=== PATIENT | male | born 1960 | race Caucasian/White ===

== ENCOUNTER 2020-10-08 13:18 | Emergency (ER) | payer OTHER, SELFPAY ==
[2020-10-08 13:26] VITALS: BP 137/74; PULSE 98; RESP 18; TEMP 37.1; O2SAT 98; BMI 31.1
--- NOTE | 2020-10-08 14:41 | DI.RAD.S_ITS ---
PROCEDURE: XR FOOT LT MIN 3V INDICATIONS: pain/swelling to 1st MTP joint TECHNIQUE: 3 views of the foot were acquired. COMPARISON: None. FINDINGS: Bones: No fractures or dislocations. No suspicious bony lesions. First metatarsophalangeal joint space narrowing and subchondral sclerosis noted with small marginal osteophyte. Small plantar calcaneal spur noted as well. Soft tissues: No tibiotalar joint effusion. Achilles tendon appears normal. IMPRESSION: [id number] 1st metatarsophalangeal joint osteoarthritis Approved by: Valente Leslie M.D. on 10/08/2020 at 15:03
--- NOTE | 2020-10-08 14:42 | ED.EXTPRO ---
HPI - Extremity Problem <Amari Grimes PA-C - Last Filed: 10/08/20 18:36> General Chief complaint: Extremity Problem,Nontraumatic Stated complaint: LT LEG SWELLING Time Seen by Provider: 10/08/20 14:28 Source: patient Mode of arrival: Wheelchair Limitations: no limitations History of Present Illness HPI Narrative: Mr. Vanegas presents today with chief complaint of left great toe swelling and lower leg pain that started yesterday evening and has gotten worse today. He is now having significant pain with walking or with touching that area. 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 He denies any fever, calf pain, chest pain, shortness of breath or any other acute concerns or complaints at this time. Denies any previous history of blood clots. He has not taken any medication to help alleviate his symptoms at this time. Related Data Home Medications Medication Instructions Recorded Confirmed atorvastatin 20 mg tablet 20 mg PO DAILY 05/01/18 05/01/18 glipizide 5 mg tablet 5 mg PO DAILY 05/01/18 05/01/18 metformin 500 mg 24 hr 500 mg PO BID tab 05/01/18 05/01/18 tablet,extended release Previous Rx's Medication Instructions Recorded colchicine 0.6 mg capsule 0.6 mg PO DAILY PRN #10 cap 10/08/20 naproxen 500 mg tablet 500 mg PO BID PRN #20 tab 10/08/20 Allergies Allergy/AdvReac Type Severity Reaction Status Date / Time Penicillins Allergy Severe Rash Verified 10/08/20 13:25 Review of Systems <Amari Grimes PA-C - Last Filed: 10/08/20 18:36> Review of Systems Narrative: As per HPI Patient History <Amari Grimes PA-C - Last Filed: 10/08/20 18:36> Social History Smoking Status: Former smoker Smokeless tobacco user: chewing tobacco quit status: considering quitting Smoking Status: Former smoker tobacco type: smokeless tobacco alcohol intake frequency: holidays/special occasions only Substance Use Type: does not use Exam <Amari Grimes PA-C - Last Filed: 10/08/20 18:36> Narrative Exam Narrative: Exam Narrative: Const General: cooperative, healthy appearing, comfortable, no acute distress, well developed and well groomed Nutritional Appearance: Elevated BMI Orientation: alert and oriented x3 HENMT Head: normal to inspection and atraumatic Ears: hearing grossly normal bilaterally Nose: external nose normal and nares normal Face and sinus: normal facial exam Neck Neck: normal visual inspection and supple Resp Effort & Inspection: normal respiratory effort, able to speak in complete sentences, no audible wheezes, not labored, no nasal flaring and no respiratory distress Neuro General: alert, oriented x3, gait normal, tone normal and moves all extremities Cognition: normal cognition Speech: speech normal Gait: normal gait Extremities Lower extremities exposed. No calf tenderness or pedal edema bilaterally. Erythema, swelling and tenderness to the left MTP joint. He is able to range his toe but has pain in doing so. No streaking noted. No significant over warmth. Psych Appearance: grossly normal and well kempt Mental Status: mental status grossly normal Speech and Movement: speech and movement normal Mood: congruent mood Affect: normal affect Initial Vital Signs Initial Vital Signs: Vital Signs Temperature 98.7 F 10/08/20 13:26 Pulse Rate 98 H 10/08/20 13:26 Respiratory Rate 18 10/08/20 13:26 Blood Pressure 137/74 10/08/20 13:26 Pulse Oximetry 98 10/08/20 13:26 <Mary Jenkins MD - Last Filed: 10/09/20 09:18> Initial Vital Signs Initial Vital Signs: Vital Signs Temperature 98.7 F 10/08/20 13:26 Pulse Rate 98 H 10/08/20 13:26 Respiratory Rate 18 10/08/20 13:26 Blood Pressure 137/74 10/08/20 13:26 Pulse Oximetry 98 10/08/20 13:26 Course <Amari Grimes PA-C - Last Filed: 10/08/20 18:36> Orders Ordered: Discontinued Medications Ketorolac Tromethamine (Ketorolac 30 Mg/Ml Vial) 15 mg IV NOW ONE Stop: 10/08/20 16:16 Last Admin: 10/08/20 16:22 Dose: 15 mg Documented by: RACHAEL Vital Signs Vital signs: Vital Signs - 8 hr 10/08/20 13:26 10/08/20 16:30 Temperature 98.7 F Pulse Rate 98 H 98 H Respiratory Rate 18 16 Blood Pressure 137/74 152/112 H Pulse Oximetry 98 100 <Mary Jenkins MD - Last Filed: 10/09/20 09:18> Orders Ordered: Discontinued Medications Ketorolac Tromethamine (Ketorolac 30 Mg/Ml Vial) 15 mg IV NOW ONE Stop: 10/08/20 16:16 Last Admin: 10/08/20 16:22 Dose: 15 mg Documented by: RACHAEL Vital Signs Vital signs: Vital Signs - 8 hr 10/08/20 13:26 10/08/20 16:30 Temperature 98.7 F Pulse Rate 98 H 98 H Respiratory Rate 18 16 Blood Pressure 137/74 152/112 H Pulse Oximetry 98 100 MDM - Extremity (Nontraumatic) <Amrai Grimes PA-C - Last Filed: 10/08/20 18:36> Lab Data Result diagrams: 10/08/20 15:00 10/08/20 15:00 Labs: Lab Results 10/08/20 10/08/20 10/08/20 Range/Units 15:00 15:00 15:30 WBC 10.6 (4.5-11.0) X10^3/uL RBC 5.04 (4.5-5.9) X10^6/uL Hgb 13.7 (13.5-17.5) g/dL Hct 41.5 (41-53) % MCV 82.4 (80-100) fL MCH 27.2 (26-34) PG MCHC 33.1 (30-36) % RDW 13.3 (11.6-14.8) % Plt Count 199 (150-400) X10^3/uL Neut % (Auto) 76.6 H (50-75) % Lymph % (Auto) 14.6 L (25-40) % [place] % (Auto) 7.0 (3-14) % Eos % (Auto) 0.9 L (2-4) % Baso % (Auto) 0.9 (0-2) % Neut # (Auto) 8200 H (4288-4156) /uL Lymph # (Auto) 1600 (4896-9722) /uL [place] # (Auto) 700 (0-900) /uL Eos # (Auto) 100 (0-450) /uL Baso # (Auto) 100 (0-100) /uL D-Dimer 225 (<230) ng/mL Sodium 140 (137-145) mmol/L Potassium 4.6 (3.4-5.1) mmol/L Chloride 108 H (98-107) mmol/L Carbon Dioxide 25 (22-32) mmol/L BUN 21 H (9-20) mg/dL Creatinine 0.71 (0.66-1.25) mg/dL Estimated GFR > 60.0 (>60) mL/min BUN/Creatinine Ratio 29.6 H (6-22) Glucose 235 H (70-100) mg/dL Calcium 9.1 (8.4-10.2) mg/dL Total Bilirubin 0.7 (0.2-1.3) mg/dL AST 24 (17-59) IU/L ALT 16 (<50) IU/L Alkaline Phosphatase 94 (38-126) U/L Total Protein 7.8 (6.3-8.2) g/dL Albumin 4.3 (3.5-5.0) g/dL Globulin 3.5 (1.7-4.1) g/dL Albumin/Globulin Ratio 1.2 (1.0-2.8) MDM Narrative Medical decision making narrative: Physical examination and history is highly consistent with gout. Laboratory evaluation is reassuring at this time. We will treat with colchicine and NSAIDs. Steroids are going to be avoided at this time because of his history of diabetes. A consider septic arthropathy but think that this is less likely at this time. Cellulitis was also considered but there is no significant break in the skin and the area swelling is isolated around 1st MTP joint. He was experiencing some discomfort up his posterior lower leg that was unable to be reproduced on physical examination. D-dimer was checked to rule out DVT and that came back within normal limits. Recommend treatment for gout at this time with strict return precautions. Signs and symptoms of GI bleed were discussed with patient. Patient verbalizes understanding and agrees to plan and has no further concerns at this time. Thank you A [id number] system was used with the dictation of this note. Please disregard any spelling or grammatical errors. <Mary Jenkins MD - Last Filed: 10/09/20 09:18> Lab Data Labs: Lab Results 10/08/20 10/08/20 10/08/20 Range/Units 15:00 15:00 15:30 WBC 10.6 (4.5-11.0) X10^3/uL RBC 5.04 (4.5-5.9) X10^6/uL Hgb 13.7 (13.5-17.5) g/dL Hct 41.5 (41-53) % MCV 82.4 (80-100) fL MCH 27.2 (26-34) PG MCHC 33.1 (30-36) % RDW 13.3 (11.6-14.8) % Plt Count 199 (150-400) X10^3/uL Neut % (Auto) 76.6 H (50-75) % Lymph % (Auto) 14.6 L (25-40) % [place] % (Auto) 7.0 (3-14) % Eos % (Auto) 0.9 L (2-4) % Baso % (Auto) 0.9 (0-2) % Neut # (Auto) 8200 H (0887-1223) /uL Lymph # (Auto) 1600 (1259-6312) /uL [place] # (Auto) 700 (0-900) /uL Eos # (Auto) 100 (0-450) /uL Baso # (Auto) 100 (0-100) /uL D-Dimer 225 (<230) ng/mL Sodium 140 (137-145) mmol/L Potassium 4.6 (3.4-5.1) mmol/L Chloride 108 H (98-107) mmol/L Carbon Dioxide 25 (22-32) mmol/L BUN 21 H (9-20) mg/dL Creatinine 0.71 (0.66-1.25) mg/dL Estimated GFR > 60.0 (>60) mL/min BUN/Creatinine Ratio 29.6 H (6-22) Glucose 235 H (70-100) mg/dL Calcium 9.1 (8.4-10.2) mg/dL Total Bilirubin 0.7 (0.2-1.3) mg/dL AST 24 (17-59) IU/L ALT 16 (<50) IU/L Alkaline Phosphatase 94 (38-126) U/L Total Protein 7.8 (6.3-8.2) g/dL Albumin 4.3 (3.5-5.0) g/dL Globulin 3.5 (1.7-4.1) g/dL Albumin/Globulin Ratio 1.2 (1.0-2.8) Discharge Plan Departure Patient Disposition: Home Clinical Impression: Monoarthritis Instructions: Gout Activity Restrictions/Additional Instructions: It was nice to meet you this afternoon. Please use the medication provided to treat your joint pain. I suspect that this is gout. Please follow-up with your primary care provider for continued management. If you experience fever, worsening pain, decreased range of motion, or have any additional concerns or complaints do not hesitate to return for re-evaluation. Thank you Amari Grimes PA-C Prescriptions: New colchicine 0.6 mg capsule 0.6 mg PO DAILY PRN (Reason: for gout pain) Qty: 10 RF: 0 naproxen 500 mg tablet 500 mg PO BID PRN (Reason: pain) Qty: 20 RF: 0 No Action atorvastatin 20 mg tablet 20 mg PO DAILY RF: 0 glipizide 5 mg tablet 5 mg PO DAILY RF: 0 metformin 500 mg tablet,ER [email or web address] 24 hr 500 mg PO BID RF: 0 <Mary Jenkins MD - Last Filed: 10/09/20 09:18> Cosign ED Attending Cosignature Attestation: I was immediately available in the department for consultation throughout this patient's visit. I agree with documentation as above. Mary Jenkins MD
[2020-10-08 15:08] LABS: Add Manual Diff / Slide Review NO; Basophils Absolute Auto 100 /uL (0-100); Basophils Percent Auto 0.9 % (0-2); Eosinophils Absolute Auto 100 /uL (0-450); Eosinophils Percent Auto 0.9 % (2-4); Hematocrit 41.5 % (41-53); Hemoglobin 13.7 g/dL (13.5-17.5); Lymphocytes Absolute Auto 1600 /uL (1100-4500); Lymphocytes Percent Auto 14.6 % (25-40); Mean Corpuscular HGB Conc 33.1 % (30-36); Mean Corpuscular Hemoglobin 27.2 PG (26-34); Mean Corpuscular Volume 82.4 fL (80-100); Monocytes Absolute Auto 700 /uL (0-900); Neutrophils Absolute Auto 8200 /uL (1500-7000); Neutrophils Percent Auto 76.6 % (50-75); Platelet Count 199 X10^3/uL (150-400); Red Blood Cell Count 5.04 X10^6/uL (4.5-5.9); Red Cell Distribution Width 13.3 % (11.6-14.8); White Blood Cell Count 10.6 X10^3/uL (4.5-11.0)
[2020-10-08 15:18] LABS: Alanine Aminotransferase 16 IU/L (<50); Albumin 4.3 g/dL (3.5-5.0); Albumin Globulin Ratio 1.2 (1.0-2.8); Alkaline Phosphatase 94 U/L (38-126); Aspartate Aminotransferase 24 IU/L (17-59); BUN Creatinine Ratio 29.6 (6-22); Bilirubin Total 0.7 mg/dL (0.2-1.3); Blood Urea Nitrogen 21 mg/dL (9-20); Calcium 9.1 mg/dL (8.4-10.2); Carbon Dioxide 25 mmol/L (22-32); Chloride 108 mmol/L (98-107); Estimated Glomerular Filt Rate > 60.0 mL/min (>60); Globulin 3.5 g/dL (1.7-4.1); Glucose 235 mg/dL (70-100); Potassium 4.6 mmol/L (3.4-5.1); Sodium 140 mmol/L (137-145); Total Protein 7.8 g/dL (6.3-8.2)
[2020-10-08 15:19] LABS: HEMOLYSIS 57 (0-50)
[2020-10-08 16:00] LABS: D Dimer 225 ng/mL (<230)
[2020-10-08] MEDS: KETOROLAC 30 MG/ML VIAL 15 MG IV (16:22)
[2020-10-08 16:30] VITALS: BP 152/112; PULSE 98; RESP 16; O2SAT 100
== END 2020-10-08 16:30 | disposition home or self-care (01) ==
PROVIDERS: Emergency Provider Physician Assistant
DX: M10.9 Gout, unspecified (principal); M13.172 Monoarthritis, not elsewhere classified, left ankle and foot
CPT/HCPCS: 36415; 73630; 80053; 85025; 85379; 96374; 99284; J1885

== ENCOUNTER 2020-10-12 08:41 | Emergency (ER) | payer OTHER, SELFPAY ==
[2020-10-12] VITALS (7 sets, daily range): BP systolic 104–107; BP diastolic 71–73; PULSE 98–104; RESP 18; TEMP 36.4; O2SAT 97–99; BMI 31.1
--- NOTE | 2020-10-12 08:55 | DI.RAD.S_ITS ---
PROCEDURE: XR FOOT LT MIN 3V INDICATIONS: cellulitis eval for FB TECHNIQUE: 3 views of the foot were acquired. COMPARISON: [facility], CR, XR FOOT LT MIN 3V, 10/08/2020, 15:21. FINDINGS: Bones: No fractures or dislocations. No suspicious bony lesions. No change from 4 days ago, no foreign body identified. Soft tissues: No tibiotalar joint effusion. Achilles tendon appears normal. IMPRESSION: A radiodense foreign body is not seen over the left foot. There is moderate 1st MTP joint degenerative osteoarthritis previously present on the initial plain film study from this month, 10/08/20. No osteomyelitis or gas in the soft tissues is seen. Dictated by: Stephen Brooks M.D. on 10/12/2020 at 9:18 Approved by: Stephen Brooks M.D. on 10/12/2020 at 9:19
--- NOTE | 2020-10-12 08:58 | ED_ITS ---
HPI - General Adult General Chief complaint: Extremity Injury, Lower Stated complaint: Left foot infection recheck Time Seen by Provider: 10/12/20 08:43 History of Present Illness HPI narrative: Patient is a 60-year-old male. Has been seen recently a couple times for redness located on his left toe. There was no specific trauma. Initially he was diagnosed with gout and treated as such. He states that over the past couple days his symptoms have worsened. There has been more redness. He has developed what appeared to be blood blisters in between his great and 2nd toe. No fevers. The redness has started to stand up his foot. He has not been on antibiotics. Went to walk-in clinic this morning was instructed to come to the emergency department for evaluation. 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 This is unchanged. Related Data Home Medications Medication Instructions Recorded Confirmed atorvastatin 20 mg tablet 20 mg PO DAILY 05/01/18 05/01/18 glipizide 5 mg tablet 5 mg PO DAILY 05/01/18 05/01/18 metformin 500 mg 24 hr 500 mg PO BID tab 05/01/18 05/01/18 tablet,extended release Previous Rx's Medication Instructions Recorded colchicine 0.6 mg capsule 0.6 mg PO DAILY PRN #10 cap 10/08/20 naproxen 500 mg tablet 500 mg PO BID PRN #20 tab 10/08/20 Allergies Allergy/AdvReac Type Severity Reaction Status Date / Time Penicillins Allergy Severe Rash Verified 10/08/20 13:25 Review of Systems Constitutional Comments: No fevers Musculoskeletal Musculoskeletal: Reports as per HPI Integumentary/Breasts Skin/Breast: Reports as per HPI Neurologic Neurologic: Reports as per HPI Hematologic/Lymphatic On Anticoagulants: No Patient History Medical History Diabetes Social History Smoking Status: Former smoker Smokeless tobacco user: chewing tobacco quit status: considering quitting Smoking Status: Former smoker tobacco type: smokeless tobacco alcohol intake frequency: holidays/special occasions only Substance Use Type: does not use Exam Initial Vital Signs Initial Vital Signs: Vital Signs Temperature 97.5 F L 10/12/20 08:45 Pulse Rate 104 H 10/12/20 08:45 Respiratory Rate 18 10/12/20 08:45 Blood Pressure 107/71 10/12/20 08:45 Pulse Oximetry 97 10/12/20 08:45 Const General: cooperative and comfortable HENMT Head: normal to inspection Cardio Pulses: dorsalis pedis present on the left Skin Other: Patient has redness that extends from his great 2nd and 3rd toe on the medial aspect of his foot up into the mid foot. There is an area of what appears to be purulent material on the medial aspect of the great toe. There is also a blood blister in between the great and 2nd toe. Neuro Other: Does have some decreased sensation however this is not new Extrem Other: Full range of motion of the left ankle. Psych Appearance: grossly normal and well kempt Procedures Abscess I/D I&D #1: Site: foot Side (if applicable): left Technique: incised with #11 blade Irrigation: No Packing used?: none Course Orders Ordered: ED Orders 10/12/20 08:55 XR foot LT min 3V Stat Basic Metabolic Panel Stat Complete Blood Count AUTO DIFF Stat Lactate (Lactic Acid) Stat Procalcitonin Stat Uric Acid Stat Discontinued Medications Lidocaine/Sodium Bicarbonate (Lido 1%/Sod Bicarb 8.4% (10ml) 10 Ml Syringe) 10 ml INJ NOW ONE Stop: 10/12/20 08:56 Last Admin: 10/12/20 09:15 Dose: 10 ml Documented by: SHIREEN Vital Signs Vital signs: Vital Signs - 8 hr 10/12/20 08:45 10/12/20 08:58 10/12/20 09:00 Temperature 97.5 F L Pulse Rate 104 H 100 H 98 H Respiratory Rate 18 Blood Pressure 107/71 Pulse Oximetry 97 98 99 10/12/20 09:30 10/12/20 10:00 10/12/20 10:29 Temperature Pulse Rate 100 H 104 H 103 H Respiratory Rate Blood Pressure 104/73 Pulse Oximetry 99 99 99 10/12/20 10:30 Temperature Pulse Rate 103 H Respiratory Rate Blood Pressure Pulse Oximetry 99 Medical Decision Making Medical Records Medical records reviewed: Yes I reviewed the patient's medical records. Lab Data Lab results reviewed: Yes I reviewed the patient's lab results. Result diagrams: 10/12/20 08:55 10/12/20 08:55 Labs: Lab Results 10/12/20 10/12/20 10/12/20 Range/Units 08:55 08:55 08:55 WBC 18.8 H (4.5-11.0) X10^3/uL RBC 4.70 (4.5-5.9) X10^6/uL Hgb 12.7 L (13.5-17.5) g/dL Hct 38.3 L (41-53) % MCV 81.5 (80-100) fL MCH 26.9 (26-34) PG MCHC 33.1 (30-36) % RDW 13.7 (11.6-14.8) % Plt Count 231 (150-400) X10^3/uL Neut % (Auto) 88.4 H (50-75) % Lymph % (Auto) 4.6 L (25-40) % [place] % (Auto) 6.6 (3-14) % Eos % (Auto) 0.0 L (2-4) % Baso % (Auto) 0.4 (0-2) % Neut # (Auto) 55704 H (4829-8906) /uL Lymph # (Auto) 900 L (6616-3216) /uL [place] # (Auto) 1200 H (0-900) /uL Eos # (Auto) 0 (0-450) /uL Baso # (Auto) 100 (0-100) /uL Sodium 135 L (137-145) mmol/L Potassium 4.1 (3.4-5.1) mmol/L Chloride 102 (98-107) mmol/L Carbon Dioxide 23 (22-32) mmol/L BUN 19 (9-20) mg/dL Creatinine 0.98 (0.66-1.25) mg/dL Estimated GFR > 60.0 (>60) mL/min BUN/Creatinine Ratio 19.4 (6-22) Glucose 280 H (70-100) mg/dL Lactate 1.6 (0.7-2.1) mmol/L Uric Acid (3.5-8.5) mg/dL Calcium 9.1 (8.4-10.2) mg/dL Procalcitonin 0.32 (<0.5) ng/mL 10/12/20 Range/Units 08:55 WBC (4.5-11.0) X10^3/uL RBC (4.5-5.9) X10^6/uL Hgb (13.5-17.5) g/dL Hct (41-53) % MCV (80-100) fL MCH (26-34) PG MCHC (30-36) % RDW (11.6-14.8) % Plt Count (150-400) X10^3/uL Neut % (Auto) (50-75) % Lymph % (Auto) (25-40) % [place] % (Auto) (3-14) % Eos % (Auto) (2-4) % Baso % (Auto) (0-2) % Neut # (Auto) (6572-6728) /uL Lymph # (Auto) (4776-5970) /uL [place] # (Auto) (0-900) /uL Eos # (Auto) (0-450) /uL Baso # (Auto) (0-100) /uL Sodium (137-145) mmol/L Potassium (3.4-5.1) mmol/L Chloride (98-107) mmol/L Carbon Dioxide (22-32) mmol/L BUN (9-20) mg/dL Creatinine (0.66-1.25) mg/dL Estimated GFR (>60) mL/min BUN/Creatinine Ratio (6-22) Glucose (70-100) mg/dL Lactate (0.7-2.1) mmol/L Uric Acid 4.0 (3.5-8.5) mg/dL Calcium (8.4-10.2) mg/dL Procalcitonin (<0.5) ng/mL Imaging Data Extremity x-ray #1: Radiologist's Impression: [address] [id number] ReportSigned Patient: Larry Vanegas WMR#: [id number]: 1960cct:[id number]/Sex: 60 / MDate of Service: 10/12/20Loc: EDAccession Number: [id number] Procedure: XR foot LT min 3V Ordering Provider: Edward Mandel D.O. PROCEDURE: XR FOOT LT MIN 3V INDICATIONS: cellulitis eval for FB TECHNIQUE: 3 views of the foot were acquired. [facility]21. FINDINGS: Bones: No fractures or dislocations. No suspicious bony lesions. No change from 4 days ago, no foreign body identified. Soft tissues: No tibiotalar joint effusion. Achilles tendon appears normal. IMPRESSION: A radiodense foreign body is not seen over the left foot. There is moderate 1st MTP joint degenerative osteoarthritis previously present on the initial plain film study from this month, 10/08/20. No osteomyelitis or gas in the soft tissues is seen. Dictated by: Stephen Brooks M.D. on 10/12/2020 at 9:18 Approved by: Stephen Brooks M.D. on 10/12/2020 at 9:19 [facility] Narrative Medical decision making narrative: Patient does have findings on his left lower extremity consistent with cellulitis. I have lower suspicion for gout today. I did incise the wound is a was able to get a very small amount of purulent material from the area. Afterwards he stated that his foot did feel somewhat better. He is currently on antibiotics but has been on them for just 24 hours. Had a long discussion with him regarding the symptoms. We did discuss that potentially he does has not been on the antibiotics for long enough verses having failed outpatient treatment. We did discuss being admitted to the hospital versus going home and continuing his antibiotics and returning if symptoms worsen. He is nontoxic appearing. The plan will be is to discharge the patient home and have him continue his antibiotics. He was informed that if he was feeling the outpatient treatment his symptoms are most likely going to worsen over the next 24-48 hours. If this happens he will return to the emergency department for further evaluation. Discharge Plan Departure Patient Disposition: Home Clinical Impression: Cellulitis Instructions: DI for Cellulitis -- Adult Activity Restrictions/Additional Instructions: Your labs today and also your physical exam is concerning for a skin infection called cellulitis. He were currently on an appropriate antibiotic for this. I recommend that you continue to take this antibiotic. The next 24-48 hours will determine whether not this antibiotic is working for your infection. If you start to get worsening symptoms or fevers or start to feel poorly please return to the emergency department. If the redness worsens during the next 1-2 days please return to the emergency department as well. Contact your primary doctor for follow-up. Continue all of your medications as directed. Prescriptions: No Action atorvastatin 20 mg tablet 20 mg PO DAILY RF: 0 glipizide 5 mg tablet 5 mg PO DAILY RF: 0 metformin 500 mg tablet,ER [email or web address] 24 hr 500 mg PO BID RF: 0 colchicine 0.6 mg capsule 0.6 mg PO DAILY PRN (Reason: for gout pain) Qty: 10 RF: 0 naproxen 500 mg tablet 500 mg PO BID PRN (Reason: pain) Qty: 20 RF: 0
[2020-10-12 09:06] LABS: Add Manual Diff / Slide Review NO; Basophils Absolute Auto 100 /uL (0-100); Basophils Percent Auto 0.4 % (0-2); Eosinophils Absolute Auto 0 /uL (0-450); Hematocrit 38.3 % (41-53); Hemoglobin 12.7 g/dL (13.5-17.5); Lymphocytes Absolute Auto 900 /uL (1100-4500); Lymphocytes Percent Auto 4.6 % (25-40); Mean Corpuscular HGB Conc 33.1 % (30-36); Mean Corpuscular Hemoglobin 26.9 PG (26-34); Mean Corpuscular Volume 81.5 fL (80-100); Monocytes Absolute Auto 1200 /uL (0-900); Monocytes Percent Auto 6.6 % (3-14); Neutrophils Absolute Auto 16600 /uL (1500-7000); Neutrophils Percent Auto 88.4 % (50-75); Platelet Count 231 X10^3/uL (150-400); Red Cell Distribution Width 13.7 % (11.6-14.8); White Blood Cell Count 18.8 X10^3/uL (4.5-11.0)
[2020-10-12] MEDS: LIDO 1%/SOD BICARB 8.4% (10ML) 10 ML SYRINGE INJ (09:15)
[2020-10-12 09:19] LABS: BUN Creatinine Ratio 19.4 (6-22); Blood Urea Nitrogen 19 mg/dL (9-20); Calcium 9.1 mg/dL (8.4-10.2); Carbon Dioxide 23 mmol/L (22-32); Chloride 102 mmol/L (98-107); Estimated Glomerular Filt Rate > 60.0 mL/min (>60); Glucose 280 mg/dL (70-100); HEMOLYSIS < 15 (0-50); Potassium 4.1 mmol/L (3.4-5.1); Sodium 135 mmol/L (137-145)
[2020-10-12 09:20] LABS: Lactate (Lactic Acid) 1.6 mmol/L (0.7-2.1)
[2020-10-12 09:36] LABS: Procalcitonin 0.32 ng/mL (<0.5)
== END 2020-10-12 10:30 | disposition home or self-care (01) ==
PROVIDERS: Emergency Provider Emergency Medicine
DX: L03.116 Cellulitis of left lower limb (principal)
CPT/HCPCS: 10060; 36415; 73630; 80048; 83605; 84145; 84550; 85025; 99284

== ENCOUNTER 2020-10-16 09:39 | Inpatient (IN) | payer OTHER, SELFPAY ==
[2020-10-16] VITALS (14 sets, daily range): BP systolic 106–159; BP diastolic 64–91; PULSE 82–92; RESP 16–30; TEMP 36.1–36.9; O2SAT 92–100; BMI 29.1; BMI 29.0
--- NOTE | 2020-10-16 09:54 | ED.LOWEXIN ---
HPI - Extremity Injury (Lower) General Chief Complaint: Wound/Laceration Stated Complaint: infected left foot Time Seen by Provider: 10/16/20 09:54 History of Present Illness HPI Narrative: The patient has experienced left foot pain and swelling for approximately 2 weeks. He has history of gout. Information started around left 1st MTP joint, he was felt have gout exacerbation. He returned 4 days later with a widened erythema. He was treated for cellulitis. He has pictures of necrotic tissue around the 1st MTP as well as cellulitis extending up the leg. In the interim between the visits here he was started on antibiotics. It is unclear which antibiotic he is using. There was an attempt at a wound culture with the 2nd ER visit, no microbiology data is available. The site was opened with the 2nd visit, there was a little bit of fluid inside. The wound is now much wider open, but apparently the erythema is decreasing. He is having purulent discharge come out the site with every step. He is diabetic, he is not monitoring his glucose at home. Related Data Home Medications Medication Instructions Recorded Confirmed acetaminophen 500 mg tablet 1,000 mg PO Q8-12H 10/16/20 10/16/20 ibuprofen 200 mg tablet 400 mg PO Q8-12H 10/16/20 10/16/20 naproxen 500 mg tablet 500 mg PO BID PRN 10/16/20 10/16/20 sulfamethoxazole 800 1 tab PO BID 10/16/20 10/16/20 mg-trimethoprim 160 mg tablet Allergies Allergy/AdvReac Type Severity Reaction Status Date / Time Penicillins Allergy Severe Rash Verified 10/08/20 13:25 Review of Systems Constitutional Constitutional: Denies chills and Denies fever(s) ENT Ears, Nose, Mouth, and Throat: Denies dizziness and Denies sore throat Comments: No headache. Cardiovascular Cardiovascular: Denies chest pain, Denies rapid heart rate and Denies dyspnea Respiratory Respiratory: Denies cough and Denies dyspnea Musculoskeletal Musculoskeletal: Reports as per HPI Neurologic Neurologic: Denies dizziness and Denies localized weakness Psychiatric Psychiatric: Reports system reviewed and no additional complaints, except as documented Hematologic/Lymphatic On Anticoagulants: No Patient History Medical History Diabetes Social History Smoking Status: Former smoker Smokeless tobacco user: chewing tobacco quit status: considering quitting Smoking Status: Former smoker tobacco type: smokeless tobacco alcohol intake frequency: holidays/special occasions only Substance Use Type: does not use Exam Initial Vital Signs Initial Vital Signs: Vital Signs Temperature 98.4 F 10/16/20 09:50 Pulse Rate 90 10/16/20 09:50 Respiratory Rate 18 10/16/20 09:50 Blood Pressure 106/74 10/16/20 09:50 Pulse Oximetry 99 10/16/20 09:50 Const General: cooperative, comfortable, well developed and well groomed [facility] Head: normocephalic and atraumatic Resp Auscultation: clear to auscultation bilaterally Cardio Rate: regular rate Rhythm: regular rhythm Heart Sounds: S1 normal, S2 normal and no murmurs Other: 1+ bilateral dorsalis pedis pulses. GI Inspection: normal to inspection Skin General: other Other: Left foot cellulitis. Erythema originating around the 1st MTP. There is a flap of skin, likely an abscess or blister. There is an ecchymotic cyst on the dorsal foot between the 1st and 2nd MTP joint. Within the open wound there is a fluctuant area of necrotic tissue with pre and fluid that can be expressed from the site. Erythema exist on left medial foot, dorsal foot, and up across the medial malleolus. There is slight edema foot, no edema on the ankle. Neuro General: patient alert, patient awake, patient oriented x3 and normal sensation to monofilament Motor: muscle tone normal throughout Sensory Exam: no sensory deficits noted Course Course Course Narrative: The patient has left foot cellulitis, at the least. Cultures were obtained. He was started on Vancomycin and Meropenem. CT showed air in the wound, no obvious abscess formation or osteomyelitis. It is noted that MRI is more sensitive. The case was discussed with hospitalist, Dr. Guo, and Ortho, Dr. Howe. Dr. murry would be the admitting physician, Dr. Howe will see the patient consultation. Orders Ordered: ED Orders 10/16/20 10:14 CT LE LT wo con Stat 10/16/20 10:15 C-Reactive Protein Quant Stat Complete Blood Count AUTO DIFF Stat Comprehensive Metabolic Panel Stat 10/16/20 10:20 Blood Culture Stat 10/16/20 10:41 COVID19 - ADMIT (JEWEL SAWYER swab/PCR) Stat Wound Culture and Gram Stain Stat 10/16/20 11:20 Lactate (Lactic Acid) Stat Vancomycin HCl/Dextrose (Vancomycin) 1,500 mg in 300 mls @ 200 mls/hr IV NOW ONE Stop: 10/16/20 13:00 Last Admin: 10/16/20 11:35 Dose: 200 mls/hr Documented by: Discontinued Medications Meropenem 2 gm/ Sodium (Chloride) 100 mls @ 200 mls/hr IV NOW ONE Stop: 10/16/20 11:32 Last Admin: 10/16/20 12:04 Dose: 200 mls/hr Documented by: Vital Signs Vital signs: Vital Signs - 8 hr 10/16/20 09:50 10/16/20 10:43 10/16/20 11:00 Temperature 98.4 F Pulse Rate 90 92 H 87 Respiratory Rate 18 18 20 Blood Pressure 106/74 156/86 H Pulse Oximetry 99 97 100 10/16/20 11:22 10/16/20 11:30 Temperature Pulse Rate 84 89 Respiratory Rate 18 26 H Blood Pressure 149/81 H 159/89 H Pulse Oximetry 99 99 MDM - Extremity Injury (Lower) Lab Data Result diagrams: 10/16/20 10:15 10/16/20 10:15 Labs: Lab Results 10/16/20 10/16/20 10/16/20 Range/Units 10:15 10:15 10:41 WBC 13.4 H (4.5-11.0) X10^3/uL RBC 4.63 (4.5-5.9) X10^6/uL Hgb 12.6 L (13.5-17.5) g/dL Hct 38.1 L (41-53) % MCV 82.2 (80-100) fL MCH 27.1 (26-34) PG MCHC 33.0 (30-36) % RDW 13.9 (11.6-14.8) % Plt Count 321 (150-400) X10^3/uL Neut % (Auto) 78.4 H (50-75) % Lymph % (Auto) 10.1 L (25-40) % [place] % (Auto) 9.4 (3-14) % Eos % (Auto) 1.3 L (2-4) % Baso % (Auto) 0.8 (0-2) % Lymph # (Auto) Not Reportable [place] # (Auto) Not Reportable Baso # (Auto) Not Reportable Total Counted Cancelled Seg Neutrophils % Cancelled Band Neutrophils % Cancelled Lymphocytes % (Manual) Cancelled Atypical Lymphs % Cancelled Monocytes % (Manual) Cancelled Eosinophils % (Manual) Cancelled Basophils % (Manual) Cancelled Metamyelocytes % Cancelled Myelocytes % Cancelled Promyelocytes % Cancelled Blast Cells % Cancelled Neutrophils # (Manual) Cancelled Nucleated RBCs Cancelled Differential Comment Cancelled Hypersegmented Neuts Cancelled Reactive Lymphocytes Cancelled Plasma Cells Cancelled Smudge Cells Cancelled Other Cell Type Cancelled Toxic Granulation Cancelled Toxic Vacuolation Cancelled Dohle Bodies Cancelled Zeina Rods Cancelled WBC Morphology Comment Cancelled Platelet Estimate Cancelled Clumped Platelets Cancelled Plt Morphology Comment Cancelled RBC Morphology Cancelled Dimorphic RBCs Cancelled Polychromasia Cancelled Hypochromasia Cancelled Poikilocytosis Cancelled Basophilic Stippling Cancelled Anisocytosis Cancelled Microcytosis Cancelled Macrocytosis Cancelled Spherocytes Cancelled Pappenheimer Bodies Cancelled Sickle Cells Cancelled Target Cells Cancelled Tear Drop Cells Cancelled Ovalocytes Cancelled Stomatocytes Cancelled Helmet Cells Cancelled [place] Bodies Cancelled [place] Rings Cancelled [place] Cells Cancelled Acanthocytes (Spur) Cancelled Rouleaux Cancelled Schistocytes Cancelled Sodium 136 L (137-145) mmol/L Potassium 4.2 (3.4-5.1) mmol/L Chloride 101 (98-107) mmol/L Carbon Dioxide 25 (22-32) mmol/L BUN 13 (9-20) mg/dL Creatinine 1.04 (0.66-1.25) mg/dL Estimated GFR > 60.0 (>60) mL/min BUN/Creatinine Ratio 12.5 (6-22) Glucose 296 H (70-100) mg/dL Lactate (0.7-2.1) mmol/L Calcium 9.5 (8.4-10.2) mg/dL Total Bilirubin 0.5 (0.2-1.3) mg/dL AST 40 (17-59) IU/L ALT 36 (<50) IU/L Alkaline Phosphatase 197 H D (38-126) U/L C-Reactive Protein 19.0 H (<1.0) mg/dL Total Protein 7.8 (6.3-8.2) g/dL Albumin 4.0 (3.5-5.0) g/dL Globulin 3.8 (1.7-4.1) g/dL Albumin/Globulin Ratio 1.1 (1.0-2.8) SARS-CoV-2 (PCR) Negative (Negative) 10/16/20 Range/Units 11:20 WBC (4.5-11.0) X10^3/uL RBC (4.5-5.9) X10^6/uL Hgb (13.5-17.5) g/dL Hct (41-53) % MCV (80-100) fL MCH (26-34) PG MCHC (30-36) % RDW (11.6-14.8) % Plt Count (150-400) X10^3/uL Neut % (Auto) (50-75) % Lymph % (Auto) (25-40) % [place] % (Auto) (3-14) % Eos % (Auto) (2-4) % Baso % (Auto) (0-2) % Lymph # (Auto) [place] # (Auto) Baso # (Auto) Total Counted Seg Neutrophils % Band Neutrophils % Lymphocytes % (Manual) Atypical Lymphs % Monocytes % (Manual) Eosinophils % (Manual) Basophils % (Manual) Metamyelocytes % Myelocytes % Promyelocytes % Blast Cells % Neutrophils # (Manual) Nucleated RBCs Differential Comment Hypersegmented Neuts Reactive Lymphocytes Plasma Cells Smudge Cells Other Cell Type Toxic Granulation Toxic Vacuolation Dohle Bodies Zeina Rods WBC Morphology Comment Platelet Estimate Clumped Platelets Plt Morphology Comment RBC Morphology Dimorphic RBCs Polychromasia Hypochromasia Poikilocytosis Basophilic Stippling Anisocytosis Microcytosis Macrocytosis Spherocytes Pappenheimer Bodies Sickle Cells Target Cells Tear Drop Cells Ovalocytes Stomatocytes Helmet Cells [place] Bodies [place] Rings [place] Cells Acanthocytes (Spur) Rouleaux Schistocytes Sodium (137-145) mmol/L Potassium (3.4-5.1) mmol/L Chloride (98-107) mmol/L Carbon Dioxide (22-32) mmol/L BUN (9-20) mg/dL Creatinine (0.66-1.25) mg/dL Estimated GFR (>60) mL/min BUN/Creatinine Ratio (6-22) Glucose (70-100) mg/dL Lactate 1.6 (0.7-2.1) mmol/L Calcium (8.4-10.2) mg/dL Total Bilirubin (0.2-1.3) mg/dL AST (17-59) IU/L ALT (<50) IU/L Alkaline Phosphatase (38-126) U/L C-Reactive Protein (<1.0) mg/dL Total Protein (6.3-8.2) g/dL Albumin (3.5-5.0) g/dL Globulin (1.7-4.1) g/dL Albumin/Globulin Ratio (1.0-2.8) SARS-CoV-2 (PCR) (Negative) Imaging Data Left foot CT: Radiologist's Impression: [address] [id number] Scan ReportSigned Patient: Larry Vanegas WMR#: [id number]: 2Acct:[id number]/Sex: 60 / MDate of Service: 10/16/20Loc: EDAccession Number: [id number] Procedure: CT LE LT wo con Ordering Provider: Stuart Childers MD PROCEDURE: CT LE LT W CON INDICATIONS: Suspect left foot osteomyelitis versus abscess. TECHNIQUE: Noncontrast 3-mm axial sections acquired from the left tibia and fibula, as well as the left foot and ankle, with coronal and sagittal reformats.. COMPARISON: None. FINDINGS: Image quality: Excellent. Bones: No fracture or osseous lesion. Joint space narrowing and periarticular osteophyte formation at the 1st metatarsophalangeal joint. Soft tissues: There is moderate diffuse deep and subcutaneous soft tissue fat stranding and edema. There is soft tissue gas within the plantar soft tissues adjacent to the 1st and 2nd metatarsal heads. IMPRESSION: 1. Diffuse subcutaneous edema versus cellulitis. 2. Soft tissue gas within the plantar soft tissues as described above, which could indicate infection with a gas-forming organism in the appropriate clinical setting. 3. No evidence of osteomyelitis. Bone scan or pre and post-contrast enhanced MRI is more sensitive for detection of osteomyelitis. Dictated by: Yvonne Leung M.D. on 10/16/2020 at 11:00 Approved by: Yvonne Leung M.D. on 10/16/2020 at 11:04 Critical Care Time Critical Care Time Critical Care Time: Yes Total Critical Care Time: 35 Attestation: Critical care time includes the initial evaluation of the patient, review of past medical records, labs and radiology data, and informing the patient of the clinical situation. Time included consultations of the admitting physician and consulting orthopedic surgeon. Discharge Plan Departure Patient Disposition: Admitted As Inpatient Clinical Impression: Cellulitis of foot, left, Type 2 diabetes mellitus Admit Date/Time: 10/16/20 11:41 Admit Provider: Jones Guo
--- NOTE | 2020-10-16 10:14 | DI.CT.S_ITS ---
PROCEDURE: CT LE LT W CON INDICATIONS: Suspect left foot osteomyelitis versus abscess. TECHNIQUE: Noncontrast 3-mm axial sections acquired from the left tibia and fibula, as well as the left foot and ankle, with coronal and sagittal reformats.. COMPARISON: None. FINDINGS: Image quality: Excellent. Bones: No fracture or osseous lesion. Joint space narrowing and periarticular osteophyte formation at the 1st metatarsophalangeal joint. Soft tissues: There is moderate diffuse deep and subcutaneous soft tissue fat stranding and edema. There is soft tissue gas within the plantar soft tissues adjacent to the 1st and 2nd metatarsal heads. IMPRESSION: 1. Diffuse subcutaneous edema versus cellulitis. 2. Soft tissue gas within the plantar soft tissues as described above, which could indicate infection with a gas-forming organism in the appropriate clinical setting. 3. No evidence of osteomyelitis. Bone scan or pre and post-contrast enhanced MRI is more sensitive for detection of osteomyelitis. Dictated by: Yvonne Leung M.D. on 10/16/2020 at 11:00 Approved by: Yvonne Leung M.D. on 10/16/2020 at 11:04
[2020-10-16 10:27] LABS: Hematocrit 38.1 % (41-53); Hemoglobin 12.6 g/dL (13.5-17.5); Mean Corpuscular Hemoglobin 27.1 PG (26-34); Mean Corpuscular Volume 82.2 fL (80-100); Platelet Count 321 X10^3/uL (150-400); Red Blood Cell Count 4.63 X10^6/uL (4.5-5.9); Red Cell Distribution Width 13.9 % (11.6-14.8); White Blood Cell Count 13.4 X10^3/uL (4.5-11.0)
[2020-10-16 10:43] LABS: Alanine Aminotransferase 36 IU/L (<50); Albumin Globulin Ratio 1.1 (1.0-2.8); Alkaline Phosphatase 197 U/L (38-126); Aspartate Aminotransferase 40 IU/L (17-59); BUN Creatinine Ratio 12.5 (6-22); Bilirubin Total 0.5 mg/dL (0.2-1.3); Blood Urea Nitrogen 13 mg/dL (9-20); Calcium 9.5 mg/dL (8.4-10.2); Carbon Dioxide 25 mmol/L (22-32); Chloride 101 mmol/L (98-107); Estimated Glomerular Filt Rate > 60.0 mL/min (>60); Globulin 3.8 g/dL (1.7-4.1); Glucose 296 mg/dL (70-100); HEMOLYSIS < 15 (0-50); Potassium 4.2 mmol/L (3.4-5.1); Sodium 136 mmol/L (137-145); Total Protein 7.8 g/dL (6.3-8.2)
[2020-10-16 10:45] LABS: Eosinophils Percent Auto 1.3 % (2-4); Lymphocytes Percent Auto 10.1 % (25-40); Monocytes Percent Auto 9.4 % (3-14); Neutrophils Percent Auto 78.4 % (50-75)
[2020-10-16 10:46] LABS: Add Manual Diff / Slide Review NO; Basophils Percent Auto 0.8 % (0-2)
[2020-10-16 11:35] LABS: COVID19 - ADMIT (NP swab/PCR) Negative (Negative)
[2020-10-16] MEDS: VANCOMYCIN 1,500 MG/300 ML PIGGYBACK 200 MG IV ×2 (11:35→23:40)
[2020-10-16 11:39] LABS: Lactate (Lactic Acid) 1.6 mmol/L (0.7-2.1)
[2020-10-16] MEDS: MEROPENEM 2 GM in SODIUM CHLORIDE 0.9% 100 ML 200 ML IV ×2 (12:04→18:17)
--- NOTE | 2020-10-16 13:03 | P.CONS_ITS ---
History of Present Illness Consult details Chief complaint: infected left foot Narrative: Mr. Vanegas is a 60 yo M with 1 week hx of worsening left foot infection after stepping on something. He does not know when or what he stepped on. He has been coming to ED over the last week for treatment. Some local I&D was done and he was placed on oral antibiotics. Today he returns for worsening swelling, pain, redness and drainage from his left foot. He has poorly controlled diabetes. He is being admitted to medicine for IV antibiotics and ortho service is consulted. Meds Home Medications and Allergies Home Medications Medication Instructions Recorded Confirmed Type acetaminophen 500 mg tablet 1,000 mg PO Q8-12H 10/16/20 10/16/20 History ibuprofen 200 mg tablet 400 mg PO Q8-12H 10/16/20 10/16/20 History naproxen 500 mg tablet 500 mg PO BID PRN 10/16/20 10/16/20 History sulfamethoxazole 800 1 tab PO BID 10/16/20 10/16/20 History mg-trimethoprim 160 mg tablet Allergies Allergy/AdvReac Type Severity Reaction Status Date / Time Penicillins Allergy Severe Rash Verified 10/08/20 13:25 Exam Vital Signs (past 8 hours): - 10/16/20 09:50 10/16/20 10:43 10/16/20 11:00 Temperature 98.4 F Pulse Rate 90 92 H 87 Respiratory Rate 18 18 20 Blood Pressure 106/74 156/86 H Pulse Oximetry 99 97 100 10/16/20 11:22 10/16/20 11:30 10/16/20 12:00 Temperature Pulse Rate 84 89 87 Respiratory Rate 18 26 H 26 H Blood Pressure 149/81 H 159/89 H 154/91 H Pulse Oximetry 99 99 99 10/16/20 12:30 Temperature Pulse Rate 83 Respiratory Rate 24 Blood Pressure 146/85 H Pulse Oximetry 97 Oxygen Delivery Method Room Air Extrem Other: left foot with erythema up to above the ankle level. There is macerated skin on the plantar part of left foot and in between his toes. There is spontaneous drainage of his wound between his toes and plantar aspect. He has no ankle pain with ROM. Objective Labs Result Diagrams: 10/16/20 10:15 10/16/20 10:15 Labs: Laboratory Results - last 24 hr 10/16/20 10/16/20 10/16/20 10:15 10:15 10:41 WBC 13.4 H RBC 4.63 Hgb 12.6 L Hct 38.1 L MCV 82.2 MCH 27.1 MCHC 33.0 RDW 13.9 Plt Count 321 Neut % (Auto) 78.4 H Lymph % (Auto) 10.1 L [place] % (Auto) 9.4 Eos % (Auto) 1.3 L Baso % (Auto) 0.8 Lymph # (Auto) Not Reportable [place] # (Auto) Not Reportable Baso # (Auto) Not Reportable Total Counted Cancelled Seg Neutrophils % Cancelled Band Neutrophils % Cancelled Lymphocytes % (Manual) Cancelled Atypical Lymphs % Cancelled Monocytes % (Manual) Cancelled Eosinophils % (Manual) Cancelled Basophils % (Manual) Cancelled Metamyelocytes % Cancelled Myelocytes % Cancelled Promyelocytes % Cancelled Blast Cells % Cancelled Neutrophils # (Manual) Cancelled Nucleated RBCs Cancelled Differential Comment Cancelled Hypersegmented Neuts Cancelled Reactive Lymphocytes Cancelled Plasma Cells Cancelled Smudge Cells Cancelled Other Cell Type Cancelled Toxic Granulation Cancelled Toxic Vacuolation Cancelled Dohle Bodies Cancelled Zeina Rods Cancelled WBC Morphology Comment Cancelled Platelet Estimate Cancelled Clumped Platelets Cancelled Plt Morphology Comment Cancelled RBC Morphology Cancelled Dimorphic RBCs Cancelled Polychromasia Cancelled Hypochromasia Cancelled Poikilocytosis Cancelled Basophilic Stippling Cancelled Anisocytosis Cancelled Microcytosis Cancelled Macrocytosis Cancelled Spherocytes Cancelled Pappenheimer Bodies Cancelled Sickle Cells Cancelled Target Cells Cancelled Tear Drop Cells Cancelled Ovalocytes Cancelled Stomatocytes Cancelled Helmet Cells Cancelled [place] Bodies Cancelled [place] Rings Cancelled Gabrielle Cells Cancelled Acanthocytes (Spur) Cancelled Rouleaux Cancelled Schistocytes Cancelled Sodium 136 L Potassium 4.2 Chloride 101 Carbon Dioxide 25 BUN 13 Creatinine 1.04 Estimated GFR > 60.0 BUN/Creatinine Ratio 12.5 Glucose 296 H Lactate Calcium 9.5 Total Bilirubin 0.5 AST 40 ALT 36 Alkaline Phosphatase 197 H D C-Reactive Protein 19.0 H Total Protein 7.8 Albumin 4.0 Globulin 3.8 Albumin/Globulin Ratio 1.1 SARS-CoV-2 (PCR) Negative 10/16/20 11:20 WBC RBC Hgb Hct MCV MCH MCHC RDW Plt Count Neut % (Auto) Lymph % (Auto) [place] % (Auto) Eos % (Auto) Baso % (Auto) Lymph # (Auto) [place] # (Auto) Baso # (Auto) Total Counted Seg Neutrophils % Band Neutrophils % Lymphocytes % (Manual) Atypical Lymphs % Monocytes % (Manual) Eosinophils % (Manual) Basophils % (Manual) Metamyelocytes % Myelocytes % Promyelocytes % Blast Cells % Neutrophils # (Manual) Nucleated RBCs Differential Comment Hypersegmented Neuts Reactive Lymphocytes Plasma Cells Smudge Cells Other Cell Type Toxic Granulation Toxic Vacuolation Dohle Bodies Zeina Rods WBC Morphology Comment Platelet Estimate Clumped Platelets Plt Morphology Comment RBC Morphology Dimorphic RBCs Polychromasia Hypochromasia Poikilocytosis Basophilic Stippling Anisocytosis Microcytosis Macrocytosis Spherocytes Pappenheimer Bodies Sickle Cells Target Cells Tear Drop Cells Ovalocytes Stomatocytes Helmet Cells [place] Bodies [place] Rings Gabrielle Cells Acanthocytes (Spur) Rouleaux Schistocytes Sodium Potassium Chloride Carbon Dioxide BUN Creatinine Estimated GFR BUN/Creatinine Ratio Glucose Lactate 1.6 Calcium Total Bilirubin AST ALT Alkaline Phosphatase C-Reactive Protein Total Protein Albumin Globulin Albumin/Globulin Ratio SARS-CoV-2 (PCR) Assessment & Plan Assessment & Plan narrative: 60 yo M with left foot cellulitis, spontaneously draining wound after an injury to his left foot a week ago. His glucose was [address] shows cellulitis w/o evidence of abscess that is surgically treatable. I recommend IV antibiotics. Consult wound care for diabetic foot care daily while in the hospital and possible once set up for antibiotic therapy on outpatient basis. Patient may benefit from MRI left foot w/ and w/o constrast to assess for possible osteomyelitis. Will follow and re-evaluate tomorrow.
[2020-10-16 17:15] LABS: Hemoglobin A1C% w Est Avg Glu 10.9 % (4.0-6.0)
--- NOTE | 2020-10-16 17:43 | P.HP_ITS ---
History of Present Illness History of Present Illness Date Patient Seen: 10/16/20 Time Patient Seen: 17:00 Date of Onset of Symptoms: 10/08/20 Chief complaint: infected left foot Narrative: Patient is a 60-year-old male with untreated diabetes type 2 who presents back to emergency department with concerns of left foot infection. He was initially on October 08 when he noticed redness and swelling and pain around the left big toe. He was diagnosed with acute gout and sent home on naproxen and colchicine. Over next few days patient developed fevers and chills and the appearance of foot worsened with increased redness and bruising dis coloration resulting in 2nd ER visit on the . This time his labs and appearance of foot were more consistent with infection. White blood cell noted 18.8. ER physician thought there might be a collection of pus under the left 1st metatarsal and performed a small I and D. However, there is no report of Gram stain or culture result from that visit. Patient was started on Bactrim on the . He came back to emergency department today because he noticed there was forming a lot of skin sloughing and drainage from his foot. On ER labs current visit there is improvement in his WBC to 13.4. Glucose was 269. A CT contrast study was done which showed diffuse subcu edema, soft tissue gas within plantar soft tissues, no evidence of osteomyelitis. Ortho service was asked to consult and patient admitted to the hospitalist service for treatment of left foot infection. Patient was having fevers and chills earlier this week but has not had fevers the last few days since on oral antibiotic. Denies nausea or vomiting, shortness of breath or cough. Patient gets his care through the [facility]. Prior to start of COVID last year he was on Lantus 55 units at night. However, he was unable to reach [facility] to get his [facility] renewed and has been without medication for the past year. Patient states he tried metformin in the past and got diarrhea. He has not been monitoring blood sugars. He denies neuropathy. Patient's family history is positive for diabetes in mom and multiple siblings. He works at [employer]. Patient History Medical History Diabetes Family & Social History Social History: household members none Prior Living Arrangements RV Safety & Behavioral: Feels Safe in Current Yes Environment Been Physically Hurt or No Threatened By a Person Suicidal Ideation Description None Suicide Plan Description No Plan Tobacco & Substance use: Tobacco type smokeless tobacco Smoking Status Former smoker alcohol intake frequency holiday/special occasion Substance Use Type does not use Meds Home Medications and Allergies Home Medications Medication Instructions Recorded Confirmed Type acetaminophen 500 mg tablet 1,000 mg PO Q8-12H 10/16/20 10/16/20 History ibuprofen 200 mg tablet 400 mg PO Q8-12H 10/16/20 10/16/20 History naproxen 500 mg tablet 500 mg PO BID PRN 10/16/20 10/16/20 History sulfamethoxazole 800 1 tab PO BID 10/16/20 10/16/20 History mg-trimethoprim 160 mg tablet Allergies Allergy/AdvReac Type Severity Reaction Status Date / Time Penicillins Allergy Severe Rash Verified 10/08/20 13:25 Review of Systems Review of Systems Narrative: Negative for chest pain, dyspnea, headache, palpitations, abdominal pain, nausea or vomiting, dysuria. Exam Vital Signs (past 8 hours): - 10/16/20 09:50 10/16/20 10:43 10/16/20 11:00 Temperature 98.4 F Pulse Rate 90 92 H 87 Respiratory Rate 18 18 20 Blood Pressure 106/74 156/86 H Pulse Oximetry 99 97 100 10/16/20 11:22 10/16/20 11:30 10/16/20 12:00 Temperature Pulse Rate 84 89 87 Respiratory Rate 18 26 H 26 H Blood Pressure 149/81 H 159/89 H 154/91 H Pulse Oximetry 99 99 99 10/16/20 12:30 10/16/20 13:00 10/16/20 13:30 Temperature Pulse Rate 83 86 82 Respiratory Rate 24 30 H 21 Blood Pressure 146/85 H 150/77 H 129/81 Pulse Oximetry 97 98 98 10/16/20 14:00 Temperature 97 F L Pulse Rate 86 Respiratory Rate 22 Blood Pressure 112/74 Pulse Oximetry 92 Oxygen Delivery Method Room Air Narrative Exam Narrative: General: Patient is well developed well nourished alert male in no acute distress HEENT: Anicteric, pupils equal and reactive Neck: No lymphadenopathy Heart: Regular rhythm without murmur Lungs: Clear to auscultation Abdomen: Soft, nontender, no HSM Extremities: The left foot is swollen and diffusely erythematous to above the ankle. There are confluency areas of skin maceration and sloughing over the distal dorsal foot extending to the plantar 1st metatarsal area as well as between the 1st and 2nd and 2nd and 3rd toes. There is spontaneous serous drainage from the plantar surface and between the toes. Light touch sensation is intact. There is no significant tenderness. Objective Labs Result Diagrams: 10/16/20 10:15 10/16/20 10:15 Labs: Laboratory Results - last 24 hr 10/16/20 10/16/20 10/16/20 10:15 10:15 10:15 WBC 13.4 H RBC 4.63 Hgb 12.6 L Hct 38.1 L MCV 82.2 MCH 27.1 MCHC 33.0 RDW 13.9 Plt Count 321 Neut % (Auto) 78.4 H Lymph % (Auto) 10.1 L [place] % (Auto) 9.4 Eos % (Auto) 1.3 L Baso % (Auto) 0.8 Lymph # (Auto) Not Reportable [place] # (Auto) Not Reportable Baso # (Auto) Not Reportable Total Counted Cancelled Seg Neutrophils % Cancelled Band Neutrophils % Cancelled Lymphocytes % (Manual) Cancelled Atypical Lymphs % Cancelled Monocytes % (Manual) Cancelled Eosinophils % (Manual) Cancelled Basophils % (Manual) Cancelled Metamyelocytes % Cancelled Myelocytes % Cancelled Promyelocytes % Cancelled Blast Cells % Cancelled Neutrophils # (Manual) Cancelled Nucleated RBCs Cancelled Differential Comment Cancelled Hypersegmented Neuts Cancelled Reactive Lymphocytes Cancelled Plasma Cells Cancelled Smudge Cells Cancelled Other Cell Type Cancelled Toxic Granulation Cancelled Toxic Vacuolation Cancelled Dohle Bodies Cancelled Zeina Rods Cancelled WBC Morphology Comment Cancelled Platelet Estimate Cancelled Clumped Platelets Cancelled Plt Morphology Comment Cancelled RBC Morphology Cancelled Dimorphic RBCs Cancelled Polychromasia Cancelled Hypochromasia Cancelled Poikilocytosis Cancelled Basophilic Stippling Cancelled Anisocytosis Cancelled Microcytosis Cancelled Macrocytosis Cancelled Spherocytes Cancelled Pappenheimer Bodies Cancelled Sickle Cells Cancelled Target Cells Cancelled Tear Drop Cells Cancelled Ovalocytes Cancelled Stomatocytes Cancelled Helmet Cells Cancelled [place] Bodies Cancelled [place] Rings Cancelled [place] Cells Cancelled Acanthocytes (Spur) Cancelled Rouleaux Cancelled Schistocytes Cancelled Sodium 136 L Potassium 4.2 Chloride 101 Carbon Dioxide 25 BUN 13 Creatinine 1.04 Estimated GFR > 60.0 BUN/Creatinine Ratio 12.5 Glucose 296 H Hemoglobin A1c 10.9 H Lactate Calcium 9.5 Total Bilirubin 0.5 AST 40 ALT 36 Alkaline Phosphatase 197 H D C-Reactive Protein 19.0 H Total Protein 7.8 Albumin 4.0 Globulin 3.8 Albumin/Globulin Ratio 1.1 SARS-CoV-2 (PCR) 10/16/20 10/16/20 10:41 11:20 WBC RBC Hgb Hct MCV MCH MCHC RDW Plt Count Neut % (Auto) Lymph % (Auto) [place] % (Auto) Eos % (Auto) Baso % (Auto) Lymph # (Auto) [place] # (Auto) Baso # (Auto) Total Counted Seg Neutrophils % Band Neutrophils % Lymphocytes % (Manual) Atypical Lymphs % Monocytes % (Manual) Eosinophils % (Manual) Basophils % (Manual) Metamyelocytes % Myelocytes % Promyelocytes % Blast Cells % Neutrophils # (Manual) Nucleated RBCs Differential Comment Hypersegmented Neuts Reactive Lymphocytes Plasma Cells Smudge Cells Other Cell Type Toxic Granulation Toxic Vacuolation Dohle Bodies Zeina Rods WBC Morphology Comment Platelet Estimate Clumped Platelets Plt Morphology Comment RBC Morphology Dimorphic RBCs Polychromasia Hypochromasia Poikilocytosis Basophilic Stippling Anisocytosis Microcytosis Macrocytosis Spherocytes Pappenheimer Bodies Sickle Cells Target Cells Tear Drop Cells Ovalocytes Stomatocytes Helmet Cells [place] Bodies [place] Rings Gabrielle Cells Acanthocytes (Spur) Rouleaux Schistocytes Sodium Potassium Chloride Carbon Dioxide BUN Creatinine Estimated GFR BUN/Creatinine Ratio Glucose Hemoglobin A1c Lactate 1.6 Calcium Total Bilirubin AST ALT Alkaline Phosphatase C-Reactive Protein Total Protein Albumin Globulin Albumin/Globulin Ratio SARS-CoV-2 (PCR) Negative Assessment & Plan Assessment & Plan narrative: 1. Left foot cellulitis -patient with significant areas of erythema and skin maceration/superficial sloughing of the left foot -CT report indicated diffuse subcutaneous edema and areas of soft tissue gas -Dr. Howe saw patient for ortho consult and does not see abscess that requires surgical drainage -I agree with ortho exam this appears clinically as a superficial soft tissue infection without evidence of deep abscess or osteomyelitis, additionally patient has been on oral Bactrim since October 12 with decrease in his WBC and no longer having fevers suggesting some clinical response to oral antibiotic -patient was started on vancomycin and meropenem in ED with already improvement in left foot erythema -continue vancomycin and meropenem for treatment of left foot cellulitis, I suspect patient may need 1 or 2 days of IV antibiotics to make sure infection under control before discharge home back on Bactrim -apply mupirocin ointment with gauze dressing b.i.d. to left foot -[facility] appointment [facility] after discharge 2. Type 2 diabetes -glucose 296, check hemoglobin A1c -patient previously on Lantus 55 units HS prescribed through [facility] -restart Lantus 40 units at bedtime -medium dose insulin correction a.c. HS -patient requests to send prescription for 90 day Lantus Solostar supply and pen needles to [facility] pharmacy until patient can reestablish with his provider DVT prophylaxis: Lovenox Surrogate decision maker: Spouse Quality VTE Deep Vein Thrombosis/Pulmonary Embolism Present on Admission: No
[2020-10-16] MEDS: INSULIN GLARGINE 100 UNIT/ML 3ML PEN 40 UNIT SUBCUT (22:07)
[2020-10-16] MEDS: INSULIN LISPRO 100 UNIT/ML 3ML VIAL SUBCUT (22:09)
--- NOTE | 2020-10-16 22:20 | PC.NURSE ---
wrapped lt. foot with gauze. ointment not available.
[2020-10-17] VITALS (15 sets, daily range): BP systolic 105–148; BP diastolic 77–98; PULSE 84–103; RESP 16–18; TEMP 36.3–36.9; O2SAT 93–98
[2020-10-17] MEDS: MEROPENEM 2 GM in SODIUM CHLORIDE 0.9% 100 ML 200 ML IV ×3 (01:28→17:02)
[2020-10-17] MEDS: MAG HYDROX/ALUM/SIMETH 30 ML UDC PO (03:52)
[2020-10-17 05:58] LABS: Add Manual Diff / Slide Review NO; Basophils Absolute Auto 100 /uL (0-100); Basophils Percent Auto 0.6 % (0-2); Eosinophils Absolute Auto 400 /uL (0-450); Eosinophils Percent Auto 3.9 % (2-4); Hematocrit 33.3 % (41-53); Hemoglobin 11.1 g/dL (13.5-17.5); Lymphocytes Absolute Auto 1600 /uL (1100-4500); Lymphocytes Percent Auto 15.1 % (25-40); Mean Corpuscular HGB Conc 33.3 % (30-36); Mean Corpuscular Hemoglobin 27.2 PG (26-34); Mean Corpuscular Volume 81.7 fL (80-100); Monocytes Absolute Auto 1300 /uL (0-900); Monocytes Percent Auto 11.8 % (3-14); Neutrophils Absolute Auto 7400 /uL (1500-7000); Neutrophils Percent Auto 68.6 % (50-75); Platelet Count 309 X10^3/uL (150-400); Red Blood Cell Count 4.08 X10^6/uL (4.5-5.9); Red Cell Distribution Width 13.7 % (11.6-14.8); White Blood Cell Count 10.7 X10^3/uL (4.5-11.0)
[2020-10-17 06:12] LABS: BUN Creatinine Ratio 18.6 (6-22); Blood Urea Nitrogen 16 mg/dL (9-20); Calcium 8.8 mg/dL (8.4-10.2); Carbon Dioxide 27 mmol/L (22-32); Chloride 103 mmol/L (98-107); Estimated Glomerular Filt Rate > 60.0 mL/min (>60); Glucose 212 mg/dL (70-100); HEMOLYSIS < 15 (0-50); Potassium 4.4 mmol/L (3.4-5.1); Sodium 137 mmol/L (137-145)
[2020-10-17] MEDS: INSULIN LISPRO 100 UNIT/ML 3ML VIAL SUBCUT ×4 (08:40→21:27)
[2020-10-17] MEDS: ENOXAPARIN 40 MG/0.4 ML SYRINGE SUBCUT (08:43)
--- NOTE | 2020-10-17 08:44 | P.PN_ITS ---
Subjective Subjective Date Patient Seen: 10/17/20 Time Patient Seen: 08:46 Interval history: Of the patient's pain is mild, he feels he is improving significantly. He denies any recent fevers or chills, although he notes he had chills on Saturday this would last week. No nausea or vomiting. The patient is otherwise without complaints. Exam Vital Signs (past 8 hours): - 10/17/20 03:00 10/17/20 03:45 10/17/20 07:38 Temperature 97.8 F Pulse Rate 85 Respiratory Rate 18 Blood Pressure 134/77 Pulse Oximetry 97 97 97 Oxygen Delivery Method Room Air Oxygen Flow Rate 0 Narrative Exam Narrative: Pleasant 60-year-old, resting comfortably in bed, no acute distress. The left foot is swollen. There is diffuse erythema to above the ankle, with a line for demarcation. The erythema has not spread beyond the line, and is in fact receiving somewhat. There are areas of skin maceration and sloughing over the distal dorsal foot extending to the plantar 1st metatarsal area as well as between the 1st and 2nd and 2nd and 3rd toes, with overlying skin flaps. There is serous drainage from the plantar surface and between the toes with manual pressure. Light touch sensation is intact. There is no significant tenderness. Objective Labs Result Diagrams: 10/17/20 05:17 10/17/20 05:17 Labs: Laboratory Results - last 24 hr 10/16/20 10/16/20 10/16/20 10:15 10:15 10:15 WBC 13.4 H RBC 4.63 Hgb 12.6 L Hct 38.1 L MCV 82.2 MCH 27.1 MCHC 33.0 RDW 13.9 Plt Count 321 Neut % (Auto) 78.4 H Lymph % (Auto) 10.1 L [place] % (Auto) 9.4 Eos % (Auto) 1.3 L Baso % (Auto) 0.8 Neut # (Auto) Lymph # (Auto) Not Reportable [place] # (Auto) Not Reportable Eos # (Auto) Baso # (Auto) Not Reportable Total Counted Cancelled Seg Neutrophils % Cancelled Band Neutrophils % Cancelled Lymphocytes % (Manual) Cancelled Atypical Lymphs % Cancelled Monocytes % (Manual) Cancelled Eosinophils % (Manual) Cancelled Basophils % (Manual) Cancelled Metamyelocytes % Cancelled Myelocytes % Cancelled Promyelocytes % Cancelled Blast Cells % Cancelled Neutrophils # (Manual) Cancelled Nucleated RBCs Cancelled Differential Comment Cancelled Hypersegmented Neuts Cancelled Reactive Lymphocytes Cancelled Plasma Cells Cancelled Smudge Cells Cancelled Other Cell Type Cancelled Toxic Granulation Cancelled Toxic Vacuolation Cancelled Dohle Bodies Cancelled Zeina Rods Cancelled WBC Morphology Comment Cancelled Platelet Estimate Cancelled Clumped Platelets Cancelled Plt Morphology Comment Cancelled RBC Morphology Cancelled Dimorphic RBCs Cancelled Polychromasia Cancelled Hypochromasia Cancelled Poikilocytosis Cancelled Basophilic Stippling Cancelled Anisocytosis Cancelled Microcytosis Cancelled Macrocytosis Cancelled Spherocytes Cancelled Pappenheimer Bodies Cancelled Sickle Cells Cancelled Target Cells Cancelled Tear Drop Cells Cancelled Ovalocytes Cancelled Stomatocytes Cancelled Helmet Cells Cancelled [place] Bodies Cancelled [place] Rings Cancelled [place] Cells Cancelled Acanthocytes (Spur) Cancelled Rouleaux Cancelled Schistocytes Cancelled Sodium 136 L Potassium 4.2 Chloride 101 Carbon Dioxide 25 BUN 13 Creatinine 1.04 Estimated GFR > 60.0 BUN/Creatinine Ratio 12.5 Glucose 296 H Hemoglobin A1c 10.9 H Lactate Calcium 9.5 Total Bilirubin 0.5 AST 40 ALT 36 Alkaline Phosphatase 197 H D C-Reactive Protein 19.0 H Total Protein 7.8 Albumin 4.0 Globulin 3.8 Albumin/Globulin Ratio 1.1 SARS-CoV-2 (PCR) 10/16/20 10/16/20 10/17/20 10:41 11:20 05:17 WBC 10.7 RBC 4.08 L Hgb 11.1 L Hct 33.3 L MCV 81.7 MCH 27.2 MCHC 33.3 RDW 13.7 Plt Count 309 Neut % (Auto) 68.6 Lymph % (Auto) 15.1 L [place] % (Auto) 11.8 Eos % (Auto) 3.9 Baso % (Auto) 0.6 Neut # (Auto) 7400 H Lymph # (Auto) 1600 [place] # (Auto) 1300 H Eos # (Auto) 400 Baso # (Auto) 100 Total Counted Seg Neutrophils % Band Neutrophils % Lymphocytes % (Manual) Atypical Lymphs % Monocytes % (Manual) Eosinophils % (Manual) Basophils % (Manual) Metamyelocytes % Myelocytes % Promyelocytes % Blast Cells % Neutrophils # (Manual) Nucleated RBCs Differential Comment Hypersegmented Neuts Reactive Lymphocytes Plasma Cells Smudge Cells Other Cell Type Toxic Granulation Toxic Vacuolation Dohle Bodies Zeina Rods WBC Morphology Comment Platelet Estimate Clumped Platelets Plt Morphology Comment RBC Morphology Dimorphic RBCs Polychromasia Hypochromasia Poikilocytosis Basophilic Stippling Anisocytosis Microcytosis Macrocytosis Spherocytes Pappenheimer Bodies Sickle Cells Target Cells Tear Drop Cells Ovalocytes Stomatocytes Helmet Cells [place] Bodies [place] Rings Gabrielle Cells Acanthocytes (Spur) Rouleaux Schistocytes Sodium Potassium Chloride Carbon Dioxide BUN Creatinine Estimated GFR BUN/Creatinine Ratio Glucose Hemoglobin A1c Lactate 1.6 Calcium Total Bilirubin AST ALT Alkaline Phosphatase C-Reactive Protein Total Protein Albumin Globulin Albumin/Globulin Ratio SARS-CoV-2 (PCR) Negative 10/17/20 05:17 WBC RBC Hgb Hct MCV MCH MCHC RDW Plt Count Neut % (Auto) Lymph % (Auto) [place] % (Auto) Eos % (Auto) Baso % (Auto) Neut # (Auto) Lymph # (Auto) [place] # (Auto) Eos # (Auto) Baso # (Auto) Total Counted Seg Neutrophils % Band Neutrophils % Lymphocytes % (Manual) Atypical Lymphs % Monocytes % (Manual) Eosinophils % (Manual) Basophils % (Manual) Metamyelocytes % Myelocytes % Promyelocytes % Blast Cells % Neutrophils # (Manual) Nucleated RBCs Differential Comment Hypersegmented Neuts Reactive Lymphocytes Plasma Cells Smudge Cells Other Cell Type Toxic Granulation Toxic Vacuolation Dohle Bodies Zeina Rods WBC Morphology Comment Platelet Estimate Clumped Platelets Plt Morphology Comment RBC Morphology Dimorphic RBCs Polychromasia Hypochromasia Poikilocytosis Basophilic Stippling Anisocytosis Microcytosis Macrocytosis Spherocytes Pappenheimer Bodies Sickle Cells Target Cells Tear Drop Cells Ovalocytes Stomatocytes Helmet Cells [place] Bodies [place] Rings Gabrielle Cells Acanthocytes (Spur) Rouleaux Schistocytes Sodium 137 Potassium 4.4 Chloride 103 Carbon Dioxide 27 BUN 16 Creatinine 0.86 Estimated GFR > 60.0 BUN/Creatinine Ratio 18.6 Glucose 212 H Hemoglobin A1c Lactate Calcium 8.8 Total Bilirubin AST ALT Alkaline Phosphatase C-Reactive Protein Total Protein Albumin Globulin Albumin/Globulin Ratio SARS-CoV-2 (PCR) [facility] Medical History Diabetes Social History household members: none Smoking Status: Former smoker Smokeless tobacco user: chewing tobacco quit status: considering quitting Assessment & Plan Assessment & Plan narrative: His glucose was 227 today, A1c is 10.9. I stressed the importance of following up with his primary care provider to get his diabetes under better control. CT shows cellulitis w/o evidence of abscess, which appears to be non operative Continue IV antibiotics, vancomycin and meropenem, while inpatient. Antibiotic regimen per hospitalist upon discharge, likely Bactrim. I stressed the importance of completing all antibiotics to the patient. Consult wound care for diabetic foot care daily while in the hospital. Patient may benefit from MRI left foot w/ and w/o constrast to assess for possible osteomyelitis. Will discussed possible MRI with Dr. Howe; however, the patient is improving symptomatically. Follow-up with Orthopaedics 1 week after discharge. Quality VTE Deep Vein Thrombosis/Pulmonary Embolism Present on Admission: No
[2020-10-17] MEDS: MUPIROCIN 22 GM OINT 1 APPLIC TOP ×2 (08:53→20:58)
[2020-10-17] MEDS: VANCOMYCIN 1,500 MG/300 ML PIGGYBACK 200 MG IV ×2 (11:17→23:50)
[2020-10-17 12:25] LABS: Erythrocyte Sedimentation Rate 81 MM/HR (0-15)
[2020-10-17 12:27] LABS: C-Reactive Protein Quant 14.4 mg/dL (<1.0)
--- NOTE | 2020-10-17 15:02 | P.PN_ITS ---
Subjective Subjective Date Patient Seen: 10/17/20 Time Patient Seen: 15:03 Interval history: 60 M with PMH of uncontrolled DM admitted with a LLE cellulitis with possible concern for osteomyelitis. Slightly improved today with antibiotic therapy, cultures done showing a Group B strep. Started on alina and vanco yesterday. Denies fever, chills. Still with some foot pain but generally improving today. Exam Vital Signs (past 8 hours): - 10/17/20 07:38 10/17/20 11:00 10/17/20 11:05 Pulse Oximetry 97 96 98 10/17/20 14:44 Pulse Oximetry 98 Oxygen Delivery Method Room Air Oxygen Flow Rate 0 Narrative Exam Narrative: General: Patient is well developed well nourished alert male in no acute distress HEENT: Anicteric, pupils equal and reactive Neck: No lymphadenopathy Heart: Regular rhythm without murmur Lungs: Clear to auscultation Abdomen: Soft, nontender, no HSM Extremities: The left foot is swollen and erythematous, though improved slightly compared to outlined areas. There are confluency areas of skin maceration and sloughing over the distal dorsal foot extending to the plantar 1st metatarsal area as well as between the 1st and 2nd and 2nd and 3rd toes. There is spontaneous serous drainage from the plantar surface and between the toes. Light touch sensation is intact. There is no significant tenderness. Objective Labs Result Diagrams: 10/17/20 05:17 10/17/20 05:17 Labs: Laboratory Results - last 24 hr 10/16/20 10/17/20 10/17/20 10:15 05:17 05:17 WBC 10.7 RBC 4.08 L Hgb 11.1 L Hct 33.3 L MCV 81.7 MCH 27.2 MCHC 33.3 RDW 13.7 Plt Count 309 Neut % (Auto) 68.6 Lymph % (Auto) 15.1 L [place] % (Auto) 11.8 Eos % (Auto) 3.9 Baso % (Auto) 0.6 Neut # (Auto) 7400 H Lymph # (Auto) 1600 [place] # (Auto) 1300 H Eos # (Auto) 400 Baso # (Auto) 100 ESR Sodium 137 Potassium 4.4 Chloride 103 Carbon Dioxide 27 BUN 16 Creatinine 0.86 Estimated GFR > 60.0 BUN/Creatinine Ratio 18.6 Glucose 212 H Hemoglobin A1c 10.9 H Calcium 8.8 C-Reactive Protein 10/17/20 10/17/20 11:43 11:43 WBC RBC Hgb Hct MCV MCH MCHC RDW Plt Count Neut % (Auto) Lymph % (Auto) [place] % (Auto) Eos % (Auto) Baso % (Auto) Neut # (Auto) Lymph # (Auto) [place] # (Auto) Eos # (Auto) Baso # (Auto) ESR 81 H Sodium Potassium Chloride Carbon Dioxide BUN Creatinine Estimated GFR BUN/Creatinine Ratio Glucose Hemoglobin A1c Calcium C-Reactive Protein 14.4 H [facility] Medical History Diabetes Social History household members: none Smoking Status: Former smoker Smokeless tobacco user: chewing tobacco quit status: considering quitting Assessment & Plan Assessment & Plan narrative: 1. Left foot cellulitis and possible osteomyelitis. -patient with significant areas of erythema and skin maceration/superficial sloughing of the left foot -CT report indicated diffuse subcutaneous edema and areas of soft tissue gas -Dr. Howe saw patient for ortho consult and does not see abscess that requires surgical drainage. Given significantly elevated inflammatory markers and continued erythema will get MRI to rule out any osteomyelitis. -patient was started on vancomycin and meropenem in ED with already improvement in left foot erythema, will continue pending MRI. Given culutres with Group B strep, narrow if MRI negative for involvement to ceftriaxone. Discharge on PO antibiotics if no bone involvement. -apply mupirocin ointment with gauze dressing b.i.d. to left foot -recommend wound care clinic appointment on discharge. 2. Type 2 diabetes -glucose 296, A1c 10.9% -patient previously on Lantus 55 units HS prescribed through [facility] -restarted Lantus 40 units at bedtime, will continue to adjust as needed. AM glucose 212 will continue to advance slowly. Increase tomorrow if sugars still uncontrolled. -medium dose insulin correction a.c. HS -patient requests to send prescription for 90 day Lantus Solostar supply and pen needles to [facility] pharmacy until patient can reestablish with his provider DVT prophylaxis: Lovenox Surrogate decision maker: Spouse Quality VTE Deep Vein Thrombosis/Pulmonary Embolism Present on Admission: No
--- NOTE | 2020-10-17 15:34 | PC.NURSE ---
Pt with improved symptoms, denies need for pain medication. Recieved orders for wound care consult. Notified wound clinic of orders. Bactroban placed on wound and wrapped in guaze this a.m. VSS, afebrile. Tolerating IV antibiotcs well, and able to ambulate around the room. MRI ordered and questionaiire completed, however MRI notifies RN that it will be completed tomorrow at 1030 a.m.
[2020-10-17] MEDS: INSULIN GLARGINE 100 UNIT/ML 3ML PEN 40 UNIT SUBCUT (20:53)
[2020-10-17] MEDS: ACETAMINOPHEN 325 MG TABLET 650 MG PO (20:54)
[2020-10-17] MEDS: SODIUM CHLORIDE 0.9% FLUSH 10 ML IV (20:59)
[2020-10-17 23:31] LABS: Vancomycin Trough 10.8 ug/mL (10-20)
[2020-10-18] VITALS (14 sets, daily range): BP systolic 105–118; BP diastolic 68–87; PULSE 86–107; RESP 16–18; TEMP 36.4–36.9; O2SAT 95–98
[2020-10-18] MEDS: VANCOMYCIN TROUGH 1 REQUEST MISC
[2020-10-18] MEDS: MEROPENEM 2 GM in SODIUM CHLORIDE 0.9% 100 ML 200 ML IV ×2 (01:53→08:56)
[2020-10-18] MEDS: MAG HYDROX/ALUM/SIMETH 30 ML UDC PO (04:56)
[2020-10-18] MEDS: INSULIN LISPRO 100 UNIT/ML 3ML VIAL SUBCUT ×3 (08:31→21:14)
[2020-10-18] MEDS: MUPIROCIN 22 GM OINT 1 APPLIC TOP ×2 (08:36→21:13)
[2020-10-18] MEDS: ENOXAPARIN 40 MG/0.4 ML SYRINGE SUBCUT (08:36)
[2020-10-18] MEDS: SODIUM CHLORIDE 0.9% FLUSH 10 ML IV ×3 (08:37→20:43)
[2020-10-18] MEDS: ACETAMINOPHEN 325 MG TABLET 650 MG PO (08:58)
[2020-10-18] MEDS: VANCOMYCIN 1,500 MG/300 ML PIGGYBACK 200 MG IV (11:19)
--- NOTE | 2020-10-18 15:01 | DI.MRI.S_ITS ---
PROCEDURE: MR LOWER LEG LT WO/W CON INDICATIONS: eval for possible osteomyelitis L foot TECHNIQUE: Noncontrast coronal T1 spin echo and STIR, sagittal T1 spin echo with fat saturation and STIR, axial T1 spin echo and T2 fast spin echo with fat saturation. After the administration of contrast, axial/sagittal/coronal T1 spin echo with fat saturation through the tibia/fibula. COMPARISON: [facility], CT, CT LE LT WO CON, 10/16/2020, 10:21. FINDINGS: Image quality: Excellent. Bones: The visualized bone marrow demonstrates normal signal on all sequences. The overlying cortex appears intact. No abnormal intraosseous enhancement. Soft tissues: There is diffuse circumferential edema involving the lower leg and hindfoot. No soft tissue masses are visualized. The scanned muscles demonstrate normal overall bulk and internal signal. No definite sub fascial signal changes seen at the level of the tibia/fibula. Subcutaneous tissues appear normal as well. No abscess seen. IMPRESSION: No specific marrow signal changes to suggest osteomyelitis of the tibia/fibula. Diffuse cellulitis involving the lower leg circumferentially, and visualized portions of the hindfoot. The area of forefoot soft tissue gas seen on the prior CT is not included on the current examination. Dictated by: Henry Hernandez M.D. on 10/18/2020 at 11:48 Approved by: Henry Hernandez M.D. on 10/18/2020 at 11:56
--- NOTE | 2020-10-18 15:18 | CM.DANOTE ---
DCP: Case received, EMR reviewed and met with patient. Life Partner, Jayjay Amezquita, was also in the room. Introduced self and role. Was able to obtain information regarding patient's baseline activity status and health information, prior to hospitalization. DCP assessment completed with information currently available. Patient is a 60 year old male who admitted on 10/16 to the care of the hospitalist team. PCP: None currently, but has an upcoming appt on 11/04, at [facility] here in [place]. Payer: confirmed: [facility]. Patient came to the hospital via private vehicle due to a wound sustained to his left foot. Patient was diagnosed with cellulitis. Patient is a diabetic, and is on insulin. MRI was completed today, but did not show foot, so will have to be repeated, to rule out osteomyelitis. Met with patient in his room. Jayjay was also in the room. He is independent at his baseline. He resides in [place] at his mother's home, and his significant other also lives in [place]. 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 He has no current provider, he mentioned that he used to go to [facility] before the pandemic, and did not see any providers recently. He mentioned that he has an appointment with a provider here in [place] on Nov 04, but can't remember who he is seeing. Discussed discharge planning, and if he needs home IV, he would not be opposed to it, but would rather go to a wound center to get this done, if he is able. P: DCP to continue to follow. Will see how the MRI results roller turner, and if he will be able to go on home antibiotics. If he needs IV ABO, he will need to have a provider follow, for any orders. Nati Colon RN/Volcanology Professor
--- NOTE | 2020-10-18 15:30 | P.PN_ITS ---
Subjective Subjective Date Patient Seen: 10/18/20 Time Patient Seen: 15:30 Interval history: 60 M with PMH of uncontrolled DM admitted with a LLE cellulitis with possible concern for osteomyelitis. Slightly improved today with antibiotic therapy, cultures done showing a Group B strep. Started on alina and vanco and will narrow today. MRSA nasal screen negative, low liklihood of MRSA infection. Denies fever, chills. Still with some foot pain but generally improvi ng today. Exam Vital Signs (past 8 hours): - 10/18/20 08:00 10/18/20 09:38 10/18/20 11:31 Temperature 97.8 F Pulse Rate 87 Respiratory Rate 17 Blood Pressure 115/68 Pulse Oximetry 96 96 97 10/18/20 11:40 10/18/20 12:00 Temperature 97.8 F Pulse Rate 87 Respiratory Rate 17 Blood Pressure 117/87 Pulse Oximetry 96 96 Oxygen Delivery Method Room Air Oxygen Flow Rate 0 Narrative Exam Narrative: General: Patient is well developed well nourished alert male in no acute distress HEENT: Anicteric, pupils equal and reactive Neck: No lymphadenopathy Heart: Regular rhythm without murmur Lungs: Clear to auscultation Abdomen: Soft, nontender, no HSM Extremities: The left foot is swollen, though improved slightly compared to outlined areas. Erythema has also improved. There are confluency areas of skin maceration and sloughing over the distal dorsal foot extending to the plantar 1st metatarsal area as well as between the 1st and 2nd and 2nd and 3rd toes. Light touch sensation is intact. There is no significant tenderness. Objective Labs Result Diagrams: 10/17/20 05:17 10/17/20 05:17 Labs: Laboratory Results - last 24 hr 10/17/20 10/18/20 22:57 13:19 Nasal Screen MRSA (PCR) Negative for mrsa Vancomycin Trough 10.8 PFSH Medical History Diabetes Social History household members: none Smoking Status: Former smoker Smokeless tobacco user: chewing tobacco quit status: considering quitting Assessment & Plan Assessment & Plan narrative: 1. Left foot cellulitis and possible osteomyelitis. -patient with significant areas of erythema and skin maceration/superficial sloughing of the left foot -CT report indicated diffuse subcutaneous edema and areas of soft tissue gas -Dr. Howe saw patient for ortho consult and does not see abscess that requires surgical drainage. Given significantly elevated inflammatory markers and continued erythema will get MRI to rule out any osteomyelitis. -patient was started on vancomycin and meropenem in ED with already improvement in left foot erythema, will continue pending MRI. Given culutres with Group B strep, narrow if MRI negative for involvement to ceftriaxone. MRI today did not include his forefoot, main area of concern, will need repeat study tomorrow. Discharge on PO antibiotics if no bone involvement. -apply mupirocin ointment with gauze dressing b.i.d. to left foot -recommend wound care clinic appointment on discharge. 2. Type 2 diabetes -glucose 296, A1c 10.9% -patient previously on Lantus 55 units HS prescribed through [facility] -restarted Lantus 40 units at bedtime, will continue to adjust as needed. AM glucose 212 will continue to advance slowly. Increase tomorrow if sugars still uncontrolled. -medium dose insulin correction a.c. HS -patient requests to send prescription for 90 day Lantus Solostar supply and pen needles to [facility] pharmacy until patient can reestablish with his provider. Will send Rx for test strips as well. DVT prophylaxis: Lovenox Surrogate decision maker: Spouse Quality VTE Deep Vein Thrombosis/Pulmonary Embolism Present on Admission: No
[2020-10-18] MEDS: cefTRIAXone 2,000 MG in SODIUM CHLORIDE 0.9% 100 ML 200 ML IV (17:25)
[2020-10-18] MEDS: INSULIN GLARGINE 100 UNIT/ML 3ML PEN 40 UNIT SUBCUT (21:14)
[2020-10-19] VITALS (8 sets, daily range): BP systolic 97–146; BP diastolic 71–84; PULSE 85–92; RESP 16–18; TEMP 36.3–36.9; O2SAT 93–98
--- NOTE | 2020-10-19 08:18 | P.PN_ITS ---
Subjective Subjective Date Patient Seen: 10/19/20 Time Patient Seen: 08:18 Interval history: Patient denies pain. No fever or chills. No nausea/ vomiting. Exam Vital Signs (past 8 hours): - 10/19/20 02:45 10/19/20 07:50 Temperature 98.2 F 97.3 F L Pulse Rate 92 H 89 Respiratory Rate 16 16 Blood Pressure 118/84 97/71 Pulse Oximetry 94 93 Oxygen Delivery Method Room Air Oxygen Flow Rate 0 Narrative Exam Narrative: 60-year-old male resting comfortably in bed in no apparent distress. Left foot dressing is intact. Internal medicine note reviewed from yesterday show slight improvement. Objective Labs Result Diagrams: 10/17/20 05:17 10/17/20 05:17 Labs: Laboratory Results - last 24 hr 10/18/20 13:19 Nasal Screen MRSA (PCR) Negative for mrsa MRI lower leg October 18, 2020, left tibia/fibula shows no specific marrow signal changes to suggest osteomyelitis of the tibia/fibula. Diffuse cellulitis involving the lower leg circumferentially and visualized portions of the hindfoot. The area of forefoot soft tissue gas seen on the prior CT is not included on the current examination. [facility] Medical History Diabetes Social History household members: none Smoking Status: Former smoker Smokeless tobacco user: chewing tobacco quit status: considering quitting Assessment & Plan Assessment & Plan narrative: Patient appears to be improving on current course however MRI did not include the foot. MRI left foot pending for today. Ortho to follow up once MRI is completed. Quality VTE Deep Vein Thrombosis/Pulmonary Embolism Present on Admission: No
[2020-10-19] MEDS: ENOXAPARIN 40 MG/0.4 ML SYRINGE SUBCUT (09:21)
[2020-10-19] MEDS: SODIUM CHLORIDE 0.9% FLUSH 10 ML IV ×2 (09:21→21:03)
[2020-10-19] MEDS: MUPIROCIN 22 GM OINT 1 APPLIC TOP ×2 (11:30→21:03)
--- NOTE | 2020-10-19 12:07 | DI.MRI.S_ITS ---
PROCEDURE: MR FOOT LT WO/W CON INDICATIONS: eval for osteo TECHNIQUE: Noncontrast sagittal T1 spin echo and T2 fast spin echo with fat saturation, long-axis T1 spin echo and T2 fast spin echo with fat saturation; short-axis T1 spin echo, proton density fast spin echo, and T2 fast spin echo with fat saturation through the forefoot. Post-contrast short axis, long axis, and sagittal T1 spin echo with fat saturation through the forefoot. COMPARISON: [facility], CT, CT LE LT WO CON, 10/16/2020, 10:21. FINDINGS: Image quality: Excellent. Bones and joints: There is marrow edema involving lateral portion of 1st metatarsal head and adjacent lateral portion of 1st proximal phalangeal base with cortical erosion and contrast enhancement concerning for osteomyelitis in this area. Similar signal abnormality is also noted involving medial sesamoid of 1st metatarsal head concerning for osteomyelitis. Osteoarthritic changes are noted throughout midfoot and forefoot joints. No other area of abnormal marrow signal. No suspicious intraosseous lesion. Soft tissues: Significant soft tissue edema and swelling surrounding great toe is seen with heterogeneous contrast enhancement throughout dorsal and medial aspect of midfoot and forefoot soft tissue. Ulceration and subcutaneous emphysema involving plantar aspect of forefoot at the level of 1st interspace is seen better evaluated on previous CT of left lower extremity. No discrete drainable abscess collection is seen. Extensor and flexor tendons shows no full-thickness rupture. Lisfranc ligament and joint is intact. IMPRESSION: 1. Ulceration and subcutaneous emphysema involving plantar aspect of forefoot as above. Extensive cellulitis throughout visualized midfoot and forefoot more prominent over medial aspect adjacent to 1st MTP joint. No discrete drainable abscess collection is seen. 2. Finding is suggestive of septic joint involving 1st MTP joint with osteomyelitis involving lateral portion of 1st metatarsal head and adjacent 1st proximal phalangeal base. Possible osteomyelitis involving medial sesamoid of 1st MTP joint is also noted. Dictated by: Chino Dubon M.D. on 10/19/2020 at 12:25 Approved by: Chino Dubon M.D. on 10/19/2020 at 12:41
[2020-10-19] MEDS: INSULIN LISPRO 100 UNIT/ML 3ML VIAL SUBCUT ×2 (12:34→16:37)
--- NOTE | 2020-10-19 13:07 | CM.DPC ---
DCP Cont: Dr. Hankins updated care management regarding MRI. At this time, he has infected joint, and is expected to have surgery. Patient most likely will need longer term IV ABO at discharge. Hospitalist indicated that ortho may be able to follow patient afterward for orders. Went ahead and faxed referral over to [facility], including face sheet, MRI from today, H&P, and med list. Patient has [facility], so authorization will need to be obtained. It is unclear at this time which ABO he will be on, or for how long. P: DCP to continue to follow. Patient is expected to have surgery, will need to follow up with [facility] regarding referral, and ortho to see which ABO patient would be discharged on. Nati Colon RN/Mail Inserter
--- NOTE | 2020-10-19 13:09 | PC.NURSE ---
Dressing to left foot changed at approx 1130am this morning after patient was back from MRI. Cleansed with normal saline, patted dry and ointment to sloughing skin areas applied as ordered, covered with non adherent foam dressings to top and bottom of foot, then wrapped in kerlex gauze. Serosangenous drainage noted with mild foul odor, areas of maceration, yellow and purple areas of discoloration and sloughing skin noted. Open areas to top and bottom foot (see photos taken). Patient states redness and swelling are improving on antibioitcs. Patient tolerated well. A waiting results of scan to discuss with doctor. Call light within reach.
--- NOTE | 2020-10-19 13:22 | P.PN_ITS ---
Subjective Subjective Date Patient Seen: 10/19/20 Time Patient Seen: 13:22 Interval history: 60 M with PMH of uncontrolled DM admitted with a LLE cellulitis with possible concern for osteomyelitis. Overall continued improvement on exam today with antibiotic therapy, cultures done showing a Group B strep. Started on alina and vanco initially but narrowed to ceftriaxone. MRSA nasal screen negative, low liklihood of MRSA infection. Denies fever, chills. Still with some foot pain but generally improving today. MRI showed unfortunately osteomyeltitis and possible septic 1st MTP joint. Exam Vital Signs (past 8 hours): - 10/19/20 07:50 10/19/20 09:04 Temperature 97.3 F L Pulse Rate 89 Respiratory Rate 16 Blood Pressure 97/71 Pulse Oximetry 93 98 Oxygen Delivery Method Room Air Oxygen Flow Rate 0 Narrative Exam Narrative: General: Patient is well developed well nourished alert male in no acute distress HEENT: Anicteric, pupils equal and reactive Neck: No lymphadenopathy Heart: Regular rhythm without murmur Lungs: Clear to auscultation Abdomen: Soft, nontender, no HSM Extremities: The left foot is swollen, though improved much now. Erythema has also improved over areas demarkated previously. There are confluency areas of skin maceration and sloughing over the distal dorsal foot extending to the plantar 1st metatarsal area as well as between the 1st and 2nd and 2nd and 3rd toes. Light touch sensation is intact. There is no significant tenderness. Objective Labs Result Diagrams: 10/17/20 05:17 10/17/20 05:17 Labs: Laboratory Results - last 24 hr 10/18/20 13:19 Nasal Screen MRSA (PCR) Negative for mrsa [facility] Medical History Diabetes Social History household members: none Smoking Status: Former smoker Smokeless tobacco user: chewing tobacco quit status: considering quitting Assessment & Plan Assessment & Plan narrative: 1. Left foot cellulitis, osteomyelitis, possible septic 1st MTP joint, acute. -patient with significant areas of erythema and skin maceration/superficial sloughing of the left foot -CT report indicated diffuse subcutaneous edema and areas of soft tissue gas -Dr. Howe saw patient for ortho consult and does not see abscess that requires surgical drainage. Given significantly elevated inflammatory markers and continued erythema MRI was obtained which showed ulceration and subcutaneous emphysema of the forefoot without drainable abscess. There is osteomyelitis noted of the 1st metatarsal head and 1st proximal phalangeal base with possible osteomyelitis of the medial sesamoid for 1st MTP joint as well. -patient was started on vancomycin and meropenem in ED with already improvement in left foot erythema, will continue for now given MRI. -will need at least 6 weeks of IV antibiotics, pending orthopedic surgery repeat evaluation of new MRI findings today. -apply mupirocin ointment with gauze dressing b.i.d. to left foot -recommend wound care clinic appointment on discharge. 2. Type 2 diabetes -glucose 296, A1c 10.9% -patient previously on Lantus 55 units HS prescribed through [facility] -restarted Lantus 40 units at bedtime, will continue to adjust as needed. AM glucose 212 will continue to advance slowly. Increase tomorrow if sugars still uncontrolled. -medium dose insulin correction a.c. HS -patient requests to send prescription for 90 day Lantus Solostar supply and pen needles to [facility] pharmacy until patient can reestablish with his provider. Will send Rx for test strips as well. DVT prophylaxis: Lovenox Surrogate decision maker: Spouse, code: Full Quality VTE Deep Vein Thrombosis/Pulmonary Embolism Present on Admission: No
[2020-10-19] MEDS: cefTRIAXone 2,000 MG in SODIUM CHLORIDE 0.9% 100 ML 200 ML IV (16:24)
--- NOTE | 2020-10-19 16:40 | DIET.CONS ---
Dietary Consultation Note Admission Date: 10/16/2020 11:41 Assessment: 60y M admitted for infected L food found to have cellulitis and osteomyelitis secondary to poorly controlled DM2 (A1c 10.9). Pt reports being retired [employer] [facility] [place] [facility] which [facility] during the pandemic. Pt stopped receiving diabetes related supplies at that time and has been paying out of pocket for test strips since then. Pt reports costs of medication as barrier to good BG control. Pt appears to be significantly insulin resistant, reports taking 55U glargine at night and still waking up c BG of 250. This hospitalization pt BGs ranging 200-300 despite carb consistent diet and 40U glargine at bedtime. Pt interested in investigating alternate medications, feels [facility] insurance barrier to options. Pt works at [employer] in [place] and takes pride in his work (per pt my [place] like [place]). Pt very upset and anxious about losing part of his foot as his mobility is important to him. Pt has good friend who had similar circumstance who lost most of his foot and lost his job because of reduced mobility and balance. Pt reports checking his feet daily and feels he stepped on glass or a nail causing current infection. Pt somewhat resistant to DM teaching at bedside as anxious to meet c Ortho. Pt wants to get DM under good control and has PCP initial appt on Nov 14. Pt willing to meet c clinical unit educator. Ht: 177.8 cm Wt: 94.6 kg BMI: 29.0 Last BM: 10/18/20 (10/18/20 15:20) MNA: 13 Calvin Score: 20 Diet: 10/17/20 Breakfast Carbohydrate Consistent Diet Diet Modifications: Carbohydrate level: Medium (3 CHO) Percent of last meal consumed (last 48h) Percent Meal Consumed 0% 10/19/20 15:00 Percent Meal Consumed 100% 10/19/20 13:02 Percent Meal Consumed 100% 10/18/20 19:11 Percent Meal Consumed 100% 10/18/20 14:09 Percent Meal Consumed 100% 10/18/20 10:19 Percent Meal Consumed 100% 10/17/20 17:52 Labs: RBC 4.08 X10^6/uL (4.5-5.9) L 10/17/20 05:17 Hgb 11.1 g/dL (13.5-17.5) L 10/17/20 05:17 Hct 33.3 % (41-53) L 10/17/20 05:17 Creatinine 0.86 mg/dL (0.66-1.25) 10/17/20 05:17 Hemoglobin A1c 10.9 % (4.0-6.0) H 10/16/20 10:15 Lactate 1.6 mmol/L (0.7-2.1) 10/16/20 11:20 Nutrition Diagnosis: altered nutrition related laboratory values (BG, A1c) r/t lack of access to medications aeb pt admitted c osteomyelitis requiring partial amputation, A1c 10.9, BGs ranging 200-300 during hospitalization, [facility], pt ran out of diabetes management supplies. Interventions: 1. Recc starting ONS Blayne BID once pt resumes diet after surgery to aid wound healing. Monitoring/Evaluations: [employer] Assembler to visit pt bedside Saturday for continued teaching and appointment planning
[2020-10-19] MEDS: INSULIN GLARGINE 100 UNIT/ML 3ML PEN 40 UNIT SUBCUT (20:57)
[2020-10-20] VITALS (8 sets, daily range): BP systolic 107–142; BP diastolic 67–84; PULSE 85–100; RESP 16–18; TEMP 36.2–37; O2SAT 94–98
--- NOTE | 2020-10-20 01:00 | PC.NURSE ---
This RN was informed by the evening RN that the ointment for the patients foot was scanned in the MAR, but was never applied to the skin nor was a bandage change done. This RN discussed with the patient and the patient declined a dressing change at this time and stated it would wait till morning.
[2020-10-20 06:51] LABS: Add Manual Diff / Slide Review NO; Alanine Aminotransferase 27 IU/L (<50); Albumin 3.7 g/dL (3.5-5.0); Albumin Globulin Ratio 0.9 (1.0-2.8); Alkaline Phosphatase 138 U/L (38-126); Aspartate Aminotransferase 25 IU/L (17-59); BUN Creatinine Ratio 23.7 (6-22); Basophils Absolute Auto 100 /uL (0-100); Basophils Percent Auto 0.7 % (0-2); Bilirubin Total 0.4 mg/dL (0.2-1.3); Blood Urea Nitrogen 18 mg/dL (9-20); Calcium 9.4 mg/dL (8.4-10.2); Carbon Dioxide 30 mmol/L (22-32); Chloride 101 mmol/L (98-107); Eosinophils Absolute Auto 400 /uL (0-450); Eosinophils Percent Auto 2.9 % (2-4); Estimated Glomerular Filt Rate > 60.0 mL/min (>60); Globulin 4.1 g/dL (1.7-4.1); Glucose 145 mg/dL (70-100); HEMOLYSIS < 15 (0-50); Hemoglobin 12.6 g/dL (13.5-17.5); Lymphocytes Absolute Auto 2000 /uL (1100-4500); Lymphocytes Percent Auto 15.5 % (25-40); Mean Corpuscular HGB Conc 33.3 % (30-36); Mean Corpuscular Hemoglobin 27.2 PG (26-34); Mean Corpuscular Volume 81.5 fL (80-100); Monocytes Absolute Auto 1100 /uL (0-900); Monocytes Percent Auto 8.4 % (3-14); Neutrophils Absolute Auto 9400 /uL (1500-7000); Neutrophils Percent Auto 72.5 % (50-75); Platelet Count 394 X10^3/uL (150-400); Red Blood Cell Count 4.66 X10^6/uL (4.5-5.9); Red Cell Distribution Width 13.7 % (11.6-14.8); Sodium 139 mmol/L (137-145); Total Protein 7.8 g/dL (6.3-8.2)
[2020-10-20] MEDS: MUPIROCIN 22 GM OINT 1 APPLIC TOP ×2 (09:34→21:15)
[2020-10-20] MEDS: SODIUM CHLORIDE 0.9% FLUSH 10 ML IV ×2 (09:34→21:14)
[2020-10-20] MEDS: INSULIN LISPRO 100 UNIT/ML 3ML VIAL SUBCUT ×2 (12:55→17:01)
[2020-10-20] MEDS: cefTRIAXone 2,000 MG in SODIUM CHLORIDE 0.9% 100 ML 200 ML IV (15:49)
--- NOTE | 2020-10-20 17:49 | PM.PN.1 ---
Subjective Subjective Date Patient Seen: 10/20/20 Time Patient Seen: 17:49 Interval history: The patient's pain is mild. He denies any fevers, chills, night sweats. No nausea or vomiting. He is somewhat distraught about surgery tomorrow on his left foot. Exam Vital Signs (past 8 hours): - 10/20/20 12:07 10/20/20 15:00 10/20/20 15:39 Temperature 97.5 F L 98.6 F Pulse Rate 86 85 Respiratory Rate 18 18 Blood Pressure 142/84 H 140/83 Pulse Oximetry 95 97 97 Oxygen Delivery Method Room Air Oxygen Flow Rate 0 Narrative Exam Narrative: 60-year-old male, resting comfortably in bed, no acute distress. Left foot bandages are in place and are clean, dry, intact. Motor functions are intact in bilateral lower extremities. Both legs are warm and dry. Objective Labs Result Diagrams: 10/20/20 06:08 10/20/20 06:08 Labs: Laboratory Results - last 24 hr 10/20/20 10/20/20 06:08 06:08 WBC 13.0 H RBC 4.66 Hgb 12.6 L Hct 38.0 L MCV 81.5 MCH 27.2 MCHC 33.3 RDW 13.7 Plt Count 394 Neut % (Auto) 72.5 Lymph % (Auto) 15.5 L Callahan % (Auto) 8.4 Eos % (Auto) 2.9 Baso % (Auto) 0.7 Neut # (Auto) 9400 H Lymph # (Auto) 2000 Callahan # (Auto) 1100 H Eos # (Auto) 400 Baso # (Auto) 100 Sodium 139 Potassium 4.0 Chloride 101 Carbon Dioxide 30 BUN 18 Creatinine 0.76 Estimated GFR > 60.0 BUN/Creatinine Ratio 23.7 H Glucose 145 H Calcium 9.4 Total Bilirubin 0.4 AST 25 ALT 27 Alkaline Phosphatase 138 H Total Protein 7.8 Albumin 3.7 Globulin 4.1 Albumin/Globulin Ratio 0.9 L PFSH Medical History Diabetes Social History household members: none Smoking Status: Former smoker Smokeless tobacco user: chewing tobacco quit status: considering quitting Assessment & Plan Assessment & Plan narrative: Plan is to the OR tomorrow with Dr. Witt for more definitive treatment. Dr. Sepulveda will need to discuss the surgical plan with the patient and his mother tomorrow morning, per the patient's request. The patient seems to have some difficulty navigating Healthcare System and getting his diabetes under better control, therefore a consultation with social service agency director would be helpful. Quality VTE Deep Vein Thrombosis/Pulmonary Embolism Present on Admission: No
--- NOTE | 2020-10-20 19:57 | P.PN_ITS ---
Subjective Subjective Date Patient Seen: 10/20/20 Time Patient Seen: 10:00 Interval history: 60 M with PMH of uncontrolled DM admitted with a LLE cellulitis with possible concern for osteomyelitis. Overall stable exam today, cultures done showing a Group B strep. Started on alina and vanco initially but narrowed to ceftriaxone. MRSA nasal screen negative, low liklihood of MRSA infection. Denies fever, chills. Still with some foot pain but generally improving today. MRI showed unfortunately osteomyeltitis and possible septic 1st MTP joint. Pending orthopedic interventions planned for tomorrow. Exam Vital Signs (past 8 hours): - 10/20/20 12:07 10/20/20 15:00 10/20/20 15:39 Temperature 97.5 F L 98.6 F Pulse Rate 86 85 Respiratory Rate 18 18 Blood Pressure 142/84 H 140/83 Pulse Oximetry 95 97 97 Oxygen Delivery Method Room Air Oxygen Flow Rate 0 Narrative Exam Narrative: General: Patient is well developed well nourished alert male in no acute distress HEENT: Anicteric, pupils equal and reactive Neck: No lymphadenopathy Heart: Regular rhythm without murmur Lungs: Clear to auscultation Abdomen: Soft, nontender, no HSM Extremities: The left foot is swollen, though improved much now. Erythema has also improved over areas demarkated previously. There are confluency areas of skin maceration and sloughing over the distal dorsal foot extending to the plantar 1st metatarsal area as well as between the 1st and 2nd and 2nd and 3rd toes. Light touch sensation is intact. There is no significant tenderness. Slight serous drainage from the top part of his foot today, minimal. Objective Labs Result Diagrams: 10/20/20 06:08 10/20/20 06:08 Labs: Laboratory Results - last 24 hr 10/20/20 10/20/20 06:08 06:08 WBC 13.0 H RBC 4.66 Hgb 12.6 L Hct 38.0 L MCV 81.5 MCH 27.2 MCHC 33.3 RDW 13.7 Plt Count 394 Neut % (Auto) 72.5 Lymph % (Auto) 15.5 L [place] % (Auto) 8.4 Eos % (Auto) 2.9 Baso % (Auto) 0.7 Neut # (Auto) 9400 H Lymph # (Auto) 2000 [place] # (Auto) 1100 H Eos # (Auto) 400 Baso # (Auto) 100 Sodium 139 Potassium 4.0 Chloride 101 Carbon Dioxide 30 BUN 18 Creatinine 0.76 Estimated GFR > 60.0 BUN/Creatinine Ratio 23.7 H Glucose 145 H Calcium 9.4 Total Bilirubin 0.4 AST 25 ALT 27 Alkaline Phosphatase 138 H Total Protein 7.8 Albumin 3.7 Globulin 4.1 Albumin/Globulin Ratio 0.9 L [facility] Medical History Diabetes Social History household members: none Smoking Status: Former smoker Smokeless tobacco user: chewing tobacco quit status: considering quitting Assessment & Plan Assessment & Plan narrative: 1. Left foot cellulitis, osteomyelitis, possible septic 1st MTP joint, acute. -patient with significant areas of erythema and skin maceration/superficial sloughing of the left foot -CT report indicated diffuse subcutaneous edema and areas of soft tissue gas -Dr. Howe saw patient for ortho consult and does not see abscess that requires surgical drainage. Given significantly elevated inflammatory markers and continued erythema MRI was obtained which showed ulceration and subcutaneous emphysema of the forefoot without drainable abscess. There is osteomyelitis noted of the 1st metatarsal head and 1st proximal phalangeal base with possible osteomyelitis of the medial sesamoid for 1st MTP joint as well. -Dr. Witt now planning on possible operative interventions tomorrow. Please send tissue sample to micro lab for PCR testing along with any operative cultures. -patient was started on vancomycin and meropenem in ED with already improvement in left foot erythema. Narrowed to ceftriaxone based on GBS culture and negative MRSA swab. Follow up any operative cultures. -will need at least 6 weeks of IV antibiotics, pending orthopedic surgery repeat evaluation of new MRI findings today. -apply mupirocin ointment with gauze dressing b.i.d. to left foot -recommend wound care clinic appointment on discharge. 2. Type 2 diabetes -glucose 296 on admission, A1c 10.9% -patient previously on Lantus 55 units HS prescribed through [facility] -restarted Lantus 40 units at bedtime, will continue to adjust as needed. AM sugars largely controlled. Consider adding meal time coverage after OR depending on course. -medium dose insulin correction a.c. HS -patient requests to send prescription for 90 day Lantus Solostar supply and pen needles to [facility] pharmacy until patient can reestablish with his provider. Will send Rx for test strips as well. DVT prophylaxis: Lovenox Surrogate decision maker: Spouse, code: Full COVID-19 COVID-19 status: Negative Quality VTE Deep Vein Thrombosis/Pulmonary Embolism Present on Admission: No
[2020-10-20] MEDS: ACETAMINOPHEN 325 MG TABLET 650 MG PO (21:07)
[2020-10-20] MEDS: INSULIN GLARGINE 100 UNIT/ML 3ML PEN 40 UNIT SUBCUT (21:14)
[2020-10-21] VITALS (16 sets, daily range): BP systolic 113–147; BP diastolic 65–88; PULSE 87–99; RESP 13–22; TEMP 36.1–36.9; O2SAT 93–100; BMI 29.9
--- NOTE | 2020-10-21 | PATH_ITS ---
[facility] Accession Number: [id number] . 01 Material submitted: . PART A: foot - LEFT FOOT MEDIAL SEISMOID PART B: bone - LEFT FOOT FIRST METATARSAL BONE . 01 Diagnosis: A. Bone, Left Foot, Medial Sesamoid, Excision: Connective tissue and articular bone with reactive and degenerative changes. . B. Bone, Left Foot, First Metatarsal, Excision: Small fragment of viable trabecular bone with fatty marrow. MRV 10/25/2020 1352 Local . 01 Comment: Recent marrow hemorrhage is seen in specimen A (left foot, medial sesamoid), which may be procedural artifact. . 01 Electronically signed: . Kay Vigil MD, Pathologist NPI- [id number] . 01 Gross description: . A. The specimen is received in formalin, labeled left foot medial sesamoid, and consists of a 1.6 x 1.4 x 1.0 cm, nation-pink fragment of bone with minimal attached soft tissue. The specimen is serially sectioned and entirely submitted following decalcification in cassette A1. B. The specimen is received in formalin, labeled first metatarsal bone left foot, and consists of a 0.5 x 0.2 x 0.2 cm, nation, trabeculated fragment of bone which is entirely submitted following decalcification in cassette B1. ([id number]) /R 10/22/2020 1610 Local . 01 Pathologist provided ICD-10: M84.9 . 01 CPT . 749396, 306192, 659528, 385349 Performed at: 01 [facility] [address] [place] [address] [address], [place], [place] [id number] MD Osvaldo Mcgill MD Phone: [phone]
[2020-10-21 06:37] LABS: Add Manual Diff / Slide Review NO; Basophils Absolute Auto 100 /uL (0-100); Basophils Percent Auto 0.7 % (0-2); Eosinophils Absolute Auto 400 /uL (0-450); Eosinophils Percent Auto 3.2 % (2-4); Hematocrit 37.7 % (41-53); Hemoglobin 12.3 g/dL (13.5-17.5); Lymphocytes Absolute Auto 1600 /uL (1100-4500); Lymphocytes Percent Auto 14.5 % (25-40); Mean Corpuscular HGB Conc 32.6 % (30-36); Mean Corpuscular Hemoglobin 26.6 PG (26-34); Mean Corpuscular Volume 81.6 fL (80-100); Monocytes Absolute Auto 800 /uL (0-900); Monocytes Percent Auto 6.8 % (3-14); Neutrophils Absolute Auto 8400 /uL (1500-7000); Neutrophils Percent Auto 74.8 % (50-75); Platelet Count 383 X10^3/uL (150-400); Red Blood Cell Count 4.62 X10^6/uL (4.5-5.9); Red Cell Distribution Width 13.6 % (11.6-14.8); White Blood Cell Count 11.2 X10^3/uL (4.5-11.0)
[2020-10-21 06:46] LABS: Alanine Aminotransferase 28 IU/L (<50); Albumin 3.7 g/dL (3.5-5.0); Albumin Globulin Ratio 0.9 (1.0-2.8); Alkaline Phosphatase 126 U/L (38-126); Aspartate Aminotransferase 22 IU/L (17-59); BUN Creatinine Ratio 24.7 (6-22); Bilirubin Total 0.5 mg/dL (0.2-1.3); Blood Urea Nitrogen 21 mg/dL (9-20); Calcium 9.4 mg/dL (8.4-10.2); Carbon Dioxide 31 mmol/L (22-32); Chloride 101 mmol/L (98-107); Estimated Glomerular Filt Rate > 60.0 mL/min (>60); Globulin 4.2 g/dL (1.7-4.1); Glucose 137 mg/dL (70-100); HEMOLYSIS < 15 (0-50); Potassium 4.1 mmol/L (3.4-5.1); Sodium 140 mmol/L (137-145); Total Protein 7.9 g/dL (6.3-8.2)
--- NOTE | 2020-10-21 07:51 | DI.US.S_ITS ---
PROCEDURE: US ARTERIAL DUPLEX LE BI INDICATIONS: DIABETIC FOOT ULCER TECHNIQUE: Color and pulse Doppler interrogation was performed of both lower extremity arterial systems, with image documentation. COMPARISON: None. FINDINGS: Right lower extremity: Common femoral artery: 83 cm/sec, with triphasic flow. Deep femoral artery: 64 cm/sec, with triphasic flow. Proximal superficial femoral artery: 105 cm/sec, with triphasic flow. Mid superficial femoral artery: 64 cm/sec, with triphasic flow. Distal superficial femoral artery: 68 cm/sec, with triphasic flow. Popliteal artery: 36 cm/sec, with triphasic flow. Posterior tibial artery: 62 cm/sec, with triphasic flow. Anterior tibial artery/dorsalis pedis: 12 cm/sec, with monophasic flow. Rosales-scale imaging description: Unremarkable Left lower extremity: Common femoral artery: 86 cm/sec, with triphasic flow. Deep femoral artery: 58 cm/sec, with triphasic flow. Proximal superficial femoral artery: 131 cm/sec, with triphasic flow. Mid superficial femoral artery: 85 cm/sec, with triphasic flow. Distal superficial femoral artery: 100 cm/sec, with triphasic flow. Popliteal artery: 96 cm/sec, with biphasic flow. Posterior tibial artery: 55 cm/sec, with monophasic flow. Anterior tibial artery/dorsalis pedis: 68 cm/sec, with monophasic flow. Rosales-scale imaging description: Moderate atherosclerotic plaque IMPRESSION: 1. Unremarkable right lower extremity arterial duplex study. 2. Atherosclerotic plaque results in moderate left peripheral vascular disease without occlusion. Dictated by: Valente Leslie M.D. on 10/21/2020 at 9:16 Approved by: Valente Leslie M.D. on 10/21/2020 at 9:30
--- NOTE | 2020-10-21 07:57 | PM.PREOP ---
Pre-operative Note COVID-19 COVID-19 status: Negative Interval Note History & Physical reviewed/Exam performed by Physician: Yes Changes to H&P: No H&P completed within 30 days and has changed as indicated here:: Agree with consultation/H&P by Dr. Dubon. Spoke at length with patient today about options. And risks and benefits of surgery. Surgical consent signed. Plan for debridement bone biopsy excision medial sesamoid today. Discussed risks for further surgery, wound care amputation.
[2020-10-21] MEDS: SODIUM CHLORIDE 0.9% FLUSH 10 ML IV ×2 (09:50→20:49)
--- NOTE | 2020-10-21 10:56 | PM.PN.1 ---
Subjective Subjective Date Patient Seen: 10/21/20 Time Patient Seen: 09:10 Interval history: 60 M with PMH of uncontrolled DM admitted with a LLE cellulitis with possible concern for osteomyelitis. Overall stable exam today, cultures done showing a Group B strep. Started on alina and vanco initially but narrowed to ceftriaxone. MRSA nasal screen negative, low liklihood of MRSA infection. Denies fever, chills. Still with some foot pain but generally improving today. MRI showed unfortunately osteomyeltitis and possible septic 1st MTP joint. Pending orthopedic interventions planned for today with Dr. Witt. Exam Vital Signs (past 8 hours): - 10/21/20 04:00 10/21/20 08:00 10/21/20 10:47 Temperature 97.8 F 97.9 F 98.0 F Pulse Rate 90 90 97 H Respiratory Rate 16 16 15 Blood Pressure 113/72 119/73 129/84 Pulse Oximetry 99 97 100 Oxygen Delivery Method Room Air Oxygen Flow Rate 0 Narrative Exam Narrative: General: Patient is well developed well nourished alert male in no acute distress HEENT: Anicteric, pupils equal and reactive Neck: No lymphadenopathy Heart: Regular rhythm without murmur Lungs: Clear to auscultation Abdomen: Soft, nontender, no HSM Extremities: The left foot is swollen, though improved much now. Erythema has also improved over areas demarkated previously. There are confluency areas of skin maceration and sloughing over the distal dorsal foot extending to the plantar 1st metatarsal area as well as between the 1st and 2nd and 2nd and 3rd toes. Light touch sensation is intact. There is no significant tenderness. Objective Labs Result Diagrams: 10/21/20 06:09 10/21/20 06:09 Labs: Laboratory Results - last 24 hr 10/21/20 10/21/20 06:09 06:09 WBC 11.2 H RBC 4.62 Hgb 12.3 L Hct 37.7 L MCV 81.6 MCH 26.6 MCHC 32.6 RDW 13.6 Plt Count 383 Neut % (Auto) 74.8 Lymph % (Auto) 14.5 L [place] % (Auto) 6.8 Eos % (Auto) 3.2 Baso % (Auto) 0.7 Neut # (Auto) 8400 H Lymph # (Auto) 1600 [place] # (Auto) 800 Eos # (Auto) 400 Baso # (Auto) 100 Sodium 140 Potassium 4.1 Chloride 101 Carbon Dioxide 31 BUN 21 H Creatinine 0.85 Estimated GFR > 60.0 BUN/Creatinine Ratio 24.7 H Glucose 137 H Calcium 9.4 Total Bilirubin 0.5 AST 22 ALT 28 Alkaline Phosphatase 126 Total Protein 7.9 Albumin 3.7 Globulin 4.2 H Albumin/Globulin Ratio 0.9 L [facility] Medical History Diabetes Social History household members: none Smoking Status: Former smoker Smokeless tobacco user: chewing tobacco quit status: considering quitting Assessment & Plan Assessment & Plan narrative: 1. Left foot cellulitis, osteomyelitis, possible septic 1st MTP joint, acute. -patient with significant areas of erythema and skin maceration/superficial sloughing of the left foot -CT report indicated diffuse subcutaneous edema and areas of soft tissue gas -Dr. Howe saw patient for ortho consult and does not see abscess that requires surgical drainage. Given significantly elevated inflammatory markers and continued erythema MRI was obtained which showed ulceration and subcutaneous emphysema of the forefoot without drainable abscess. There is osteomyelitis noted of the 1st metatarsal head and 1st proximal phalangeal base with possible osteomyelitis of the medial sesamoid for 1st MTP joint as well. -Dr. Witt now planning on OR today. Please send tissue sample to micro lab for PCR testing along with any operative cultures. -patient was started on vancomycin and meropenem in ED with already improvement in left foot erythema. Narrowed to ceftriaxone based on GBS culture and negative MRSA swab. Follow up any operative cultures. -will need at least 6 weeks of IV antibiotics, pending orthopedic surgery repeat evaluation of new MRI findings. -recommend wound care clinic appointment on discharge. 2. Type 2 diabetes -glucose 296 on admission, A1c 10.9% -patient previously on Lantus 55 units HS prescribed through [facility] -restarted Lantus 40 units at bedtime, will continue to adjust as needed. AM sugars largely controlled. Consider adding meal time coverage after OR depending on course. -medium dose insulin correction a.c. HS -patient requests to send prescription for 90 day Lantus Solostar supply and pen needles to [facility] pharmacy until patient can reestablish with his provider. Will send Rx for test strips as well. DVT prophylaxis: Lovenox Surrogate decision maker: Spouse, code: Full Quality VTE Deep Vein Thrombosis/Pulmonary Embolism Present on Admission: No
--- NOTE | 2020-10-21 12:05 | SUR.OPER ---
Addendum entered by Deangelo Elizabeth R.N. 10/21/20 12:05: gel bump under left buttock, tape over right leg. left leg draped free Original Note: Supine on padded OR bed, head on pillow, arms padded and tucked at sides, legs uncrossed, safety belt at thigh, tape over blanket over lower legs .
--- NOTE | 2020-10-21 12:53 | PM.OP.1 ---
Operative Date/Time/Diagnoses Date of procedure: 10/21/20 Time of procedure: 12:00 Pre-op diagnosis: Left foot diabetic infection Uncontrolled diabetes Post-op diagnosis: same Procedure & Clinicians Procedure: Excision medial sesamoid CPT code 10495 Debridement left diabetic foot infection including skin subcutaneous tissue muscle and bone 1st metatarsal medial left foot 99301 Additional debridement left diabetic foot infection 1st web space skin subcutaneous tissue and muscle cpt 48214 - 59 Additional debridement left foot dorsal lateral foot abscess cpt 09898-07 Same procedure as scheduled: Yes Indications: Patient is a 60-year-old diabetic male with uncontrolled diabetes. He had previously been well controlled in his clinic closed down in the last year with COVID he ran out of his medications stop taking these. He presented to the emergency room with a infected left foot. Cultures were taken the patient was started on IV antibiotics but he continued to have a high white count and there was additional necrosis and ulcer formation at his forefoot. He was indicated for formal operative debridement exploration and bone biopsy. MRI of the foot demonstrated suspicion of 1st MTP septic arthritis and medial sesamoid osteomyelitis though no drainable abscess was identified. The risks and benefits of the procedure have been discussed with the patient even opportunity to ask questions. The risks of surgery include but are not limited to infection, malunion, nonunion, persistence of pain, damage to nerves and blood vessels, posttraumatic arthritis, DVT, PE, cardiopulmonary complications and . We talked in detail about possible need for additional debridements, amputation, prolonged wound care and possible vascular intervention if a significant peripheral stenosis identified. The patient expressed a thorough understanding of the risks and benefits of surgery and has elected to proceed. Consent was signed. Procedure today will be a debridement and exploration and bone biopsy. Depending on his progress over the weekend he may require additional surgery. He understands and agrees with this plan. He is currently on scheduled antibiotics Surgeon: Angeles Witt Click Yes if Unassisted: Yes Anesthesia Type: General and Local Operative Notes Findings: Necrotic ulceration medial left foot along the 1st metatarsal joint and plantarly. Separate area of maceration necrosis in the 1st web space extending plantarly to the flexor tendon sheath of the 2nd and 3rd toes and extending dorsally into the 1st web space. Third area of fluctuance over the dorsal lateral foot is incised revealing a abscess that connects to the 1st web space. Medial sesamoid was excised and sent to pathology and separate 1st metatarsal head bone biopsies were obtained and sent for microbiology and pathology Closure Type: not applicable Specimen(s): other (Bone and tissue sent for micro and path) Applied: other (Wet to dry dressing) Estimated Blood Loss (mL): 10 Blood products transfused: none Tourniquet time (min): 30 Procedure in detail: Patient was seen in the preoperative area the site of surgery was marked informed consent confirmed. He was brought back to the operating room by the anesthesia team general anesthetic was administered. He was positioned supine on the operative table all bony prominences well padded. An SCD was placed on the contralateral lower extremity. A calf tourniquet was placed. The left lower extremities prepped and draped in the standard sterile fashion formal time-out procedure was performed confirming patient site and side of surgery again. All were in agreement. Attention was turned to the left lower extremity there was then large medial ulceration along the 1st MTP joint with of superficial skin necrosis additional maceration with small amount of purulence at the 1st web space there was some pus demonstrate dorsally at the 1st web space and the maceration extended more plantarly along the 2nd and 3rd toes in previously demonstrated on the floor. Additionally there was a fluctuant over an area of superficial skin slough of the dorsal lateral foot. Mifflin exsanguination was used and the tourniquet was raised to 250 mmHg on the leg. Sharp incision was taken down through the area of skin necrosis along the medial 1st MTP joint and down to the level of bone the necrotic tissue subcutaneous tissue fascia muscle was debrided. The area of murky necrotic fat was traced down to the medial sesamoid in the medial sesamoid bone was carefully excised and sent for pathology. Of the flexor tendons were protected. The bone was noted to be hard and was not abnormally soft. Additionally a Jamshidi trocar was used for bone biopsy of the metatarsal head which was also sent for microbiology and pathology. This did not appear to be excessively soft either. The 1st MTP joint was entered and washed out there was arthritis in this joint of the but no gross purulence. Attention was then turned to the 1st web space lesion as this was debrided of skin subcutaneous tissue and muscle and fascia traced down to the level of the MTP joints of the 1st and 2nd toes and then plantarly a to the 3rd toe. Small amount of purulent material was expressed from the tendon sheath, flexor of the 2nd toe this was thoroughly irrigated. Then dorsally a 3rd incision was made over the dorsal lateral foot abscess and this revealed purulence a discharge superficially over the foot extensor tendons. This was debrided of subcutaneous tissue and fascia and thoroughly irrigated. I it did connect distally with the 1st web space abscess. Once debridement was completed of all nonviable tissue the wounds were all thoroughly irrigated with multiple L of sterile saline. Once this was completed gloves were changed and dressings were applied after hemostasis was obtained and the tourniquet was released. Wet-to-dry dressings were packed in all the abscess cavities. Some 2-0 PDS was used for a partial deep closure at the level of the 1st MTP joint reapproximating the capsule otherwise wet to dry dressings were capped in open wounds. Dry 4 x 4 gauze was then placed over this followed by a Kerlix and Pineda wrap. Patient was awoken from anesthesia and taken to the recovery room in good condition. A 20 cc of local anesthetic was used around the ankle as an ankle block to help with postoperative pain control. Complications: none Post-operative Condition: stable Disposition: PACU Plan for aftercare: Nonweightbearing left lower extremity. Dressing will be maintained in place. May remove the proximal part of the dressing for the vascular studies. Patient will have wet-to-dry dressing changes on the floor and based on appearance may return to the operative room this weekend. He will continue on IV antibiotics pending cultures.
[2020-10-21] MEDS: BUPIVACAINE 0.25% (PF) VIAL 30 ML INJ (13:06)
[2020-10-21] MEDS: EPINEPHrine 1 MG/ML IV (13:06)
--- NOTE | 2020-10-21 13:34 | SUR.PHASEI ---
Assumed care from MINGO Reyes, l foot elevated, pt awake with no c/o pain, tolerated ice chips
--- NOTE | 2020-10-21 14:11 | SUR.PHASEI ---
Pt in room face to face report to , pt ledft with in stable condition, Bed low and locked.
--- NOTE | 2020-10-21 15:30 | PC.NURSE ---
1400 - pt returned from PACU, A&OX3, VSS, afebrile on RA. Denies any pain, n/v. He is able to drink water and takes a pudding. Pt with numbness to L foot, discoloration cap refill, slow to not present palpable pulses to L heel. Pt acknowledges non weight bearing to L foot status. Continuous monitoring.
[2020-10-21] MEDS: cefTRIAXone 2,000 MG in SODIUM CHLORIDE 0.9% 100 ML 200 ML IV (16:05)
[2020-10-21] MEDS: ACETAMINOPHEN 325 MG TABLET 650 MG PO (16:32)
--- NOTE | 2020-10-21 16:42 | DIET.PN1 ---
Dietary Progress Note Assessment: 60y M admitted for infected L food found to have cellulitis and osteomyelitis secondary to poorly controlled DM2 (A1c 10.9). Briefly met with Larry s/camila left foot debridement bone biopsy excision medial sesamoid today. Open to Blayne BID for wound healing. States he does not have a PCP currently, which he attributes his foot infection and poor DM management to this. States he would like to see a PCP at [facility], but [facility] one [facility] their providers. He has some confusion as to action of insulin. States I don't think Lantus works for me. Endorses h/o Glargine 55u HS with FBG of 200-250 mg/dL. No titration plan at home for hyperglycemia. States he has noticed the carb portions are much smaller than what he eats at home. Seems to be an educational moment for him. Would like to attend diabetes ed OP. Ht: 177.8 cm Wt: 94.6 kg BMI: 29.0 Last BM: 10/18/20 (10/21/20 10:48) MNA: 13 Calvin Score: 22 Diet: 10/21/20 Dinner Carbohydrate Consistent Diet Diet Modifications: Send Blayne BID Carbohydrate level: Medium (3 CHO) Percent of last meal consumed (last 48h) Percent Meal Consumed had a sugar free pudding 10/21/20 14:00 Percent Meal Consumed 100% 10/20/20 17:40 Percent Meal Consumed 100% 10/20/20 11:21 Percent Meal Consumed 75% 10/19/20 18:11 Labs: Improved BG with today's readings ranging 110-120 mg/dL. NPO status earlier. Will cont to monitor. RBC 4.62 X10^6/uL (4.5-5.9) 10/21/20 06:09 Hgb 12.3 g/dL (13.5-17.5) L 10/21/20 06:09 Hct 37.7 % (41-53) L 10/21/20 06:09 Creatinine 0.85 mg/dL (0.66-1.25) 10/21/20 06:09 Hemoglobin A1c 10.9 % (4.0-6.0) H 10/16/20 10:15 Lactate 1.6 mmol/L (0.7-2.1) 10/16/20 11:20 Nutrition Diagnosis: Altered nutrition related lab r/t poorly managed T2Dm aeb HgA1c of 10.9% and reported SMBG hyperglycemia. Interventions: 1. Added Blayne BID for healing 2. DM ed on insulin and impact on FBG 3. Brief discussion about carb portions 4. Discussed diabetes education OP resources and program Monitoring/Evaluations: BG, ONS tolerance
[2020-10-21] MEDS: OXYCODONE IR 5 MG TABLET PO ×2 (17:00→20:51)
--- NOTE | 2020-10-21 17:29 | CM.DPC ---
DCP: continued: case received and followed up yesterday with [facility]. He was able to review the EMR and had enough info he says to start the request for home IV antibiotics with YOLANDA Benitez. Dr. Hankins said in Team Rounds today that the cultures would be sent to the and results may not be back for a few days. Pt went to the OR today with Dr. Witt. More should be known tomorrow when documentation about this is in place.
[2020-10-21] MEDS: INSULIN GLARGINE 100 UNIT/ML 3ML PEN 40 UNIT SUBCUT (20:48)
--- NOTE | 2020-10-21 22:17 | PC.NURSE ---
Addendum entered by Kellen Browne R.N. 10/21/20 22:42: Noted moderate amount of drainage to left medial foot, reinforced with 4x4 gauze when applying PINEDA wrap. Original Note: Dr. Witt notified regarding discoloration of left second toe. Patient is able to wiggle toes, has sluggish capillary refill She stated that it's ok to loosen PINEDA wrap and she will see patient tomorrow. Pineda wrap rewrapped and patient reports sensation improving to his foot.
[2020-10-22] VITALS (10 sets, daily range): BP systolic 93–127; BP diastolic 64–76; PULSE 83–94; RESP 16–18; TEMP 36.2–37.1; O2SAT 94–98
[2020-10-22] MEDS: OXYCODONE IR 5 MG TABLET PO ×5 (00:20→23:55)
[2020-10-22 05:51] LABS: Add Manual Diff / Slide Review NO; Basophils Absolute Auto 100 /uL (0-100); Basophils Percent Auto 0.6 % (0-2); Eosinophils Absolute Auto 300 /uL (0-450); Eosinophils Percent Auto 2.3 % (2-4); Hematocrit 34.3 % (41-53); Lymphocytes Absolute Auto 2000 /uL (1100-4500); Lymphocytes Percent Auto 13.8 % (25-40); Mean Corpuscular HGB Conc 32.3 % (30-36); Mean Corpuscular Hemoglobin 26.4 PG (26-34); Mean Corpuscular Volume 81.8 fL (80-100); Monocytes Absolute Auto 1100 /uL (0-900); Monocytes Percent Auto 7.4 % (3-14); Neutrophils Absolute Auto 10900 /uL (1500-7000); Neutrophils Percent Auto 75.9 % (50-75); Platelet Count 365 X10^3/uL (150-400); Red Blood Cell Count 4.19 X10^6/uL (4.5-5.9); Red Cell Distribution Width 13.4 % (11.6-14.8); White Blood Cell Count 14.4 X10^3/uL (4.5-11.0)
[2020-10-22 05:58] LABS: Alanine Aminotransferase 21 IU/L (<50); Albumin 3.3 g/dL (3.5-5.0); Albumin Globulin Ratio 0.8 (1.0-2.8); Alkaline Phosphatase 107 U/L (38-126); Aspartate Aminotransferase 18 IU/L (17-59); BUN Creatinine Ratio 20.8 (6-22); Bilirubin Total 0.5 mg/dL (0.2-1.3); Blood Urea Nitrogen 20 mg/dL (9-20); Calcium 8.8 mg/dL (8.4-10.2); Carbon Dioxide 32 mmol/L (22-32); Chloride 99 mmol/L (98-107); Estimated Glomerular Filt Rate > 60.0 mL/min (>60); Globulin 3.9 g/dL (1.7-4.1); Glucose 110 mg/dL (70-100); HEMOLYSIS < 15 (0-50); Potassium 4.7 mmol/L (3.4-5.1); Sodium 135 mmol/L (137-145); Total Protein 7.2 g/dL (6.3-8.2)
--- NOTE | 2020-10-22 06:46 | P.PN_ITS ---
Subjective Subjective Date Patient Seen: 10/22/20 Time Patient Seen: 06:46 Interval history: Patient's pain [id number]. Denies fever or chills. No nausea or vomiting. Exam Vital Signs (past 8 hours): - 10/22/20 00:00 10/22/20 00:20 10/22/20 04:00 Temperature 98.4 F 98.2 F Pulse Rate 92 H 83 Respiratory Rate 16 16 Blood Pressure 93/69 121/74 Pulse Oximetry 98 98 97 Oxygen Delivery Method Room Air Oxygen Flow Rate 0 Narrative Exam Narrative: 60-year-old male resting comfortably in bed in no apparent distress. Dressing is clean, dry and intact. Objective Labs Result Diagrams: 10/22/20 05:25 10/22/20 05:25 Labs: Laboratory Results - last 24 hr 10/21/20 10/22/20 10/22/20 06:09 05:25 05:25 WBC 14.4 H RBC 4.19 L Hgb 11.0 L Hct 34.3 L MCV 81.8 MCH 26.4 MCHC 32.3 RDW 13.4 Plt Count 365 Neut % (Auto) 75.9 H Lymph % (Auto) 13.8 L [place] % (Auto) 7.4 Eos % (Auto) 2.3 Baso % (Auto) 0.6 Neut # (Auto) 15514 H Lymph # (Auto) 2000 [place] # (Auto) 1100 H Eos # (Auto) 300 Baso # (Auto) 100 Sodium 140 135 L Potassium 4.1 4.7 Chloride 101 99 Carbon Dioxide 31 32 BUN 21 H 20 Creatinine 0.85 0.96 Estimated GFR > 60.0 > 60.0 BUN/Creatinine Ratio 24.7 H 20.8 Glucose 137 H 110 H Calcium 9.4 8.8 Total Bilirubin 0.5 0.5 AST 22 18 ALT 28 21 Alkaline Phosphatase 126 107 Total Protein 7.9 7.2 Albumin 3.7 3.3 L Globulin 4.2 H 3.9 Albumin/Globulin Ratio 0.9 L 0.8 L [facility] CLIA ID [id number] [address] [place] [address], [id number] RUN DATE: 10/22/20 Specimen Inquiry PAGE 1 RUN TIME: 646 Name: Larry Vanegas Abdelrahman Age/Sex: 60/M Attend Dr: Jones Guo MD Unit#: [id number] : 1960Location: AC 212-1 Re10/16/20 Disch: Status: ADM IN SPEC #: [id number] JOSE: 10/21/20 STATUS: RES REQ #: [id number] SPDESC: RECD: 10/21/[address]: Angeles Witt MD SOURCE: Foot Lt ENTR: 10/21/20-[address]: Jones Guo MD FAX TO: ORDERED: WOUND Cx and GS COMMENTS: Comment 1st web space Procedure Result Verified Site Gram Stain Final 10/21/202026 White blood cells Occasional mono and poly WBCs Gram Positive Cocci 1+ Aerobic Culture for wounds Pending Anaerobic Culture Pending [facility] CLIA ID [id number] [address] [place] [address] RUN DATE: 10/22/20 Specimen Inquiry PAGE 1 RUN TIME: 647 Name: Larry Vanegas Age/Sex: 60/M Attend Dr: Jones Guo MD Unit#: [id number] : 1960Location: AC 212-1 Re10/16/20 Disch: Status: ADM IN SPEC #: [id number] JOSE: 10/21/20 STATUS: RES REQ #: [id number] SPDESC: RECD: 10/21/[address]: Angeles Witt MD SOURCE: Foot Lt ENTR: 10/21/20-[address]: Jones Guo MD FAX TO: ORDERED: WOUND Cx and GS COMMENTS: Comment !st metatarsal bone Procedure Result Verified Site Gram Stain Preliminary 10/21/202031 No cells/ Organisms seen No cells or organisms seen Aerobic Culture for wounds Pending Anaerobic Culture Pending [facility] Medical History Diabetes Social History household members: none Smoking Status: Former smoker Smokeless tobacco user: chewing tobacco quit status: considering quitting Assessment & Plan Post-op Postoperative Procedures: Procedures Operation Date: 10/21/20 12:15 Actual Procedure Side Surgeon p Incision and Drainage Foot Left Angeles Witt MD Postoperative day: 1 Postoperative status narrative: Stable Postoperative plan narrative: Nonweightbearing left lower extremity. Dressing will be maintained in place May remove the proximal part of the dressing for vascular studies Patient will have wet-to-dry dressing changes on the floor and based on appearance may return to the operating room this weekend. Continue on IV antibiotics pending cultures Quality VTE Deep Vein Thrombosis/Pulmonary Embolism Present on Admission: No
--- NOTE | 2020-10-22 07:36 | PM.PN.1 ---
Subjective Subjective Date Patient Seen: 10/22/20 Interval history: He is seen today to follow-up left foot infection. He is quite social and enjoys telling stories about his sailing experiences. 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 The white blood count is 14.4 with a hemoglobin of 11.0. The CMP is normal. Exam Vital Signs (past 8 hours): - 10/22/20 00:00 10/22/20 00:20 10/22/20 04:00 Temperature 98.4 F 98.2 F Pulse Rate 92 H 83 Respiratory Rate 16 16 Blood Pressure 93/69 121/74 Pulse Oximetry 98 98 97 Oxygen Delivery Method Room Air Oxygen Flow Rate 0 Narrative Exam Narrative: He is alert and oriented x3. No apparent distress. Heart is regular rate and rhythm without murmur Lungs are clear to auscultation bilaterally Extremities have no ankle edema There is a dressing in place on the left foot. Objective Labs Result Diagrams: 10/22/20 05:25 10/22/20 05:25 Labs: Laboratory Results - last 24 hr 10/22/20 10/22/20 05:25 05:25 WBC 14.4 H RBC 4.19 L Hgb 11.0 L Hct 34.3 L MCV 81.8 MCH 26.4 MCHC 32.3 RDW 13.4 Plt Count 365 Neut % (Auto) 75.9 H Lymph % (Auto) 13.8 L [place] % (Auto) 7.4 Eos % (Auto) 2.3 Baso % (Auto) 0.6 Neut # (Auto) 36504 H Lymph # (Auto) 2000 [place] # (Auto) 1100 H Eos # (Auto) 300 Baso # (Auto) 100 Sodium 135 L Potassium 4.7 Chloride 99 Carbon Dioxide 32 BUN 20 Creatinine 0.96 Estimated GFR > 60.0 BUN/Creatinine Ratio 20.8 Glucose 110 H Calcium 8.8 Total Bilirubin 0.5 AST 18 ALT 21 Alkaline Phosphatase 107 Total Protein 7.2 Albumin 3.3 L Globulin 3.9 Albumin/Globulin Ratio 0.8 L [facility] Medical History Diabetes Social History household members: none Smoking Status: Former smoker Smokeless tobacco user: chewing tobacco quit status: considering quitting Assessment & Plan Assessment & Plan narrative: 1. Left foot cellulitis, osteomyelitis, possible septic 1st MTP joint, acute. -patient with significant areas of erythema and skin maceration/superficial sloughing of the left foot -CT report indicated diffuse subcutaneous edema and areas of soft tissue gas -Dr. Howe saw patient for ortho consult and does not see abscess that requires surgical drainage. Given significantly elevated inflammatory markers and continued erythema MRI was obtained which showed ulceration and subcutaneous emphysema of the forefoot without drainable abscess. There is osteomyelitis noted of the 1st metatarsal head and 1st proximal phalangeal base with possible osteomyelitis of the medial sesamoid for 1st MTP joint as well. -Dr. Witt did surgery on 10/21. -patient was started on vancomycin and meropenem in ED with already improvement in left foot erythema. Narrowed to ceftriaxone based on GBS culture and negative MRSA swab. Follow up any operative cultures. -will need at least 6 weeks of IV antibiotics, pending orthopedic surgery repeat evaluation of new MRI findings. -recommend wound care clinic appointment on discharge. 2. Type 2 diabetes -glucose 296 on admission, A1c 10.9% -patient previously on Lantus 55 units HS prescribed through [facility] -restarted Lantus 40 units at bedtime, will continue to adjust as needed. AM sugars largely controlled. Consider adding meal time coverage after OR depending on course. -10/22 BS 81 - 135 so will continue 40 units of Lantus -medium dose insulin correction a.c. HS -patient requests to send prescription for 90 day Lantus Solostar supply and pen needles to [facility] pharmacy until patient can reestablish with his provider. Will send Rx for test strips as well. DVT prophylaxis: Lovenox Surrogate decision maker: Spouse, code: Full Quality VTE Deep Vein Thrombosis/Pulmonary Embolism Present on Admission: No
[2020-10-22] MEDS: SODIUM CHLORIDE 0.9% FLUSH 10 ML IV ×2 (09:45→17:24)
--- NOTE | 2020-10-22 10:05 | PT.IIE ---
Current Diagnoses Cellulitis of left lower limb (10/16/20) Surgery Performed Operation Date: 10/21/20 12:15 Actual Procedures p Incision and Drainage Foot(Left) - Angeles Witt MD Medical History (Last Reviewed 10/22/20 @ 06:47 by Reyes Saxena PA-C) Diabetes Physical Therapy Inpatient Evaluation/Re-Eval M1 PT/OT-IP Prior Functional Status Start: 10/22/20 12:53 Freq: NEEDED Status: Active Protocol: Document 10/22/20 10:05 AB (Rec: 10/22/20 13:13 AB [email or web address]) Medical Review Prior Functional Status Medical History Reviewed Yes Communication able to make needs known Mobility and Gait pt stated that he is independent with all mobilities and ambulation without AD Social History Household Members none Living Arrangements RV Number of Floors (Floors) One Floor Number of Stairs To Enter/Railing? 2 steps to enter and pt holds on to the door frame to assist Home Environment Standard Height Toilet,Tub/ Shower Home Equipment Front Wheel Walker,Four Wheel Walker,Crutches,Hand Held Shower Additional Social History Comment pt lives in his mom's property and stated that he assists his mom with house chores. stated that if needed, he can stay at his mom's house where there are no stair and has a ramp to enter, walk in shower with shoers chair with back, grab bars and HHS. pt stated that he usually uses L knee support due to L knee tends to give out on him pt has a hurry cane. pt stated that FWW will not fit in the RV. M2 PT-IP Current Condition Start: 10/22/20 12:53 Freq: NEEDED Status: Active Protocol: Document 10/22/20 10:05 AB (Rec: 10/22/20 13:13 AB [email or web address]) Physical Therapy Current Condition Current Condition Evaluation Date 10/22/20 Treatment Diagnosis L foot infxn s/p debridement & excision of medial sessamoid; diff in walkin Onset Date 10/16/20 Weight Bearing Status Allowed Weight Bearing Amount (enter % Per Dr. Witt: heel weight or #) (%) bearing LLE with off loading shoe M3 PT-IP Subjective Start: 10/22/20 12:53 Freq: NEEDED Status: Active Protocol: Document 10/22/20 10:05 AB (Rec: 10/22/20 13:13 [email or web address]) Subjective Physical Therapy Visit Type Type Initial Evaluation Visit Start Time 10:05 Visit Stop Time 10:40 Total Visit Minutes 35 Number of PILOT SUBMERSIBLE Visits 0 Physical Therapy Visit Comments Patient Comments pt is agreeable to do PT Therapy Pain Assessment Pain When Pain Assessed At Rest Pain Present Pain Present Pain Reported Location Left Foot Intensity 2 Scale Used Numeric (0 - 10) Pain Management Techniques Distraction,Elevation, Modification of Treatment,Re- positioning,Timing of Activity with Medications M4 PT-IP Mobility and Gait Start: 10/22/20 12:53 Freq: NEEDED Status: Active Protocol: Document 10/22/20 10:05 AB (Rec: 10/22/20 13:13 [email or web address]) PT-Bed Mobility Assessment Supine to Sit Supine to Sit Standby Assistance Sit to Supine Sit to Supine Standby Assistance PT-Transfer Assessment Sit to and From Stand Sit to and from Stand Standby Assistance,1 Person Assistance,Use of Upper Extremities Equipment Transfer Assistive Device Gait Belt,Front Wheeled Walker Orthotic/Prosthetic Devices or Brace: No Transfers Transfer Destination Bed,Chair Comments Mobility Comments Received post-op off loading shoe order for pt. dispensed shoe to pt and fitted. educated pt on donnin/doffing of shoe. completed supine to sit SBA. able to sit on EOB SBA. completed sit to stand SBA and ambulated in room using FWW 30 ft SBA. assessed ambulation using hurry cane CGA ~ 20 ft. pt is steadier with FWW at this time. pt agreed to use FWW and PT to assess safety with 4WW use and continue to work towards hurrycane use. pt sat on chair for a few minutes and requested to go back to bed. completed step transfer to bed SBA. sit to supine SBA. positioned in bed. call light and table placed within reach . noted L knee hyperextension during walking. Gait Assessment Gait Gait Assistance Required: Standby Assistance,Contact Guard Assist Distance (Feet) 30 Able to Maintain Weight Bearing Status Yes During Gait Assistive Devices Assistive Device Gait Belt,Tripod Cane/Hurry Cane,Front Wheeled Walker Orthotic/Prosthetic Devices or Brace: Yes Gait Deviations General Gait Pattern Antalgic,Decreased Stride Length,Decreased Feet Clearance,Step-to Gait Factors Limiting Gait Function Factors Limiting Gait Function Decreased Activity Tolerance, Decreased Strength,Limited Range of Motion,Pain,Poor Balance PT-Balance Assessment Sitting Balance and Reactions Static Sitting Balance Ability Normal Dynamic Sitting Balance Ability Normal Standing Balance and Reactions Static Standing Balance Ability Good Dynamic Standing Balance Ability Fair Device Used FWW M5 PT-IP Objective Assessments Start: 10/22/20 12:53 Freq: NEEDED Status: Active Protocol: Document 10/22/20 10:05 AB (Rec: 10/22/20 13:13 AB [email or web address]) Orientation Orientation/Cognition Level of Alertness Alert Orientation Name,Age,Birthday,Month,Date, Year,Day of Week,Place, Situation Language Function Ability No Deficits Noted Safety Awareness Decreased Safety Awareness Memory Description No Deficits Noted Gross Range of Motion Lower Extremity ROM Assessment Within Functional Limits Strength Lower Extremity Strength Assessment Within Functional Limits Muscle Tone Muscle Tone WNL Yes M6 PT-IP Treatment Start: 10/22/20 12:53 Freq: NEEDED Status: Active Protocol: Document 10/22/20 10:05 AB (Rec: 10/22/20 13:13 AB [email or web address]) Physical Therapy Treatment Education Education Provided Precautions,Weight Bearing Status,Safety Brace Education [place],Patient Equipment Issued Equipment Type and Company post-op offloading shoe dispensed; pt signed papers M7 PT-IP Assessment and Plan Start: 10/22/20 12:53 Freq: NEEDED Status: Active Protocol: Document 10/22/20 10:05 AB (Rec: 10/22/20 13:13 AB [email or web address]) PT Summary Assessment and Plan Potential Rehabilitation Potential Good Status of Condition at Evaluation Stable Summary Impairments Pain,ROM,Strength,Balance, Coordination,Sensation,Bed Mobility,Transfers,Gait, Activity Tolerance Assessment Summary pt requiring SBA with ambulation using FWW, CGA with hurrycane. will continue PT to work towards increase independence with use of hurrycane/least restrictive AD and also stair climbing training. will continue to assess progress. Goals Bed Mobility Goal Independent Transfer Goal Independent,Cane,Four Wheeled Walker Gait Goal Independent,Cane,Four Wheel Walker Gait Distance 200 Other Goals up/down 2 steps using hurrycane/door frame SBA Days to Meet Goals 5 Frequency of Treatment Frequency Of Treatment Once a Day Treatment Plan Physical Therapy Treatment Plan Bed Mobility Training,Transfer Training,Gait Training, Therapeutic Exercise,Balance Retraining,Post Op Education, Discharge Planning,Hot or Cold Pack,Neuromuscular Re-ed, Coordination Retraining,Manual Therapy Precautions Brace L off loading shoe Other Precautions Per Dr. Witt: heel weight bearing LLE with off loading shoe Recommendations To Nursing Amount of Assist Needed 1 Person Assist Discharge Recommendations PT Discharge Recommendations Home Transportation Needs at Discharge Private Vehicle
[2020-10-22] MEDS: INSULIN LISPRO 100 UNIT/ML 3ML VIAL SUBCUT (12:29)
--- NOTE | 2020-10-22 14:03 | CM.DPC ---
DCP Cont: Met with patient in his room to go over some discharge planning. Discussed primary care providers, he stated that he does have an appointment with Dr. Garza on Nov 04, to get established with a new provider. According to Dr. Witt, he may potentially need IV ABO, but is unclear at this time what he will need or how often, depending upon cultures. At this time, his ABO are q 24 hours. Patient indicated that he does live with his mother who is a retired RN. He is not opposed to home antibiotics, if needed, but would rather go to infusion if possible to have them done. Dr. Villa, surgeon, indicated that 'it is significant that he get established with a new provider. Patient indicated that his [facility] has given authorization for primary care provider at [facility]. He indicated that before COV, he was established at [facility] on [address] [facility], and when he recently attempted to contact them, they moved over to [facility] on [address]. Patient is also hoping to get [facility] paperwork for his days off work. Asked him if he can get through his work, which he stated he has to print out. P: DCP to continue to follow. Anticipate that patient will be here for several more days, due to pending cultures, and the possibilities of needing another surgery. Plan will depend upon which ABO he will go home with. May benefit to see is patient can get a sooner appointment with his primary care provider to follow up. Nati Colon, MINGO/[employer]
[2020-10-22] MEDS: cefTRIAXone 2,000 MG in SODIUM CHLORIDE 0.9% 100 ML 200 ML IV (16:02)
[2020-10-22] MEDS: INSULIN GLARGINE 100 UNIT/ML 3ML PEN 40 UNIT SUBCUT (21:09)
[2020-10-23] VITALS (19 sets, daily range): BP systolic 80–142; BP diastolic 57–85; PULSE 74–107; RESP 12–19; TEMP 36.4–37.7; O2SAT 90–97; BMI 29.9
[2020-10-23 05:51] LABS: Add Manual Diff / Slide Review NO; Basophils Absolute Auto 100 /uL (0-100); Basophils Percent Auto 0.6 % (0-2); Eosinophils Absolute Auto 300 /uL (0-450); Eosinophils Percent Auto 2.3 % (2-4); Hematocrit 33.3 % (41-53); Lymphocytes Absolute Auto 2100 /uL (1100-4500); Lymphocytes Percent Auto 16.9 % (25-40); Mean Corpuscular Hemoglobin 26.9 PG (26-34); Mean Corpuscular Volume 81.6 fL (80-100); Monocytes Absolute Auto 1200 /uL (0-900); Monocytes Percent Auto 9.7 % (3-14); Neutrophils Absolute Auto 8600 /uL (1500-7000); Neutrophils Percent Auto 70.5 % (50-75); Platelet Count 359 X10^3/uL (150-400); Red Blood Cell Count 4.08 X10^6/uL (4.5-5.9); Red Cell Distribution Width 13.4 % (11.6-14.8); White Blood Cell Count 12.2 X10^3/uL (4.5-11.0)
[2020-10-23 06:16] LABS: C-Reactive Protein Quant 13.3 mg/dL (<1.0)
[2020-10-23] MEDS: SODIUM CHLORIDE 0.9% FLUSH 10 ML IV ×2 (08:00→22:08)
--- NOTE | 2020-10-23 08:29 | PM.PNPO.1 ---
Subjective Subjective Date Patient Seen: 10/23/20 Time Patient Seen: 08: Interval history: Postop day 2 I and D left foot diabetic foot infection. Operative cultures showing Gram-positive cocci no other micro returned yet. The previous ER culture was group B strep. On ceftriaxone. White count little better today at 12 but CRP is the same as it was earlier in the week. Exam Vital Signs (past 8 hours): - 10/23/20 05:24 Temperature 97.9 F Pulse Rate 91 H Respiratory Rate 18 Blood Pressure 108/79 Pulse Oximetry 93 Oxygen Delivery Method Room Air Oxygen Flow Rate 0 Narrative Exam Narrative: Alert oriented male no acute distress lying in bed. Heart regular rate and rhythm. Lungs clear to auscultation. Left foot is examined dressings are taken down and went to dry dressings changed. There is increased ecchymosis and a purple hue to the 2nd toe with a dorsal blister. Good cap refill of the 1st 3rd 4th and 5th toes. No additional malodor but 2nd toe does not look like it will survive and there is continued maceration along the plantar aspect of the 2nd toe some additional necrotic tissue. Also small amount of necrotic tissue at the most proximal margin of the great toe medial wound. No fluctuance for additional abscess found. No ascending cellulitis Objective Labs Result Diagrams: 10/23/20 05:15 10/22/20 05:25 Labs: Laboratory Results - last 24 hr 10/23/20 10/23/20 05:15 05:15 WBC 12.2 H RBC 4.08 L Hgb 11.0 L Hct 33.3 L MCV 81.6 MCH 26.9 MCHC 33.0 RDW 13.4 Plt Count 359 Neut % (Auto) 70.5 Lymph % (Auto) 16.9 L [place] % (Auto) 9.7 Eos % (Auto) 2.3 Baso % (Auto) 0.6 Neut # (Auto) 8600 H Lymph # (Auto) 2100 [place] # (Auto) 1200 H Eos # (Auto) 300 Baso # (Auto) 100 C-Reactive Protein 13.3 H [facility] Medical History Diabetes Social History household members: none Smoking Status: Former smoker Smokeless tobacco user: chewing tobacco quit status: considering quitting Assessment & Plan Post-op Postoperative Procedures: Procedures Operation Date: 10/21/20 12:15 Actual Procedure Side Surgeon p Incision and Drainage Foot Left Angeles Witt MD Postoperative day: 2 Postoperative plan narrative: Second day postop I and D left foot infection. Patient would like much done this possible to salvage the extremity. I do not think the 2nd toe is salvageable. I recommend 2nd toe amputation and repeat a debridement of the foot wounds in order to try to salvage the remainder of the forefoot. We discussed another option would be a transmetatarsal amputation. Again the patient would like limb salvage. I feel that his best chance at limb salvage is amputation of the 2nd toe and repeat debridement. We will plan this for later to day. He will be NPO. He may have medications with sips. He is on scheduled antibiotics. He is not septic but the 2nd toe is nonsalvageable. We discussed after the surgery will still require wound care for the remaining open wounds and may require additional surgeries. The risks and benefits of the procedure have been discussed with the patient even opportunity to ask questions. The risks of surgery include but are not limited to infection, malunion, nonunion, persistence of pain, damage to nerves and blood vessels, posttraumatic arthritis, DVT, PE, cardiopulmonary complications and . The patient expressed a thorough understanding of the risks and benefits of surgery and has elected to proceed. Consent was signed. Time Spent With Patient Time with patient: 15-24 minutes Quality VTE Deep Vein Thrombosis/Pulmonary Embolism Present on Admission: No
--- NOTE | 2020-10-23 08:35 | PM.PREOP ---
Pre-operative Note COVID-19 COVID-19 status: Negative Interval Note History & Physical reviewed/Exam performed by Physician: Yes Changes to H&P: No
[2020-10-23] MEDS: SODIUM CHLORIDE 0.9% 1,000 ML 100 ML IV (08:43)
[2020-10-23 10:30] LABS: COVID19 -Nasal RAPID Negative (Negative)
--- NOTE | 2020-10-23 10:42 | PT-IP ANOTE ---
Per nursing, pt not available due to surgery that was decided on this morning. Will put pt on hold until new referral received post surgical.
[2020-10-23] MEDS: LACTATED RINGERS 1,000 ML 42 ML IV (11:45)
[2020-10-23] MEDS: BUPIVACAINE 0.5% (PF) VIAL 30 ML INJ (13:09)
[2020-10-23] MEDS: VANCOMYCIN 1,000 MG/200 ML PIGGYBACK 200 MG IV (13:13)
--- NOTE | 2020-10-23 13:34 | PC.NURSE ---
Pt A&Ox3 gaudencio. MD at bedside this a.m. discussing surgical options/plan with patient and pt expressing he would like to salvage toes if possible and is aggreeable to the need for 2nd toe amputation on the L foot. Pt reports good pain control after dressing change with MD with 0.5mg IV dilaudid. upon reassessment he reports pain 1/10. He is kept NPO and IVF NS started at 100ml/hr. Surgical team arrives to transport pt via bed at approximately 1130.
--- NOTE | 2020-10-23 14:00 | P.OP_ITS ---
Operative Date/Time/Diagnoses Date of procedure: 10/23/20 Time of procedure: 13:01 Pre-op diagnosis: Left foot diabetic infection Uncontrolled diabetes Post-op diagnosis: same Procedure & Clinicians Procedure: Partial ray amputation left 2nd toe CPT code [id number] Excisional debridement bone soft tissue and muscle and tendon left foot CPT code 73011-01 Modifier 58 is used for return to OR for more extensive procedure Same procedure as scheduled: Yes Indications: Patient is a 60-year-old male with diabetes. He has a left foot infection. He is not sure if he had a puncture wound or what caused the infection but has had about a week of redness swelling that has been progressively worsening. This was initially thought to be gout and then worsened and was admitted with a diabetic infection. He had a debridement 2 days ago demonstrating abscesses and decide what to dry dressings on the floor. He was noted to have significant involvement of his 2nd toe as well as of space and horseshoe type abscess extending to the plantar 1st 2nd 3rd toes. He has a desire for limb salvage. It became apparent that the 2nd toe was not elsy geable and he has been indicated for 2nd toe partial ray amputation as well as repeat I and D wounds. We discussed if this fails and he has progressive infection he may be indicated for transmetatarsal amputation. He understands but would like to make every attempt at as much limb salvage as possible. The risks and benefits of the procedure have been discussed with the patient even opportunity to ask questions. The risks of surgery include but are not limited to infection, malunion, nonunion, persistence of pain, damage to nerves and blood vessels, posttraumatic arthritis, DVT, PE, cardiopulmonary complications and . The patient expressed a thorough understanding of the risks and benefits of surgery and has elected to proceed. Consent was signed. Surgeon: Angeles Witt Click Yes if Unassisted: Yes Anesthesia Type: General and Local Operative Notes Findings: Discolored purple ecchymotic 2nd toe with progressive discoloration dorsal blistering and non viability. Marked purulence in a scant amount was noted in the plantar 1st webspace incision the tract to the plantar distal 1st ray into the flexor sheath of the 3rd toe. These toes maintained normal coloration cap refill. Second toe was nonviable this was amputated through the metatarsophalangeal joint and then the 2nd metatarsal was partially resected for partial ray resection. Necrotic tissue was debrided out of the 1st web space wound as well as the separate medial wound including soft tissue skin muscle and tendon and necrotic fat. Closure Type: non-primary Specimen(s): other (Tissue for PCR left foot) Estimated Blood Loss (mL): 10 Blood products transfused: none Tourniquet time (min): 44 Procedure in detail: Patient was seen in the preoperative the site of surgery was marked informed consent confirmed. He was brought back to the operating room by the anesthesia team. He was positioned supine on operative table. Anesthetic was administered. All bony prominences well padded. An SCD was placed on the contralateral lower extremity. The left lower extremity was prepped and draped in the standard sterile fashion. A nonsterile thigh tourniquet was placed. The wounds were opened and were prepped with Betadine. A formal time-out procedure was performed confirming the patient's side and site of surgery. The patient was on scheduled antibiotics. All were in agreement. Consent was present. Attention turned to the left foot this was held with gravity exsanguination and the tourniquet was raised to 250 mmHg. There was an open wound in the 1st web space and separate wound over the dorsal lateral foot and separate medial 1st MTP wounds. No gross purulence was expressed from the on 1st appearance. The 2nd toe was purple and nonviable. The amputation was planned and drawn out. Second toe was resected and removed at the MTP joint. On plantar resection there was noted to be a small amount of murky purulence along the flexor tendon sheath of the 2nd toe additionally this was found tracking medially and laterally towards the 1st and 2nd toe. Second toe was removed from the foot. Additional debridement and resection was taken back to the mid level of the 2nd metatarsal in the TTS saw was used to resect this. Nonviable tendons were resected and allowed to retract. The metatarsal was removed distal to the resection site. Then deep exploration was taken along the flexor tendon sheath of the 3rd toe and into the distal great toe as well on the great toe this plantar a trach did track medially into the open medial eminence wound. No large or additional pockets of purulence were demonstrated. Was unable to milk any purulence from deeper within the plantar foot. This point nonviable skin subcutaneous tissue tendon and muscle were debrided from all of the wounds. Tissue at the deep 1st webspace was sent for PCR. Pulse lavage irrigation was used for thorough irrigation of the foot once this completed a new drape was placed gloves were changed and new instruments were used for final debridement. No additional purulence was demonstrated. Tourniquet was released hemostasis was achieved. Toes appear to pink up symmetrically. A few 2-0 PDS sutures were used deep at the plantar 1st webspace to approximate the tissue followed by a few nylon sutures again at the plantar 1st webspace and dorsally at the dorsal lateral wound and at the edges of the medial wound. 0.5%Marcaine was used for local anesthetic. Remainder central area of the 1st web site and amputation site was packed with wet to dry dressing the medial wound was packed with wet to dry dressing. Covered with dry gauze. Gauze was placed in between the toes. Kerlix wrap and Pineda bandage were placed. The patient was woken from anesthesia and taken to the recovery room in good condition. There no immediate complications from this procedure. Complications: none Post-operative Condition: stable Disposition: PACU Plan for aftercare: Nonweightbearing or heel weight-bearing in a Darco forefoot offloading shoe. Will get daily wet to dry dressing changes and daily monitoring of appearance of foot for decision making regarding continued wound care versus return to operating room for more extensive procedure. Patient understands and agrees with the plan. He has been counseled on risks for need for more proximal amputation including transmetatarsal amputation. Will also brought in antibiotics to include ceftriaxone and vancomycin while we await cultures will follow daily labs. Will have Lovenox on the floor for DVT pr ophylaxis and encourage tight glycemic control.
--- NOTE | 2020-10-23 14:19 | SUR.PHASEI ---
REPORT GIVEN TO MINGO MERCADO OVER THE PHONE. ALL QUESTIONS ANSWERED TO SATISFACTION. MET JESS AT BEDSIDE FOR FACE TO FACE HANDOFF. SCD ON RLE. BED IN LOW POSITION. VSS.
--- NOTE | 2020-10-23 15:34 | PC.NURSE ---
1415 Pt returned from PACU, A&Ox3, talkative. States he feels groggy. VSS, afebrile. RA. Pt denies pain. Eating sugar free pudding. Dressing to L foot with shadow drainage, intact. sluggish capillary refill. Pt having just recieved IV vancomycin in pacu.
--- NOTE | 2020-10-23 15:42 | PM.PN.1 ---
Subjective Subjective Interval history: Patient is s/p partial ray amputation of the left 2nd toe with excisional debridement bone soft tissue /muscle/tendon of left foot. His pain is controlled currently. Patient has questions regarding weight bearing status Exam Vital Signs (past 8 hours): - 10/23/20 07:43 10/23/20 10:43 10/23/20 13:41 Temperature 98.3 F 99.5 F 98.6 F Pulse Rate 87 89 75 Respiratory Rate 14 18 16 Blood Pressure 96/71 128/81 80/57 L Pulse Oximetry 93 94 94 10/23/20 13:42 10/23/20 13:46 10/23/20 13:51 Temperature Pulse Rate 76 74 82 Respiratory Rate 12 12 12 Blood Pressure 90/61 90/66 108/78 Pulse Oximetry 90 L 92 97 10/23/20 13:56 10/23/20 14:06 10/23/20 14:17 Temperature 97.9 F 98.4 F Pulse Rate 83 82 86 Respiratory Rate 12 16 14 Blood Pressure 117/80 121/81 115/73 Pulse Oximetry 96 95 93 Oxygen Delivery Method Room Air Oxygen Flow Rate 0 Narrative Exam Narrative: pleasant gentleman resting comfortably and in no distress Resp Other: Lungs: clear to auscultation Cardio Other: RRR nl Sl S2 GI Other: Abd: soft/nontender/nondistended Extrem Other: left foot in dressing Objective Labs Result Diagrams: 10/23/20 05:15 10/22/20 05:25 Labs: Laboratory Results - last 24 hr 10/23/20 10/23/20 10/23/20 05:15 05:15 10:10 WBC 12.2 H RBC 4.08 L Hgb 11.0 L Hct 33.3 L MCV 81.6 MCH 26.9 MCHC 33.0 RDW 13.4 Plt Count 359 Neut % (Auto) 70.5 Lymph % (Auto) 16.9 L [place] % (Auto) 9.7 Eos % (Auto) 2.3 Baso % (Auto) 0.6 Neut # (Auto) 8600 H Lymph # (Auto) 2100 [place] # (Auto) 1200 H Eos # (Auto) 300 Baso # (Auto) 100 C-Reactive Protein 13.3 H SARS-CoV-2 (PCR) Negative Bacterial Detect (PCR) 10/23/20 13:49 WBC RBC Hgb Hct MCV MCH MCHC RDW Plt Count Neut % (Auto) Lymph % (Auto) [place] % (Auto) Eos % (Auto) Baso % (Auto) Neut # (Auto) Lymph # (Auto) [place] # (Auto) Eos # (Auto) Baso # (Auto) C-Reactive Protein SARS-CoV-2 (PCR) Bacterial Detect (PCR) Cancelled FOR[facility]LY [facility], [facility] Medical History Diabetes Social History household members: none Smoking Status: Former smoker Smokeless tobacco user: chewing tobacco quit status: considering quitting Assessment & Plan Assessment & Plan narrative: Left foot cellulitis, osteomyelitis, possible septic 1st MTP joint, acute. -patient with significant areas of erythema and skin maceration/superficial sloughing of the left foot -CT report indicated diffuse subcutaneous edema and areas of soft tissue gas -Dr. Howe saw patient for ortho consult and does not see abscess that requires surgical drainage. Given significantly elevated inflammatory markers and continued erythema MRI was obtained which showed ulceration and subcutaneous emphysema of the forefoot without drainable abscess. There is osteomyelitis noted of the 1st metatarsal head and 1st proximal phalangeal base with possible osteomyelitis of the medial sesamoid for 1st MTP joint as well. -Dr. Witt now planning on OR today. Please send tissue sample to micro lab for PCR testing along with any operative cultures. -patient was started on vancomycin and meropenem in ED with already improvement in left foot erythema. Narrowed to ceftriaxone based on GBS culture and negative MRSA swab. Follow up any operative cultures. -will need at least 6 weeks of IV antibiotics, pending orthopedic surgery repeat evaluation of new MRI findings. -recommend wound care clinic appointment on discharge. -Patient taken to the OR for a partial ray amputation, excisional biopsy of muscle, tendon, bone-extensive pus identified -Continue current antibiotics, he may require further surgery and tour conductor antibiotics 2. Type 2 diabetes -glucose 296 on admission, A1c 10.9% -patient previously on Lantus 55 units HS prescribed through [facility] -restarted Lantus 40 units at bedtime, will continue to adjust as needed. AM sugars largely controlled. Consider adding meal time coverage after OR depending on course. -medium dose insulin correction a.c. HS -patient requests to send prescription for 90 day Lantus Solostar supply and pen needles to [facility] pharmacy until patient can reestablish with his provider. Will send Rx for test strips as well. -Continiue tight glycemic control I have utilized all available resources to review and update current medications Quality VTE Deep Vein Thrombosis/Pulmonary Embolism Present on Admission: No
[2020-10-23] MEDS: cefTRIAXone 2,000 MG in SODIUM CHLORIDE 0.9% 100 ML 200 ML IV (15:54)
[2020-10-23] MEDS: OXYCODONE IR 5 MG TABLET PO ×3 (15:56→22:45)
[2020-10-23] MEDS: ACETAMINOPHEN 325 MG TABLET 650 MG PO (19:41)
[2020-10-23] MEDS: INSULIN GLARGINE 100 UNIT/ML 3ML PEN 40 UNIT SUBCUT (21:54)
[2020-10-23] MEDS: VANCOMYCIN 1,500 MG/300 ML PIGGYBACK 200 MG IV (22:08)
--- NOTE | 2020-10-24 02:43 | PC.NURSE ---
Patient is alert and oriented. Breath sounds CTA with RA sat of 94%. HRR. Denied nausea. BT present and reports he had a BM yesterday. Is voiding per urinal; denies dysuria, frequency or urgency. Is able to move himself in bed. Currently NWB on left foot so is using walker and 1 assist to stand at bedside to use urinal. Stated pain in left foot only 1-2/10 and had no need for pain medication; ice pack was applied. Dressing + mark wrap to left foot is CDI. Refuses to wear SCD's so reminded to ankle wave when awake. Fall risk score is high but patient agreeable to calling for assistance and declines to have bed alarm activated.
[2020-10-24 03:00] VITALS: BP 107/62; PULSE 97; RESP 18; TEMP 36.9; O2SAT 94
[2020-10-24 07:00] VITALS: BP 130/82; PULSE 92; RESP 14; TEMP 36.6; O2SAT 97
--- NOTE | 2020-10-24 08:03 | P.PN_ITS ---
Subjective Subjective Date Patient Seen: 10/24/20 Time Patient Seen: 08:03 Interval history: Hospital day 8 Postoperative day 3 from 1st I and D postoperative day 1 from 2nd toe amputation and repeat I&D Doing okay. No fevers or chills. Exam Vital Signs (past 8 hours): - 10/24/20 03:00 Temperature 98.5 F Pulse Rate 97 H Respiratory Rate 18 Blood Pressure 107/62 Pulse Oximetry 94 Oxygen Delivery Method Room Air Oxygen Flow Rate 0 Narrative Exam Narrative: Alert oriented male no acute distress sitting in bed. Lungs clear to auscultation. Heart regular rate and rhythm. Left lower extremity wet to dry dressing in place. This is taken down unchanged. Dorsal 2nd toe amputation site packing removed. Some bleeding. No malodor. No additional purulence noted. There is some ecchymosis at the plantar aspect of the great toe the level of the proximal phalanx and connecting into the medial wound. There is some swelling redness plantarly the level of the great toe and MTP with slight tenderness to palpation. No fluctuance. No ascending erythema. No swelling above the level of the forefoot. Calf is soft. Toes with brisk capillary refill Objective Labs Result Diagrams: 10/23/20 05:15 10/22/20 05:25 Labs: Laboratory Results - last 24 hr 10/23/20 10/23/20 10:10 13:49 SARS-CoV-2 (PCR) Negative Bacterial Detect (PCR) Cancelled COUNTS INCLUDE 234 BEDS AT THE [facility] Medical History Diabetes Social History household members: none Smoking Status: Former smoker Smokeless tobacco user: chewing tobacco quit status: considering quitting Assessment & Plan Post-op Postoperative Procedures: Procedures Operation Date: 10/21/20 12:15 Actual Procedure Side Surgeon p Incision and Drainage Foot Left Angeles Witt MD Operation Date: 10/23/20 12:00 Actual Procedure Side Surgeon p Repeat Irrigation/debridement left foot, 2nd toe amputation left Left Angeles Witt MD Postoperative day: 1 Postoperative status: doing well Postoperative plan narrative: Patient is status post multiple debridements and 2nd toe amputation for diabetic infection left foot. Discussed his status is tenuous and will need day by day clinical examinations in coordination with laboratories to the side if additional surgery is required. We will increase his wet-to-dry dressings to twice a day and get nursing involved with these as he tolerated this well on the floor today. I will inspect the foot daily. Discussed for signs of worsening or increasing plantar erythema or swelling likely require conversion to transmetatarsal amputation. If he continues to improve then we would stay with the plan of wet to dry dressings/and local wound care for healing by secondary intention. Patient requires continued IV antibiotics for a severe diabetic infection and inpatient treatment for wound changes clinical examination and possibility of additional surgery. Still awaiting final cultures from operative specimens. PCR was also sent to . Time Spent With Patient Time with patient: 15-24 minutes Quality VTE Deep Vein Thrombosis/Pulmonary Embolism Present on Admission: No
[2020-10-24] MEDS: VANCOMYCIN 1,500 MG/300 ML PIGGYBACK 200 MG IV ×2 (08:37→21:08)
[2020-10-24] MEDS: OXYCODONE IR 5 MG TABLET PO ×3 (08:37→19:05)
[2020-10-24] MEDS: SODIUM CHLORIDE 0.9% 250 ML 21 ML IV (08:37)
[2020-10-24 08:55] LABS: Add Manual Diff / Slide Review NO; Basophils Absolute Auto 100 /uL (0-100); Basophils Percent Auto 0.8 % (0-2); Eosinophils Absolute Auto 200 /uL (0-450); Eosinophils Percent Auto 1.4 % (2-4); Hematocrit 32.8 % (41-53); Hemoglobin 10.9 g/dL (13.5-17.5); Lymphocytes Absolute Auto 1600 /uL (1100-4500); Lymphocytes Percent Auto 11.8 % (25-40); Mean Corpuscular HGB Conc 33.3 % (30-36); Monocytes Absolute Auto 1100 /uL (0-900); Monocytes Percent Auto 8.2 % (3-14); Neutrophils Absolute Auto 10300 /uL (1500-7000); Neutrophils Percent Auto 77.8 % (50-75); Platelet Count 384 X10^3/uL (150-400); Red Blood Cell Count 4.05 X10^6/uL (4.5-5.9); Red Cell Distribution Width 13.5 % (11.6-14.8); White Blood Cell Count 13.3 X10^3/uL (4.5-11.0)
[2020-10-24 09:13] LABS: Alanine Aminotransferase 17 IU/L (<50); Albumin 3.5 g/dL (3.5-5.0); Albumin Globulin Ratio 0.9 (1.0-2.8); Alkaline Phosphatase 102 U/L (38-126); Aspartate Aminotransferase 18 IU/L (17-59); BUN Creatinine Ratio 19.8 (6-22); Bilirubin Total 0.5 mg/dL (0.2-1.3); Blood Urea Nitrogen 17 mg/dL (9-20); Carbon Dioxide 29 mmol/L (22-32); Chloride 99 mmol/L (98-107); Estimated Glomerular Filt Rate > 60.0 mL/min (>60); Glucose 133 mg/dL (70-100); HEMOLYSIS < 15 (0-50); Potassium 4.2 mmol/L (3.4-5.1); Sodium 134 mmol/L (137-145); Total Protein 7.5 g/dL (6.3-8.2)
[2020-10-24] MEDS: ENOXAPARIN 40 MG/0.4 ML SYRINGE SUBCUT (09:40)
[2020-10-24] MEDS: SODIUM CHLORIDE 0.9% FLUSH 10 ML IV ×2 (09:41→21:16)
[2020-10-24 11:00] VITALS: BP 114/75; PULSE 82; RESP 14; TEMP 36.4; O2SAT 93
[2020-10-24] MEDS: INSULIN LISPRO 100 UNIT/ML 3ML VIAL SUBCUT ×2 (12:06→21:11)
--- NOTE | 2020-10-24 12:15 | PT.IPRE ---
Current Diagnoses Cellulitis of left lower limb (10/16/20) Surgery Performed Operation Date: 10/21/20 12:15 Actual Procedures p Incision and Drainage Foot(Left) - Angeles Witt MD Operation Date: 10/23/20 12:00 Actual Procedures p Repeat Irrigation/debridement left foot, 2nd toe amputation left(Left) - Angeles Witt MD Medical History (Last Reviewed 10/22/20 @ 06:47 by Reyes Saxena PA-C) Diabetes Physical Therapy Inpatient Evaluation/Re-Eval M1 PT/OT-IP Prior Functional Status Start: 10/22/20 12:53 Freq: NEEDED Status: Active Protocol: Document 10/22/20 10:05 AB (Rec: 10/22/20 13:13 AB [id number]) Medical Review Prior Functional Status Medical History Reviewed Yes Communication able to make needs known Mobility and Gait pt stated that he is independent with all mobilities and ambulation without AD Social History Household Members none Living Arrangements RV Number of Floors (Floors) One Floor Number of Stairs To Enter/Railing? 2 steps to enter and pt holds on to the door frame to assist Home Environment Standard Height Toilet,Tub/ Shower Home Equipment Front Wheel Walker,Four Wheel Walker,Crutches,Hand Held Shower Additional Social History Comment pt lives in his mom's property and stated that he assists his mom with house chores. stated that if needed, he can stay at his mom's house where there are no stair and has a ramp to enter, walk in shower with shoers chair with back, grab bars and HHS. pt stated that he usually uses L knee support due to L knee tends to give out on him pt has a hurry cane. pt stated that FWW will not fit in the RV. M2 PT-IP Current Condition Start: 10/22/20 12:53 Freq: NEEDED Status: Active Protocol: Document 10/24/20 12:15 DLM (Rec: 10/24/20 12:52 DLM [id number]) Physical Therapy Current Condition Current Condition Evaluation Date 10/22/20 Treatment Diagnosis Left 2nd toe amputated 10/23/20 Onset Date 10/16/20 Weight Bearing Status Allowed Weight Bearing Amount (enter % Per Dr. Witt: heel weight or #) (%) bearing LLE with off loading shoe M3 PT-IP Subjective Start: 10/22/20 12:53 Freq: NEEDED Status: Active Protocol: Document 10/24/20 12:15 DLM (Rec: 10/24/20 12:52 DLM [id number]) Subjective Physical Therapy Visit Type Type Treatment Note/re-eval after surgery Visit Start Time 11:55 Visit Stop Time 12:15 Total Visit Minutes 20 Physical Therapy Visit Comments Patient Comments He has been getting up to ambulate to the bathroom with the shoes and walker. He plans to use the FWW at discharge. He will be going up and down ramp at home until his foot is better (and avoiding stairs) Patient Goals discharge home Therapy Pain Assessment Pain When Pain Assessed At Rest Pain Present Pain Present Pain Reported Location Left Foot Intensity 3 Scale Used Numeric (0 - 10) Pain Management Techniques Elevation,Re-positioning M4 PT-IP Mobility and Gait Start: 10/22/20 12:53 Freq: NEEDED Status: Active Protocol: Document 10/24/20 12:15 DLM (Rec: 10/24/20 12:52 DL [id number]) PT-Bed Mobility Assessment Rolling Level of Assist Independent Supine to Sit Supine to Sit Independent Sit to Supine Sit to Supine Independent Scooting Scooting to Edge of Bed Independent Scooting Up and Down in Bed Independent PT-Transfer Assessment Sit to and From Stand Sit to and from Stand Independent,Use of Upper Extremities Equipment Transfer Assistive Device Front Wheeled Walker Transfers Transfer Destination Bed Transfer Ability Level of Assist Independent,Use of Upper Extremities Gait Assessment Gait Gait Assistance Required: Independent Distance (Feet) 50 Able to Maintain Weight Bearing Status Yes During Gait Assistive Devices Assistive Device Front Wheeled Walker Gait Deviations General Gait Pattern Antalgic,Decreased Stride Length,Step-to Gait Factors Limiting Gait Function Factors Limiting Gait Function Decreased Activity Tolerance, Decreased Strength,Limited Range of Motion,Pain,Poor Balance Comments Gait Comments he is independent donning/ doffing his off-loading shoe Stair Climbing Assessment Comments Stair Climbing Comments he has a ramp at his Mother's house and at work PT-Balance Assessment Sitting Balance and Reactions Static Sitting Balance Ability Normal Dynamic Sitting Balance Ability Normal Standing Balance and Reactions Static Standing Balance Ability Good Dynamic Standing Balance Ability Good Device Used FWW M5 PT-IP Objective Assessments Start: 10/22/20 12:53 Freq: NEEDED Status: Active Protocol: Document 10/24/20 12:15 DLM (Rec: 10/24/20 12:52 DL [id number]) Orientation Orientation/Cognition Level of Alertness Alert Orientation Name,Age,Birthday,Month,Date, Year,Day of Week,Place, Situation Language Function Ability No Deficits Noted Safety Awareness Understands Safety Issues Memory Description No Deficits Noted Gross Range of Motion Upper Extremity ROM Assessment Within Functional Limits Lower Extremity ROM Assessment Within Functional Limits Impairments calf/achilles tightness he notes when using off-loading shoe Strength Upper Extremity Strength Assessment Within Functional Limits Lower Extremity Strength Assessment Within Functional Limits Ankle not fully tested due to post- op foot Coordination Assessment Gross Coordination Gross Coordination WNL Sensation Assessment Comments Sensation Comments left foot not tested due to wrapped post-op Muscle Tone Muscle Tone WNL Yes M6 PT-IP Treatment Start: 10/22/20 12:53 Freq: NEEDED Status: Active Protocol: Document 10/24/20 12:15 DLM (Rec: 10/24/20 12:52 DL [id number]) Physical Therapy Treatment Education Education Provided Precautions,Weight Bearing Status,Safety Brace Education [place],Patient Other Treatments Other Treatment Performed recommended pt do heel slides and leg raises when in bed for left LE strength M7 PT-IP Assessment and Plan Start: 10/22/20 12:53 Freq: NEEDED Status: Active Protocol: Document 10/24/20 12:15 DLM (Rec: 10/24/20 12:52 [facility]LY [facility] [id number]) PT Summary Assessment and Plan Potential Rehabilitation Potential Good Status of Condition at Evaluation Evolving Summary Impairments Pain,ROM,Strength,Gait, Activity Tolerance Progress Towards Goals Safe For Discharge Assessment Summary Mr Vanegas is alert and resting in bed. He has been up ambulating to the bathroom with the FWW, Off-loading shoe and hiking shoe. He shows good progress with his mobility/gait. He has met his goals with the fWW. Recommend pt limit his distances of gait to manage his left foot wound post-op. He verbalizes a good discharge plan to stay at his Mother's house which is one level with ramp to enter. He is compliant with his weight bearing status with use of his off-loading shoe. Will discharge physical therapy. Recommend pt continue to amb daily to manage his endurance. Frequency of Treatment Frequency Of Treatment Discharge Treatment Plan Other Recommendations and Next Treatment goals met with fWW, stair goal Focus deferred since he will not be doing stairs at discharge. Recommendations To Nursing Amount of Assist Needed Standby Assistance Discharge Recommendations PT Discharge Recommendations Home Transportation Needs at Discharge Private Vehicle
--- NOTE | 2020-10-24 13:10 | DIET.PN1 ---
Dietary Progress Note RD Note: Pt BG more tightly regulated after second operation (BG 110-145) whereas was >200 previously. Kitchen sending CCD meals c ONS Blayne bid to support wound healing.
[2020-10-24] MEDS: MEROPENEM 1 GM in SODIUM CHLORIDE 0.9% 100 ML 200 ML IV ×2 (14:35→23:09)
--- NOTE | 2020-10-24 15:01 | CM.DPC ---
DCP Cont: Per Ortho MD, pt is post op day 1 from additional I&D and 2nd toe amputation and significant concern for pt worsening and needing additional amputation pending his progress. Increased his current IV-Abx to Vanco Q12 and Meropenem Q8 for better coverage and MD to check pt's progress daily with 2x day dressing changes with set staff fitter bedside. [facility] continues to follow for likely need of IV-Abx at d/c and current dosing not able to be managed by outpt infusion clinic. Plan: SW to follow closely for pt progress and possible need for further amputation and confirming IV-Abx at d/c and dosing needs. Nenita Milton MSW
--- NOTE | 2020-10-24 15:08 | PC.NURSE ---
A&Ox4. VSS. B, 206. Given 3 units of ss humalog with lunch. Left foot wound wet to dry dressing, provider changed dressing this morning. Order placed for dressing to be changed 2x/day. Pain well controlled with PRN oxycodone 5mg. SBA with walker to restroom. Worked with PT today in room. Encouraged to moved left lower extremity while in bed, knee bends and leg lifts. Call light within reach, bed low.
[2020-10-24 15:30] VITALS: BP 117/71; PULSE 91; RESP 16; TEMP 36.8; O2SAT 97
[2020-10-24] MEDS: INSULIN GLARGINE 100 UNIT/ML 3ML PEN 40 UNIT SUBCUT (21:09)
[2020-10-24 21:27] VITALS: BP 116/65; PULSE 82; RESP 16; TEMP 37.2; O2SAT 98
[2020-10-25] VITALS (11 sets, daily range): BP systolic 110–131; BP diastolic 68–89; PULSE 79–101; RESP 14–19; TEMP 36–37.1; O2SAT 95–99
--- NOTE | 2020-10-25 01:12 | PC.NURSE ---
Addendum entered by Anuradha Garcia R.N. 10/25/20 01:16: Correction on BP: was 129/84 Original Note: Patient is alert and oriented. Breath sounds CTA with RA sat of 99%. HRR with elevated BP of 149/84. Denies nausea. BT present but hypoactive. Denies dysuria, frequency or urgency with urination. Moves self in bed. Up to bathroom wearing ortho boot with walker and SBA as is NWB on left foot. Refuses to wear SCD's so reminded to ankle wave. Dressing + mark wrap to left foot is CDI. Good posterior tibial pulse on left foot. Denies pain. Fall risk score is high and bed alarm is activated. IV site has but patient requested not to be restarted at this time as may need to have PICC placed depending on discharge plan.
[2020-10-25] MEDS: MEROPENEM 1 GM in SODIUM CHLORIDE 0.9% 100 ML 200 ML IV ×3 (06:11→23:45)
[2020-10-25] MEDS: SODIUM CHLORIDE 0.9% FLUSH 10 ML IV ×3 (06:12→22:12)
[2020-10-25 07:18] LABS: C-Reactive Protein Quant 14.9 mg/dL (<1.0)
[2020-10-25] MEDS: OXYCODONE IR 5 MG TABLET PO ×2 (08:00→22:22)
[2020-10-25] MEDS: INSULIN LISPRO 100 UNIT/ML 3ML VIAL SUBCUT ×3 (08:01→22:11)
[2020-10-25] MEDS: ENOXAPARIN 40 MG/0.4 ML SYRINGE SUBCUT (08:01)
[2020-10-25] MEDS: metroNIDAZOLE 500 MG TABLET PO (08:13)
--- NOTE | 2020-10-25 08:32 | P.PN_ITS ---
Subjective Subjective Date Patient Seen: 10/25/20 Time Patient Seen: 08:32 Interval history: Patient is a 60-year-old male with a left diabetic foot infection status post irrigation debridements x2 on 10/21/2028 partial 2nd ray amputation. Pain is controlled. Denies fevers. Been continued on IV antibiotics and these have been broadened due to persistent leukocytosis and persistent elevated CRP Exam Vital Signs (past 8 hours): - 10/25/20 00:45 10/25/20 05:45 10/25/20 07:31 Temperature 98.4 F 98.1 F Pulse Rate 82 89 Respiratory Rate 18 14 Blood Pressure 129/84 129/75 Pulse Oximetry 99 99 99 Oxygen Delivery Method Room Air Oxygen Flow Rate 0 Narrative Exam Narrative: Alert oriented male no acute distress sitting in bed. Have some discomfort with dressing changes but mild. A tolerates these well with a little premedication with IV pain medication. Heart regular rate and rhythm. Breathing unlabored on room air Left lower extremities examined. Dressings are removed. There is largely unchanged erythema around the 1st ray plantar along the 1st metatarsal. This extends right around the end of the open wound does not appear to have any tracking proximal. But there is moderate tenderness with palpation in this area. No malodor no obvious fluctuance blisters or drainage. Plantar aspect of 1st toe around the proximal metatarsal in the area between the 1st web space abscess and the medial wound was some ecchymosis no blisters, unchanged appearance. Wet-to-dry packing is removed from the medial wound and from 1st web space wound. There is good granulation tissue forming along the lateral medial aspects of the 1st web space wound small area of necrotic skin on the lateral aspect of the webspace wound is debrided today. Sutures remain in place at the edge of the dorsal lateral wound. No dorsal erythema. No swelling on the dorsum of the foot at all. Toes demonstrate appropriate cap refill and symmetrical color Objective Labs Result Diagrams: 10/24/20 08:36 10/24/20 08:36 Labs: Laboratory Results - last 24 hr 10/24/20 10/24/20 10/25/20 08:36 08:36 06:35 WBC 13.3 H RBC 4.05 L Hgb 10.9 L Hct 32.8 L MCV 81.0 MCH 27.0 MCHC 33.3 RDW 13.5 Plt Count 384 Neut % (Auto) 77.8 H Lymph % (Auto) 11.8 L [place] % (Auto) 8.2 Eos % (Auto) 1.4 L Baso % (Auto) 0.8 Neut # (Auto) 47824 H Lymph # (Auto) 1600 [place] # (Auto) 1100 H Eos # (Auto) 200 Baso # (Auto) 100 Sodium 134 L Potassium 4.2 Chloride 99 Carbon Dioxide 29 BUN 17 Creatinine 0.86 Estimated GFR > 60.0 BUN/Creatinine Ratio 19.8 Glucose 133 H Calcium 9.0 Total Bilirubin 0.5 AST 18 ALT 17 Alkaline Phosphatase 102 C-Reactive Protein 14.9 H Total Protein 7.5 Albumin 3.5 Globulin 4.0 Albumin/Globulin Ratio 0.9 L [facility] Medical History Diabetes Social History household members: none Smoking Status: Former smoker Smokeless tobacco user: chewing tobacco quit status: considering quitting Assessment & Plan Post-op Postoperative Procedures: Procedures Operation Date: 10/21/20 12:15 Actual Procedure Side Surgeon p Incision and Drainage Foot Left Angeles Witt MD Operation Date: 10/23/20 12:00 Actual Procedure Side Surgeon p Repeat Irrigation/debridement left foot, 2nd toe amputation left Left Angeles Witt MD postoperative day 4 and 2 respectively. Left diabetic foot infection. Cultures did come back with growth anaerobic for finegoldia magna--patient now on vancomycin and and meropenem which should provide broad coverage covering both the group B strep from the ER swab and the Gram positive anaerobic cocci finegoldia. Will need to continue monitor daily labs and clinical appearance of the foot. Patient still may require additional surgery or amputation. This will be assessed on a day-by-day basis. Patient wishes for limb salvage if at all possible. We will repeat the CRP every 48 hours and CBC and CMP daily to assess treatment response. Intraoperative bacterial PCR culture sent to [facility] and is still pending. This will likely still take 2 or 3 days more to we see the results. Additionally did request further workup on the anaerobic culture to confirm sensitivities. Anticipate longer-term need for IV ant ibiotics. Patient requires continued inpatient admission for monitoring IV antibiotics and pain control with dressing changes. Time Spent With Patient Time with patient: 15-24 minutes Quality VTE Deep Vein Thrombosis/Pulmonary Embolism Present on Admission: No
[2020-10-25 09:24] LABS: Add Manual Diff / Slide Review NO; Basophils Absolute Auto 100 /uL (0-100); Basophils Percent Auto 1.1 % (0-2); Eosinophils Absolute Auto 200 /uL (0-450); Eosinophils Percent Auto 2.2 % (2-4); Hematocrit 31.6 % (41-53); Hemoglobin 10.5 g/dL (13.5-17.5); Lymphocytes Absolute Auto 1600 /uL (1100-4500); Lymphocytes Percent Auto 14.6 % (25-40); Mean Corpuscular HGB Conc 33.3 % (30-36); Mean Corpuscular Hemoglobin 26.9 PG (26-34); Mean Corpuscular Volume 80.9 fL (80-100); Monocytes Absolute Auto 900 /uL (0-900); Monocytes Percent Auto 8.3 % (3-14); Neutrophils Absolute Auto 8200 /uL (1500-7000); Neutrophils Percent Auto 73.8 % (50-75); Platelet Count 417 X10^3/uL (150-400); Red Blood Cell Count 3.91 X10^6/uL (4.5-5.9); Red Cell Distribution Width 13.6 % (11.6-14.8); White Blood Cell Count 11.1 X10^3/uL (4.5-11.0)
[2020-10-25 09:43] LABS: Alanine Aminotransferase 16 IU/L (<50); Albumin 3.2 g/dL (3.5-5.0); Albumin Globulin Ratio 0.8 (1.0-2.8); Alkaline Phosphatase 106 U/L (38-126); Aspartate Aminotransferase 18 IU/L (17-59); BUN Creatinine Ratio 28.9 (6-22); Bilirubin Total 0.3 mg/dL (0.2-1.3); Blood Urea Nitrogen 22 mg/dL (9-20); Calcium 8.9 mg/dL (8.4-10.2); Carbon Dioxide 28 mmol/L (22-32); Chloride 101 mmol/L (98-107); Estimated Glomerular Filt Rate > 60.0 mL/min (>60); Globulin 3.8 g/dL (1.7-4.1); Glucose 165 mg/dL (70-100); HEMOLYSIS < 15 (0-50); Potassium 4.5 mmol/L (3.4-5.1); Sodium 136 mmol/L (137-145)
[2020-10-25 09:47] LABS: Vancomycin Trough 11.7 ug/mL (10-20)
[2020-10-25] MEDS: VANCOMYCIN 1,500 MG/300 ML PIGGYBACK 200 MG IV ×2 (10:21→22:11)
[2020-10-25] MEDS: VANCOMYCIN TROUGH 1 REQUEST MISC (10:21)
[2020-10-25] MEDS: SODIUM CHLORIDE 0.9% 250 ML 21 ML IV (10:23)
[2020-10-25 13:28] LABS: Vancomycin Peak 33.9 ug/mL (20-40)
[2020-10-25] MEDS: VANCOMYCIN PEAK 1 REQUEST MISC (14:21)
--- NOTE | 2020-10-25 14:39 | PC.NURSE ---
A&Ox4, VSS. Pain 1-210, given 5mg Oxy prior to his dressing change as this was very painful for the patient they day prior. SBA to toilet. Refused SCDs but walking frequently in room. B, 171- 1 unit of ss insulin given with breakfast and lunch. Left toes have <2sec cap refill. Wet to dry dressing changed this morning by provider. Carb consistent diet, good appetite. Saline locked. Call light within reach, bed low.
--- NOTE | 2020-10-25 15:43 | CM.DPC ---
DCP: continued: Case discussed in Team Rounds today. Dr. Hopkins stated that she had discussed case with Dr. Anderson and that pt would need to be here for a few more days. Pt wants limb salvage if at all possible. Dr. Hopkins says that pt may be able to go home on oral antibiotics if an amputation is needed, otherwise will be the need for the IV antibiotics. She defers to Dr. Witt for the POC going forward. DCP team will continue to follow.
--- NOTE | 2020-10-25 17:52 | P.PN_ITS ---
Subjective Subjective Interval history: Overall the patient feels significantly improved today. He reports less pain, Patient denies diarrhea or abdominal symptoms, no shortness of breath Exam Vital Signs (past 8 hours): - 10/25/20 11:52 10/25/20 15:00 10/25/20 15:15 Temperature 97.8 F 98.1 F Pulse Rate 79 81 Respiratory Rate 19 18 Blood Pressure 110/68 115/79 Pulse Oximetry 95 95 Oxygen Delivery Method Room Air Oxygen Flow Rate 0 Narrative Exam Narrative: pleasant gentleman resting comfortably Resp Other: Clear to ausculatation Cardio Other: RRR nl Sl S2 GI Other: Abd: soft/ non tender/ non distended Extrem Other: Left foot with dressing in place Objective Labs Result Diagrams: 10/25/20 09:16 10/25/20 09:16 Labs: Laboratory Results - last 24 hr 10/25/20 10/25/20 10/25/20 06:35 09:16 09:16 WBC 11.1 H RBC 3.91 L Hgb 10.5 L Hct 31.6 L MCV 80.9 MCH 26.9 MCHC 33.3 RDW 13.6 Plt Count 417 H Neut % (Auto) 73.8 Lymph % (Auto) 14.6 L [place] % (Auto) 8.3 Eos % (Auto) 2.2 Baso % (Auto) 1.1 Neut # (Auto) 8200 H Lymph # (Auto) 1600 [place] # (Auto) 900 Eos # (Auto) 200 Baso # (Auto) 100 Sodium Potassium Chloride Carbon Dioxide BUN Creatinine Estimated GFR BUN/Creatinine Ratio Glucose Calcium Total Bilirubin AST ALT Alkaline Phosphatase C-Reactive Protein 14.9 H Total Protein Albumin Globulin Albumin/Globulin Ratio Vancomycin Peak Vancomycin Trough 11.7 10/25/20 10/25/20 09:16 12:54 WBC RBC Hgb Hct MCV MCH MCHC RDW Plt Count Neut % (Auto) Lymph % (Auto) [place] % (Auto) Eos % (Auto) Baso % (Auto) Neut # (Auto) Lymph # (Auto) [place] # (Auto) Eos # (Auto) Baso # (Auto) Sodium 136 L Potassium 4.5 Chloride 101 Carbon Dioxide 28 BUN 22 H Creatinine 0.76 Estimated GFR > 60.0 BUN/Creatinine Ratio 28.9 H Glucose 165 H Calcium 8.9 Total Bilirubin 0.3 AST 18 ALT 16 Alkaline Phosphatase 106 C-Reactive Protein Total Protein 7.0 Albumin 3.2 L Globulin 3.8 Albumin/Globulin Ratio 0.8 L Vancomycin Peak 33.9 Vancomycin Trough [facility] Medical History Diabetes Social History household members: none Smoking Status: Former smoker Smokeless tobacco user: chewing tobacco quit status: considering quitting Assessment & Plan Assessment & Plan narrative: Left foot cellulitis, osteomyelitis, possible septic 1st MTP joint, acute. -patient with significant areas of erythema and skin maceration/superficial sloughing of the left foot -CT report indicated diffuse subcutaneous edema and areas of soft tissue gas -Dr. Howe saw patient for ortho consult and does not see abscess that requires surgical drainage. Given significantly elevated inflammatory markers and continued erythema MRI was obtained which showed ulceration and subcutaneous emphysema of the forefoot without drainable abscess. There is osteomyelitis noted of the 1st metatarsal head and 1st proximal phalangeal base with possible osteomyelitis of the medial sesamoid for 1st MTP joint as well. -Dr. Witt now planning on OR today. Please send tissue sample to micro lab for PCR testing along with any operative cultures. -patient was started on vancomycin and meropenem in ED with already improvement in left foot erythema. Narrowed to ceftriaxone based on GBS culture and negative MRSA swab. Follow up any operative cultures. -will need at least 6 weeks of IV antibiotics, pending orthopedic surgery repeat evaluation of new MRI findings. -recommend wound care clinic appointment on discharge. -Patient taken to the OR for a partial ray amputation, excisional biopsy of muscle, tendon, bone-extensive pus identified -Continue current antibiotics, he may require further surgery and [facility] antibiotics -Patient continues to show slow improvement, WBC elevated , CRP 14.7, An tibiotics switched to Meropenem and Vanco -Culture growing Finegoldia magna ( anarobic gram pos nikole) -deep wound PCR still pending -PICC line tomorrow, and continue to monitor 2. Type 2 diabetes -glucose 296 on admission, A1c 10.9% -patient previously on Lantus 55 units HS prescribed through [facility] -restarted Lantus 40 units at bedtime, will continue to adjust as needed. AM sugars largely controlled. Consider adding meal time coverage after OR depending on course. -medium dose insulin correction a.c. HS -patient requests to send prescription for 90 day Lantus Solostar supply and pen needles to [facility] pharmacy until patient can reestablish with his provider. Will send Rx for test strips as well. -Continiue tight glycemic control blood sugar well controlled. Will continue to monitor closely Continue DVT prophylaxis Quality VTE Deep Vein Thrombosis/Pulmonary Embolism Present on Admission: No
[2020-10-25] MEDS: INSULIN GLARGINE 100 UNIT/ML 3ML PEN 40 UNIT SUBCUT (22:11)
[2020-10-26] VITALS (7 sets, daily range): BP systolic 95–146; BP diastolic 65–89; PULSE 81–101; RESP 14–18; TEMP 36–37; O2SAT 92–96
[2020-10-26 06:32] LABS: Alanine Aminotransferase 15 IU/L (<50); Albumin 3.4 g/dL (3.5-5.0); Albumin Globulin Ratio 0.9 (1.0-2.8); Alkaline Phosphatase 94 U/L (38-126); Aspartate Aminotransferase 16 IU/L (17-59); Bilirubin Total 0.3 mg/dL (0.2-1.3); Blood Urea Nitrogen 24 mg/dL (9-20); Carbon Dioxide 28 mmol/L (22-32); Chloride 105 mmol/L (98-107); Estimated Glomerular Filt Rate > 60.0 mL/min (>60); Globulin 3.9 g/dL (1.7-4.1); Glucose 118 mg/dL (70-100); HEMOLYSIS < 15 (0-50); Potassium 4.7 mmol/L (3.4-5.1); Sodium 139 mmol/L (137-145); Total Protein 7.3 g/dL (6.3-8.2)
[2020-10-26 06:47] LABS: Add Manual Diff / Slide Review NO; Basophils Absolute Auto 100 /uL (0-100); Basophils Percent Auto 1.1 % (0-2); Eosinophils Absolute Auto 300 /uL (0-450); Eosinophils Percent Auto 3.1 % (2-4); Hematocrit 32.9 % (41-53); Hemoglobin 10.9 g/dL (13.5-17.5); Lymphocytes Absolute Auto 2100 /uL (1100-4500); Lymphocytes Percent Auto 23.4 % (25-40); Mean Corpuscular HGB Conc 33.1 % (30-36); Mean Corpuscular Hemoglobin 26.8 PG (26-34); Mean Corpuscular Volume 80.8 fL (80-100); Monocytes Absolute Auto 900 /uL (0-900); Monocytes Percent Auto 9.8 % (3-14); Neutrophils Absolute Auto 5600 /uL (1500-7000); Neutrophils Percent Auto 62.6 % (50-75); Platelet Count 421 X10^3/uL (150-400); Red Blood Cell Count 4.07 X10^6/uL (4.5-5.9); Red Cell Distribution Width 13.2 % (11.6-14.8)
[2020-10-26] MEDS: SODIUM CHLORIDE 0.9% FLUSH 10 ML IV ×2 (06:58→21:13)
[2020-10-26] MEDS: MEROPENEM 1 GM in SODIUM CHLORIDE 0.9% 100 ML 200 ML IV ×3 (06:58→22:43)
--- NOTE | 2020-10-26 07:15 | P.PN_ITS ---
Subjective Subjective Date Patient Seen: 10/26/20 Time Patient Seen: 07:15 Interval history: s/p multiple I&D and 2nd ray amp for diabetic infection. doing well. no f/c/n/v. hoping to avoid additional surgery Exam Vital Signs (past 8 hours): - 10/25/20 23:36 10/26/20 04:10 Temperature 98.8 F 97.6 F Pulse Rate 81 101 H Respiratory Rate 16 18 Blood Pressure 131/87 95/65 Oxygen Delivery Method Room Air Oxygen Flow Rate 0 Narrative Exam Narrative: NAD. L foot dsg change. good granulation tissue at 2nd ray amp site. some extensor tendon exposure. mild fibrinous at webspace. medial 1st mt wound with granulation tissue. still ecchymotic purple along plantar 1st toe. no malodor or puluence draining. overall appear less swellign and erythema then yesterday. Objective Labs Result Diagrams: 10/26/20 05:25 10/26/20 05:25 Labs: Laboratory Results - last 24 hr 10/25/20 10/25/20 10/25/20 06:35 09:16 09:16 WBC 11.1 H RBC 3.91 L Hgb 10.5 L Hct 31.6 L MCV 80.9 MCH 26.9 MCHC 33.3 RDW 13.6 Plt Count 417 H Neut % (Auto) 73.8 Lymph % (Auto) 14.6 L [place] % (Auto) 8.3 Eos % (Auto) 2.2 Baso % (Auto) 1.1 Neut # (Auto) 8200 H Lymph # (Auto) 1600 [place] # (Auto) 900 Eos # (Auto) 200 Baso # (Auto) 100 Sodium Potassium Chloride Carbon Dioxide BUN Creatinine Estimated GFR BUN/Creatinine Ratio Glucose Calcium Total Bilirubin AST ALT Alkaline Phosphatase C-Reactive Protein 14.9 H Total Protein Albumin Globulin Albumin/Globulin Ratio Vancomycin Peak Vancomycin Trough 11.7 10/25/20 10/25/20 10/26/20 09:16 12:54 05:25 WBC 9.0 RBC 4.07 L Hgb 10.9 L Hct 32.9 L MCV 80.8 MCH 26.8 MCHC 33.1 RDW 13.2 Plt Count 421 H Neut % (Auto) 62.6 Lymph % (Auto) 23.4 L [place] % (Auto) 9.8 Eos % (Auto) 3.1 Baso % (Auto) 1.1 Neut # (Auto) 5600 Lymph # (Auto) 2100 [place] # (Auto) 900 Eos # (Auto) 300 Baso # (Auto) 100 Sodium 136 L Potassium 4.5 Chloride 101 Carbon Dioxide 28 BUN 22 H Creatinine 0.76 Estimated GFR > 60.0 BUN/Creatinine Ratio 28.9 H Glucose 165 H Calcium 8.9 Total Bilirubin 0.3 AST 18 ALT 16 Alkaline Phosphatase 106 C-Reactive Protein Total Protein 7.0 Albumin 3.2 L Globulin 3.8 Albumin/Globulin Ratio 0.8 L Vancomycin Peak 33.9 Vancomycin Trough 10/26/20 05:25 WBC RBC Hgb Hct MCV MCH MCHC RDW Plt Count Neut % (Auto) Lymph % (Auto) [place] % (Auto) Eos % (Auto) Baso % (Auto) Neut # (Auto) Lymph # (Auto) [place] # (Auto) Eos # (Auto) Baso # (Auto) Sodium 139 Potassium 4.7 Chloride 105 Carbon Dioxide 28 BUN 24 H Creatinine 0.89 Estimated GFR > 60.0 BUN/Creatinine Ratio 27.0 H Glucose 118 H Calcium 9.0 Total Bilirubin 0.3 AST 16 L ALT 15 Alkaline Phosphatase 94 C-Reactive Protein Total Protein 7.3 Albumin 3.4 L Globulin 3.9 Albumin/Globulin Ratio 0.9 L Vancomycin Peak Vancomycin Trough [facility] Medical History Diabetes Social History household members: none Smoking Status: Former smoker Smokeless tobacco user: chewing tobacco quit status: considering quitting Assessment & Plan Post-op Postoperative Procedures: Procedures Operation Date: 10/21/20 12:15 Actual Procedure Side Surgeon p Incision and Drainage Foot Left Angeles Witt MD Operation Date: 10/23/20 12:00 Actual Procedure Side Surgeon p Repeat Irrigation/debridement left foot, 2nd toe amputation left Left Angeles Witt MD Postoperative status narrative: s/p debridement x2 -- wbc finally improving with addition of meropenem. would like to see crp improve as well- will recheck tomorrow. if improving trend from today continues then would plan picc 6 weeks abx and wound care-- BID WTD at home with outpt wound care for changes/monitoring as well. discussed with pt that still could need additional surgery if a decline is seen. Time Spent With Patient Time with patient: 15-24 minutes Quality VTE Deep Vein Thrombosis/Pulmonary Embolism Present on Admission: No
[2020-10-26] MEDS: ENOXAPARIN 40 MG/0.4 ML SYRINGE SUBCUT (08:52)
[2020-10-26] MEDS: VANCOMYCIN 1,500 MG/300 ML PIGGYBACK 200 MG IV ×2 (09:48→21:12)
--- NOTE | 2020-10-26 09:49 | DI.RAD.S_ITS ---
PROCEDURE: XR CHEST FOR PICC 1V INDICATIONS: line placement TECHNIQUE: One view of the chest was acquired. COMPARISON: None. FINDINGS: Surgical changes and devices: Guidewire for left-sided PICC line is noted extending to the mid SVC Lungs and pleura: Lungs are clear. No pleural effusions or pneumothorax. Elevated right hemidiaphragm. Mediastinum: Mediastinal contours appear normal. Heart size is normal. Bones and chest wall: No suspicious bony lesions. Overlying soft tissues appear unremarkable. IMPRESSION: Left-sided PICC line guidewire tip in the mid SVC. No pneumothorax. Approved by: Valente Leslie M.D. on 10/26/2020 at 10:40
[2020-10-26] MEDS: INSULIN LISPRO 100 UNIT/ML 3ML VIAL SUBCUT ×2 (11:49→17:35)
--- NOTE | 2020-10-26 12:17 | PC.NURSE ---
Patients dressing to his l.foot is cdi. No drainage noted. in this morning and changed his dressing. Patients second toe was amputated on the . He has good pulses bilaterally, dressing is not to tight and toes wnl. Foot is warm to touch and cms wnl. Patient is getting iv antibiotics and just had a pic placed to his l.upper arm that he is tolerating well. Voices no complaints of pain.
--- NOTE | 2020-10-26 13:14 | CM.DPC ---
DCP Cont: Discussed patient during team rounds. He will be getting PICC line today for his IV antibiotics. Spoke to Uli at [facility] today. He indicated that he has been in touch with patient. Patient had contacted him initially, did not think that he would need IV antibiotics, but now, he may need longer term. Uli indicated, the sooner we know what he will be on at discharge, the better, for [facility] need [facility] Will attempt to get more information. Confirmed that patient does have an appointment with Dr. Garza on 11/14 at 1330, to get established as a new patient. P: DCP to continue to follow, and will attempt to find out which IV antibiotic that patient will go on. Nati Colon RN/Paint Stockman
--- NOTE | 2020-10-26 15:18 | PC.ADMIT ---
[email or web address] Admission Note: The patient,Larry Vanegas,60 y/o, was given written information regarding hospital policies, unit procedures and contact persons. Patient's smoking status: Former smoker. Vital Signs - 8 hr 10/26/20 08:00 10/26/20 12:00 10/26/20 12:20 Temperature 96.8 F L 97.5 F L Pulse Rate 81 81 Respiratory Rate 14 14 Blood Pressure 117/72 119/73 Pulse Oximetry 96 95 92
--- NOTE | 2020-10-26 15:18 | PC.NURSE ---
Assess- Patient admitted to room 211 at 1337. 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 Patient has feeling to both legs and feet but states that the feeling with touch to r.foot is dull. He denies pain or discomfort, tylenol and ibuprofen given. He has LR at 100cc/hr infusing to his r.hand and he is tolerating this well. CMS wnl and ppx2 to lower extremities. Report given to Lyndsay AGUILA.
[2020-10-26] MEDS: OXYCODONE IR 5 MG TABLET PO (21:04)
[2020-10-26] MEDS: INSULIN GLARGINE 100 UNIT/ML 3ML PEN 40 UNIT SUBCUT (21:08)
--- NOTE | 2020-10-26 23:53 | P.PN_ITS ---
Subjective Subjective Date Patient Seen: 10/26/20 Time Patient Seen: 23:30 Interval history: Patient seen and examined today. He states he is doing well and currently has no pain even though he had just been given an oxycodone. 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 It grew out Karen nguyen previously known at [facility]ana a Gram-positive anaerobic coccus. Exam Vital Signs (past 8 hours): - 10/26/20 20:25 10/26/20 23:48 Temperature 98.6 F 98.3 F Pulse Rate 87 83 Respiratory Rate 16 16 Blood Pressure 134/84 146/86 H Oxygen Delivery Method Room Air Oxygen Flow Rate 0 Narrative Exam Narrative: Gen: Alert, oriented, well-developed 60 y.o. male, NAD HEENT: normocephalic, atraumatic, conjunctiva clear, sclera non-icteric, oral mucosa pink and moist Neck: supple, full ROM, no JVD, trachea is midline Resp: Lungs CTA, non-labored breathing CV: RRR, no murmur or rubs Abd: soft, non-tender, normoactive BTs Skin: Toenails are yellowed, did not detect any streaking above foot. Wound just re-dressed and did not take down Neuro: Alert and oriented X 4 w/no focal deficits. Speech clear and coherent. Extremities: moves all 4 extremities, is ambulatory, negative Sydnee?s sign Psyche: normal mood and affect. Objective Labs Result Diagrams: 10/26/20 05:25 10/26/20 05:25 Labs: Laboratory Results - last 24 hr 10/21/20 10/26/20 10/26/20 13:28 05:25 05:25 WBC 9.0 RBC 4.07 L Hgb 10.9 L Hct 32.9 L MCV 80.8 MCH 26.8 MCHC 33.1 RDW 13.2 Plt Count 421 H Neut % (Auto) 62.6 Lymph % (Auto) 23.4 L [place] % (Auto) 9.8 Eos % (Auto) 3.1 Baso % (Auto) 1.1 Neut # (Auto) 5600 Lymph # (Auto) 2100 [place] # (Auto) 900 Eos # (Auto) 300 Baso # (Auto) 100 Sodium 139 Potassium 4.7 Chloride 105 Carbon Dioxide 28 BUN 24 H Creatinine 0.89 Estimated GFR > 60.0 BUN/Creatinine Ratio 27.0 H Glucose 118 H Calcium 9.0 Total Bilirubin 0.3 AST 16 L ALT 15 Alkaline Phosphatase 94 Total Protein 7.3 Albumin 3.4 L Globulin 3.9 Albumin/Globulin Ratio 0.9 L Ref Test (Refrig) Comment [facility] Medical History (Updated 10/27/20 @ 00:06 by AYDIN Weems) Cellulitis of foot, left Diabetes Type 2 diabetes mellitus Social History household members: none Smoking Status: Former smoker Smokeless tobacco user: chewing tobacco quit status: considering quitting Assessment & Plan Assessment & Plan narrative: Larry Vanegas is admitted for a left foot cellulitis and osteomylitis. 1. Left foot cellulitis, osteomyelitis, possible septic 1st MTP joint, acute. -patient with significant areas of erythema and skin maceration/superficial sloughing of the left foot -CT report indicated diffuse subcutaneous edema and areas of soft tissue gas -Dr. Howe saw patient for ortho consult and does not see abscess that requires surgical drainage. Given significantly elevated inflammatory markers and continued erythema MRI was obtained which showed ulceration and subcutaneous em physema of the forefoot without drainable abscess. There is osteomyelitis noted of the 1st metatarsal head and 1st proximal phalangeal base with possible osteomyelitis of the medial sesamoid for 1st MTP joint as well. -Dr. Witt now planning on OR today. Please send tissue sample to micro lab for PCR testing along with any operative cultures. -patient was started on vancomycin and meropenem in ED with already improvement in left foot erythema. Narrowed to ceftriaxone based on GBS culture and negative MRSA swab. Follow up any operative cultures. -will need at least 6 weeks of IV antibiotics, pending orthopedic surgery repeat evaluation of new MRI findings. -recommend wound care clinic appointment on discharge. -Patient taken to the OR for a partial ray amputation, excisional biopsy of muscle, tendon, bone-extensive pus identified -Continue current antibiotics, he may require further surgery and [facility] antibiotics -Patient continues to show slow improvement, WBC elevated , CRP 14.7, Antibiotics switched to Meropenem and Vanco -Culture growing Finegoldia magna ( anarobic gram pos nikole) -deep wound PCR still pending -PICC line tomorrow, and continue to monitor 2. Type 2 diabetes -glucose 296 on admission, A1c 10.9% -patient previously on Lantus 55 units HS prescribed through [facility] -restarted Lantus 40 units at bedtime, will continue to adjust as needed. AM sugars largely controlled. Consider adding meal time coverage after OR depending on course. -medium dose insulin correction a.c. HS -patient requests to send prescription for 90 day Lantus Solostar supply and pen needles to [facility] pharmacy until patient can reestablish with his provider. Will send Rx for test strips as well. -Continiue tight glycemic control blood sugar well controlled. Will continue to monitor closely Continue DVT prophylaxis COVID-19 COVID-19 status: Negative Result date/Date tested (Pos, Neg/Pending): 10/23/20 Time Spent With Patient Critical Care time: I spent a total of [] minutes of critical care time on this patient's care today; this time is exclusive of procedural time. Quality VTE Deep Vein Thrombosis/Pulmonary Embolism Present on Admission: No
[2020-10-27] VITALS (9 sets, daily range): BP systolic 115–133; BP diastolic 76–84; PULSE 79–87; RESP 16–18; TEMP 36.3–37.2; O2SAT 92–98
[2020-10-27] MEDS: OXYCODONE IR 5 MG TABLET PO ×2 (06:30→20:03)
[2020-10-27] MEDS: MEROPENEM 1 GM in SODIUM CHLORIDE 0.9% 100 ML 200 ML IV ×3 (06:30→22:30)
--- NOTE | 2020-10-27 07:00 | PM.PNPO.1 ---
Subjective Subjective Date Patient Seen: 10/27/20 Time Patient Seen: 07:01 Interval history: 60-year-old diabetic male with left diabetic foot infection status post debridements time to and 2nd ray amputation. On broad-spectrum antibiotics with vancomycin and meropenem. Growing anaerobic gram-positive rods also had a swab from the ER preoperatively that demonstrated strep group B. seems to have really turned the corner since being brought and on his antibiotics. White count did go down to 9 yesterday. New labs and new CRP are pending today. Denies any fevers. Has been tolerating dressing changes on the floor. Exam Vital Signs (past 8 hours): - 10/26/20 23:48 10/27/20 03:30 10/27/20 04:06 Temperature 98.3 F 97.3 F L Pulse Rate 83 79 Respiratory Rate 16 16 Blood Pressure 146/86 H 133/80 Pulse Oximetry 96 Oxygen Delivery Method Room Air Oxygen Flow Rate 0 Narrative Exam Narrative: Alert oriented male no acute distress. Lying in bed. Labs are being drawn currently. Left lower extremity dressing in place this was taken down. Wet to dry dressing removed. Good granulation tissue in the 1st webspace wound. There is extensor tendon to the 3rd toe that is exposed. Minimal fibrinous exudate. No expanding erythema. Erythema and tenderness is improved from previous examination. There is ecchymosis purple coloration to the plantar surface of the great toe in the area where the wound track from the 1st web space to the medial wound this does not appear worse. No blisters. Medial wound is granulating well. Sutures are intact. Objective Labs Result Diagrams: 10/26/20 05:25 10/26/20 05:25 Labs: Laboratory Results - last 24 hr 10/21/20 13:28 Ref Test (Refrig) Comment Culture growing Finegoldia magna ( anarobic gram pos nikole) [facility] Medical History (Updated 10/27/20 @ 00:06 by AYDIN Weems) Cellulitis of foot, left Diabetes Type 2 diabetes mellitus Social History household members: none Smoking Status: Former smoker Smokeless tobacco user: chewing tobacco quit status: considering quitting Assessment & Plan Post-op Postoperative Procedures: Procedures Operation Date: 10/21/20 12:15 Actual Procedure Side Surgeon p Incision and Drainage Foot Left Angeles Witt MD Operation Date: 10/23/20 12:00 Actual Procedure Side Surgeon p Repeat Irrigation/debridement left foot, 2nd toe amputation left Left Angeles Witt MD Postop day 4 and 6 from debridements and 2nd ray amputation left diabetic foot infection. Growing Gram-positive anaerobic rods. On vancomycin and meropenem. Awaiting used a PCR test. If this demonstrates organism sensitive to meropenem possible discharge on only meropenem. Will need 6 weeks IV antibiotics. Will need to coordinate with wound care ideally would see them once or twice a week for wound monitoring and patient would also complete b.i.d. wet-to-dry dressings at home. would follow-up with Orthopedic surgery in 2-3 weeks- or return to ER for any acute worsening. Will maintain heel or nonweightbearing as able on left foot. May use offloading shoe for heel weight-bearing. no other current surgery planned although discussed with patient that for worsening appearance may still need additional surgery in the future. Discussed skin on the bottom of the great toe may not survive but no current urgent indications for surgery allow this to demarcate and give a chance for healing with wound care. Wet to dry dressing was changed this morning. Patient tolerated well. Time Spent With Patient Time with patient: less than 15 minutes Quality VTE Deep Vein Thrombosis/Pulmonary Embolism Present on Admission: No
[2020-10-27 07:05] LABS: Add Manual Diff / Slide Review NO; Basophils Absolute Auto 200 /uL (0-100); Basophils Percent Auto 2.5 % (0-2); Eosinophils Absolute Auto 200 /uL (0-450); Eosinophils Percent Auto 2.8 % (2-4); Hematocrit 34.4 % (41-53); Hemoglobin 11.4 g/dL (13.5-17.5); Lymphocytes Absolute Auto 2000 /uL (1100-4500); Lymphocytes Percent Auto 22.1 % (25-40); Mean Corpuscular HGB Conc 33.1 % (30-36); Mean Corpuscular Hemoglobin 26.8 PG (26-34); Mean Corpuscular Volume 80.8 fL (80-100); Monocytes Absolute Auto 800 /uL (0-900); Monocytes Percent Auto 8.6 % (3-14); Neutrophils Absolute Auto 5700 /uL (1500-7000); Platelet Count 469 X10^3/uL (150-400); Red Blood Cell Count 4.25 X10^6/uL (4.5-5.9); Red Cell Distribution Width 13.3 % (11.6-14.8); White Blood Cell Count 8.9 X10^3/uL (4.5-11.0)
[2020-10-27 07:13] LABS: Alanine Aminotransferase 18 IU/L (<50); Albumin 3.7 g/dL (3.5-5.0); Albumin Globulin Ratio 0.9 (1.0-2.8); Alkaline Phosphatase 101 U/L (38-126); Aspartate Aminotransferase 20 IU/L (17-59); BUN Creatinine Ratio 29.6 (6-22); Bilirubin Total 0.5 mg/dL (0.2-1.3); Blood Urea Nitrogen 21 mg/dL (9-20); C-Reactive Protein Quant 5.1 mg/dL (<1.0); Calcium 9.2 mg/dL (8.4-10.2); Carbon Dioxide 26 mmol/L (22-32); Chloride 105 mmol/L (98-107); Estimated Glomerular Filt Rate > 60.0 mL/min (>60); Globulin 4.1 g/dL (1.7-4.1); Glucose 150 mg/dL (70-100); HEMOLYSIS < 15 (0-50); Potassium 4.1 mmol/L (3.4-5.1); Sodium 139 mmol/L (137-145); Total Protein 7.8 g/dL (6.3-8.2)
[2020-10-27 09:53] LABS: Vancomycin Trough 14.1 ug/mL (10-20)
[2020-10-27] MEDS: ENOXAPARIN 40 MG/0.4 ML SYRINGE SUBCUT (10:39)
[2020-10-27] MEDS: VANCOMYCIN 1,500 MG/300 ML PIGGYBACK 200 MG IV ×2 (10:40→20:56)
[2020-10-27] MEDS: INSULIN LISPRO 100 UNIT/ML 3ML VIAL SUBCUT ×3 (10:40→20:52)
[2020-10-27] MEDS: SODIUM CHLORIDE 0.9% FLUSH 10 ML IV ×2 (10:41→20:04)
--- NOTE | 2020-10-27 12:52 | CM.DPC ---
DCP Cont: Discussed patient during team rounds. Hospitalist, Dr. Hankins, indicated that they do not yet know which antibiotic that patient will go home on secondary to pending culture. Attempting to let Uli at [facility] know so they can work on the authorization with [facility]. Will be hopeful that will know today or tomorrow, since the week-end is coming up. Patient is eager to go home. P: DCP to continue to review and follow, in order to determine what antibiotic that patient will need to go home with, pending culture. Hospitalist will update care management when information is received. Nati Colon RN/Blending Kettle Tender
[2020-10-27 14:19] LABS: Vancomycin Peak 30.8 ug/mL (20-40)
--- NOTE | 2020-10-27 16:38 | PC.NURSE ---
Dr. Street's office called. They returned call and reviewed pt's culture results. Pt doesn't need to be in isolation at this time.
--- NOTE | 2020-10-27 19:28 | P.PN_ITS ---
Subjective Subjective Date Patient Seen: 10/27/20 Time Patient Seen: 19:28 Interval history: 60-year-old diabetic male with left diabetic foot infection status post debridements time to and 2nd ray amputation.? Improving with antibiotics. Awaiting final cultures and sensitivities for antibiotic selection prior to discharge. Mild pain in foot but generally controlled. Exam Vital Signs (past 8 hours): - 10/27/20 12:13 10/27/20 16:35 Temperature 97.8 F 99.0 F Pulse Rate 79 82 Respiratory Rate 16 16 Blood Pressure 126/79 115/76 Pulse Oximetry 97 Oxygen Delivery Method Room Air Oxygen Flow Rate 0 Narrative Exam Narrative: Gen: Alert, oriented, well-developed 60 y.o. male, NAD HEENT: normocephalic, atraumatic, conjunctiva clear, sclera non-icteric, oral mucosa pink and moist Neck: supple, full ROM, no JVD, trachea is midline Resp: Lungs CTA, non-labored breathing CV: RRR, no murmur or rubs Abd: soft, non-tender, normoactive BTs Skin: dressings c/d/i. no obvious erythema in Lower extremity. Neuro: Alert and oriented X 4 w/no focal deficits. Speech clear and coherent. Extremities: moves all 4 extremities, is ambulatory, negative Sydnee?s sign Psyche: normal mood and affect. Objective Labs Result Diagrams: 10/27/20 06:40 10/27/20 06:40 Labs: Laboratory Results - last 24 hr 10/27/20 10/27/20 10/27/20 06:40 06:40 09:05 WBC 8.9 RBC 4.25 L Hgb 11.4 L Hct 34.4 L MCV 80.8 MCH 26.8 MCHC 33.1 RDW 13.3 Plt Count 469 H Neut % (Auto) 64.0 Lymph % (Auto) 22.1 L [place] % (Auto) 8.6 Eos % (Auto) 2.8 Baso % (Auto) 2.5 H Neut # (Auto) 5700 Lymph # (Auto) 2000 [place] # (Auto) 800 Eos # (Auto) 200 Baso # (Auto) 200 H Sodium 139 Potassium 4.1 Chloride 105 Carbon Dioxide 26 BUN 21 H Creatinine 0.71 Estimated GFR > 60.0 BUN/Creatinine Ratio 29.6 H Glucose 150 H Calcium 9.2 Total Bilirubin 0.5 AST 20 ALT 18 Alkaline Phosphatase 101 C-Reactive Protein 5.1 H Total Protein 7.8 Albumin 3.7 Globulin 4.1 Albumin/Globulin Ratio 0.9 L Vancomycin Peak Vancomycin Trough 14.1 10/27/20 13:20 WBC RBC Hgb Hct MCV MCH MCHC RDW Plt Count Neut % (Auto) Lymph % (Auto) [place] % (Auto) Eos % (Auto) Baso % (Auto) Neut # (Auto) Lymph # (Auto) [place] # (Auto) Eos # (Auto) Baso # (Auto) Sodium Potassium Chloride Carbon Dioxide BUN Creatinine Estimated GFR BUN/Creatinine Ratio Glucose Calcium Total Bilirubin AST ALT Alkaline Phosphatase C-Reactive Protein Total Protein Albumin Globulin Albumin/Globulin Ratio Vancomycin Peak 30.8 Vancomycin Trough [facility] Medical History (Updated 10/27/20 @ 00:06 by AYDIN Weems) Cellulitis of foot, left Diabetes Type 2 diabetes mellitus Social History household members: none Smoking Status: Former smoker Smokeless tobacco user: chewing tobacco quit status: considering quitting Assessment & Plan Assessment & Plan narrative: Larry Vanegas is admitted for a left foot cellulitis and osteomylitis. 1. Left foot cellulitis, osteomyelitis, possible septic 1st MTP joint, acute. -patient with significant areas of erythema and skin maceration/superficial sloughing of the left foot -CT report indicated diffuse subcutaneous edema and areas of soft tissue gas -Dr. Howe saw patient for ortho consult and does not see abscess that requires surgical drainage. Given significantly elevated inflammatory markers and continued erythema MRI was obtained which showed ulceration and subcutaneous emphysema of the forefoot without drainable abscess. There is osteomyelitis noted of the 1st metatarsal head and 1st proximal phalangeal base with possible osteomyelitis of the medial sesamoid for 1st MTP joint as well. -patient was started on vancomycin and meropenem in ED with improvement in left foot erythema. narrowed to ceftriaxone then broadened again. -Patient taken to the OR for a partial ray amputation, excisional biopsy of muscle, tendon, bone-extensive pus identified -Culture growing Finegoldia magna ( anarobic gram pos nikole), sensitivities pend ing. -deep wound PCR still pending -PICC line tomorrow, and continue to monitor 2. Type 2 diabetes -glucose 296 on admission, A1c 10.9% -patient previously on Lantus 55 units HS prescribed through [place] [facility] -restarted Lantus 40 units at bedtime, will continue to adjust as needed. AM sugars largely controlled. Consider adding meal time coverage after OR depending on course. -medium dose insulin correction a.c. HS -patient requests to send prescription for 90 day Lantus Solostar supply and pen needles to [facility] pharmacy until patient can reestablish with his provider. Will send Rx for test strips as well. -Continiue tight glycemic control blood sugar well controlled. pending final sensitivities for buttermaker helper IV antibiotic selection prior to discharge Continue DVT prophylaxis Time Spent With Patient Critical Care time: I spent a total of [] minutes of critical care time on this patient's care today; this time is exclusive of procedural time. Quality VTE Deep Vein Thrombosis/Pulmonary Embolism Present on Admission: No
[2020-10-27] MEDS: INSULIN GLARGINE 100 UNIT/ML 3ML PEN 40 UNIT SUBCUT (20:54)
--- NOTE | 2020-10-27 22:38 | PC.NURSE ---
Pt has had a good day so far. Left foot dressing changed. pt was premedicated with oxycodone prior. tolerated well.
[2020-10-28] VITALS (7 sets, daily range): BP systolic 102–121; BP diastolic 73–79; PULSE 83–93; RESP 16–18; TEMP 35.7–36.7; O2SAT 92–98; BMI 29.9
--- NOTE | 2020-10-28 00:10 | PC.NURSE ---
Pt awake, alert @ change of shift resting quietly in bed. Denies pain. Pineda wrap with kerlix visible underneath is dry and intact to left foot. Pt is s/p dressing change on evening shift. Sluggish cap refill to exposed toes left foot. Warm and pink toes to this extremity. Palpable post tib pulse right foot. Unable to palpate left foot pulses d/t dressing. PICC intact to LUE. Pt declines scd's. Positions self independently in bed. Encouraged by staff GERONTOLOGICAL NURSE PRACTITIONER to call for needs and pt verbalizes understanding to use urinal at bedside and not to attempt OOB without calling for staff assistance.
[2020-10-28] MEDS: MEROPENEM 1 GM in SODIUM CHLORIDE 0.9% 100 ML 200 ML IV (05:30)
[2020-10-28 07:38] LABS: Add Manual Diff / Slide Review NO; Basophils Absolute Auto 100 /uL (0-100); Basophils Percent Auto 1.5 % (0-2); Eosinophils Absolute Auto 300 /uL (0-450); Eosinophils Percent Auto 3.1 % (2-4); Hematocrit 33.4 % (41-53); Hemoglobin 11.1 g/dL (13.5-17.5); Lymphocytes Absolute Auto 1600 /uL (1100-4500); Lymphocytes Percent Auto 19.7 % (25-40); Mean Corpuscular HGB Conc 33.2 % (30-36); Mean Corpuscular Hemoglobin 26.7 PG (26-34); Mean Corpuscular Volume 80.5 fL (80-100); Monocytes Absolute Auto 600 /uL (0-900); Monocytes Percent Auto 7.1 % (3-14); Neutrophils Absolute Auto 5700 /uL (1500-7000); Neutrophils Percent Auto 68.6 % (50-75); Platelet Count 457 X10^3/uL (150-400); Red Blood Cell Count 4.15 X10^6/uL (4.5-5.9); Red Cell Distribution Width 13.4 % (11.6-14.8); White Blood Cell Count 8.3 X10^3/uL (4.5-11.0)
[2020-10-28 07:46] LABS: Alanine Aminotransferase 23 IU/L (<50); Albumin 3.5 g/dL (3.5-5.0); Albumin Globulin Ratio 0.9 (1.0-2.8); Alkaline Phosphatase 90 U/L (38-126); Aspartate Aminotransferase 27 IU/L (17-59); BUN Creatinine Ratio 28.2 (6-22); Bilirubin Total 0.3 mg/dL (0.2-1.3); Blood Urea Nitrogen 22 mg/dL (9-20); Carbon Dioxide 27 mmol/L (22-32); Chloride 105 mmol/L (98-107); Estimated Glomerular Filt Rate > 60.0 mL/min (>60); Globulin 3.9 g/dL (1.7-4.1); Glucose 151 mg/dL (70-100); HEMOLYSIS < 15 (0-50); Potassium 4.1 mmol/L (3.4-5.1); Sodium 139 mmol/L (137-145); Total Protein 7.4 g/dL (6.3-8.2)
[2020-10-28] MEDS: ENOXAPARIN 40 MG/0.4 ML SYRINGE SUBCUT (10:00)
[2020-10-28] MEDS: SODIUM CHLORIDE 0.9% FLUSH 10 ML IV ×2 (10:01→17:27)
[2020-10-28] MEDS: INSULIN LISPRO 100 UNIT/ML 3ML VIAL SUBCUT ×3 (10:01→17:22)
[2020-10-28] MEDS: VANCOMYCIN 1,500 MG/300 ML PIGGYBACK 200 MG IV (10:05)
--- NOTE | 2020-10-28 10:27 | P.PN_ITS ---
Subjective Subjective Date Patient Seen: 10/28/20 Time Patient Seen: 10:27 Interval history: Patient is complaining of mild pain this morning. He denies any fevers, chills, night sweats. No nausea or vomiting. The patient is feeling well and would like to be discharged home today. There is a PCR test that is pending from that should be resulted today and then he may be discharged home on 6 weeks of IV antibiotics. 60-year-old diabetic male with left diabetic foot infection status post debridements time to and 2nd ray amputation.? On broad-spectrum antibiotics with vancomycin and meropenem.? Growing anaerobic gram-positive rods also had a swab from the ER preoperatively that demonstrated strep group B. seems to have really turned the corner since being brought and on his antibiotics.? White count has been trending downward.? Has been tolerating dressing changes on the floor. Exam Vital Signs (past 8 hours): - 10/28/20 04:50 10/28/20 08:31 10/28/20 08:32 Temperature 98.1 F Pulse Rate 83 Respiratory Rate 18 Blood Pressure 121/79 Pulse Oximetry 92 93 93 Oxygen Delivery Method Room Air Oxygen Flow Rate 0 Narrative Exam Narrative: 60-year-old male, resting comfortably in bed, no apparent distress. Motor functions are intact in bilateral lower extremities. Sensation is grossly intact to light touch in bilateral lower extremities. Both legs are warm and dry. Bilateral calves are soft, nontender to palpation. There is scant drainage on the dressing which is serosanguineous in nature. Objective Labs Result Diagrams: 10/28/20 07:10 10/28/20 07:10 Labs: Laboratory Results - last 24 hr 10/27/20 10/28/20 10/28/20 13:20 07:10 07:10 WBC 8.3 RBC 4.15 L Hgb 11.1 L Hct 33.4 L MCV 80.5 MCH 26.7 MCHC 33.2 RDW 13.4 Plt Count 457 H Neut % (Auto) 68.6 Lymph % (Auto) 19.7 L [place] % (Auto) 7.1 Eos % (Auto) 3.1 Baso % (Auto) 1.5 Neut # (Auto) 5700 Lymph # (Auto) 1600 [place] # (Auto) 600 Eos # (Auto) 300 Baso # (Auto) 100 Sodium 139 Potassium 4.1 Chloride 105 Carbon Dioxide 27 BUN 22 H Creatinine 0.78 Estimated GFR > 60.0 BUN/Creatinine Ratio 28.2 H Glucose 151 H Calcium 9.0 Total Bilirubin 0.3 AST 27 ALT 23 Alkaline Phosphatase 90 Total Protein 7.4 Albumin 3.5 Globulin 3.9 Albumin/Globulin Ratio 0.9 L Vancomycin Peak 30.8 PFSH Medical History Cellulitis of foot, left Diabetes Type 2 diabetes mellitus Social History household members: none Smoking Status: Former smoker Smokeless tobacco user: chewing tobacco quit status: considering quitting Assessment & Plan Post-op Postoperative Procedures: Procedures Operation Date: 10/21/20 12:15 Actual Procedure Side Surgeon p Incision and Drainage Foot Left Angeles Witt MD Operation Date: 10/23/20 12:00 Actual Procedure Side Surgeon p Repeat Irrigation/debridement left foot, 2nd toe amputation left Left Angeles Witt MD Postoperative plan narrative: Postop day 5 and 7 from debridements and 2nd ray amputation left diabetic foot infection. Growing Gram-positive anaerobic rods. On vancomycin and meropenem. Awaiting a PCR test from . If this demonstrates organism sensitive to meropenem possible discharge on only meropenem. Will need 6 weeks IV antibiotics. Will need to coordinate with wound care ideally would see them once or twice a week for wound monitoring and patient would also complete b.i.d. wet-to-dry dressings at home. follow-up with Orthopedic surgery in 2-3 weeks- or return to ER for any acute worsening. Will maintain heel or nonweightbearing as able on left foot. May use offloading shoe for heel weight-bearing. no other current surgery planned although discussed with patient that for worsening appearance may still need additional surgery in the future. Discussed skin on the bottom of the great toe may not survive but no current urgent indications for surgery allow this to demarcate and give a chance for healing with wound care. Nurse will assist patient with wet to dry dressing as he will be doing these at home Plan is DC home today once we get the PCR results from for final IV antibiotic treatment x 6wks Quality VTE Deep Vein Thrombosis/Pulmonary Embolism Present on Admission: No
[2020-10-28] MEDS: ERTAPENEM 1 GM in SODIUM CHLORIDE 0.9% 100 ML 200 ML IV (14:36)
--- NOTE | 2020-10-28 15:18 | CM.DPNOTE ---
Faxed clinicals per Susana to [facility] and received fax conf. Yaima Nj CM Asst.
--- NOTE | 2020-10-28 16:07 | P.PN_ITS ---
Subjective Subjective Date Patient Seen: 10/28/20 Time Patient Seen: 16:07 Interval history: ?60-year-old diabetic male with left diabetic foot infection status post debridements time to and 2nd ray amputation.? Improving with antibiotics. Awaiting final cultures and sensitivities for antibiotic selection prior to discharge. There was apparently an issue with culture medium sent for sensitivities and this was cancelled. PCR test will not return until saturday. Mi ld pain in foot but generally controlled. Will try and arrange for home infusion. No need for continued vancomycin at this time given cultures. will continue carbapenem therapy. Exam Vital Signs (past 8 hours): - 10/28/20 08:31 10/28/20 08:32 10/28/20 11:45 Temperature 97.5 F L Pulse Rate 93 H Respiratory Rate 16 Blood Pressure 102/76 Pulse Oximetry 93 93 98 10/28/20 15:41 Temperature 96.3 F L Pulse Rate 88 Respiratory Rate 16 Blood Pressure 111/73 Pulse Oximetry 96 Oxygen Delivery Method Room Air Oxygen Flow Rate 0 Narrative Exam Narrative: Gen: Alert, oriented, well-developed 60 y.o. male, NAD HEENT: normocephalic, atraumatic, conjunctiva clear, sclera non-icteric, oral mucosa pink and moist Neck: supple, full ROM, no JVD, trachea is midline Resp: Lungs CTA, non-labored breathing CV: RRR, no murmur or rubs Abd: soft, non-tender, normoactive BTs Skin: dressings c/d/i. no obvious erythema in Lower extremity. Neuro: Alert and oriented X 4 w/no focal deficits. Speech clear and coherent. Extremities: no effusions or edema. foot dressings c/d/i. Psyche: normal mood and affect. Objective Labs Result Diagrams: 10/28/20 07:10 10/28/20 07:10 Labs: Laboratory Results - last 24 hr 10/28/20 10/28/20 07:10 07:10 WBC 8.3 RBC 4.15 L Hgb 11.1 L Hct 33.4 L MCV 80.5 MCH 26.7 MCHC 33.2 RDW 13.4 Plt Count 457 H Neut % (Auto) 68.6 Lymph % (Auto) 19.7 L [place] % (Auto) 7.1 Eos % (Auto) 3.1 Baso % (Auto) 1.5 Neut # (Auto) 5700 Lymph # (Auto) 1600 [place] # (Auto) 600 Eos # (Auto) 300 Baso # (Auto) 100 Sodium 139 Potassium 4.1 Chloride 105 Carbon Dioxide 27 BUN 22 H Creatinine 0.78 Estimated GFR > 60.0 BUN/Creatinine Ratio 28.2 H Glucose 151 H Calcium 9.0 Total Bilirubin 0.3 AST 27 ALT 23 Alkaline Phosphatase 90 Total Protein 7.4 Albumin 3.5 Globulin 3.9 Albumin/Globulin Ratio 0.9 L [facility] Medical History Cellulitis of foot, left Diabetes Type 2 diabetes mellitus Social History household members: none Smoking Status: Former smoker Smokeless tobacco user: chewing tobacco quit status: considering quitting Assessment & Plan Assessment & Plan narrative: Larry Vanegas is admitted for a left foot cellulitis and osteomylitis. 1. Left foot cellulitis, osteomyelitis, possible septic 1st MTP joint, acute. -CT report indicated diffuse subcutaneous edema and areas of soft tissue gas -Dr. Howe saw patient for ortho consult and does not see abscess that requires surgical drainage. Given significantly elevated inflammatory markers and continued erythema MRI was obtained which showed ulceration and subcutaneous emphysema of the forefoot without drainable abscess. There is osteomyelitis noted of the 1st metatarsal head and 1st proximal phalangeal base with possible osteomyelitis of the medial sesamoid for 1st MTP joint as well. -patient was started on vancomycin and meropenem in ED with improvement in left foot erythema. narrowed to ceftriaxone then broadened again with cultures. -Patient taken to the OR for a partial ray amputation, excisional biopsy of muscle, tendon, bone-extensive pus identified -Culture growing Finegoldia magna ( anarobic gram pos nikole), sensitivities will not return as they were incorrectly sent according to outside lab. -deep wound PCR still pending -PICC line in place. -patient has no current PCP, will follow up ultimately with wound care and establishing care with Dr. Garza on 11/14. Patient requires 6 weeks of IV antibiotics for MRSA. End date 12/05/2020. At discharge planned for tomorrow will continue ertapenem 1 g q24 hours. This is expected to be narrowed once PCR results return likely early next week. -Temporarily hospitalist service can coordinate outpatient antibiotic therapy if changes are needed. Will require weekly CBC, CMP, and CK levels until patient establishes with primary care. -Wound care follow up also arranged for next week. 2. Type 2 diabetes -glucose 296 on admission, A1c 10.9% -patient previously on Lantus 55 units HS prescribed through [place] [facility] -restarted Lantus 40 units at bedtime, will continue to adjust as needed. AM sug ars largely controlled. Consider adding meal time coverage after OR depending on course. -medium dose insulin correction a.c. HS -patient requests to send prescription for 90 day Lantus Solostar supply and pen needles to [facility] pharmacy until patient can reestablish with his provider. Will send Rx for test strips as well. -Continiue tight glycemic control blood sugar well controlled. pending final sensitivities for intermediate IV antibiotic selection, will plan for discharge home tomorrow as noted above. Continue DVT prophylaxis Time Spent With Patient Critical Care time: I spent a total of [] minutes of critical care time on this patient's care today; this time is exclusive of procedural time. Quality VTE Deep Vein Thrombosis/Pulmonary Embolism Present on Admission: No
--- NOTE | 2020-10-28 16:46 | PC.NURSE ---
Wound care teaching: Pt instructed in wound care. Was able to remove old dressing from leg and unpack wound. He did feel a little woozy when deepest wound was unpacked. Pt was able to repack wound with saline gauze (wet - dry) wrap with kerlix and then mark wrap. Pt feels like he can do the dressing changes at home. Dressing supplies given.
--- NOTE | 2020-10-28 17:27 | PM.DS.1 ---
History of Present Illness History of Present Illness Date Patient Seen: 10/28/20 Time Patient Seen: 17:27 Chief complaint: infected left foot Narrative: Per Dr. Coffey, Patient is a 60-year-old male with untreated diabetes type 2 who presents back to emergency department with concerns of left foot infection.? He was initially on October 08 when he noticed redness and swelling and pain around the left big toe.? He was diagnosed with acute gout and sent home on naproxen and colchicine.? Over next few days patient developed fevers and chills and the appearance of foot worsened with increased redness and bruising discoloration resulting in 2nd ER visit on the .? This time his labs and appearance of foot were more consistent with infection.? White blood cell noted 18.8.? ER physician thought there might be a collection of pus under the left 1st metatarsal and performed a small I and D.? However, there is no report of Gram stain or culture result from that visit.? Patient was started on Bactrim on the .? He came back to emergency department today because he noticed there was forming a lot of skin sloughing and drainage from his foot. On ER labs current visit there is improvement in his WBC to 13.4.? Glucose was 269. A CT contrast study was done which showed diffuse subcu edema, soft tissue gas within plantar soft tissues, no evidence of osteomyelitis.? Ortho service was asked to consult and patient admitted to the hospitalist service for treatment of left foot infection. Patient was having fevers and chills earlier this week but has not had fevers the last few days since on oral antibiotic.? Denies nausea or vomiting, shortness of breath or cough. [facility] Prior to start of COVID last year he was on Lantus 55 units at night.? However, he was unable to reach [facility] to get his insulin renewed and has been without medication for the past year.? Patient states he tried metformin in the past and got diarrhea.? He has not been monitoring blood sugars.? He denies neuropathy. Patient's family history is positive for diabetes in mom and multiple siblings.? He works at [employer]. Discharge Providers Provider Date of admission: 10/16/20 11:41 Discharge Date: 10/28/20 Consults: 10/17/20 09:44 Consult to Wound Care Routine Comment: Consulting Provider: [facility] 10/18/20 15:41 Consult to Dietitian, Adult Routine Comment: Reason For Exam: Diabetic teaching consult 10/20/20 18:44 Consult to LEAD PERFORMANCE SUPPORT ANALYST - Picu Nurse Routine Comment: to help pt navigate support services post op LEAD PERFORMANCE SUPPORT ANALYST Consult: [facility] Res Need 10/21/20 14:39 Consult to Physical Therapy Evaluate & Treat Comment: heel weightbearing LLE, darco offloading shoe Physician Instructions: Evaluate and Treat Discharge provider: Willard Hankins DO Summary Hospital Course Discharge Diagnosis: 1. Left foot osteomyelitis, possible 1st MTP joint sepsis, with cellulitis 2. type 2 diabetes mellitus. Hospital Course: Larry Vanegas was admitted for a left foot cellulitis and osteomylitis. Please see course noted below 1. Left foot cellulitis, osteomyelitis, possible septic 1st MTP joint, acute. -CT on admission report indicated diffuse subcutaneous edema and areas of soft tissue gas -Dr. Howe saw patient for ortho consult and does not see abscess that requires surgical drainage. Given significantly elevated inflammatory markers and continued erythema MRI was obtained which showed ulceration and subcutaneous emphysema of the forefoot without drainable abscess. There is osteomyelitis noted of the 1st metatarsal head and 1st proximal phalangeal base with possible osteomyelitis of the medial sesamoid for 1st MTP joint as well. -patient was started on vancomycin and meropenem in ED with improvement in left foot erythema. narrowed to ceftriaxone then broadened again with cultures. -Patient taken to the OR for a partial ray amputation, excisional biopsy of muscle, tendon, bone-extensive pus identified -Culture growing Finegoldia magna ( anarobic gram pos nikole), formerly peptostreptococcus. sensitivities will not return as they were incorrectly sent according to outside lab. -deep wound PCR still pending -PICC line in place. -patient has no current PCP, will follow up ultimately with wound care and establishing care with Dr. Garza on 11/14. Patient requires 6 weeks of IV antibiotics for Finegoldia for now. End date 12/05/2020. At discharge planned for tomorrow will continue ertapenem 1 g q24 hours. This is expected to be narrowed once PCR results return likely early next week. -Temporarily hospitalist service can coordinate outpatient antibiotic therapy if changes are needed. Will require weekly CBC, CMP, and CK levels until patient establishes with primary care. -Wound care follow up also arranged for next week. 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 2. Type 2 diabetes -glucose 296 on admission, A1c 10.9% -patient previously on Lantus 55 units HS [facility] -restarted Lantus 40 units at bedtime, will continue to adjust as needed. AM sugars largely controlled. blood sugar well controlled. Lantus temporarily refilled at pharmacy. Follow up with PCP for additional control. Time Spent with Patient Time spent: Greater than 30 minutes Exam Vital Signs (past 8 hours): - 10/28/20 11:45 10/28/20 15:41 Temperature 97.5 F L 96.3 F L Pulse Rate 93 H 88 Respiratory Rate 16 16 Blood Pressure 102/76 111/73 Pulse Oximetry 98 96 Oxygen Delivery Method Room Air Oxygen Flow Rate 0 Objective Labs Result Diagrams: 10/28/20 07:10 10/28/20 07:10 Labs: Laboratory Results - last 24 hr 10/28/20 10/28/20 07:10 07:10 WBC 8.3 RBC 4.15 L Hgb 11.1 L Hct 33.4 L MCV 80.5 MCH 26.7 MCHC 33.2 RDW 13.4 Plt Count 457 H Neut % (Auto) 68.6 Lymph % (Auto) 19.7 L Forrest % (Auto) 7.1 Eos % (Auto) 3.1 Baso % (Auto) 1.5 Neut # (Auto) 5700 Lymph # (Auto) 1600 Forrest # (Auto) 600 Eos # (Auto) 300 Baso # (Auto) 100 Sodium 139 Potassium 4.1 Chloride 105 Carbon Dioxide 27 BUN 22 H Creatinine 0.78 Estimated GFR > 60.0 BUN/Creatinine Ratio 28.2 H Glucose 151 H Calcium 9.0 Total Bilirubin 0.3 AST 27 ALT 23 Alkaline Phosphatase 90 Total Protein 7.4 Albumin 3.5 Globulin 3.9 Albumin/Globulin Ratio 0.9 L PFSH Medical History Cellulitis of foot, left Diabetes Type 2 diabetes mellitus Social History household members: none Smoking Status: Former smoker Smokeless tobacco user: chewing tobacco quit status: considering quitting Discharge Plan Discharge Plan Patient Disposition: Home Nursing Discharge Comment: You have a wound care appointment on Nov 04 at 10:30 am. Please bring your paperwork with you. Will need to coordinate with wound care ideally would see them once or twice a week for wound monitoring and patient would also complete b.i.d. wet-to-dry dressings at home. Discharge orders & Medications Prescriptions: New ertapenem 1 gram recon soln 1 g IM Q24H 40 Days Qty: 40 RF: 0 Lantus Solostar U-100 Insulin 100 unit/mL (3 mL) insulin pen 40 unit SUBCUT BEDTIME 30 Days Qty: 12 RF: 0 Continued acetaminophen 500 mg Tablet 1,000 mg PO Q8-12H RF: 0 Discontinued sulfamethoxazole-trimethoprim 800-160 mg tablet 1 tab PO BID RF: 0 ibuprofen [Ibuprin] 200 mg Tablet 400 mg PO Q8-12H RF: 0 naproxen 500 mg Tablet 500 mg PO BID PRN (Reason: Pain, Mild) RF: 0 Follow up/Referrals: Angeles Witt MD [Physician] - (follow up for postop visit in 1-2 weeks) Anabela Howe MD [Physician] - (Follow-up with orthopedics in 1 week.) Diet/Activity/Treatments Diet: Diet as Tolerated and Carb-consistent/Diabetic Activity: Will maintain heel or nonweightbearing as able on left foot. May use offloading shoe for heel weight-bearing. Other treatments: Will need 6 weeks IV antibiotics-pending final lab results Will maintain heel or non-weightbearing as able on left foot. May use offloading shoe for heel weight-bearing Quality VTE Deep Vein Thrombosis/Pulmonary Embolism Present on Admission: No
--- NOTE | 2020-10-28 18:28 | PC.NURSE ---
Pt discharged home via wheelchair, private vehicle and excorted by PACS SPECIALIST. Pt left in stable conditions. Discharge instructions given to patient. pt to follow up with Infusion [facility] and will be starting home health next week. pt send home with ampule amount of dressing suppies for wound care. pt to call hospital tomorrow if he encounter any troubles with infusion solution.
--- NOTE | 2020-10-29 08:24 | CM.DPNOTE ---
DC Note- Late Entry Worked on DCP throughout the day yesterday. Patient eager to return home. According to Dr Hankins, culture results from were not expected until 11.01; Dr Hankins wanted patient to DC home if plan could be coordinated for home infusion of either 1. Ertapenem Q24 or 2. Meropenem Q8 x 6 weeks Placed call to [facility] to ask and they were not confident about getting an authorization though patient's [facility] was closed and so Q24 outpatient infusion (daily) was not an option d/t auth requirement through [facility] Updated patient and he was willing to pay out of pocket in order to DC yesterday. Spoke w/ [facility] by speaker phone at patient's bedside, Amari/Pharmacist inevitably offered to begin service w/patient at $0 cost to him, beginning 10.29.20 Patient received his first dose of Ertapenem before DC yesterday. Then placed call to Portia at [facility] to ask about RN TIFFANI (?) program- patient does not currently have a PCP...RN to assist w/supplies and wound care dressing changes. Patient was able to complete wound care dressing changes on his own but said it would be helpful to have an RN for oversight. Portia said she could not guarantee they could follow patient w/o an auth through his [facility] coverage but on 11.01 after the holiday weekend, if they were able to confirm his coverage and begin auth request they could see patient Saturday. Faxed all requested and signed documents to [facility], Yaima SOUSA faxed completed and signed F2F and HH order to [facility] . Dr Hankins to follow for IV abx ,labs etc until patient sees wound care clinic and/or establishes w/Dr Garza 11.14.20 Plan: DC home 10.28.20, transport by mother, wound care change teaching and supplies provided by RN, [facility] to f/u 10.30.20, Wound care appt at scheduled for Saturday11.04.20, [facility] RN to f/u pending insurance coverage JW
[2020-11-09 11:59] LABS: Miscellaneous to Univ of WA BACTERIAL PCR
== END 2020-10-28 18:15 | disposition home or self-care (01) | DRG 464 ==
LOC: ED 11:40 → AC 11:41
PROVIDERS: Family Medicine; Internal Medicine; Orthopaedic Surgery Foot and Ankle Surgery; Admitting Provider Internal Medicine; Emergency Provider Emergency Medicine; Referring Provider Emergency Medicine; Visit Provider Internal Medicine
PROC: 0QBP0ZX Excision of Left Metatarsal, Open Approach, Diagnostic (ICD-10-PCS; principal; 2020-10-21 12:15)
PROC: 0Y6N0ZB Detachment at Left Foot, Partial 2nd Ray, Open Approach (ICD-10-PCS; principal; 2020-10-23 12:00)
DX: M00.272 Other streptococcal arthritis, left ankle and foot (principal); L03.116 Cellulitis of left lower limb; M86.8X7 Other osteomyelitis, ankle and foot; E11.69 Type 2 diabetes mellitus with other specified complication; E11.65 Type 2 diabetes mellitus with hyperglycemia; B95.1 Streptococcus, group B, as the cause of diseases classified elsewhere; E11.621 Type 2 diabetes mellitus with foot ulcer; L97.523 Non-pressure chronic ulcer of other part of left foot with necrosis of muscle; B96.89 Other specified bacterial agents as the cause of diseases classified elsewhere; F17.220 Nicotine dependence, chewing tobacco, uncomplicated; Z20.822 Contact with and (suspected) exposure to COVID-19
CPT/HCPCS: 36415; 36569; 36592; 73700; 73720; 80048; 80053; 80202; 82962; 83036; 83605; 85025; 85651; 86140; 87040; 87070; 87075; 87076; 87077; 87147; 87176; 87205; 87635; 87797; 93925; 94760; 96365; 96368; 97116; 97161; 99284; 99291; C9803; A9579; J0171; J0696; J1335; J1642; J1650; J1815; J2185; J2405; J2704; J3010

== ENCOUNTER 2020-10-29 11:35 | Emergency (ER) | payer OTHER, SELFPAY ==
[2020-10-28 11:39] VITALS: BMI 29.9
[2020-10-29 12:09] VITALS: BP 93/66; PULSE 99; RESP 18; TEMP 36.7; O2SAT 99
[2020-10-29 14:13] VITALS: BP 125/79; PULSE 101; O2SAT 100
--- NOTE | 2020-10-29 15:05 | PC.NURSE ---
Needs help removing packing and changing dressing. Gauze moistened and removed from wound. PA/TECHNICIAN SEMICONDUCTOR DEVELOPMENT in room to assess wound. Redressed with wet to dry, sterile water, 4x4s with kerlex wrap and mark. Ortho shoe on. Infusion nurse came to ED so pt was able to receive scheduled antibiotic on time today. She did training with pt and also changed picc dressing.
[2020-10-29 15:12] VITALS: BP 131/79; PULSE 91; RESP 14; O2SAT 100
--- NOTE | 2020-10-29 16:15 | ED.RECABL ---
HPI - Recheck/Abnormal Lab/Rx <AYDIN Durant - Last Filed: 10/29/20 16:31> General Chief Complaint: Recheck/Abnormal Lab/Rx Stated Complaint: Dressing Stuck on Left Foot Time Seen by Provider: 10/29/20 12:11 Source: patient Mode of arrival: Ambulatory Limitations: no limitations History of Present Illness HPI narrative: 60-year-old male PMH diabetes mellitus, recent surgery for osteomyelitis with toe amputation 10/24/20 who presents to the ER for wound dressing change. It was his 1st dressing change at home and he reports that he fell asleep and too much time went by so the wet-to-dry dressing was dry and stuck to his wound so he was afraid of pulling it off. He denies fever or redness or swelling of his left foot. Related Data Home Medications Medication Instructions Recorded Confirmed acetaminophen 500 mg tablet 1,000 mg PO Q8-12H 10/16/20 10/16/20 Previous Rx's Medication Instructions Recorded ertapenem 1 gram solution for 1 g IM Q24H 40 Days #40 ea 10/28/20 injection insulin glargine 100 unit/mL (3 40 unit SUBCUT BEDTIME 30 Days #12 10/28/20 mL) subcutaneous pen (Lantus ml Solostar U-100 Insulin) Allergies Allergy/AdvReac Type Severity Reaction Status Date / Time Penicillins Allergy Severe Rash Verified 10/08/20 13:25 Review of Systems <AYDIN Durant - Last Filed: 10/29/20 16:31> Review of Systems Narrative: General: denies fever, chills Head/Neck: denies headache, neck pain Eyes: denies visual changes, eye pain Cardio: denies chest pain, palpitations Respiratory: denies shortness of breath, cough GI: denies abdominal pain, nausea, vomiting, or diarrhea : denies dysuria, hematuria MSK: denies joint pain, muscle weakness, left foot with dressing stuck on. Skin: denies rash, itching Neuro: denies numbness, tingling Patient History <AYDIN Durant - Last Filed: 10/29/20 16:31> Medical History Cellulitis of foot, left Diabetes Type 2 diabetes mellitus Social History household members: none Smoking Status: Former smoker Smokeless tobacco user: chewing tobacco quit status: considering quitting Smoking Status: Former smoker tobacco type: smokeless tobacco alcohol intake frequency: holidays/special occasions only Substance Use Type: does not use Exam <AYDIN Durant - Last Filed: 10/29/20 16:31> Narrative Exam Narrative: Independently reviewed vitals signs and nursing notes. General: Awake, alert, nontoxic, no cardiorespiratory distress Head/Neck: Atraumatic, neck full range of motion Eyes: EOMI, conjunctiva normal, no scleral icterus Nose: nares patent, no rhinorrhea Cardio: Regular rate and rhythm, no peripheral edema Respiratory: respirations unlabored without wheezing, stridor, or rales. No retractions. GI: nondistended MSK: Moves all extremities, neurovascularly intact, Left foot wound base well-appearing without erythema or edema. No purulent discharge. Sutures intact, CSM intact. Skin: Normal capillary refill, no rash Neuro: Normal speech and cognition, ambulatory with walker Initial Vital Signs Initial Vital Signs: Vital Signs Temperature 98.1 F 10/29/20 12:09 Pulse Rate 99 H 10/29/20 12:09 Respiratory Rate 18 10/29/20 12:09 Blood Pressure 93/66 10/29/20 12:09 Pulse Oximetry 99 10/29/20 12:09 <Kelsea Neumann DO - Last Filed: 10/30/20 08:51> Initial Vital Signs Initial Vital Signs: Vital Signs Temperature 98.1 F 10/29/20 12:09 Pulse Rate 99 H 10/29/20 12:09 Respiratory Rate 18 10/29/20 12:09 Blood Pressure 93/66 10/29/20 12:09 Pulse Oximetry 99 10/29/20 12:09 Course <AYDIN Durant - Last Filed: 10/29/20 16:31> Vital Signs Vital signs: Vital Signs - 8 hr 10/29/20 12:09 10/29/20 14:13 10/29/20 15:12 Temperature 98.1 F Pulse Rate 99 H 101 H 91 H Respiratory Rate 18 14 Blood Pressure 93/66 125/79 131/79 Pulse Oximetry 99 100 100 <Kelsea Neumann DO - Last Filed: 10/30/20 08:51> Vital Signs Vital signs: Vital Signs - 8 hr 10/29/20 12:09 10/29/20 14:13 10/29/20 15:12 Temperature 98.1 F Pulse Rate 99 H 101 H 91 H Respiratory Rate 18 14 Blood Pressure 93/66 125/79 131/79 Pulse Oximetry 99 100 100 MDM - Recheck/Abnormal Lab/Rx <AYDIN Durant - Last Filed: 10/29/20 16:31> MDM Narrative Medical decision making narrative: 60-year-old male PMH diabetes mellitus, recent surgery for osteomyelitis with toe amputation 10/24/20 who presents to the ER for wound dressing change. No evidence of infection, severe bacterial infection, fungal infection, or other. Wound was not bleeding. Wet to dry dressing was completed by RN without complications. Patient is appropriate and amenable to discharge home. Vital signs are stable on repeat examination and unremarkable. Patient has been given strict return to ER precautions for any new or worsening symptoms. Patient understands to follow up closely with outpatient providers as instructed. Patient understands plan and agrees to discharge home. All questions and concerns answered at this time. Discharge Plan Departure Patient Disposition: Home Clinical Impression: Encounter for wound re-check Instructions: How to Change a Wet to Dry Wound Dressing Activity Restrictions/Additional Instructions: It was nice to meet you today, you came in for a dressing change of your left foot. *What to do: Please continue to change dressings every 12 hours as directed by your surgeon. It appears to be healing without complications. *Please continue to take your regular medications as directed. [ ] New medication prescriptions sent to your pharmacy: [ ] [ ] New medication written as a paper prescription [x ] No new medications given *Please call Dr Anderson's office on Saturday for an appointment, and go to your appointment with wound care on 11/04. Follow up with your PCP as scheduled. Let them know you were seen in the Emergency Department and that we ask that you be seen in follow up. We will electronically transmit a record of today's note if your PCP is in our system *If you do not have a primary care provider please contact the [facility] Resource line at [phone]. They will ask some questions about your medical history and help get you set up with a doctor in the community. *Return to Emergency Department if you should have any new, worsening or concerning symptoms, such as [fever greater than 101 F, shaking chills, worsening pain, persistent vomiting or other bothersome symptoms] Prescriptions: No Action acetaminophen 500 mg Tablet 1,000 mg PO Q8-12H RF: 0 ertapenem 1 gram recon soln 1 g IM Q24H 40 Days Qty: 40 RF: 0 Lantus Solostar U-100 Insulin 100 unit/mL (3 mL) insulin pen 40 unit SUBCUT BEDTIME 30 Days Qty: 12 RF: 0 <Kelsea Neumann DO - Last Filed: 10/30/20 08:51> Cosign ED Attending Dagoature Attestation: I was immediately available in the department for consultation. Documentation has been reviewed. I agree with assessment and plan.
== END 2020-10-29 15:13 | disposition home or self-care (01) ==
PROVIDERS: Emergency Provider Nurse Practitioner Critical Care Medicine
DX: Z48.00 Encounter for change or removal of nonsurgical wound dressing (principal)
CPT/HCPCS: 99281

== ENCOUNTER → 2020-11-04 14:35 | Outpatient (CLI) | payer OTHER, SELFPAY ==
[2020-10-28 11:39] VITALS: BMI 29.9
== END ==
PROVIDERS: Family Provider Orthopaedic Surgery Foot and Ankle Surgery; PCP Student in an Organized Health Care Education/Training Program; Referring Provider Student in an Organized Health Care Education/Training Program; Visit Provider Nurse Practitioner Family
DX: T87.89 Other complications of amputation stump (principal); S91.105A Unspecified open wound of left lesser toe(s) without damage to nail, initial encounter; S91.302A Unspecified open wound, left foot, initial encounter; E11.628 Type 2 diabetes mellitus with other skin complications; L08.9 Local infection of the skin and subcutaneous tissue, unspecified; S91.3 Open wound of foot; E11.40 Type 2 diabetes mellitus with diabetic neuropathy, unspecified
CPT/HCPCS: 11042; 11043; 11045; 11046; 99204; 99213

== ENCOUNTER → 2020-11-11 12:48 | Outpatient (CLI) | payer OTHER, SELFPAY ==
[2020-10-28 11:39] VITALS: BMI 29.9
== END ==
PROVIDERS: Family Provider Orthopaedic Surgery Foot and Ankle Surgery; PCP Orthopaedic Surgery Foot and Ankle Surgery; Referring Provider Orthopaedic Surgery Foot and Ankle Surgery; Visit Provider Family Medicine
DX: T87.89 Other complications of amputation stump (principal); S91.302A Unspecified open wound, left foot, initial encounter; T81.89XA Other complications of procedures, not elsewhere classified, initial encounter; L08.9 Local infection of the skin and subcutaneous tissue, unspecified; Z89.422 Acquired absence of other left toe(s); E11.628 Type 2 diabetes mellitus with other skin complications
CPT/HCPCS: 11042; 11045

== ENCOUNTER → 2020-11-14 14:09 | Outpatient (CLI) | payer OTHER, SELFPAY ==
[2020-10-28 11:39] VITALS: BMI 29.9
[2020-11-14 16:39] LABS: Creatinine Urine Random 227.1 mg/dL
[2020-11-14 16:46] LABS: Microalbumi Creatinin Ratio Ur 4.4 ug/mg CR (<30)
== END ==
PROVIDERS: Family Provider Orthopaedic Surgery Foot and Ankle Surgery; PCP Student in an Organized Health Care Education/Training Program; Referring Provider Orthopaedic Surgery Foot and Ankle Surgery; Visit Provider Student in an Organized Health Care Education/Training Program
DX: E11.9 Type 2 diabetes mellitus without complications (principal)
CPT/HCPCS: 82043; 82570

== ENCOUNTER → 2020-11-18 08:57 | Outpatient (CLI) | payer OTHER, SELFPAY ==
[2020-10-28 11:39] VITALS: BMI 29.9
== END ==
PROVIDERS: Family Provider Orthopaedic Surgery Foot and Ankle Surgery; PCP Student in an Organized Health Care Education/Training Program; Referring Provider Student in an Organized Health Care Education/Training Program; Visit Provider Family Medicine
DX: T87.89 Other complications of amputation stump (principal); S91.302A Unspecified open wound, left foot, initial encounter; L08.9 Local infection of the skin and subcutaneous tissue, unspecified
CPT/HCPCS: 97605

== ENCOUNTER → 2020-11-21 14:22 | Outpatient (CLI) | payer OTHER, SELFPAY ==
[2020-10-28 11:39] VITALS: BMI 29.9
== END ==
PROVIDERS: Family Provider Orthopaedic Surgery Foot and Ankle Surgery; PCP Student in an Organized Health Care Education/Training Program; Referring Provider Student in an Organized Health Care Education/Training Program; Visit Provider Family Medicine
DX: T81.31XA Disruption of external operation (surgical) wound, not elsewhere classified, initial encounter (principal); S98.132A Complete traumatic amputation of one left lesser toe, initial encounter
CPT/HCPCS: 97605

== ENCOUNTER → 2020-11-25 14:36 | Outpatient (CLI) | payer OTHER, SELFPAY ==
[2020-10-28 11:39] VITALS: BMI 29.9
== END ==
PROVIDERS: Family Provider Orthopaedic Surgery Foot and Ankle Surgery; PCP Student in an Organized Health Care Education/Training Program; Referring Provider Student in an Organized Health Care Education/Training Program; Visit Provider Nurse Practitioner Family
DX: Z89.422 Acquired absence of other left toe(s) (principal); S91.302A Unspecified open wound, left foot, initial encounter; E11.40 Type 2 diabetes mellitus with diabetic neuropathy, unspecified; L08.9 Local infection of the skin and subcutaneous tissue, unspecified; I73.9 Peripheral vascular disease, unspecified
CPT/HCPCS: 11042; 11045; 97605

== ENCOUNTER → 2020-11-29 13:47 | Outpatient (CLI) | payer OTHER, SELFPAY ==
[2020-10-28 11:39] VITALS: BMI 29.9
== END ==
PROVIDERS: Family Provider Orthopaedic Surgery Foot and Ankle Surgery; PCP Student in an Organized Health Care Education/Training Program; Referring Provider Student in an Organized Health Care Education/Training Program; Visit Provider Family Medicine
DX: T81.31XA Disruption of external operation (surgical) wound, not elsewhere classified, initial encounter (principal); S98.132A Complete traumatic amputation of one left lesser toe, initial encounter
CPT/HCPCS: 97605

== ENCOUNTER → 2020-12-02 14:16 | Outpatient (CLI) | payer OTHER, SELFPAY ==
[2020-10-28 11:39] VITALS: BMI 29.9
== END ==
PROVIDERS: Family Provider Orthopaedic Surgery Foot and Ankle Surgery; PCP Student in an Organized Health Care Education/Training Program; Referring Provider Student in an Organized Health Care Education/Training Program; Visit Provider Nurse Practitioner Family
DX: S91.302A Unspecified open wound, left foot, initial encounter (principal); Z89.422 Acquired absence of other left toe(s); E11.40 Type 2 diabetes mellitus with diabetic neuropathy, unspecified; L08.9 Local infection of the skin and subcutaneous tissue, unspecified; I73.9 Peripheral vascular disease, unspecified
CPT/HCPCS: 11042; 15275; 99213; Q4110

== ENCOUNTER → 2020-12-06 13:22 | Outpatient (CLI) | payer OTHER, SELFPAY ==
[2020-10-28 11:39] VITALS: BMI 29.9
== END ==
PROVIDERS: Family Provider Orthopaedic Surgery Foot and Ankle Surgery; PCP Student in an Organized Health Care Education/Training Program; Referring Provider Student in an Organized Health Care Education/Training Program; Visit Provider Family Medicine
DX: T81.31XA Disruption of external operation (surgical) wound, not elsewhere classified, initial encounter (principal); S98.132A Complete traumatic amputation of one left lesser toe, initial encounter
CPT/HCPCS: 99213

== ENCOUNTER → 2020-12-09 14:01 | Outpatient (CLI) | payer OTHER, SELFPAY ==
[2020-10-28 11:39] VITALS: BMI 29.9
== END ==
PROVIDERS: Family Provider Orthopaedic Surgery Foot and Ankle Surgery; PCP Student in an Organized Health Care Education/Training Program; Referring Provider Student in an Organized Health Care Education/Training Program; Visit Provider Nurse Practitioner Family
DX: S91.302A Unspecified open wound, left foot, initial encounter (principal); Z89.422 Acquired absence of other left toe(s); E11.40 Type 2 diabetes mellitus with diabetic neuropathy, unspecified; L08.9 Local infection of the skin and subcutaneous tissue, unspecified; I73.9 Peripheral vascular disease, unspecified
CPT/HCPCS: 97597; 99213

== ENCOUNTER → 2020-12-09 15:29 | Outpatient (CLI) | payer OTHER, SELFPAY ==
[2020-10-28 11:39] VITALS: BMI 29.9
[2020-12-12 10:30] LABS: Fecal Immunochemical Test Negative (Negative)
== END ==
PROVIDERS: Family Provider Orthopaedic Surgery Foot and Ankle Surgery; PCP Student in an Organized Health Care Education/Training Program; Referring Provider Student in an Organized Health Care Education/Training Program; Visit Provider Student in an Organized Health Care Education/Training Program
DX: Z12.11 Encounter for screening for malignant neoplasm of colon (principal)
CPT/HCPCS: 82274

== ENCOUNTER → 2020-12-16 13:37 | Outpatient (CLI) | payer OTHER, SELFPAY ==
[2020-10-28 11:39] VITALS: BMI 29.9
== END ==
PROVIDERS: Family Provider Orthopaedic Surgery Foot and Ankle Surgery; PCP Student in an Organized Health Care Education/Training Program; Referring Provider Student in an Organized Health Care Education/Training Program; Visit Provider Family Medicine
DX: S91.302A Unspecified open wound, left foot, initial encounter (principal); E11.40 Type 2 diabetes mellitus with diabetic neuropathy, unspecified; T87.89 Other complications of amputation stump; I73.9 Peripheral vascular disease, unspecified; R03.0 Elevated blood-pressure reading, without diagnosis of hypertension; Z89.422 Acquired absence of other left toe(s)
CPT/HCPCS: 11042; 97605; 99213

== ENCOUNTER → 2020-12-20 13:42 | Outpatient (CLI) | payer OTHER, SELFPAY ==
[2020-10-28 11:39] VITALS: BMI 29.9
== END ==
PROVIDERS: Family Provider Orthopaedic Surgery Foot and Ankle Surgery; PCP Student in an Organized Health Care Education/Training Program; Referring Provider Student in an Organized Health Care Education/Training Program; Visit Provider Family Medicine
DX: T81.31XA Disruption of external operation (surgical) wound, not elsewhere classified, initial encounter (principal); S98.132A Complete traumatic amputation of one left lesser toe, initial encounter
CPT/HCPCS: 97605

== ENCOUNTER → 2020-12-23 13:40 | Outpatient (CLI) | payer OTHER, SELFPAY ==
[2020-10-28 11:39] VITALS: BMI 29.9
== END ==
PROVIDERS: Family Provider Orthopaedic Surgery Foot and Ankle Surgery; PCP Student in an Organized Health Care Education/Training Program; Referring Provider Student in an Organized Health Care Education/Training Program; Visit Provider Family Medicine
DX: L08.9 Local infection of the skin and subcutaneous tissue, unspecified (principal); T87.89 Other complications of amputation stump; S91.302A Unspecified open wound, left foot, initial encounter; Z89.422 Acquired absence of other left toe(s); E11.40 Type 2 diabetes mellitus with diabetic neuropathy, unspecified; I73.9 Peripheral vascular disease, unspecified; E11.628 Type 2 diabetes mellitus with other skin complications
CPT/HCPCS: 87070; 87075; 87077; 87147; 87185; 87186; 87205; 97597; 99213

== ENCOUNTER → 2020-12-30 14:02 | Outpatient (CLI) | payer OTHER, SELFPAY ==
[2020-10-28 11:39] VITALS: BMI 29.9
== END ==
PROVIDERS: Family Provider Orthopaedic Surgery Foot and Ankle Surgery; PCP Student in an Organized Health Care Education/Training Program; Referring Provider Student in an Organized Health Care Education/Training Program; Visit Provider Nurse Practitioner Family
DX: L08.9 Local infection of the skin and subcutaneous tissue, unspecified (principal); Z89.422 Acquired absence of other left toe(s); T87.89 Other complications of amputation stump; S91.302A Unspecified open wound, left foot, initial encounter; E11.628 Type 2 diabetes mellitus with other skin complications; R60.0 Localized edema; I73.9 Peripheral vascular disease, unspecified
CPT/HCPCS: 11042; 11045; 99213

== ENCOUNTER 2021-01-04 20:16 | Emergency (ER) | payer OTHER, SELFPAY ==
[2020-10-28 11:39] VITALS: BMI 29.9
[2021-01-04 20:23] VITALS: BP 176/93; PULSE 98; RESP 18; TEMP 36.6; O2SAT 100
--- NOTE | 2021-01-04 23:35 | ED.EXTPRO ---
HPI - Extremity Problem General Chief complaint: Extremity Problem,Nontraumatic Stated complaint: lt foot wounds Time Seen by Provider: 01/04/21 21:47 Source: patient Mode of arrival: Ambulatory Limitations: no limitations History of Present Illness HPI Narrative: 60-year-old male former smoker with history of diabetes and ongoing diabetic ulcers with infection on his feet presents with some increasing drainage and discomfort on his left foot. He has had a prior 2nd toe amputation and is followed by wound care. He has been taking doxycycline twice daily. He denies any systemic findings such as fever, chills nor nausea or vomiting. Related Data Home Medications Medication Instructions Recorded Confirmed acetaminophen 500 mg tablet 1,000 mg PO Q8-12H 10/16/20 12/20/20 Previous Rx's Medication Instructions Recorded glipizide 5 mg tablet 5 mg PO BID #60 tab 12/20/20 insulin glargine 100 unit/mL (3 50 unit SUBCUT BEDTIME #15 ml 12/20/20 mL) subcutaneous pen (Lantus Solostar U-100 Insulin) ciprofloxacin HCl 500 mg tablet 500 mg PO BID #20 tab 01/04/21 Allergies Allergy/AdvReac Type Severity Reaction Status Date / Time Penicillins Allergy Severe Rash Verified 12/20/20 16:21 Review of Systems Review of Systems Narrative: GENERAL: Denies chills, fatigue, malaise, fever, sweats. HEENT: Denies sinus pain, ear pain, sore throat, difficulty swallowing, dizziness. RESPIRATORY: Denies dyspnea, cough, wheezing, hemoptysis, sputum. CARDIOVASCULAR: Denies chest pain, palpitations, orthopnea, edema, GASTROINTESTINAL: Denies nausea, vomiting, abdominal pain, diarrhea, constipation, melena. : Denies dysuria, frequency, incontinence, hematuria, urinary retention. MUSCULOSKELETAL: denies weakness, joint pain, or bony pain SKIN: See HPI NEUROLOGIC: Denies weakness, headache, numbness, change in speech, confusion, seizures, incoordination. PSYCHIATRIC: No concerning psychosocial issues. 12 point review of systems is negative except for those stated above Patient History Medical History MRSA (methicillin resistant Staphylococcus aureus) (~2011) Type 2 diabetes mellitus (~2009) Surgical History Amputated toe of left foot (~2020) Anesthesia S/P arthroscopic surgery of left knee (~2013) Family History Mother Diabetes mellitus Brother Cancer Social History household members: none Smoking Status: Former smoker Smokeless tobacco user: chewing tobacco quit status: considering quitting Smoking Status: Former smoker tobacco type: smokeless tobacco alcohol intake frequency: holidays/special occasions only Substance Use Type: does not use Exam Narrative Exam Narrative: GEN: AOx3 and in mild distress EYES: Pupils are equal, round, and reactive to light and accommodation. Extraoccular muscles are intact bilaterally. There is no subconjunctival hemorrhage or exudate. CHEST: Lungs are clear to auscultation bilaterally and free of wheezes, rales, or rhonchi. Heart rate is regular rhythm, there are no murmurs, clicks, rubs, or gallops. There is no chest wall tenderness. ABD: Abdomen is soft and nontender. There is no guarding or rebound. Bowel sounds are normal in all 4 quadrants. There is no mass or organomegaly. EXT: Full painless ROM of all extremities with no loss of sensation or strength. SKIN: Skin breakdown with erythematous base and yellowish discharge noted along medial foot, medial to great toe. Patient does have sensation, no significant pain, no visible bone or deep structure Warm, pink, and dry. Otherwise, No erythema or rash Initial Vital Signs Initial Vital Signs: Vital Signs Temperature 97.8 F 01/04/21 20:23 Pulse Rate 98 H 01/04/21 20:23 Respiratory Rate 18 01/04/21 20:23 Blood Pressure 176/93 H 01/04/21 20:23 Pulse Oximetry 100 01/04/21 20:23 Course Orders Ordered: ED Orders 01/04/21 23:48 XR foot LT min 3V Stat 01/04/21 23:59 Wound Culture and Gram Stain Stat Vital Signs Vital signs: Vital Signs - 8 hr 01/04/21 20:23 Temperature 97.8 F Pulse Rate 98 H Respiratory Rate 18 Blood Pressure 176/93 H Pulse Oximetry 100 MDM - Extremity (Nontraumatic) Imaging Data Extremity x-ray #1: Radiologist's Impression: [address] [address] XRay Report Signed Patient: Larry Vanegas MR#: [id number] : 1960 Acct:[id number] Age/Sex: 60 / M Date of Service: 01/04/21 Loc: ED Accession Number: [id number] ?? Procedure: XR foot LT min 3V Ordering Provider: Michele Lerner D.O. PROCEDURE:? XR FOOT LT MIN 3V ? INDICATIONS:? deep infection, questiion osteo ? TECHNIQUE:? 3 views of the foot were acquired.? ? COMPARISON:? [facility], CT, CT LE LT WO CON, 10/16/2020, 10:21.? [facility], MR, MR FOOT LT WO/W CON, 10/19/2020, 10:36.? [facility], CR, XR FOOT LT MIN 3V, 10/12/2020, 9:00. ? FINDINGS:? ? Bones:? No fractures or dislocations.? Transmetatarsal 2nd toe amputation.? 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 Bony or affection centered at the 5th MTP joint, unchanged.? No definite evidence of osteomyelitis. ? Soft tissues:? No tibiotalar joint effusion.? Achilles tendon appears normal.? ? ? IMPRESSION:? No definite plain film evidence of acute osteomyelitis.? Consider foot MRI with without contrast on a nonemergent basis. ? ? Dictated by: Orion Gonzalez M.D. on 01/05/2021 at 0:09 ? ? Approved by: Orion Gonzalez M.D. on 01/05/2021 at 0:12 ? Discharge Plan Departure Patient Disposition: Home Clinical Impression: Diabetic foot infection Instructions: DI for Wound Infection Activity Restrictions/Additional Instructions: *You have been diagnosed with [diabetic infection left foot. *What to do: *Please continue to take your regular medications as directed. [x ] New medication prescriptions sent to your pharmacy: [ ] [ ] New medication written as a paper prescription [ ] No new medications given *Please follow up with your primary care provider in 2-3 days, call for an appointment. Let them know you were seen in the Emergency Department and that we ask that you be seen in follow up. We will electronically transmit a record of today's note if your PCP is in our system *If you do not have a primary care provider please contact the [facility] Resource line at [phone]. They will ask some questions about your medical history and help get you set up with a doctor in the community. *Return to Emergency Department if you should have any new, worsening or concerning symptoms, such as [fever greater than 101 F, shaking chills, worsening pain, persistent vomiting or other bothersome symptoms] Prescriptions: New ciprofloxacin HCl 500 mg tablet 500 mg PO BID Qty: 20 RF: 0 No Action glipizide 5 mg tablet 5 mg PO BID Qty: 60 RF: 0 Lantus Solostar U-100 Insulin 100 unit/mL (3 mL) insulin pen 50 unit SUBCUT BEDTIME Qty: 15 RF: 5 acetaminophen 500 mg Tablet 1,000 mg PO Q8-12H RF: 0 Referrals: Edgardo Garza MD [Primary Care Provider] -
--- NOTE | 2021-01-04 23:48 | DI.RAD.S_ITS ---
PROCEDURE: XR FOOT LT MIN 3V INDICATIONS: deep infection, questiion osteo TECHNIQUE: 3 views of the foot were acquired. COMPARISON: [facility], CT, CT LE LT WO CON, 10/16/2020, 10:21. [facility], MR, MR FOOT LT WO/W CON, 10/19/2020, 10:36. [facility], CR, XR FOOT LT MIN 3V, 10/12/2020, 9:00. FINDINGS: Bones: No fractures or dislocations. Transmetatarsal 2nd toe amputation. 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 Bony or affection centered at the 5th MTP joint, unchanged. No definite evidence of osteomyelitis. Soft tissues: No tibiotalar joint effusion. Achilles tendon appears normal. IMPRESSION: No definite plain film evidence of acute osteomyelitis. Consider foot MRI with without contrast on a nonemergent basis. Dictated by: Orion Gonzalez M.D. on 01/05/2021 at 0:09 Approved by: Orion Gonzalez M.D. on 01/05/2021 at 0:12
== END 2021-01-05 00:26 | disposition home or self-care (01) ==
PROVIDERS: Emergency Provider Emergency Medicine; Family Provider Orthopaedic Surgery Foot and Ankle Surgery; PCP Student in an Organized Health Care Education/Training Program
DX: E11.621 Type 2 diabetes mellitus with foot ulcer (principal); L97.421 Non-pressure chronic ulcer of left heel and midfoot limited to breakdown of skin; Z79.84 Long term (current) use of oral hypoglycemic drugs; Z79.4 Long term (current) use of insulin
CPT/HCPCS: 73630; 87070; 87075; 87077; 87186; 87205; 99283

== ENCOUNTER → 2021-01-06 13:23 | Outpatient (CLI) | payer OTHER, SELFPAY ==
[2020-10-28 11:39] VITALS: BMI 29.9
== END ==
PROVIDERS: Family Provider Orthopaedic Surgery Foot and Ankle Surgery; PCP Student in an Organized Health Care Education/Training Program; Referring Provider Student in an Organized Health Care Education/Training Program; Visit Provider Family Medicine
DX: T81.89XA Other complications of procedures, not elsewhere classified, initial encounter (principal); S91.302A Unspecified open wound, left foot, initial encounter; R60.0 Localized edema; L84 Corns and callosities; Z89.422 Acquired absence of other left toe(s); E11.628 Type 2 diabetes mellitus with other skin complications; I73.9 Peripheral vascular disease, unspecified; L08.9 Local infection of the skin and subcutaneous tissue, unspecified
CPT/HCPCS: 11042; 87070; 87075; 87077; 87186; 87205; 99213

== ENCOUNTER → 2021-01-13 13:39 | Outpatient (CLI) | payer OTHER, SELFPAY ==
[2020-10-28 11:39] VITALS: BMI 29.9
== END ==
PROVIDERS: Family Provider Orthopaedic Surgery Foot and Ankle Surgery; PCP Student in an Organized Health Care Education/Training Program; Referring Provider Student in an Organized Health Care Education/Training Program; Visit Provider Nurse Practitioner Family
DX: T87.89 Other complications of amputation stump (principal); S91.302A Unspecified open wound, left foot, initial encounter; T81.89XA Other complications of procedures, not elsewhere classified, initial encounter; M86.9 Osteomyelitis, unspecified; E11.40 Type 2 diabetes mellitus with diabetic neuropathy, unspecified; I73.9 Peripheral vascular disease, unspecified; L08.9 Local infection of the skin and subcutaneous tissue, unspecified; Z89.422 Acquired absence of other left toe(s); E11.628 Type 2 diabetes mellitus with other skin complications
CPT/HCPCS: 11042; 11045; 99213

== ENCOUNTER → 2021-01-25 13:40 | Outpatient (CLI) | payer OTHER, SELFPAY ==
[2020-10-28 11:39] VITALS: BMI 29.9
== END ==
PROVIDERS: Family Provider Orthopaedic Surgery Foot and Ankle Surgery; PCP Student in an Organized Health Care Education/Training Program; Referring Provider Student in an Organized Health Care Education/Training Program; Visit Provider Family Medicine
DX: T81.31XA Disruption of external operation (surgical) wound, not elsewhere classified, initial encounter (principal); S91.302A Unspecified open wound, left foot, initial encounter; S98.132A Complete traumatic amputation of one left lesser toe, initial encounter
CPT/HCPCS: 99214

== ENCOUNTER → 2021-01-27 14:32 | Outpatient (CLI) | payer OTHER, SELFPAY ==
[2020-10-28 11:39] VITALS: BMI 29.9
== END ==
PROVIDERS: Family Provider Orthopaedic Surgery Foot and Ankle Surgery; PCP Student in an Organized Health Care Education/Training Program; Referring Provider Student in an Organized Health Care Education/Training Program; Visit Provider Nurse Practitioner Family
DX: S91.302A Unspecified open wound, left foot, initial encounter (principal); Z89.422 Acquired absence of other left toe(s); M86.9 Osteomyelitis, unspecified; E11.40 Type 2 diabetes mellitus with diabetic neuropathy, unspecified; I73.9 Peripheral vascular disease, unspecified; L08.9 Local infection of the skin and subcutaneous tissue, unspecified
CPT/HCPCS: 11042; 99213

== ENCOUNTER → 2021-02-03 14:02 | Outpatient (CLI) | payer OTHER, SELFPAY ==
[2020-10-28 11:39] VITALS: BMI 29.9
== END ==
PROVIDERS: Family Provider Orthopaedic Surgery Foot and Ankle Surgery; PCP Student in an Organized Health Care Education/Training Program; Referring Provider Student in an Organized Health Care Education/Training Program; Visit Provider Nurse Practitioner Family
DX: S91.302A Unspecified open wound, left foot, initial encounter (principal); E11.621 Type 2 diabetes mellitus with foot ulcer; Z89.422 Acquired absence of other left toe(s); M86.9 Osteomyelitis, unspecified; E11.40 Type 2 diabetes mellitus with diabetic neuropathy, unspecified; I73.9 Peripheral vascular disease, unspecified; L08.9 Local infection of the skin and subcutaneous tissue, unspecified
CPT/HCPCS: 11042

== ENCOUNTER → 2021-03-10 14:34 | Outpatient (CLI) | payer OTHER, SELFPAY ==
[2020-10-28 11:39] VITALS: BMI 29.9
== END ==
PROVIDERS: Family Provider Orthopaedic Surgery Foot and Ankle Surgery; PCP Student in an Organized Health Care Education/Training Program; Referring Provider Student in an Organized Health Care Education/Training Program; Visit Provider Family Medicine
DX: S91.302A Unspecified open wound, left foot, initial encounter (principal); Z89.422 Acquired absence of other left toe(s); E11.621 Type 2 diabetes mellitus with foot ulcer; M86.9 Osteomyelitis, unspecified; E11.40 Type 2 diabetes mellitus with diabetic neuropathy, unspecified; I73.9 Peripheral vascular disease, unspecified; L08.9 Local infection of the skin and subcutaneous tissue, unspecified
CPT/HCPCS: 11042; 99212

== ENCOUNTER → 2021-03-17 15:43 | Outpatient (CLI) | payer OTHER, SELFPAY ==
[2020-10-28 11:39] VITALS: BMI 29.9
== END ==
PROVIDERS: Family Provider Orthopaedic Surgery Foot and Ankle Surgery; PCP Student in an Organized Health Care Education/Training Program; Referring Provider Student in an Organized Health Care Education/Training Program; Visit Provider Nurse Practitioner Family
DX: E11.621 Type 2 diabetes mellitus with foot ulcer (principal); L97.522 Non-pressure chronic ulcer of other part of left foot with fat layer exposed; M86.9 Osteomyelitis, unspecified; E11.40 Type 2 diabetes mellitus with diabetic neuropathy, unspecified; I73.9 Peripheral vascular disease, unspecified; Z89.422 Acquired absence of other left toe(s); Z79.4 Long term (current) use of insulin
CPT/HCPCS: 11042

== ENCOUNTER → 2021-03-30 07:06 | Outpatient (CLI) | payer OTHER, SELFPAY ==
[2020-10-28 11:39] VITALS: BMI 29.9
[2021-03-30 08:51] LABS: Hemoglobin A1C% w Est Avg Glu 7.1 % (4.0-6.0)
[2021-03-30 08:57] LABS: Cholesterol 227 mg/dL (140-199); HDL Cholesterol 38 mg/dL (40-60); LDL Cholesterol Calculated 156 mg/dL (<100); Triglycerides 163 mg/dL (35-150)
== END ==
PROVIDERS: Family Provider Orthopaedic Surgery Foot and Ankle Surgery; PCP Student in an Organized Health Care Education/Training Program; Referring Provider Student in an Organized Health Care Education/Training Program; Visit Provider Student in an Organized Health Care Education/Training Program
DX: E11.9 Type 2 diabetes mellitus without complications (principal)
CPT/HCPCS: 36415; 80061; 83036

== ENCOUNTER → 2021-03-31 14:10 | Outpatient (CLI) | payer OTHER, SELFPAY ==
[2020-10-28 11:39] VITALS: BMI 29.9
== END ==
PROVIDERS: Family Provider Orthopaedic Surgery Foot and Ankle Surgery; PCP Student in an Organized Health Care Education/Training Program; Referring Provider Student in an Organized Health Care Education/Training Program; Visit Provider Nurse Practitioner Family
DX: E11.621 Type 2 diabetes mellitus with foot ulcer (principal); L97.522 Non-pressure chronic ulcer of other part of left foot with fat layer exposed; L84 Corns and callosities; E11.40 Type 2 diabetes mellitus with diabetic neuropathy, unspecified; R60.0 Localized edema; Z79.4 Long term (current) use of insulin; Z89.422 Acquired absence of other left toe(s); Z91.19 Patient's noncompliance with other medical treatment and regimen
CPT/HCPCS: 11042; 99213

== ENCOUNTER → 2021-04-14 14:15 | Outpatient (CLI) | payer OTHER, SELFPAY ==
[2020-10-28 11:39] VITALS: BMI 29.9
== END ==
PROVIDERS: Family Provider Orthopaedic Surgery Foot and Ankle Surgery; PCP Student in an Organized Health Care Education/Training Program; Referring Provider Orthopaedic Surgery Foot and Ankle Surgery; Visit Provider Nurse Practitioner Family
DX: E11.621 Type 2 diabetes mellitus with foot ulcer (principal); L97.522 Non-pressure chronic ulcer of other part of left foot with fat layer exposed; L84 Corns and callosities; E11.40 Type 2 diabetes mellitus with diabetic neuropathy, unspecified; Z79.4 Long term (current) use of insulin; Z91.19 Patient's noncompliance with other medical treatment and regimen
CPT/HCPCS: 11042

== ENCOUNTER → 2021-04-28 14:50 | Outpatient (CLI) | payer OTHER, SELFPAY ==
[2020-10-28 11:39] VITALS: BMI 29.9
== END ==
PROVIDERS: Family Provider Orthopaedic Surgery Foot and Ankle Surgery; PCP Student in an Organized Health Care Education/Training Program; Referring Provider Student in an Organized Health Care Education/Training Program; Visit Provider Nurse Practitioner Family
DX: E11.621 Type 2 diabetes mellitus with foot ulcer (principal); L97.522 Non-pressure chronic ulcer of other part of left foot with fat layer exposed; L84 Corns and callosities; E11.40 Type 2 diabetes mellitus with diabetic neuropathy, unspecified; Z79.4 Long term (current) use of insulin; Z79.84 Long term (current) use of oral hypoglycemic drugs; Z89.422 Acquired absence of other left toe(s); Z91.19 Patient's noncompliance with other medical treatment and regimen
CPT/HCPCS: 11042; 99213

== ENCOUNTER → 2021-05-12 14:41 | Outpatient (CLI) | payer OTHER, SELFPAY ==
[2020-10-28 11:39] VITALS: BMI 29.9
== END ==
PROVIDERS: Family Provider Orthopaedic Surgery Foot and Ankle Surgery; PCP Student in an Organized Health Care Education/Training Program; Referring Provider Student in an Organized Health Care Education/Training Program; Visit Provider Nurse Practitioner Family
DX: E11.621 Type 2 diabetes mellitus with foot ulcer (principal); L08.9 Local infection of the skin and subcutaneous tissue, unspecified; L97.522 Non-pressure chronic ulcer of other part of left foot with fat layer exposed; L84 Corns and callosities; E11.40 Type 2 diabetes mellitus with diabetic neuropathy, unspecified; Z79.4 Long term (current) use of insulin; Z89.422 Acquired absence of other left toe(s); Z91.19 Patient's noncompliance with other medical treatment and regimen
CPT/HCPCS: 11042; 36415; 73630; 85025; 85651; 86140; 87070; 87075; 87077; 87147; 87186; 87205; 99214

== ENCOUNTER → 2021-05-12 16:01 | Outpatient (CLI) | payer OTHER, SELFPAY ==
[2020-10-28 11:39] VITALS: BMI 29.9
--- NOTE | 2021-05-12 | DI.RAD.S_ITS ---
PROCEDURE: XR FOOT LT MIN 3V INDICATIONS: Lab, Type II Diabetes, Local Infection TECHNIQUE: 3 views of the foot were acquired. COMPARISON: [facility], CR, XR FOOT 1 OR 2 VIEWS LEFT, 01/08/2021, 0:23. [facility], CR, XR FOOT LT MIN 3V, 01/04/2021, 23:49. FINDINGS: Bones: No fractures or dislocations. Prior amputation of the 2nd digit from the proximal shaft metatarsal level. Cortical irregularity and lucency again seen involving the tuft of the 2nd digit which appears similar prior examination. There also is lucency involving the medial aspect of the 1st metatarsal head. Background osteoarthritic changes redemonstrated. Soft tissues: No tibiotalar joint effusion. Achilles tendon appears normal. IMPRESSION: 1. Cortical irregularity and lucency along the tuft of the 2nd digit similar to prior examination which could be related to osteomyelitis. 2. Lucency involving the medial aspect of the 1st metatarsal head which also could be related to osteomyelitis and clinical correlation and follow-up is recommended. Dictated by: Amari Da Silva Nia Interpreted: Yvonne Lueng MD on 05/12/2021 at 16:28 Transcribed by: GRISELDA on 05/12/2021 at 16:31 Approved by: Yvonne Leung M.D. on 05/12/2021 at 16:47
[2021-05-12 17:11] LABS: Add Manual Diff / Slide Review NO; Basophils Absolute Auto 100 /uL (0-100); Basophils Percent Auto 0.9 % (0-2); Eosinophils Absolute Auto 200 /uL (0-450); Eosinophils Percent Auto 3.3 % (2-4); Hematocrit 36.5 % (41-53); Hemoglobin 12.4 g/dL (13.5-17.5); Lymphocytes Absolute Auto 1800 /uL (1100-4500); Lymphocytes Percent Auto 28.5 % (25-40); Mean Corpuscular HGB Conc 33.9 % (30-36); Mean Corpuscular Hemoglobin 26.8 PG (26-34); Mean Corpuscular Volume 79.2 fL (80-100); Monocytes Absolute Auto 400 /uL (0-900); Monocytes Percent Auto 6.9 % (3-14); Neutrophils Absolute Auto 3800 /uL (1500-7000); Neutrophils Percent Auto 60.4 % (50-75); Platelet Count 220 X10^3/uL (150-400); Red Blood Cell Count 4.61 X10^6/uL (4.5-5.9); White Blood Cell Count 6.2 X10^3/uL (4.5-11.0)
[2021-05-12 17:28] LABS: Erythrocyte Sedimentation Rate 24 MM/HR (0-15)
[2021-05-12 17:31] LABS: C-Reactive Protein Quant < 0.5 mg/dL (<1.0)
== END ==
PROVIDERS: Family Provider Orthopaedic Surgery Foot and Ankle Surgery; PCP Student in an Organized Health Care Education/Training Program; Referring Provider Family Medicine; Visit Provider Family Medicine
DX: E11.621 Type 2 diabetes mellitus with foot ulcer (principal); L08.9 Local infection of the skin and subcutaneous tissue, unspecified
CPT/HCPCS: 36415; 73630; 85025; 85651; 86140

== ENCOUNTER → 2021-05-19 11:49 | Outpatient (CLI) | payer OTHER, SELFPAY ==
[2020-10-28 11:39] VITALS: BMI 29.9
== END ==
PROVIDERS: Family Provider Orthopaedic Surgery Foot and Ankle Surgery; PCP Student in an Organized Health Care Education/Training Program; Referring Provider Student in an Organized Health Care Education/Training Program; Visit Provider Nurse Practitioner Family
DX: I87.2 Venous insufficiency (chronic) (peripheral) (principal); L97.312 Non-pressure chronic ulcer of right ankle with fat layer exposed; L08.9 Local infection of the skin and subcutaneous tissue, unspecified; R60.0 Localized edema; I10 Essential (primary) hypertension; F10.20 Alcohol dependence, uncomplicated; F11.20 Opioid dependence, uncomplicated
CPT/HCPCS: 11042; 36415; 80053; 80061; 83036; 99213

== ENCOUNTER → 2021-05-19 12:49 | Outpatient (CLI) | payer OTHER, SELFPAY ==
[2020-10-28 11:39] VITALS: BMI 29.9
[2021-05-19 14:13] LABS: Hemoglobin A1C% w Est Avg Glu 7.7 % (4.0-6.0)
[2021-05-19 15:01] LABS: Alanine Aminotransferase 16 IU/L (<50); Albumin 4.1 g/dL (3.5-5.0); Albumin Globulin Ratio 1.3 (1.0-2.8); Alkaline Phosphatase 83 U/L (38-126); Aspartate Aminotransferase 25 IU/L (17-59); BUN Creatinine Ratio 17.5 (6-22); Bilirubin Total 0.5 mg/dL (0.2-1.3); Blood Urea Nitrogen 18 mg/dL (9-20); Carbon Dioxide 27 mmol/L (22-32); Chloride 106 mmol/L (98-107); Cholesterol 250 mg/dL (140-199); Estimated Glomerular Filt Rate > 60.0 mL/min (>60); Globulin 3.1 g/dL (1.7-4.1); Glucose 135 mg/dL (70-100); HDL Cholesterol 34 mg/dL (40-60); HEMOLYSIS < 15 (0-50); LDL Cholesterol Calculated 188 mg/dL (<100); Potassium 3.8 mmol/L (3.4-5.1); Sodium 140 mmol/L (137-145); Total Protein 7.2 g/dL (6.3-8.2); Triglycerides 142 mg/dL (35-150)
== END ==
PROVIDERS: Family Provider Orthopaedic Surgery Foot and Ankle Surgery; PCP Student in an Organized Health Care Education/Training Program; Referring Provider Nurse Practitioner Family; Visit Provider Nurse Practitioner Family
DX: E11.621 Type 2 diabetes mellitus with foot ulcer (principal); L08.9 Local infection of the skin and subcutaneous tissue, unspecified; E11.65 Type 2 diabetes mellitus with hyperglycemia; E11.69 Type 2 diabetes mellitus with other specified complication; E78.5 Hyperlipidemia, unspecified; Z79.4 Long term (current) use of insulin; Z79.899 Other long term (current) drug therapy
CPT/HCPCS: 36415; 80053; 80061; 83036

== ENCOUNTER → 2021-05-26 11:30 | Outpatient (CLI) | payer OTHER, SELFPAY ==
[2020-10-28 11:39] VITALS: BMI 29.9
== END ==
PROVIDERS: Family Provider Orthopaedic Surgery Foot and Ankle Surgery; PCP Student in an Organized Health Care Education/Training Program; Referring Provider Student in an Organized Health Care Education/Training Program; Visit Provider Nurse Practitioner Family
DX: E11.621 Type 2 diabetes mellitus with foot ulcer (principal); L97.522 Non-pressure chronic ulcer of other part of left foot with fat layer exposed; L08.9 Local infection of the skin and subcutaneous tissue, unspecified; L92.8 Other granulomatous disorders of the skin and subcutaneous tissue; L84 Corns and callosities; E11.40 Type 2 diabetes mellitus with diabetic neuropathy, unspecified; I10 Essential (primary) hypertension; Z89.422 Acquired absence of other left toe(s); Z79.4 Long term (current) use of insulin; Z91.19 Patient's noncompliance with other medical treatment and regimen
CPT/HCPCS: 11042; 99213

== ENCOUNTER 2021-05-28 12:43 | Emergency (ER) | payer OTHER, SELFPAY ==
[2020-10-28 11:39] VITALS: BMI 29.9
[2021-05-28 13:08] VITALS: BP 138/85; PULSE 98; RESP 16; TEMP 36.4; O2SAT 100; BMI 33.8
--- NOTE | 2021-05-28 13:15 | DI.RAD.S_ITS ---
PROCEDURE: XR ACUTE ABDOMEN SERIES INDICATIONS: abd pain 2 days TECHNIQUE: One view chest and two views of the abdomen were acquired. COMPARISON: None. FINDINGS: Surgical changes and devices: None. Chest: Lungs are clear. Heart size is normal. No pleural effusions. No pneumoperitoneum. Abdomen: Bowel gas pattern is normal. No suspicious calcifications. Visualized solid organ contours appear normal. Moderate fecal debris in the right colon Bones: No suspicious bony lesions. Convex right thoracolumbar scoliosis. Moderate bilateral hip joint space narrowing. IMPRESSION: Moderate fecal debris in the colon. Thoracolumbar dextroscoliosis Approved by: Valente Leslie M.D. on 05/28/2021 at 13:10
[2021-05-28 13:19] VITALS: BP 123/86; PULSE 100; O2SAT 100
[2021-05-28 13:36] VITALS: BP 176/74; PULSE 97; O2SAT 97
--- NOTE | 2021-05-28 13:48 | ED_ITS ---
HPI - Abdominal Pain <Justin Tucker PA-C - Last Filed: 05/28/21 15:58> General Chief Complaint: Abdominal Pain Stated Complaint: pain in stomach Time Seen by Provider: 05/28/21 13:40 Source: patient Mode of arrival: Ambulatory History of Present Illness HPI narrative: Patient is a 60-year-old male who presents to the ED complaining of right-sided abdominal pain that started a few days ago. He reports that he typically has problems with constipation of which he takes a laxative on occasion as well as some Metamucil. He states that he has taken a laxative and has not had any relief of his symptoms. And as result he presents today for evaluation. He is a diabetic and has been dealing with a foot ulceration of the left foot and is currently under the care of in [facility]. He is on a antibiotic as result. He denies any nausea vomiting diarrhea. Said he had a small bowel movement this morning that he describes as small cyndi. Nothing seems to make the pain worse nothing seems to make the pain better. He describes the pain to be a knot sensation similar to an abdominal cramp. He does state that the pain does radiate through into his back. Which is different than previous episodes of pain that he has had. He states most of the time with laxative and large bowel movement it does alleviate his pain. No reported recent surgery or fall or anything related to his abdomen within the last year. He has not had a colonoscopy or an EGD recently. Related Data Home Medications Medication Instructions Recorded Confirmed acetaminophen 500 mg tablet 1,000 mg PO Q8-12H 10/16/20 01/16/21 Previous Rx's Medication Instructions Recorded insulin glargine 100 unit/mL (3 50 unit (0.5 mL) SUBCUT BEDTIME 12/20/20 mL) subcutaneous pen (Lantus #15 ml Solostar U-100 Insulin) glipizide 5 mg tablet 5 mg PO BID #60 tab 05/12/21 lisinopril 20 mg tablet 20 mg PO DAILY #30 tab 05/12/21 levofloxacin 500 mg tablet 500 mg PO DAILY #14 tab 05/16/21 pravastatin 20 mg tablet 20 mg PO BEDTIME #90 tab 05/22/21 Allergies Allergy/AdvReac Type Severity Reaction Status Date / Time Penicillins Allergy Severe Rash Verified 01/16/21 14:38 Review of Systems <Justin Tucker PA-C - Last Filed: 05/28/21 15:58> Review of Systems ROS Unobtainable: All systems reviewed & are unremarkable except as noted in HPI and below Constitutional Constitutional: Denies chills, Denies fatigue, Denies fever(s), Denies frequent falls, Denies lethargy and Denies weakness Eyes Eyes: Denies change in vision, Denies eye discharge, Denies irritation and Denies loss of vision ENT Ears, Nose, Mouth, and Throat: Denies change in voice, Denies dizziness, Denies neck pain, Denies sore throat and Denies throat swelling Cardiovascular Cardiovascular: Denies chest pain, Denies irregular heart rhythm, Denies lightheadedness, Denies palpitations, Denies dyspnea, Denies dyspnea on exertion and Denies orthopnea Respiratory Respiratory: Denies cough, Denies dyspnea, Denies dyspnea on exertion and Denies wheezing Gastrointestinal Gastrointestinal: Reports abdominal pain, Reports change in bowel habits, Reports change in stool character, Reports constipation, Denies diarrhea, Denies nausea and Denies vomiting Genitourinary Genitourinary: Denies hematuria, Denies flank pain, Denies urinary incontinence and Denies urinary urgency Musculoskeletal Musculoskeletal: Denies back pain, Denies muscle weakness, Denies neck pain, Denies numbness and Denies tingling Integumentary/Breasts Skin/Breast: Denies pruritus, Denies erythema, Denies rash and Denies wounds Neurologic Neurologic: Denies behavioral changes, Denies confusion, Denies dizziness, Denies frequent falls, Denies loss of vision, Denies numbness, Denies tingling and Denies weakness Psychiatric Psychiatric: Denies anxiety, Denies behavioral changes, Denies confusion, Denies depression, Denies homicidal ideation and Denies suicidal ideation Endocrine Endocrine: Denies fatigue, Denies flushing and Denies palpitations Hematologic/Lymphatic Hematologic/Lymphatic: Denies easy bruising Allergic/Immunologic Allergic/Immunologic: Denies urticaria, Denies throat swelling and Denies wheezing Patient History <Justin Tucker PA-C - Last Filed: 05/28/21 15:58> Medical History MRSA (methicillin resistant Staphylococcus aureus) (~2011) Type 2 diabetes mellitus (~2009) Surgical History Amputated toe of left foot (~2020) Anesthesia S/P arthroscopic surgery of left knee (~2013) Family History Mother Diabetes mellitus Brother Cancer Social History household members: none Smoking Status: Former smoker Smokeless tobacco user: chewing tobacco quit status: considering quitting Smoking Status: Former smoker tobacco type: smokeless tobacco alcohol intake frequency: holidays/special occasions only Substance Use Type: does not use Exam <Justin Tucker PA-C - Last Filed: 05/28/21 15:58> Initial Vital Signs Initial Vital Signs: Vital Signs Temperature 97.6 F 05/28/21 13:08 Pulse Rate 98 H 05/28/21 13:08 Respiratory Rate 16 05/28/21 13:08 Blood Pressure 138/85 05/28/21 13:08 Pulse Oximetry 100 05/28/21 13:08 Const General: cooperative, healthy appearing, comfortable and well developed Nutritional Appearance: average body habitus Orientation: Orientation [facility] Head: normal to inspection and normocephalic Ears: hearing grossly normal bilaterally and external ears normal Nose: external nose normal and nares normal Face and sinus: normal facial exam and sinuses nontender Resp Effort & Inspection: normal respiratory effort and able to speak in complete sentences Auscultation: clear to auscultation bilaterally Percussion: percussion normal Cardio Palpation: normal PMI Rate: regular rate Rhythm: regular rhythm Heart Sounds: S1 normal and S2 normal GI Inspection: distended Palpation: soft Percussion: normal to percussion Auscultation: normal bowel sounds Skin General: no rashes or lesions noted Course <Justin Tucker PA-C - Last Filed: 05/28/21 15:58> Orders Ordered: ED Orders 05/28/21 13:15 XR acute abdomen series Stat 05/28/21 13:48 CT abdomen pelvis wo con Stat UA Complete [Urinalysis and Microscopic] Stat 05/28/21 14:08 CBC Auto Diff [Complete Blood Count AUTO DIFF] Stat CMP [Comprehensive Metabolic Panel] Stat Lipase Stat Reevaluation(s) Reevaluation #1: Patient has no change in his symptoms resting comfortably vital signs stable. Vital Signs Vital signs: Vital Signs - 8 hr 05/28/21 13:08 05/28/21 13:19 05/28/21 13:36 Temperature 97.6 F Pulse Rate 98 H 100 H 97 H Respiratory Rate 16 Blood Pressure 138/85 123/86 176/74 H Pulse Oximetry 100 100 97 05/28/21 14:00 05/28/21 15:46 Temperature Pulse Rate 96 H Respiratory Rate Blood Pressure Pulse Oximetry 98 94 MDM - Abdominal Pain <Justin Tucker PA-C - Last Filed: 05/28/21 15:58> Differential Diagnosis Differential diagnosis: Likely abdominal pain and constipation Lab Data Result diagrams: 05/28/21 14:08 05/28/21 14:08 Labs: Lab Results 05/28/21 05/28/21 Range/Units 14:08 14:08 WBC 8.1 (4.5-11.0) X10^3/uL RBC 4.76 (4.5-5.9) X10^6/uL Hgb 12.7 L (13.5-17.5) g/dL Hct 37.8 L (41-53) % MCV 79.3 L (80-100) fL MCH 26.7 (26-34) PG MCHC 33.7 (30-36) % RDW 14.6 (11.6-14.8) % Plt Count 234 (150-400) X10^3/uL Neut % (Auto) 69.6 (50-75) % Lymph % (Auto) 22.3 L (25-40) % [place] % (Auto) 6.3 (3-14) % Eos % (Auto) 1.0 L (2-4) % Baso % (Auto) 0.8 (0-2) % Neut # (Auto) 5700 (7736-0778) /uL Lymph # (Auto) 1800 (0319-9868) /uL [place] # (Auto) 500 (0-900) /uL Eos # (Auto) 100 (0-450) /uL Baso # (Auto) 100 (0-100) /uL Sodium 138 (137-145) mmol/L Potassium 3.9 (3.4-5.1) mmol/L Chloride 105 (98-107) mmol/L Carbon Dioxide 27 (22-32) mmol/L BUN 17 (9-20) mg/dL Creatinine 1.06 (0.66-1.25) mg/dL Estimated GFR > 60.0 (>60) mL/min BUN/Creatinine Ratio 16.0 (6-22) Glucose 159 H (70-100) mg/dL Calcium 8.6 (8.4-10.2) mg/dL Total Bilirubin 0.6 (0.2-1.3) mg/dL AST 20 (17-59) IU/L ALT 16 (<50) IU/L Alkaline Phosphatase 85 (38-126) U/L Total Protein 7.4 (6.3-8.2) g/dL Albumin 4.0 (3.5-5.0) g/dL Globulin 3.4 (1.7-4.1) g/dL Albumin/Globulin Ratio 1.2 (1.0-2.8) Lipase 59 (23-300) U/L Imaging Data CT scan - abdomen/pelvis: Radiologist's Impression: [place] [address] CT Scan Report Signed Patient: Larry Vanegas MR#: [id number] : 1960 Acct:[id number] Age/Sex: 60 / M Date of Service: 05/28/21 Loc: ED Accession Number: [id number] ?? Procedure: CT abdomen pelvis wo con Ordering Provider: Justin Tucker P.A-C PROCEDURE:? CT ABDOMEN PELVIS WO CON ? INDICATIONS:? abdominal pain ? TECHNIQUE:? After the administration of oral contrast, 5 mm thick sections acquired from the diaphragms to the symphysis.? 5 mm coronal and sagittal reformats were performed.? For radiation dose reduction, the following was used:? automated exposure control, adjustment of mA and/or kV according to patient size.? ? COMPARISON:? None. ? FINDINGS:? Image quality:? Excellent.? ? ABDOMEN:? Lung bases:? Lung bases are clear.? Heart size is normal.? ? Solid organs:? No renal or ureteral calculus.? Vascular calcification in the left kidney on series 2, image 42.? No hydronephrosis or hydroureter.? There are a few low- density renal lesions which likely represent cysts.? Normal unenhanced CT appearance of the liver, spleen, gallbladder, pancreas, and adrenal glands. ? Peritoneum and bowel:? Bowel loops demonstrate normal wall thickness and caliber.? No free fluid or air.? ? Nodes and vessels:? No retroperitoneal or mesenteric adenopathy by size criteria.? Aorta and inferior vena cava are normal in size.? ? Miscellaneous:? No ventral hernias.? ? ? PELVIS:? Genitourinary:? Mild circumferential urinary wall thickening without focal mass.? No bladder calculus. ? Miscellaneous:? No inguinal hernias or adenopathy.? ? Bones:? No suspicious bony lesions.? No vertebral body compression fractures.? ? IMPRESSION:? Mild circumferential bladder wall thickening may represent cystitis.? Moderate volume of formed stool throughout the colon which suggests fecal rete ntion.? ? ? Dictated by: Silverio Brennan M.D. on 05/28/2021 at 14:45 ? ? Approved by: Silverio Brennan M.D. on 05/28/2021 at 14:47?? MDM Narrative Medical decision making narrative: Patient was evaluated today for right-sided abdominal pain. X-rays did show evidence of increased stool burden to be thorough a CT scan was ordered to rule out infection. CT scan aligned well with the above x-ray of the abdomen and I believe is the root cause of his pain. I spoke to him regarding the use of laxatives and the proper sequencing. Patient will be discharged home and will progress with laxative use to eliminate stool burden. Patient appeared to have blood sugar greater than 200 I spoke to him about but he admits that he had not been taking his diabetic medication as prescribed. Patient will be discharged home Discharge Plan Departure Patient Disposition: Home Clinical Impression: Constipation, Abdominal pain Instructions: DI for Abdominal Pain-Adult, DI for Constipation Activity Restrictions/Additional Instructions: You were evaluated today for complaints of right sided abdominal pain. The x- ray and CT scan show evidence of increased stool burden in the right side of your colon. As result I would recommend that you take a laxative to help move her bowels. The most effective laxative to start with his MiraLax OTC take as directed. Be sure to drink plenty of fluids. If the MiraLax is not effective in having a bowel movement and that is not effective in treating your abdominal pain he may progress to exiting magnesium citrate. He can obtain a bottle of magnesium citrate from her local drugstore. You may return to the ED if you have any worsening complaints or have difficulty with moving her bowels. I appreciate the opportunity to care for you today. Prescriptions: No Action glipizide 5 mg tablet 5 mg PO BID Qty: 60 2RF lisinopril 20 mg tablet 20 mg PO DAILY Qty: 30 2RF Rx Instructions: Take 10mg for 1 week and then increase to 20mg daily. levofloxacin 500 mg tablet 500 mg PO DAILY Qty: 14 0RF pravastatin 20 mg tablet 20 mg PO BEDTIME Qty: 90 1RF Lantus Solostar U-100 Insulin 100 unit/mL (3 mL) insulin pen 50 unit SUBCUT BEDTIME Qty: 15 5RF acetaminophen 500 mg Tablet 1,000 mg PO Q8-12H 0RF Referrals: Edgardo Garza MD [Primary Care Provider] -
--- NOTE | 2021-05-28 13:48 | DI.CT.S_ITS ---
PROCEDURE: CT ABDOMEN PELVIS WO CON INDICATIONS: abdominal pain TECHNIQUE: After the administration of oral contrast, 5 mm thick sections acquired from the diaphragms to the symphysis. 5 mm coronal and sagittal reformats were performed. For radiation dose reduction, the following was used: automated exposure control, adjustment of mA and/or kV according to patient size. COMPARISON: None. FINDINGS: Image quality: Excellent. ABDOMEN: Lung bases: Lung bases are clear. Heart size is normal. Solid organs: No renal or ureteral calculus. Vascular calcification in the left kidney on series 2, image 42. No hydronephrosis or hydroureter. There are a few low-density renal lesions which likely represent cysts. Normal unenhanced CT appearance of the liver, spleen, gallbladder, pancreas, and adrenal glands. Peritoneum and bowel: Bowel loops demonstrate normal wall thickness and caliber. No free fluid or air. Nodes and vessels: No retroperitoneal or mesenteric adenopathy by size criteria. Aorta and inferior vena cava are normal in size. Miscellaneous: No ventral hernias. PELVIS: Genitourinary: Mild circumferential urinary wall thickening without focal mass. No bladder calculus. Miscellaneous: No inguinal hernias or adenopathy. Bones: No suspicious bony lesions. No vertebral body compression fractures. IMPRESSION: Mild circumferential bladder wall thickening may represent cystitis. Moderate volume of formed stool throughout the colon which suggests fecal retention. Dictated by: Silverio Brennan M.D. on 05/28/2021 at 14:45 Approved by: Silverio Brennan M.D. on 05/28/2021 at 14:47
[2021-05-28 14:00] VITALS: PULSE 96; O2SAT 98
[2021-05-28 14:23] LABS: Add Manual Diff / Slide Review NO; Basophils Absolute Auto 100 /uL (0-100); Basophils Percent Auto 0.8 % (0-2); Eosinophils Absolute Auto 100 /uL (0-450); Hematocrit 37.8 % (41-53); Hemoglobin 12.7 g/dL (13.5-17.5); Lymphocytes Absolute Auto 1800 /uL (1100-4500); Lymphocytes Percent Auto 22.3 % (25-40); Mean Corpuscular HGB Conc 33.7 % (30-36); Mean Corpuscular Hemoglobin 26.7 PG (26-34); Mean Corpuscular Volume 79.3 fL (80-100); Monocytes Absolute Auto 500 /uL (0-900); Monocytes Percent Auto 6.3 % (3-14); Neutrophils Absolute Auto 5700 /uL (1500-7000); Neutrophils Percent Auto 69.6 % (50-75); Platelet Count 234 X10^3/uL (150-400); Red Blood Cell Count 4.76 X10^6/uL (4.5-5.9); Red Cell Distribution Width 14.6 % (11.6-14.8); White Blood Cell Count 8.1 X10^3/uL (4.5-11.0)
[2021-05-28 14:34] LABS: Alanine Aminotransferase 16 IU/L (<50); Albumin Globulin Ratio 1.2 (1.0-2.8); Alkaline Phosphatase 85 U/L (38-126); Aspartate Aminotransferase 20 IU/L (17-59); Bilirubin Total 0.6 mg/dL (0.2-1.3); Blood Urea Nitrogen 17 mg/dL (9-20); Calcium 8.6 mg/dL (8.4-10.2); Carbon Dioxide 27 mmol/L (22-32); Chloride 105 mmol/L (98-107); Estimated Glomerular Filt Rate > 60.0 mL/min (>60); Globulin 3.4 g/dL (1.7-4.1); Glucose 159 mg/dL (70-100); HEMOLYSIS < 15 (0-50); Lipase 59 U/L (23-300); Potassium 3.9 mmol/L (3.4-5.1); Sodium 138 mmol/L (137-145); Total Protein 7.4 g/dL (6.3-8.2)
[2021-05-28 15:46] VITALS: O2SAT 94
== END 2021-05-28 16:06 | disposition home or self-care (01) ==
PROVIDERS: Emergency Provider Physician Assistant; Family Provider Orthopaedic Surgery Foot and Ankle Surgery; PCP Student in an Organized Health Care Education/Training Program
DX: R10.9 Unspecified abdominal pain (principal); K59.00 Constipation, unspecified
CPT/HCPCS: 36415; 74022; 74176; 80053; 83690; 85025; 99284

== ENCOUNTER 2021-05-31 12:15 | Emergency (ER) | payer OTHER, SELFPAY ==
[2020-10-28 11:39] VITALS: BMI 29.9
[2021-05-31 12:27] VITALS: BP 104/77; PULSE 101; RESP 15; TEMP 36.5; O2SAT 100; BMI 33.8
--- NOTE | 2021-05-31 13:09 | DI.RAD.S_ITS ---
PROCEDURE: XR ABDOMEN MIN 2V INDICATIONS: constipation vs bowel obstruction TECHNIQUE: 2 views of the abdomen were acquired. COMPARISON: None. FINDINGS: Surgical changes and devices: None. Bowel: No pneumoperitoneum. The bowel gas pattern is normal. Soft tissues: No masses; visualized solid organ contours appear normal in size. No suspicious abdominal calcifications. Bones: No suspicious bony abnormalities. IMPRESSION: No acute disease process. Dictated by: Lorena Sousa MD, PhD on 05/31/2021 at 14:44 Approved by: Lorena Sousa MD, PhD on 05/31/2021 at 14:45
--- NOTE | 2021-05-31 13:22 | DI.US.S_ITS ---
PROCEDURE: US ABDOMEN LIMITED INDICATIONS: RUQ pain x2 weeks, tenderness over gallbladder, hx DMII TECHNIQUE: Real-time scanning was performed of the abdominal and retroperitoneal organs, with image documentation. COMPARISON: [facility], CT, CT ABDOMEN PELVIS WO CON, 05/28/2021, 14:28. FINDINGS: Liver: Liver is normal in size and homogeneous in echotexture. Gallbladder: There is no definite gallstone seen. No gallbladder wall thickening. No pericholecystic fluid or sonographic Blanco sign. Biliary ducts: Intrahepatic bile ducts are non-dilated. Extrahepatic bile duct caliber measures 6.5 mm. Questionable echogenic foci are seen within common bile duct although evaluation is limited due to overlying bowel gas. Normal is 6-7 mm or less in diameter, or 10 mm or less post-cholecystectomy. Pancreas: Not well seen due to overlying bowel gas. Miscellaneous: No free abdominal fluid. IMPRESSION: 1. No gallstone is seen. No sonographic evidence of acute cholecystitis. 2. No biliary ductal dilatation. Questionable echogenic foci within common bile duct. Choledocholithiasis cannot be entirely excluded. Evaluation is limited due to significant overlying bowel gas. Dictated by: Chino Dubon M.D. on 05/31/2021 at 14:24 Approved by: Chino Dubon M.D. on 05/31/2021 at 14:27
--- NOTE | 2021-05-31 13:32 | ED.ABDPAIN ---
HPI - Abdominal Pain <AYDIN Durant - Last Filed: 05/31/21 16:37> General Chief Complaint: Abdominal Pain Stated Complaint: problem in gut Time Seen by Provider: 05/31/21 13:08 Source: patient Mode of arrival: Ambulatory History of Present Illness HPI narrative: this is a 60 year Male insulin dependent with history of type 2 diabetes, a current right foot infection on levofloxacin, seen by Dr. Sepulveda for this. Patient states that h has had ongoing issues of constipation and diarrhea for the last 2 weeks, states that he has had right upper quadrant pain for this right 2 week period as well without any improvement in out pain. He denies any nausea, vomiting or blood in his stool. He states that he has had diarrhea for the last 2 days since he was seen in the emergency department 3 days ago for constipation. He had increased his fiber, was taking a laxative, and states the antibiotics for his right foot infection have given him periods of diarrhea and constipation as well. He denies any feeling of illness, fever, weakness, he does endorse tenderness to his right upper quadrant. He denies any dysuria, pelvic pressure, prostate issues, rectal pain, or changes to his urination. Patient states that his blood sugars have been tightly controlled and average approximately 110. Related Data Home Medications Medication Instructions Recorded Confirmed acetaminophen 500 mg tablet 1,000 mg PO Q8-12H 10/16/20 01/16/21 Previous Rx's Medication Instructions Recorded insulin glargine 100 unit/mL (3 50 unit (0.5 mL) SUBCUT BEDTIME 12/20/20 mL) subcutaneous pen (Lantus #15 ml Solostar U-100 Insulin) glipizide 5 mg tablet 5 mg PO BID #60 tab 05/12/21 lisinopril 20 mg tablet 20 mg PO DAILY #30 tab 05/12/21 levofloxacin 500 mg tablet 500 mg PO DAILY #14 tab 05/16/21 pravastatin 20 mg tablet 20 mg PO BEDTIME #90 tab 05/22/21 omeprazole 20 mg tablet,delayed 20 mg PO DAILY 14 Days #20 tab 05/31/21 release Allergies Allergy/AdvReac Type Severity Reaction Status Date / Time Penicillins Allergy Severe Rash Verified 05/31/21 12:27 Patient History <AYDIN Durant - Last Filed: 05/31/21 16:37> Medical History MRSA (methicillin resistant Staphylococcus aureus) (~2011) Type 2 diabetes mellitus (~2009) Surgical History Amputated toe of left foot (~2020) Anesthesia S/P arthroscopic surgery of left knee (~2013) Family History Mother Diabetes mellitus Brother Cancer Social History household members: none Smoking Status: Former smoker Smokeless tobacco user: chewing tobacco quit status: considering quitting Smoking Status: Former smoker tobacco type: smokeless tobacco alcohol intake frequency: holidays/special occasions only Substance Use Type: does not use Exam <AYDIN Durant - Last Filed: 05/31/21 16:37> Initial Vital Signs Initial Vital Signs: Vital Signs Temperature 97.7 F 05/31/21 12:27 Pulse Rate 101 H 05/31/21 12:27 Respiratory Rate 15 05/31/21 12:27 Blood Pressure 104/77 05/31/21 12:27 Pulse Oximetry 100 05/31/21 12:27 <Kelsea Neumann DO - Last Filed: 06/01/21 07:17> Initial Vital Signs Initial Vital Signs: Vital Signs Temperature 97.7 F 05/31/21 12:27 Pulse Rate 101 H 05/31/21 12:27 Respiratory Rate 15 05/31/21 12:27 Blood Pressure 104/77 05/31/21 12:27 Pulse Oximetry 100 05/31/21 12:27 Course <AYDIN Durant - Last Filed: 05/31/21 16:37> Orders Ordered: ED Orders 05/31/21 12:31 EKG-12 Lead Stat 05/31/21 13:09 XR abdomen min 2V Stat 05/31/21 13:22 US abdomen limited Stat 05/31/21 15:16 UA Complete [Urinalysis and Microscopic] Stat 05/31/21 15:20 Complete Blood Count AUTO DIFF Stat Comprehensive Metabolic Panel Stat Lipase Stat Vital Signs Vital signs: Vital Signs - 8 hr 05/31/21 12:27 05/31/21 15:15 Temperature 97.7 F Pulse Rate 101 H 95 H Respiratory Rate 15 95 H Blood Pressure 104/77 127/91 H Pulse Oximetry 100 99 <Kelsea Neumann DO - Last Filed: 06/01/21 07:17> Orders Ordered: ED Orders 05/31/21 12:31 EKG-12 Lead Stat 05/31/21 13:09 XR abdomen min 2V Stat 05/31/21 13:22 US abdomen limited Stat 05/31/21 15:16 UA Complete [Urinalysis and Microscopic] Stat 05/31/21 15:20 Complete Blood Count AUTO DIFF Stat Comprehensive Metabolic Panel Stat Lipase Stat Vital Signs Vital signs: Vital Signs - 8 hr 05/31/21 12:27 05/31/21 15:15 Temperature 97.7 F Pulse Rate 101 H 95 H Respiratory Rate 15 95 H Blood Pressure 104/77 127/91 H Pulse Oximetry 100 99 MDM - Abdominal Pain <AYDIN Durant - Last Filed: 05/31/21 16:37> Lab Data Result diagrams: 05/31/21 15:20 05/31/21 15:20 Labs: Lab Results 05/31/21 05/31/21 05/31/21 Range/Units 15:16 15:20 15:20 WBC 7.6 (4.5-11.0) X10^3/uL RBC 5.04 (4.5-5.9) X10^6/uL Hgb 13.5 (13.5-17.5) g/dL Hct 39.5 L (41-53) % MCV 78.3 L (80-100) fL MCH 26.8 (26-34) PG MCHC 34.2 (30-36) % RDW 14.8 (11.6-14.8) % Plt Count 231 (150-400) X10^3/uL Neut % (Auto) 75.1 H (50-75) % Lymph % (Auto) 16.6 L (25-40) % Barry % (Auto) 6.7 (3-14) % Eos % (Auto) 1.0 L (2-4) % Baso % (Auto) 0.6 (0-2) % Neut # (Auto) 5700 (8931-4372) /uL Lymph # (Auto) 1300 (3629-4132) /uL Barry # (Auto) 500 (0-900) /uL Eos # (Auto) 100 (0-450) /uL Baso # (Auto) 0 (0-100) /uL Sodium 138 (137-145) mmol/L Potassium 4.2 (3.4-5.1) mmol/L Chloride 103 (98-107) mmol/L Carbon Dioxide 28 (22-32) mmol/L BUN 19 (9-20) mg/dL Creatinine 1.04 (0.66-1.25) mg/dL Estimated GFR > 60.0 (>60) mL/min BUN/Creatinine Ratio 18.3 (6-22) Glucose 155 H (70-100) mg/dL Calcium 9.0 (8.4-10.2) mg/dL Total Bilirubin 0.6 (0.2-1.3) mg/dL AST 19 (17-59) IU/L ALT 15 (<50) IU/L Alkaline Phosphatase 86 (38-126) U/L Total Protein 7.7 (6.3-8.2) g/dL Albumin 4.2 (3.5-5.0) g/dL Globulin 3.5 (1.7-4.1) g/dL Albumin/Globulin Ratio 1.2 (1.0-2.8) Lipase 55 (23-300) U/L Urine Color Yellow Urine Appearance Clear Urine pH 6.5 (4.5-8.0) Ur Specific [place] 1.015 (1.000-1.035) Urine Protein Negative (Negative) Urine Glucose (UA) Trace H (Negative) g/dL Urine Ketones Negative (NEGATIVE) Urine Occult Blood Negative (Negative) Urine Nitrate Negative (Negative) Urine Bilirubin Negative (NEGATIVE) Urine Urobilinogen 0.2 (0.2) E.U./dL Ur Leukocyte Esterase Negative (NEGATIVE) Urine RBC None seen (0-5/HPF) Urine WBC None seen (0-5/HPF) Urine Bacteria None seen (None) Ur Culture Indicated? Cult not indicated Point of care testing: Urine Dip Bedside Urine Glucose Negative Bedside Urine Bilirubin - Negative Bedside Urine Ketone - Negative Urine Specific [place] 1.020 Bedside Urine Occult Blood - Negative Bedside Urine pH 6.0 Bedside Urine Protein - Negative Bedside Urine Urobilinogen 0.2 Bedside Urine Nitrite - Negative Bedside Urine Leukocytes - Negative Esterase Imaging Data US - abdomen: Radiologist's Impression: PROCEDURE:? US ABDOMEN LIMITED ? INDICATIONS:? RUQ pain x2 weeks, tenderness over gallbladder, hx DMII ? TECHNIQUE:? Real-time scanning was performed of the abdominal and retroperitoneal organs, with image documentation.? ? COMPARISON:? [facility], CT, CT ABDOMEN PELVIS WO CON, 05/28/2021, 14:28. ? FINDINGS:? ? Liver:? Liver is normal in size and homogeneous in echotexture.? ? Gallbladder:? There is no definite gallstone seen.? No gallbladder wall thickening.? No pericholecystic fluid or sonographic Blanco sign. ? Biliary ducts:? Intrahepatic bile ducts are non-dilated.? Extrahepatic bile duct caliber measures 6.5 mm.? Questionable echogenic foci are seen within common bile duct although evaluation is limited due to overlying bowel gas.? Normal is 6-7 mm or less in diameter, or 10 mm or less post-cholecystectomy.? ? Pancreas:? Not well seen due to overlying bowel gas. ? Miscellaneous:? No free abdominal fluid.? ? ? IMPRESSION:? 1. No gallstone is seen.? No sonographic evidence of acute cholecystitis.? ?2. No biliary ductal dilatation.? Questionable echogenic foci within common bile duct.? Choledocholithiasis cannot be entirely excluded.? Evaluation is limited due to significant overlying bowel gas.? Dictated by: Chino Dubon M.D. on 05/31/2021 at 14:24 ? ? Approved by: Chino Dubon M.D. on 05/31/2021 at 14:27 ? Abdominal x-ray: Radiologist's Impression: PROCEDURE:? XR ABDOMEN MIN 2V ? INDICATIONS:? constipation vs bowel obstruction ? TECHNIQUE:? 2 views of the abdomen were acquired.? ? COMPARISON:? None. ? FINDINGS:? Surgical changes and devices:? None.? ? Bowel:? No pneumoperitoneum.? The bowel gas pattern is normal.? ? Soft tissues:? No masses; visualized solid organ contours appear normal in size.? No suspicious abdominal calcifications.? ? Bones:? No suspicious bony abnormalities.? ? IMPRESSION:? No acute disease process. ? ? Dictated by: Lorena Sousa MD, PhD on 05/31/2021 at 14:44 ? ? Approved by: Lorena Sousa MD, PhD on 05/31/2021 at 14:45 ? [facility] Narrative Medical decision making narrative: this is a 60-year-old male with history of type 2 diabetes, blood sugars are under control with a current right foot infection on levofloxacin who presents to the emergency department for right upper quadrant pain, constipation and diarrhea over the last 2 weeks. Patient has been on levofloxacin for almost 2 weeks, is seen Dr. Sepulveda for his infection, states that it is getting better, he has not had a fever, he does not feel ill, he does not feel worse or have any foot pain with drainage at this time. He states he has an upcoming appointment with Dr. Sepulveda in a couple days. He states his blood sugars have been in the 110-120 range, he denies any nausea vomiting. Lab workup today is grossly unremarkable, no elevation in LFTs or bilirubin, no leukocytosis, UA without any signs of infection. Lipase 55, all lab work is stable compared with last. Abdominal x-ray shows no acute disease process, moderate amount of air in his colon with with a normal bowel gas pattern. abdominal ultrasound shows no gallstones visible, no biliary ductal dilation, no sonographic evidence of acute cholecystitis. Questionable echogenic foci within the common bile duct, report states choledocholithiasis could not entirely be excluded. The evaluation is limited to significant overlying bowel gas. Patient states that he has had a moderate amount of gas recently as well. Due to no elevation in any of his liver enzymes, leuks no leukocytosis, T bili is normal, this is most likely colitis or bowel gas causing his symptoms. He endorses some recent symptoms of heartburn, patient is not on any GI ulcer prophylaxis. Encouraged him to try omeprazole for the next 2 weeks, follow-up with primary care provider. He has not had an endoscopy or colonoscopy ever. Recommend ruling out peptic ulcer disease / GERD. Patient understands to follow-up with his primary care provider Dr. Garza at his upcoming appt. no concerning findings on today's exam and workup. His EKG Shows normal sinus rhythm without any ectopy or ST changes, normal intervals normal axis. Patient is appropriate and amenable to discharge home. Vital signs are stable on repeat examination is unremarkable. Patient has been informed of results. Patient has been given strict return to ER precautions for any new or worsening symptoms. Patient understands to follow up closely with outpatient providers as instructed. Patient understands plan and agrees to discharge home. All questions and concerns answered at this time. <Kelsea Neumann DO - Last Filed: 06/01/21 07:17> Lab Data Labs: Lab Results 05/31/21 05/31/21 05/31/21 Range/Units 15:16 15:20 15:20 WBC 7.6 (4.5-11.0) X10^3/uL RBC 5.04 (4.5-5.9) X10^6/uL Hgb 13.5 (13.5-17.5) g/dL Hct 39.5 L (41-53) % MCV 78.3 L (80-100) fL MCH 26.8 (26-34) PG MCHC 34.2 (30-36) % RDW 14.8 (11.6-14.8) % Plt Count 231 (150-400) X10^3/uL Neut % (Auto) 75.1 H (50-75) % Lymph % (Auto) 16.6 L (25-40) % Barry % (Auto) 6.7 (3-14) % Eos % (Auto) 1.0 L (2-4) % Baso % (Auto) 0.6 (0-2) % Neut # (Auto) 5700 (1601-4319) /uL Lymph # (Auto) 1300 (4029-6943) /uL Barry # (Auto) 500 (0-900) /uL Eos # (Auto) 100 (0-450) /uL Baso # (Auto) 0 (0-100) /uL Sodium 138 (137-145) mmol/L Potassium 4.2 (3.4-5.1) mmol/L Chloride 103 (98-107) mmol/L Carbon Dioxide 28 (22-32) mmol/L BUN 19 (9-20) mg/dL Creatinine 1.04 (0.66-1.25) mg/dL Estimated GFR > 60.0 (>60) mL/min BUN/Creatinine Ratio 18.3 (6-22) Glucose 155 H (70-100) mg/dL Calcium 9.0 (8.4-10.2) mg/dL Total Bilirubin 0.6 (0.2-1.3) mg/dL AST 19 (17-59) IU/L ALT 15 (<50) IU/L Alkaline Phosphatase 86 (38-126) U/L Total Protein 7.7 (6.3-8.2) g/dL Albumin 4.2 (3.5-5.0) g/dL Globulin 3.5 (1.7-4.1) g/dL Albumin/Globulin Ratio 1.2 (1.0-2.8) Lipase 55 (23-300) U/L Urine Color Yellow Urine Appearance Clear Urine pH 6.5 (4.5-8.0) Ur Specific [place] 1.015 (1.000-1.035) Urine Protein Negative (Negative) Urine Glucose (UA) Trace H (Negative) g/dL Urine Ketones Negative (NEGATIVE) Urine Occult Blood Negative (Negative) Urine Nitrate Negative (Negative) Urine Bilirubin Negative (NEGATIVE) Urine Urobilinogen 0.2 (0.2) E.U./dL Ur Leukocyte Esterase Negative (NEGATIVE) Urine RBC None seen (0-5/HPF) Urine WBC None seen (0-5/HPF) Urine Bacteria None seen (None) Ur Culture Indicated? Cult not indicated Point of care testing: Urine Dip Bedside Urine Glucose Negative Bedside Urine Bilirubin - Negative Bedside Urine Ketone - Negative Urine Specific [place] 1.020 Bedside Urine Occult Blood - Negative Bedside Urine pH 6.0 Bedside Urine Protein - Negative Bedside Urine Urobilinogen 0.2 Bedside Urine Nitrite - Negative Bedside Urine Leukocytes - Negative Esterase ECG Data Interpretation: emelynick-normal sinus rhythm rate 95 ME interval 150 QRS [address] changes Discharge Plan Departure Patient Disposition: Home Clinical Impression: Abdominal pain, RUQ, Heartburn Instructions: Acute Abdominal Pain, DI for Gastroesophageal Reflux Disease (GERD), DI for Abdominal Muscle Strain, GERD Diet Activity Restrictions/Additional Instructions: You have been diagnosed with Right upper quadrant pain without signs of cholecystitis or appendicitis. You have a lot of gas in your colon, this is likely related to your antibiotic use. I recommend following up with Dr. Garza, see how your symptoms change with this medication I have sent to [facility]. I recommend a endoscopy and colonoscopy if you continue to have gastric symptoms. Thank you for trusting us with your care, we did not find anything concerning on your workup today. I hope that you start feeling better soon. please stick to a bland diet, try some of the foods on the GERD diet the align with your low carb choices as a diabetic. *What to do: *Please continue to take your regular medications as directed. [x ] New medication prescriptions sent to your pharmacy: [[facility] ] [ ] New medication written as a paper prescription [ ] No new medications given *Please follow up with your primary care provider in 2-3 days, call for an appointment. Let them know you were seen in the Emergency Department and that we asked that you be seen for follow-up. We will electronically transmit a record of today's note if your PCP is in our system *If you do not have a primary care provider please contact [phone] to establish care with one of the [facility] primary care providers. *Return to Emergency Department if you should have any new, worsening or concerning symptoms, such as [fever greater than 101F, chills, worsening pain, persistent vomiting or other bothersome symptoms] Prescriptions: New omeprazole 20 mg tablet,delayed release (DR/EC) 20 mg PO DAILY 14 Days Qty: 20 0RF No Action glipizide 5 mg tablet 5 mg PO BID Qty: 60 2RF lisinopril 20 mg tablet 20 mg PO DAILY Qty: 30 2RF Rx Instructions: Take 10mg for 1 week and then increase to 20mg daily. levofloxacin 500 mg tablet 500 mg PO DAILY Qty: 14 0RF pravastatin 20 mg tablet 20 mg PO BEDTIME Qty: 90 1RF Lantus Solostar U-100 Insulin 100 unit/mL (3 mL) insulin pen 50 unit SUBCUT BEDTIME Qty: 15 5RF acetaminophen 500 mg Tablet 1,000 mg PO Q8-12H 0RF Referrals: Edgardo Garza MD [Primary Care Provider] - <Kelsea Neumann DO - Last Filed: 06/01/21 07:17> Cosign ED Attending Dagoature Attestation: I was immediately available in the department for consultation. Documentation has been reviewed. I agree with assessment and plan.
[2021-05-31 15:15] VITALS: BP 127/91; PULSE 95; RESP 95; O2SAT 99
[2021-05-31 15:29] LABS: Add Manual Diff / Slide Review NO; Basophils Absolute Auto 0 /uL (0-100); Basophils Percent Auto 0.6 % (0-2); Eosinophils Absolute Auto 100 /uL (0-450); Hematocrit 39.5 % (41-53); Hemoglobin 13.5 g/dL (13.5-17.5); Lymphocytes Absolute Auto 1300 /uL (1100-4500); Lymphocytes Percent Auto 16.6 % (25-40); Mean Corpuscular HGB Conc 34.2 % (30-36); Mean Corpuscular Hemoglobin 26.8 PG (26-34); Mean Corpuscular Volume 78.3 fL (80-100); Monocytes Absolute Auto 500 /uL (0-900); Monocytes Percent Auto 6.7 % (3-14); Neutrophils Absolute Auto 5700 /uL (1500-7000); Neutrophils Percent Auto 75.1 % (50-75); Platelet Count 231 X10^3/uL (150-400); Red Blood Cell Count 5.04 X10^6/uL (4.5-5.9); Red Cell Distribution Width 14.8 % (11.6-14.8); White Blood Cell Count 7.6 X10^3/uL (4.5-11.0)
[2021-05-31 15:31] LABS: Appearance Urine UA CLEAR; Bilirubin Urine UA NEGATIVE (NEGATIVE); Color Urine UA YELLOW; Glucose Urine UA TRACE g/dL (Negative); Ketones Urine UA NEGATIVE (NEGATIVE); Leukocyte Esterase Urine UA NEGATIVE (NEGATIVE); Nitrite Urine UA NEGATIVE (Negative); Occult Blood Urine UA NEGATIVE (Negative); Protein Urine UA NEGATIVE (Negative); Specific Gravity Urine UA 1.015 (1.000-1.035); Urobilinogen Urine UA 0.2 E.U./dL (0.2); pH Urine UA 6.5 (4.5-8.0)
[2021-05-31 15:44] LABS: Alanine Aminotransferase 15 IU/L (<50); Albumin 4.2 g/dL (3.5-5.0); Albumin Globulin Ratio 1.2 (1.0-2.8); Alkaline Phosphatase 86 U/L (38-126); Aspartate Aminotransferase 19 IU/L (17-59); BUN Creatinine Ratio 18.3 (6-22); Bilirubin Total 0.6 mg/dL (0.2-1.3); Blood Urea Nitrogen 19 mg/dL (9-20); Carbon Dioxide 28 mmol/L (22-32); Chloride 103 mmol/L (98-107); Estimated Glomerular Filt Rate > 60.0 mL/min (>60); Globulin 3.5 g/dL (1.7-4.1); Glucose 155 mg/dL (70-100); HEMOLYSIS < 15 (0-50); Lipase 55 U/L (23-300); Potassium 4.2 mmol/L (3.4-5.1); Sodium 138 mmol/L (137-145); Total Protein 7.7 g/dL (6.3-8.2)
[2021-05-31 15:46] LABS: Bacteria Urine None Seen; Culture Indicated Urine Cult Not Indicated; RBC Urine None Seen (0-5/HPF); WBC Urine None Seen (0-5/HPF)
[2021-05-31 16:30] VITALS: BP 125/80; PULSE 89; RESP 18; O2SAT 96
== END 2021-05-31 16:31 | disposition home or self-care (01) ==
PROVIDERS: Emergency Medicine; Emergency Provider Nurse Practitioner Critical Care Medicine; Family Provider Orthopaedic Surgery Foot and Ankle Surgery; PCP Student in an Organized Health Care Education/Training Program
DX: R10.11 Right upper quadrant pain (principal); K21.9 Gastro-esophageal reflux disease without esophagitis; R03.0 Elevated blood-pressure reading, without diagnosis of hypertension
CPT/HCPCS: 36415; 74019; 76705; 80053; 81001; 81003; 83690; 85025; 93005; 93010; 99283; 99284

== ENCOUNTER 2021-06-01 17:26 | Emergency (ER) | payer OTHER, SELFPAY ==
[2020-10-28 11:39] VITALS: BMI 29.9
[2021-06-01 17:47] VITALS: BP 123/70; PULSE 101; RESP 16; TEMP 36.6; O2SAT 99; BMI 33.0
--- NOTE | 2021-06-01 22:38 | ED_ITS ---
HPI - Skin/Abscess/Foreign Bdy General Chief complaint: Skin/Abscess/Foreign Body Stated complaint: rash on belly Time Seen by Provider: 06/01/21 22:25 Source: patient Mode of arrival: Ambulatory History of Present Illness HPI narrative: Gentleman with history of diabetes a chronic foot wound that is healing and he remains on levofloxacin for this, hypertension and hyperlipidemia presents with right flank pain that is been present for 3 days and today he has noticed a rash. He denies fevers, cough, chills, myalgias. No headaches. He declines any pain medication and has not tried Tylenol or ibuprofenfor this right-sided pain. Related Data Home Medications Medication Instructions Recorded Confirmed acetaminophen 500 mg tablet 1,000 mg PO Q8-12H 10/16/20 01/16/21 Previous Rx's Medication Instructions Recorded insulin glargine 100 unit/mL (3 50 unit (0.5 mL) SUBCUT BEDTIME 12/20/20 mL) subcutaneous pen (Lantus #15 ml Solostar U-100 Insulin) glipizide 5 mg tablet 5 mg PO BID #60 tab 05/12/21 lisinopril 20 mg tablet 20 mg PO DAILY #30 tab 05/12/21 levofloxacin 500 mg tablet 500 mg PO DAILY #14 tab 05/16/21 pravastatin 20 mg tablet 20 mg PO BEDTIME #90 tab 05/22/21 omeprazole 20 mg tablet,delayed 20 mg PO DAILY 14 Days #20 tab 05/31/21 release valacyclovir 1 gram tablet 1,000 mg PO TID 7 Days #21 tab 06/01/21 Allergies Allergy/AdvReac Type Severity Reaction Status Date / Time Penicillins Allergy Severe Rash Verified 06/01/21 17:49 Review of Systems Review of Systems Narrative: Remainder of complete review of systems is otherwise unremarkable except for that included in the HPI. Patient History Medical History (Updated 06/01/21 @ 22:43 by Mary Jenkins MD) MRSA (methicillin resistant Staphylococcus aureus) (~2011) Type 2 diabetes mellitus (~2009) Zoster Surgical History Amputated toe of left foot (~2020) Anesthesia S/P arthroscopic surgery of left knee (~2013) Family History Mother Diabetes mellitus Brother Cancer Social History household members: none Smoking Status: Former smoker Smokeless tobacco user: chewing tobacco quit status: considering quitting Smoking Status: Former smoker tobacco type: smokeless tobacco alcohol intake frequency: holidays/special occasions only Substance Use Type: does not use Exam Initial Vital Signs Initial Vital Signs: Vital Signs Temperature 97.8 F 06/01/21 17:47 Pulse Rate 101 H 06/01/21 17:47 Respiratory Rate 16 06/01/21 17:47 Blood Pressure 123/70 06/01/21 17:47 Pulse Oximetry 99 06/01/21 17:47 General: Alert appropriate in no acute distress Respiratory: Able to speak in full sentences, no obvious respiratory distress Chest: Has a vesicular rash on an erythematous base that is developing in a dermatomal distribution right side T7 level with no other skin abnormalities appreciated Skin: No obvious rashes, warm and dry Neurologic: Grossly intact no obvious asymmetries or abnormalities Psych: appropriate insight and affect, cooperative Course Vital Signs Vital signs: Vital Signs - 8 hr 06/01/21 17:47 Temperature 97.8 F Pulse Rate 101 H Respiratory Rate 16 Blood Pressure 123/70 Pulse Oximetry 99 MDM - Skin/Abscess/Foreign Bdy MDM Narrative Medical decision making narrative: 60-year-old gentleman presents with 3 days of right sided abdominal pain with rash developing today in a fairly classic presentation for shingles. There does not appear to be any superinfection or other complicating factors at this time. He currently is on Levaquin for a chronic foot ulcer that does seem to be slowly healing. Will start him on valacyclovir 1000 mg 3 times a day for 7 days and asked him to follow-up with his primary care provider if things are worsening. He declines any additional pain medication at this time. Discharge Plan Departure Patient Disposition: Home Clinical Impression: Herpes zoster Instructions: DI for Shingles Activity Restrictions/Additional Instructions: Thank you for coming in today You have shingles. The 3 days of pain followed by the rash developing is a classic presentation. Recommendations are to begin an antiviral medication called valacyclovir a 1000 mg 3 times a day for the next 7 days to try and prevent the rash from worsening and prevent chronic nerve pain after it heals. A prescription for this medication was transmitted to [facility] in [place] for you Using 400 mg of ibuprofen (2 hrbz-[id number] pills) and 1 Tylenol every 6 hours can be very helpful in controlling pain. If you noticing increasing pain or it seems to be getting infected you do need follow-up with your primary care physician Prescriptions: New valacyclovir 1 gram tablet 1,000 mg PO TID 7 Days Qty: 21 0RF No Action glipizide 5 mg tablet 5 mg PO BID Qty: 60 2RF lisinopril 20 mg tablet 20 mg PO DAILY Qty: 30 2RF Rx Instructions: Take 10mg for 1 week and then increase to 20mg daily. levofloxacin 500 mg tablet 500 mg PO DAILY Qty: 14 0RF pravastatin 20 mg tablet 20 mg PO BEDTIME Qty: 90 1RF Lantus Solostar U-100 Insulin 100 unit/mL (3 mL) insulin pen 50 unit SUBCUT BEDTIME Qty: 15 5RF acetaminophen 500 mg Tablet 1,000 mg PO Q8-12H 0RF omeprazole 20 mg tablet,delayed release (DR/EC) 20 mg PO DAILY 14 Days Qty: 20 0RF Referrals: Edgardo Garza MD [Primary Care Provider] -
== END 2021-06-01 22:53 | disposition home or self-care (01) ==
PROVIDERS: Emergency Provider Emergency Medicine; Family Provider Orthopaedic Surgery Foot and Ankle Surgery; PCP Student in an Organized Health Care Education/Training Program
DX: B02.9 Zoster without complications (principal)
CPT/HCPCS: 99281

== ENCOUNTER → 2021-06-02 13:51 | Outpatient (CLI) | payer OTHER, SELFPAY ==
[2020-10-28 11:39] VITALS: BMI 29.9
== END ==
PROVIDERS: Family Provider Orthopaedic Surgery Foot and Ankle Surgery; PCP Student in an Organized Health Care Education/Training Program; Referring Provider Student in an Organized Health Care Education/Training Program; Visit Provider Nurse Practitioner Family
DX: E11.621 Type 2 diabetes mellitus with foot ulcer (principal); L97.522 Non-pressure chronic ulcer of other part of left foot with fat layer exposed; L08.9 Local infection of the skin and subcutaneous tissue, unspecified; L92.8 Other granulomatous disorders of the skin and subcutaneous tissue; L84 Corns and callosities; E11.40 Type 2 diabetes mellitus with diabetic neuropathy, unspecified; Z79.4 Long term (current) use of insulin; Z89.422 Acquired absence of other left toe(s); Z91.19 Patient's noncompliance with other medical treatment and regimen; Z79.84 Long term (current) use of oral hypoglycemic drugs
CPT/HCPCS: 11042; 87070; 87075; 87077; 87186; 87205; 99213

== ENCOUNTER → 2021-06-05 15:46 | Outpatient (CLI) | payer OTHER, SELFPAY ==
[2020-10-28 11:39] VITALS: BMI 29.9
--- NOTE | 2021-06-05 15:53 | DI.MRI.S_ITS ---
PROCEDURE: MR FOOT LT WO/W CON INDICATIONS: TYPE 2 DIABETES MELLITUS WITH FOOT ULCER TECHNIQUE: Noncontrast sagittal T1 spin echo and T2 fast spin echo with fat saturation, long-axis T1 spin echo and T2 fast spin echo with fat saturation; short-axis T1 spin echo, proton density fast spin echo, and T2 fast spin echo with fat saturation through the forefoot. Post-contrast short axis, long axis, and sagittal T1 spin echo with fat saturation through the forefoot. COMPARISON: [facility], MR, MR FOREFOOT LEFT WITH/WITHOUT CONTRAST, 01/08/2021, 9:30. [facility], CR, XR FOOT LT MIN 3V, 05/12/2021, 15:56. [facility], MR, MR FOOT LT WO/W CON, 10/19/2020, 10:36. FINDINGS: Image quality: Excellent. Bones and joints: Improved bone marrow signal in the lateral aspect of the 1st metatarsal head with residual T2 hyperintense/T1 hypointense signal, which may reflect resolving osteomyelitis. Cortical destruction of the medial, plantar 1st metatarsal head, compatible with ongoing osteomyelitis. Post amputation change of the 2nd digit to the mid 2nd metatarsal. Hallux valgus deformity with osteophyte formation and joint space narrowing. Surgical absence of destruction of the medial hallux sesamoid. Soft tissues: Reticulated T2 hyperintense/T1 hypointense signal is seen about the dorsal soft tissues, compatible with edema/cellulitis. Deficiency of the flexor hallucis longus, compatible with partial tear. The remaining visualized flexor and extensor tendons appear intact, without tenosynovitis. The principal Lisfranc ligament appears intact. A 2.7 x 0.7 x 0.5 cm T2 hyperintense collection is seen overlying the 3rd metatarsal, which may reflect an abscess and/or seroma. IMPRESSION: 1. Improved bone marrow signal in the lateral aspect of the 1st metatarsal head, which may reflect resolving osteomyelitis. 2. Cortical destruction of the medial hallux sesamoid and medial, plantar aspect of the 1st metatarsal head, which may reflect an acute osteomyelitis. 3. Partial tear of the flexor hallucis longus. 4. Fluid collection overlying the 3rd metatarsal, which may reflect an abscess and/or seroma. Dictated by: Andrae Bar M.D. on 06/05/2021 at 17:10 Approved by: Andrae Bar M.D. on 06/05/2021 at 17:21
== END ==
PROVIDERS: Family Provider Orthopaedic Surgery Foot and Ankle Surgery; PCP Student in an Organized Health Care Education/Training Program; Referring Provider Nurse Practitioner Family; Visit Provider Nurse Practitioner Family
DX: E11.621 Type 2 diabetes mellitus with foot ulcer (principal); L97.529 Non-pressure chronic ulcer of other part of left foot with unspecified severity; S91.302A Unspecified open wound, left foot, initial encounter; S96.012A Strain of muscle and tendon of long flexor muscle of toe at ankle and foot level, left foot, initial encounter; E11.40 Type 2 diabetes mellitus with diabetic neuropathy, unspecified; I73.9 Peripheral vascular disease, unspecified; Z89.422 Acquired absence of other left toe(s)
CPT/HCPCS: 73720; A9579

== ENCOUNTER → 2021-06-14 09:42 | Outpatient (CLI) | payer OTHER, SELFPAY ==
[2020-10-28 11:39] VITALS: BMI 29.9
[2021-06-14 12:20] LABS: COVID19 -Nasal RAPID Negative (Negative)
== END ==
PROVIDERS: PCP Student in an Organized Health Care Education/Training Program; Referring Provider Orthopaedic Surgery Foot and Ankle Surgery; Visit Provider Family Medicine Sleep Medicine
DX: Z20.822 Contact with and (suspected) exposure to COVID-19 (principal)
CPT/HCPCS: 87635; C9803

== ENCOUNTER 2021-06-16 05:52 | Day surgery (SDC) | payer OTHER, SELFPAY ==
[2020-10-28 11:39] VITALS: BMI 29.9
[2021-06-14 09:26] VITALS: BMI 31.5
[2021-06-16] VITALS (7 sets, daily range): BP systolic 94–133; BP diastolic 68–92; PULSE 83–93; RESP 11–22; TEMP 36.6–36.8; O2SAT 96–98; BMI 31.5
[2021-06-16] MEDS: VANCOMYCIN 1,000 MG/200 ML PIGGYBACK 200 MG IV (06:41)
[2021-06-16] MEDS: LACTATED RINGERS 1,000 ML 42 ML IV ×2 (06:42→09:08)
[2021-06-16] MEDS: ACETAMINOPHEN 325 MG TABLET 975 MG PO (06:42)
[2021-06-16] MEDS: GABAPENTIN 300 MG CAPSULE PO (06:42)
[2021-06-16] MEDS: INSULIN LISPRO 100 UNIT/ML 3ML VIAL SUBCUT (07:27)
--- NOTE | 2021-06-16 07:35 | PM.PREOP ---
Pre-operative Note COVID-19 COVID-19 status: Negative Interval Note History & Physical reviewed/Exam performed by Physician: Yes Changes to H&P: No
--- NOTE | 2021-06-16 08:08 | SUR.OPER ---
Supine on padded OR bed, head on pillow, arms secured on padded arm boards at <90 degrees abduction, legs uncrossed, safety belt at thigh, tape over blanket over right lower leg.Folded blankets under left ankle. Bump under left hip.
[2021-06-16] MEDS: BUPIVACAINE 0.25% (PF) VIAL 30 ML INJ (08:16)
[2021-06-16] MEDS: VANCOMYCIN 1,000 MG VIAL 1000 MG TOP (08:17)
--- NOTE | 2021-06-16 09:58 | P.OP_ITS ---
Operative Date/Time/Diagnoses Date of procedure: 06/16/21 Time of procedure: 08:00 Pre-op diagnosis: Left foot diabetic infection Osteomyelitis, chronic left foot 1st metatarsal Hallux valgus deformity Diabetic ulceration foot Post-op diagnosis: same Procedure & Clinicians Procedure: 1. Excision metatarsal bone head 1st metatarsal complete left CPT code 09316--DV 2. Bone biopsy, deep excisional left CPT code 45882 3. Pinning left great toe CPT code 78649--VH 4. Debridement left foot ulcer skin subcutaneous tissue bone 79258-43 Same procedure as scheduled: Yes Indications: Patient is a 60-year-old male with diabetes that was seen in the hospital last year for left foot and diabetic infection underwent an irrigation debridement amputation of the 2nd ray. He was discharged on IV antibiotics and has been managed with wound care since. His other wounds have healed up well but he is still having difficulty with a medial eminence wound at the left great toe and has an MRI consistent with osteomyelitis of the 1st metatarsal he has been on antibiotics recently and last cultures were taken with wound care. He has a persistent wound at the medial eminence of his left foot consistent with osteomyelitis and diabetic foot infection. He has a hallux valgus deformity and this has been difficult to offload. He does not heal despite appropriate wound care. He require surgical debridement with the metatarsal head resection. We discussed resection arthroplasty procedure with a temporary pinning of the toe for alignment as well as bone biopsy. We would of stain from any permanent hardware due to the osteomyelitis. He understands he may require additional surgery wound care and/or antibiotics The risks and benefits of the procedure have been discussed with the patient even opportunity to ask questions. The risks of surgery include but are not limited to infection, malunion, nonunion, persistence of pain, damage to nerves and blood vessels, posttraumatic arthritis need for additional procedures, amputation, DVT, PE, cardiopulmonary complications and . The patient expressed a thorough understanding of the risks and benefits of surgery and has elected to proceed. Consent was signed. Surgeon: Angeles Witt Click Yes if Unassisted: Yes Anesthesia Type: General and Local Operative Notes Findings: Hallux valgus deformity left great toe plantar medial hallux mostly healed except for 3 x 3 mm area that is still open probes to bone. There is a well- healed scar over the previous 2nd ray amputation site there is no erythema or purulence. Closure Type: primary Specimen(s): other (Bone sent for Gram stain and culture, 1st metatarsal head) Prosthetic devices, grafts, tissues, transplants, or devices: 062 K-wires x2 Estimated Blood Loss (mL): 5 Blood products transfused: none Tourniquet time (min): 57 Procedure in detail: Patient was seen in the preoperative area the site of surgery was marked informed consent confirmed. He was brought back to the operating room by the anesthesia team positioned supine on operative table. General anesthesia was administered. All bony prominences well padded. Well-padded thigh tourniquet was placed on the left lower extremity. The left foot was then prepped and draped in the standard sterile fashion. Formal time-out procedure was performed confirming the patient's side site of surgery administration of appropriate preoperative antibiotics which was vancomycin based on his previous cultures. All were in agreement. Attention turned to the left foot gravity exsanguination was used. The to urniquet was then raised to 250 mmHg. An incision over the dorsal 1st MTP joint just medial to the EHL was taken down through the skin subcutaneous tissue. EHL was retracted laterally. The joint was exposed. There was significant arthritic to change and thinning of cartilage on both the metatarsal and proximal phalanx. Joint capsule was released. The adductors were released to help correct the hallux valgus deformity. A TTS saw was used to resect the metatarsal head and this was sent for culture. Additionally curette was used to clean up the proximal phalanx base in order to get down to good cancellous bone without excessive shortening. There was no purulence noted. No large bone voids. Wound was thoroughly irrigated with 3 L of saline using cysto tubing. Following this gloves and new drapes were changed. 2x062 K-wires were placed across the MTP joint from the distal phalanx this was placed under cooling and compression with hopes for a fibrous nonunion to help hold correction about the risks of permanent hardware. This was checked on AP and lateral fluoroscopic views and once this was adequate the pins were bent and cut and caps placed. Next vancomycin powder was mixed with saline to make vancomycin bullet or putty was placed around the MTP joint. Capsule was then closed with 2 PDS suture and the skin with 3-0 nylon. Attention was then separately turned to the plantar medial ulceration Plantar medial ulceration was then debrided using a separate blade and pickups. There was a small 3 x 3 mm opening that did probe down to bone. This was thoroughly curetted and skin soft tissue and bone were debrided. Good bleeding surfaces were obtained. This was thoroughly irrigated with saline and then again vancomycin powder was placed into the wound and a loose couple nylon sutures were used to approximate the area. No deep abscesses were found. Tourniquet was released. Hemostasis was achieved. 10 cc of local anesthetic was injected. Sterile dressing was Xeroform gauze and Brittni wrap and Pineda were placed. A felt pad was placed offload around the 1st MTP joint and the patient was placed back in his offloading shoe. Drapes removed. Patient was woken from anesthesia and taken to recovery room in good condition. There no immediate complications from this procedure. All counts were correct. Complications: none Post-operative Condition: stable Disposition: PACU Plan for aftercare: Heel weight-bearing in offloading shoe. Keep dressings clean dry and intact. Up as scheduled in Orthopedic Clinic. Patient was given antibiotic prescription that he will take as prescribed. A while drill remain in place 6-8 weeks unless become irritated or loose early, then these will be removed in clinic
--- NOTE | 2021-06-16 10:15 | SUR.PHASEII ---
pt given discharge instructions and states he underd
--- NOTE | 2021-06-16 10:15 | SUR.PHASEII ---
pt given discharge instructions.. pt states he understands discharge instructions. pt to be discharged with his friend Carlota.
== END 2021-06-16 10:17 | disposition home or self-care (01) ==
PROVIDERS: Family Provider Orthopaedic Surgery Foot and Ankle Surgery; PCP Student in an Organized Health Care Education/Training Program; Referring Provider Orthopaedic Surgery Foot and Ankle Surgery; Visit Provider Orthopaedic Surgery Foot and Ankle Surgery
PROC: (CPT 28111; principal; 2021-06-16 07:45)
DX: E11.621 Type 2 diabetes mellitus with foot ulcer (principal); L97.424 Non-pressure chronic ulcer of left heel and midfoot with necrosis of bone; M86.672 Other chronic osteomyelitis, left ankle and foot; M20.12 Hallux valgus (acquired), left foot; Z79.4 Long term (current) use of insulin; B96.89 Other specified bacterial agents as the cause of diseases classified elsewhere
CPT/HCPCS: 28111; 11044; 82962; 87070; 87075; 87077; 87147; 87176; 87205; J1815; J2405; J2704

== ENCOUNTER 2021-08-10 11:51 | Emergency (ER) | payer OTHER, SELFPAY ==
[2020-10-28 11:39] VITALS: BMI 29.9
[2021-08-10 12:08] VITALS: BP 144/85; PULSE 96; RESP 18; TEMP 36.6; O2SAT 99; BMI 32.3
--- NOTE | 2021-08-10 12:14 | DI.RAD.S_ITS ---
PROCEDURE: XR FOOT LT MIN 3V INDICATIONS: L foot pain TECHNIQUE: 3 views of the foot were acquired. COMPARISON: [facility] [place], CR, XR FOOT 3+ VIEWS LEFT, 07/26/2021, 11:03. , CR, XR FOOT LT MIN 3V, 05/12/2021, 15:56. FINDINGS: Bones: 2nd digit amputation is present distal to the mid metatarsal. There has been interval removal of pins within the 1st digit. Erosive type changes well as widening of joint pain is present at the 1st MTP joint. Subchondral lucencies are noted at the base of the distal 1st phalanx as well as small areas of lucency within the distal phalanx 6 self. It is difficult to determine if these were present on prior exam secondary to overlying hardware as well as cast material. Soft tissues: No tibiotalar joint effusion. Achilles tendon appears normal. IMPRESSION: Liver interval removal of surgical hardware. There has been progressive osseous destruction at the 1st MTP joint with widening of the joint suggestive of osteomyelitis. Lucencies are at the distal 1st digit. As noted above, it is unclear if these are new or not as well visualized on prior exam. Secondary focus of infection cannot be excluded. Dictated by: Yessy Crain M.D. on 08/10/2021 at 12:51 Approved by: Yessy Crain M.D. on 08/10/2021 at 12:54
--- NOTE | 2021-08-10 12:14 | PC.NURSE ---
Wound on bottom of left foot, round, white and pink, small amount of purulent drainage. Pt reports recent infection, followed by Dr. Witt, dressed with bandaid prior to arrival. Pt denies any changes in area since fall.
--- NOTE | 2021-08-10 12:16 | ED.EXTPRO ---
HPI - Extremity Problem <Troy Mims PA-C - Last Filed: 08/10/21 13:23> General Chief complaint: Extremity Problem,Nontraumatic Stated complaint: Fell and hurt lt foot. Surg on same foot t-7 wks Time Seen by Provider: 08/10/21 12:03 Source: patient Mode of arrival: Ambulatory History of Present Illness HPI Narrative: 61-year-old male presents to the emergency department due to left foot pain onset last night after tripping and falling. States he has a history of osteomyelitis with surgery performed approximately 7 weeks ago w/ Dr. Witt with left 2nd toe removal. States that he had hardware recently removed approximately 3 weeks ago. Also reports a scab that fell off leading to a small infection to the left medial foot with a small amount of purulent drainage. Denies any numbness or tingling in the foot, fevers, or any other concerning signs or symptoms.. Patient is a diabetic. Related Data Home Medications Medication Instructions Recorded Confirmed acetaminophen 500 mg tablet 1,000 mg PO Q8-12H 10/16/20 06/16/21 Previous Rx's Medication Instructions Recorded insulin glargine 100 unit/mL (3 50 unit (0.5 mL) SUBCUT BEDTIME 12/20/20 mL) subcutaneous pen (Lantus #15 mL Solostar U-100 Insulin) pravastatin 20 mg tablet 20 mg PO BEDTIME #90 tabs 05/22/21 lisinopril 40 mg tablet 40 mg PO DAILY #90 tabs 06/09/21 hydrocodone 5 mg-acetaminophen 325 1 - 2 tab PO Q6H PRN pain #30 tabs 06/16/21 mg tablet glipizide 5 mg tablet 5 mg PO BID #180 tabs 08/08/21 sulfamethoxazole 800 1 tab PO BID 10 days #20 tabs 08/10/21 mg-trimethoprim 160 mg tablet (Bactrim DS) DISABLED PARKING PERMIT #1 ea 08/16/21 Allergies Allergy/AdvReac Type Severity Reaction Status Date / Time Penicillins Allergy Severe Rash Verified 08/10/21 12:32 Review of Systems <Troy Mims PA-C - Last Filed: 08/10/21 13:23> Review of Systems Narrative: GENERAL: Denies chills, fatigue, malaise, fever, sweats. HEENT: Denies sinus pain, ear pain, sore throat, difficulty swallowing, dizziness. RESPIRATORY: Denies dyspnea, cough, wheezing, hemoptysis, sputum. CARDIOVASCULAR: Denies chest pain, palpitations, orthopnea, edema, GASTROINTESTINAL: Denies nausea, vomiting, abdominal pain, diarrhea, constipation, melena. : Denies dysuria, frequency, incontinence, hematuria, urinary retention. MUSCULOSKELETAL: Left foot pain, left foot wound SKIN: Wound to left foot NEUROLOGIC: Denies weakness, headache, numbness, change in speech, confusion, seizures, incoordination. PSYCHIATRIC: No concerning psychosocial issues. 12 point review of systems is negative except for those stated above Patient History <Troy Mims PA-C - Last Filed: 08/10/21 13:23> Medical History (Updated 08/10/21 @ 13:21 by Troy Mims PA-C) MRSA (methicillin resistant Staphylococcus aureus) (~2011) Type 2 diabetes mellitus (~2009) [facility] Surgical History Amputated toe of left foot (~2020) Anesthesia S/P arthroscopic surgery of left knee (~2013) Family History Mother Diabetes mellitus Brother Cancer Social History household members: significant other and none Smoking Status: Former smoker Smokeless tobacco user: chewing tobacco quit status: considering quitting alcohol intake: current Smoking Status: Former smoker tobacco type: smokeless tobacco alcohol intake frequency: holidays/special occasions only Substance Use Type: does not use Exam <Troy Mims PA-C - Last Filed: 08/10/21 13:23> Narrative Exam Narrative: GENERAL: Well-developed patient, in mild distress. HEAD: Atraumatic. Normocephalic. EYES: Pupils equal round and reactive. Extraocular motions intact. No scleral icterus. No injection or drainage. ENT: Nose without bleeding, purulent drainage. Throat without erythema, tonsillar hypertrophy or exudate. Airway patent. NECK: Trachea midline. Non tender CARDIOVASCULAR: Regular rate and rhythm without murmurs, gallops, or rubs. RESPIRATORY: Clear to auscultation. Breath sounds equal bilaterally. No wheezes, rales, or rhonchi. GASTROINTESTINAL: Abdomen soft, non-tender, nondistended. EXTREMITIES: Mild tenderness palpation to the dorsal aspect of the left foot. No crepitus. Small 1.5 cm wound with a very mild amount of purulent drainage to the medial foot. Patient is missing left 2nd toe. BACK: Nontender without deformity or crepitance. No flank tenderness. NEURO: AOx3. SKIN: No rash or erythema of visible areas Initial Vital Signs Initial Vital Signs: Vital Signs Temperature 98 F 08/10/21 12:08 Pulse Rate 96 H 08/10/21 12:08 Respiratory Rate 18 08/10/21 12:08 Blood Pressure 144/85 H 08/10/21 12:08 Pulse Oximetry 99 08/10/21 12:08 Oxygen Delivery Method 08/10/21 12:08 <Michele Lerner DO - Last Filed: 08/18/21 20:28> Initial Vital Signs Initial Vital Signs: Vital Signs Temperature 98 F 08/10/21 12:08 Pulse Rate 96 H 08/10/21 12:08 Respiratory Rate 18 08/10/21 12:08 Blood Pressure 144/85 H 08/10/21 12:08 Pulse Oximetry 99 08/10/21 12:08 Oxygen Delivery Method 08/10/21 12:08 Course <Troy Mims PA-C - Last Filed: 08/10/21 13:23> Orders Ordered: ED Orders 08/10/21 12:14 XR foot LT min 3V Stat Vital Signs Vital signs: Vital Signs - 8 hr 08/10/21 12:08 Temperature 98 F Pulse Rate 96 H Respiratory Rate 18 Blood Pressure 144/85 H Pulse Oximetry 99 Oxygen Delivery Method Room Air <Michele Lerner DO - Last Filed: 08/18/21 20:28> Orders Ordered: ED Orders 08/10/21 12:14 XR foot LT min 3V Stat Vital Signs Vital signs: Vital Signs - 8 hr 08/10/21 12:08 Temperature 98 F Pulse Rate 96 H Respiratory Rate 18 Blood Pressure 144/85 H Pulse Oximetry 99 Oxygen Delivery Method Room Air MDM - Extremity (Nontraumatic) <LOWELL Ortiz Last Filed: 08/10/21 13:23> Imaging Data Extremity x-ray #1: Radiologist's Impression: [address] [place] [address] XRay Report Signed Patient: Larry Vanegas MR#: [id number] : 1960 Acct:[id number] Age/Sex: 61 / M Date of Service: 08/10/21 Loc: ED Accession Number: [id number] ?? Procedure: XR foot LT min 3V Ordering Provider: Troy Mims P.A-C PROCEDURE:? XR FOOT LT MIN 3V ? INDICATIONS:? L foot pain ? TECHNIQUE:? 3 views of the foot were acquired.? ? COMPARISON:? [facility] [place], CR, XR FOOT 3+ VIEWS LEFT, 07/26/2021, 11:03.? [facility], CR, XR FOOT LT MIN 3V, 05/12/2021, 15:56. ? FINDINGS:? ? Bones:? 2nd digit amputation is present distal to the mid metatarsal.? There has been interval removal of pins within the 1st digit.? Erosive type changes well as widening of joint pain is present at the 1st MTP joint.? Subchondral lucencies are noted at the base of the distal 1st phalanx as well as small areas of lucency within the distal phalanx 6 self.? It is difficult to determine if these were present on prior exam secondary to overlying hardware as well as cast material. ? Soft tissues:? No tibiotalar joint effusion.? Achilles tendon appears normal.? ? ? IMPRESSION:? Liver interval removal of surgical hardware.? There has been progressive osseous destruction at the 1st MTP joint with widening of the joint suggestive of osteomyelitis. ? Lucencies are at the distal 1st digit.? As noted above, it is unclear if these are new or not as well visualized on prior exam.? Secondary focus of infection cannot be excluded. ? ? Dictated by: Yessy Crain M.D. on 08/10/2021 at 12:51 ? ? Approved by: Yessy Crain M.D. on 08/10/2021 at 12:54 ? MDM Narrative Medical decision making narrative: 61-year-old male presents to the emergency department due to left foot pain after tripping. Of note patient recently had left foot surgery due to osteomyelitis with Dr. Witt 7 weeks ago and was concerned that ?something had gotten shook up in there?. X-ray shows no evidence of new fractures that would need addressing but did mention the osteomyelitis being managed and treated by Dr. Witt. Patient has follow-up visit in approximately a week and a half and recommend he discuss further management treatment with them. Patient did have a small superficial wound to the left medial foot with purulence. Already draining and no need for incision and drainage at this time. Bactrim will be prescribed for antibiotic coverage until he is able follow-up with Dr. Witt. Discharge Plan Departure Patient Disposition: Home Clinical Impression: Acute foot pain, Bacterial skin infection Instructions: DI for Wound Infection Activity Restrictions/Additional Instructions: Thank you for coming to the [facility] Emergency Department today. The x-ray shows no evidence of any new fractures but did note the osteomyelitis that Dr. Sepulveda is managing. Please discuss these results with her at your follow-up visit later this month. You do have a superficial skin infection that we will treat with the antibiotics prescribed. Please take as recommended. I hope you feel better soon. Prescriptions: New sulfamethoxazole-trimethoprim [Bactrim DS] 800-160 mg tablet 1 tab PO BID 10 Days Qty: 20 0RF No Action pravastatin 20 mg tablet 20 mg PO BEDTIME Qty: 90 1RF glipizide 5 mg tablet 5 mg PO BID Qty: 180 0RF (DME) DISABLED PARKING PERMIT See Rx Instructions .ROUTE .MEDSUPPLY Qty: 1 0RF Rx Instructions: I FIND THIS PATIENT TO BE MEDICALLY DISABLED AND QUALIFIED FOR DISABLE PARKING INDICATED, AND SIGNED ON THE ACCOMPANYING [employer] PARK APPLICATION FOR INDIVIDUALS [place] Solostar U-100 Insulin 100 unit/mL (3 mL) insulin pen 50 unit SUBCUT BEDTIME Qty: 15 5RF lisinopril 40 mg tablet 40 mg PO DAILY Qty: 90 3RF acetaminophen 500 mg Tablet 1,000 mg PO Q8-12H hydrocodone-acetaminophen 5-325 mg tablet 1 - 2 tab PO Q6H PRN (Reason: pain) Qty: 30 0RF Rx Instructions: Postop exempt Referrals: Edgardo Garza MD [Primary Care Provider] - Visit Report Forms: Patient Portal/API <Michele Lerner DO - Last Filed: 08/18/21 20:28> Cosign ED Attending Dagoature Attestation: I was immediately available in the department for consultation. This documentation has been reviewed and I agree with assessment and plan. Supervised by Michele Lerner, DO
== END 2021-08-10 13:25 | disposition home or self-care (01) ==
PROVIDERS: Emergency Provider Physician Assistant Medical; Family Provider Orthopaedic Surgery Foot and Ankle Surgery; PCP Student in an Organized Health Care Education/Training Program; Referring Provider Orthopaedic Surgery Foot and Ankle Surgery
DX: M79.672 Pain in left foot (principal); L08.9 Local infection of the skin and subcutaneous tissue, unspecified; W01.0XXA Fall on same level from slipping, tripping and stumbling without subsequent striking against object, initial encounter
CPT/HCPCS: 73630; 99283

== ENCOUNTER → 2021-09-06 08:43 | Outpatient (CLI) | payer OTHER, SELFPAY ==
[2020-10-28 11:39] VITALS: BMI 29.9
== END ==
PROVIDERS: Family Provider Orthopaedic Surgery Foot and Ankle Surgery; PCP Student in an Organized Health Care Education/Training Program; Referring Provider Orthopaedic Surgery Foot and Ankle Surgery; Visit Provider Family Medicine
DX: E11.621 Type 2 diabetes mellitus with foot ulcer (principal); L97.522 Non-pressure chronic ulcer of other part of left foot with fat layer exposed; L08.9 Local infection of the skin and subcutaneous tissue, unspecified; E11.40 Type 2 diabetes mellitus with diabetic neuropathy, unspecified; M20.12 Hallux valgus (acquired), left foot; Z89.422 Acquired absence of other left toe(s); Z79.84 Long term (current) use of oral hypoglycemic drugs
CPT/HCPCS: 11042; 87070; 87075; 87077; 87186; 87205; 99213; 99214

== ENCOUNTER → 2021-09-11 09:37 | Outpatient (CLI) | payer OTHER, SELFPAY ==
[2020-10-28 11:39] VITALS: BMI 29.9
[2021-09-11 10:31] LABS: Hemoglobin A1C% w Est Avg Glu 8.8 % (4.0-6.0)
== END ==
PROVIDERS: Family Provider Orthopaedic Surgery Foot and Ankle Surgery; PCP Student in an Organized Health Care Education/Training Program; Referring Provider Student in an Organized Health Care Education/Training Program; Visit Provider Student in an Organized Health Care Education/Training Program
DX: E11.65 Type 2 diabetes mellitus with hyperglycemia (principal); Z79.4 Long term (current) use of insulin
CPT/HCPCS: 36415; 83036

== ENCOUNTER → 2021-09-13 15:19 | Outpatient (CLI) | payer OTHER, SELFPAY ==
[2020-10-28 11:39] VITALS: BMI 29.9
== END ==
PROVIDERS: Family Provider Orthopaedic Surgery Foot and Ankle Surgery; PCP Student in an Organized Health Care Education/Training Program; Referring Provider Orthopaedic Surgery Foot and Ankle Surgery; Visit Provider Family Medicine
DX: E11.621 Type 2 diabetes mellitus with foot ulcer (principal); L97.522 Non-pressure chronic ulcer of other part of left foot with fat layer exposed; L08.89 Other specified local infections of the skin and subcutaneous tissue; R60.0 Localized edema; E11.40 Type 2 diabetes mellitus with diabetic neuropathy, unspecified; M20.12 Hallux valgus (acquired), left foot
CPT/HCPCS: 11042; 87070; 87075; 87077; 87186; 87205; 93922; 99214

== ENCOUNTER → 2021-09-25 14:46 | Outpatient (CLI) | payer OTHER, SELFPAY ==
[2020-10-28 11:39] VITALS: BMI 29.9
== END ==
PROVIDERS: Family Provider Orthopaedic Surgery Foot and Ankle Surgery; PCP Student in an Organized Health Care Education/Training Program; Referring Provider Orthopaedic Surgery Foot and Ankle Surgery; Visit Provider Family Medicine
DX: E11.621 Type 2 diabetes mellitus with foot ulcer (principal); L97.522 Non-pressure chronic ulcer of other part of left foot with fat layer exposed; L84 Corns and callosities; B96.1 Klebsiella pneumoniae [K. pneumoniae] as the cause of diseases classified elsewhere; M20.12 Hallux valgus (acquired), left foot; E11.40 Type 2 diabetes mellitus with diabetic neuropathy, unspecified; L08.9 Local infection of the skin and subcutaneous tissue, unspecified
CPT/HCPCS: 11042; 73630; 87070; 87075; 87077; 87147; 87186; 87205; 99214

== ENCOUNTER → 2021-09-25 15:05 | Outpatient (CLI) | payer OTHER, SELFPAY ==
[2020-10-28 11:39] VITALS: BMI 29.9
--- NOTE | 2021-09-25 15:06 | DI.RAD.S_ITS ---
PROCEDURE: XR FOOT LT MIN 3V INDICATIONS: non-healing wound on left medial first metatarsal head TECHNIQUE: 3 views of the foot were acquired. COMPARISON: [facility], CR, XR FOOT LT MIN 3V, 08/10/2021, 12:15. FINDINGS: Bones: 2nd metatarsal amputation. Chronic appearing erosions at the 1st metatarsophalangeal joint. No change in erosions adjacent to the interphalangeal joint of the 1st digit. No suspicious bony lesions. Soft tissues: No tibiotalar joint effusion. Achilles tendon appears normal. Curvilinear soft tissue calcifications adjacent to the 1st metatarsophalangeal joint. IMPRESSION: 1. Erosions adjacent to the 1st metatarsophalangeal joint as well as the interphalangeal joint of the 1st digit, consistent with sequelae of osteomyelitis. 2. Postsurgical sequelae. Dictated by: Yvonne Leung M.D. on 09/25/2021 at 15:56 Transcribed by: SULEMAN on 09/25/2021 at 15:58 Approved by: Yvonne Leung M.D. on 09/25/2021 at 16:53
== END ==
PROVIDERS: Family Provider Orthopaedic Surgery Foot and Ankle Surgery; PCP Student in an Organized Health Care Education/Training Program; Referring Provider Family Medicine; Visit Provider Family Medicine
DX: E11.621 Type 2 diabetes mellitus with foot ulcer (principal); L08.9 Local infection of the skin and subcutaneous tissue, unspecified
CPT/HCPCS: 73630

== ENCOUNTER → 2021-10-02 14:27 | Outpatient (CLI) | payer OTHER, SELFPAY ==
[2020-10-28 11:39] VITALS: BMI 29.9
== END ==
PROVIDERS: Family Provider Orthopaedic Surgery Foot and Ankle Surgery; PCP Student in an Organized Health Care Education/Training Program; Referring Provider Orthopaedic Surgery Foot and Ankle Surgery; Visit Provider Family Medicine
DX: E11.621 Type 2 diabetes mellitus with foot ulcer (principal); L97.525 Non-pressure chronic ulcer of other part of left foot with muscle involvement without evidence of necrosis; L08.89 Other specified local infections of the skin and subcutaneous tissue; R60.0 Localized edema; E11.42 Type 2 diabetes mellitus with diabetic polyneuropathy; M20.12 Hallux valgus (acquired), left foot; Z87.891 Personal history of nicotine dependence; L08.9 Local infection of the skin and subcutaneous tissue, unspecified
CPT/HCPCS: 11042; 36415; 80053; 85651; 86140; 87070; 87075; 87077; 87147; 87186; 87205; 99214

== ENCOUNTER → 2021-10-02 15:01 | Outpatient (CLI) | payer OTHER, SELFPAY ==
[2020-10-28 11:39] VITALS: BMI 29.9
[2021-10-02 16:42] LABS: Erythrocyte Sedimentation Rate 23 MM/HR (0-15)
[2021-10-02 16:43] LABS: Alanine Aminotransferase 20 IU/L (<50); Albumin 4.3 g/dL (3.5-5.0); Albumin Globulin Ratio 1.3 (1.0-2.8); Alkaline Phosphatase 99 U/L (38-126); Aspartate Aminotransferase 41 IU/L (17-59); BUN Creatinine Ratio 26.7 (6-22); Bilirubin Total 0.4 mg/dL (0.2-1.3); Blood Urea Nitrogen 32 mg/dL (9-20); C-Reactive Protein Quant < 0.5 mg/dL (<1.0); Calcium 8.9 mg/dL (8.4-10.2); Carbon Dioxide 28 mmol/L (22-32); Chloride 106 mmol/L (98-107); Estimated Glomerular Filt Rate > 60 mL/min (>60); Globulin 3.3 g/dL (1.7-4.1); Glucose 127 mg/dL (80-110); HEMOLYSIS < 15 (0-50); Potassium 5.3 mmol/L (3.4-5.1); Sodium 140 mmol/L (137-145); Total Protein 7.6 g/dL (6.3-8.2)
== END ==
PROVIDERS: Family Provider Orthopaedic Surgery Foot and Ankle Surgery; PCP Student in an Organized Health Care Education/Training Program; Referring Provider Family Medicine; Visit Provider Family Medicine
DX: E11.621 Type 2 diabetes mellitus with foot ulcer (principal); L08.9 Local infection of the skin and subcutaneous tissue, unspecified
CPT/HCPCS: 36415; 80053; 85651; 86140

== ENCOUNTER → 2021-10-09 10:57 | Outpatient (CLI) | payer OTHER, SELFPAY ==
[2020-10-28 11:39] VITALS: BMI 29.9
== END ==
PROVIDERS: Family Provider Orthopaedic Surgery Foot and Ankle Surgery; PCP Student in an Organized Health Care Education/Training Program; Referring Provider Orthopaedic Surgery Foot and Ankle Surgery; Visit Provider Family Medicine
DX: E11.621 Type 2 diabetes mellitus with foot ulcer (principal); L97.525 Non-pressure chronic ulcer of other part of left foot with muscle involvement without evidence of necrosis; L08.89 Other specified local infections of the skin and subcutaneous tissue; M20.12 Hallux valgus (acquired), left foot; E11.40 Type 2 diabetes mellitus with diabetic neuropathy, unspecified; R60.0 Localized edema; L53.9 Erythematous condition, unspecified
CPT/HCPCS: 15275; 99213; Q4110

== ENCOUNTER → 2021-10-31 14:43 | Outpatient (CLI) | payer OTHER, SELFPAY ==
[2020-10-28 11:39] VITALS: BMI 29.9
== END ==
PROVIDERS: Family Provider Orthopaedic Surgery Foot and Ankle Surgery; PCP Student in an Organized Health Care Education/Training Program; Referring Provider Student in an Organized Health Care Education/Training Program; Visit Provider Family Medicine
DX: E11.621 Type 2 diabetes mellitus with foot ulcer (principal); L97.522 Non-pressure chronic ulcer of other part of left foot with fat layer exposed; E11.40 Type 2 diabetes mellitus with diabetic neuropathy, unspecified; R60.0 Localized edema; M20.12 Hallux valgus (acquired), left foot
CPT/HCPCS: 11042; 99213

== ENCOUNTER → 2021-11-06 13:43 | Outpatient (CLI) | payer OTHER, SELFPAY ==
[2020-10-28 11:39] VITALS: BMI 29.9
== END ==
PROVIDERS: Family Provider Orthopaedic Surgery Foot and Ankle Surgery; PCP Student in an Organized Health Care Education/Training Program; Referring Provider Orthopaedic Surgery Foot and Ankle Surgery; Visit Provider Family Medicine
DX: E11.621 Type 2 diabetes mellitus with foot ulcer (principal); L97.522 Non-pressure chronic ulcer of other part of left foot with fat layer exposed; R60.0 Localized edema; E11.42 Type 2 diabetes mellitus with diabetic polyneuropathy; M20.12 Hallux valgus (acquired), left foot; Z89.422 Acquired absence of other left toe(s)
CPT/HCPCS: 11042; 87070; 87075; 87077; 87147; 87186; 87205

== ENCOUNTER → 2021-11-27 13:05 | Outpatient (CLI) | payer OTHER, SELFPAY ==
[2020-10-28 11:39] VITALS: BMI 29.9
== END ==
PROVIDERS: Family Provider Orthopaedic Surgery Foot and Ankle Surgery; PCP Student in an Organized Health Care Education/Training Program; Referring Provider Student in an Organized Health Care Education/Training Program; Visit Provider Family Medicine
DX: M20.12 Hallux valgus (acquired), left foot (principal); E11.40 Type 2 diabetes mellitus with diabetic neuropathy, unspecified; Z86.31 Personal history of diabetic foot ulcer
CPT/HCPCS: 99212; 99213

== ENCOUNTER 2021-12-12 21:20 | Emergency (ER) | payer OTHER, SELFPAY ==
[2020-10-28 11:39] VITALS: BMI 29.9
[2021-12-12 21:45] VITALS: BP 139/84; PULSE 92; RESP 18; TEMP 36.6; O2SAT 100
[2021-12-13 01:20] VITALS: BP 191/93; PULSE 94; RESP 18; TEMP 36.6; O2SAT 99
--- NOTE | 2021-12-13 01:30 | PC.NURSE ---
first pt encounter - assessment performed
--- NOTE | 2021-12-13 02:50 | ED_ITS ---
HPI - Extremity Problem General Chief complaint: Extremity Problem,Nontraumatic Stated complaint: thinks infected rt toe Time Seen by Provider: 12/13/21 01:24 Source: patient Mode of arrival: Ambulatory History of Present Illness HPI Narrative: 61-year-old male former smoker with history of diabetes and prior foot infections presents with a chief complaint of some drainage from his right great toe. He states that he noticed his toenail was a bit off colored a day or 2 ago and when he pressed it he noted clear liquid draining. He denies any significant swelling or redness. He denies any pain or increased numbness or tingling. He denies any red streaks or systemic complaints such as dizziness, weakness or lightheadedness nor fever or chills. Related Data Previous Rx's Medication Instructions Recorded insulin glargine 100 unit/mL (3 50 unit (0.5 mL) SUBCUT BEDTIME 12/20/20 mL) subcutaneous pen (Lantus #15 mL Solostar U-100 Insulin) pravastatin 20 mg tablet 20 mg PO BEDTIME #90 tabs 05/22/21 lisinopril 40 mg tablet 40 mg PO DAILY #90 tabs 06/09/21 glipizide 10 mg tablet, extended 10 mg PO DAILY #90 tabs 09/16/21 release 24 hr Allergies Allergy/AdvReac Type Severity Reaction Status Date / Time Penicillins Allergy Severe Rash Verified 08/31/21 15:24 Review of Systems Review of Systems Narrative: GENERAL: See HPI HEENT: Denies sinus pain, ear pain, sore throat, difficulty swallowing, dizziness. RESPIRATORY: Denies dyspnea, cough, wheezing, hemoptysis, sputum. CARDIOVASCULAR: Denies chest pain, palpitations, orthopnea, edema, GASTROINTESTINAL: Denies nausea, vomiting, abdominal pain, diarrhea, constipatio n, melena. : Denies dysuria, frequency, incontinence, hematuria, urinary retention. MUSCULOSKELETAL: See HPI SKIN: See HPI NEUROLOGIC: Denies weakness, headache, numbness, change in speech, confusion, seizures, incoordination. PSYCHIATRIC: No concerning psychosocial issues. 12 point review of systems is negative except for those stated above Patient History Medical History MRSA (methicillin resistant Staphylococcus aureus) (~2011) Type 2 diabetes mellitus (~2009) Zoster Surgical History Amputated toe of left foot (~2020) Anesthesia S/P arthroscopic surgery of left knee (~2013) Family History Mother Diabetes mellitus Brother Cancer Social History household members: significant other and none Smoking Status: Former smoker Smokeless tobacco user: chewing tobacco quit status: considering quitting alcohol intake: current Smoking Status: Former smoker tobacco type: smokeless tobacco alcohol intake frequency: holidays/special occasions only Substance Use Type: does not use Exam Narrative Exam Narrative: GENERAL: [61] year old patient appears stated age. Well-developed patient, in no obvious distress resting comfortably HEAD: Atraumatic. Normocephalic. EYES: Pupils equal round and reactive. Extraocular motions intact. No scleral icterus. No injection or drainage. ENT: Nose without bleeding, purulent drainage. Throat without erythema, tonsillar hypertrophy or exudate. Airway patent. NECK: Trachea midline. Non tender CARDIOVASCULAR: Regular rate and rhythm without murmurs, gallops, or rubs. RESPIRATORY: Clear to auscultation. Breath sounds equal bilaterally. No wheezes, rales, or rhonchi. GASTROINTESTINAL: Abdomen soft, non-tender, nondistended. EXTREMITIES: Right great toe nail is slightly discolored and lifted off the nail bed a bit, palpation expresses a very minimal amount of clear drainage which is cultured. No pain, swelling, redness, lymphangitis, no ulceration or break in the skin No edema or joint tenderness. BACK: Nontender without deformity or crepitance. No flank tenderness. NEURO: AOx3. SKIN: No rash or erythema of visible areas Initial Vital Signs Initial Vital Signs: Vital Signs Temperature 97.9 F 12/12/21 21:45 Pulse Rate 92 H 12/12/21 21:45 Respiratory Rate 18 12/12/21 21:45 Blood Pressure 139/84 12/12/21 21:45 Pulse Oximetry 100 12/12/21 21:45 Oxygen Delivery Method 12/12/21 21:45 Course Orders Ordered: ED Orders 12/13/21 02:45 Wound Culture and Gram Stain Stat Vital Signs Vital signs: Vital Signs - 8 hr 12/12/21 21:45 12/13/21 01:20 Temperature 97.9 F 97.8 F Pulse Rate 92 H 94 H Respiratory Rate 18 18 Blood Pressure 139/84 191/93 H Pulse Oximetry 100 99 Oxygen Delivery Method Room Air Room Air MDM - Extremity (Nontraumatic) MDM Narrative Medical decision making narrative: Patient has reassuring history and physical exam. No systemic findings, no break in the skin, redness, swelling or lymphangitis to sick backed deep space infection, osteomyelitis versus other. Wound was cultured. Patient states that he has doxycycline at home from earlier in the year and has sufficient 2. Complete course of antibiotics. He understands he will be contacted if cultured dictates change. Otherwise he has been instructed to follow closely with his care team. Return precautions discussed and questions answered to his apparent satisfaction Discharge Plan Departure Patient Disposition: Home Clinical Impression: Cellulitis Qualifiers: Site of cellulitis: extremity Site of cellulitis of extremity: toe Laterality: left Qualified Code(s): L03.032 - Cellulitis of left toe Instructions: DI for Wound Infection Activity Restrictions/Additional Instructions: *You have been diagnosed with [ Left great toe infection. ] *What to do: *Please start taking your Doxycycline 100mg twice daily until you follow up with Dr. Garza next week, unless the wound culture which we obtained tonight demonstrates the need for a switch *Return to Emergency Department if you should have any new, worsening or concerning symptoms Prescriptions: No Action pravastatin 20 mg tablet 20 mg PO BEDTIME Qty: 90 1RF glipizide 10 mg tablet extended release 24hr 10 mg PO DAILY Qty: 90 1RF Lantus Solostar U-100 Insulin 100 unit/mL (3 mL) insulin pen 50 unit SUBCUT BEDTIME Qty: 15 5RF lisinopril 40 mg tablet 40 mg PO DAILY Qty: 90 3RF Referrals: Edgardo Garza MD [Primary Care Provider] - Visit Report Forms: Patient Portal/API
[2021-12-13 02:57] VITALS: BP 191/90; PULSE 88; RESP 18; O2SAT 98
== END 2021-12-13 03:02 | disposition home or self-care (01) ==
PROVIDERS: Emergency Provider Emergency Medicine; Family Provider Orthopaedic Surgery Foot and Ankle Surgery; PCP Student in an Organized Health Care Education/Training Program
DX: L03.032 Cellulitis of left toe (principal)
CPT/HCPCS: 87070; 87075; 87147; 87205; 99281; 99282

== ENCOUNTER → 2021-12-18 13:43 | Outpatient (CLI) | payer OTHER, SELFPAY ==
[2020-10-28 11:39] VITALS: BMI 29.9
[2021-12-18 14:49] LABS: Add Manual Diff / Slide Review NO; Basophils Absolute Auto 100 /uL (0-100); Eosinophils Absolute Auto 200 /uL (0-450); Neutrophils Absolute Auto 4800 /uL (1500-7000); Platelet Count 228 X10^3/uL (150-400); White Blood Cell Count 7.3 X10^3/uL (4.5-11.0)
[2021-12-18 15:38] LABS: Prostate Specific Antigen Scrn 0.618 ng/mL (0.1-4.0)
[2021-12-18 16:38] LABS: Microalbumin Urine Random 2.1 mg/dL (0-1.6)
[2021-12-18 16:39] LABS: Creatinine Urine Random 144.8 mg/dL; Microalbumi Creatinin Ratio Ur 14.5 ug/mg CR (<30)
[2021-12-18 19:15] LABS: Basophils Percent Auto 0.8 % (0-2); Eosinophils Percent Auto 2.9 % (2-4); Hematocrit 36.6 % (41-53); Hemoglobin 12.3 g/dL (13.5-17.5); Lymphocytes Absolute Auto 1700 /uL (1100-4500); Lymphocytes Percent Auto 23.9 % (25-40); Mean Corpuscular HGB Conc 33.5 % (30-36); Mean Corpuscular Hemoglobin 27.6 PG (26-34); Mean Corpuscular Volume 82.3 fL (80-100); Monocytes Absolute Auto 500 /uL (0-900); Monocytes Percent Auto 7.1 % (3-14); Neutrophils Percent Auto 65.3 % (50-75); Red Blood Cell Count 4.45 X10^6/uL (4.5-5.9); Red Cell Distribution Width 14.4 % (11.6-14.8)
[2021-12-18 19:44] LABS: Hemoglobin A1C% w Est Avg Glu 6.8 % (4.0-6.0)
== END ==
PROVIDERS: Family Provider Orthopaedic Surgery Foot and Ankle Surgery; PCP Student in an Organized Health Care Education/Training Program; Referring Provider Family Medicine; Visit Provider Family Medicine
DX: Z12.5 Encounter for screening for malignant neoplasm of prostate (principal); E11.65 Type 2 diabetes mellitus with hyperglycemia; I10 Essential (primary) hypertension; Z79.4 Long term (current) use of insulin; E11.621 Type 2 diabetes mellitus with foot ulcer; L08.9 Local infection of the skin and subcutaneous tissue, unspecified
CPT/HCPCS: 36415; 82043; 82570; 83036; 85025; G0103

== ENCOUNTER → 2022-06-27 08:06 | Outpatient (CLI) | payer OTHER, SELFPAY ==
[2020-10-28 11:39] VITALS: BMI 29.9
[2022-06-27 09:49] LABS: Cholesterol 254 mg/dL (140-199); HDL Cholesterol 37 mg/dL (40-60); LDL Cholesterol Calculated 183 mg/dL (<100); Triglycerides 171 mg/dL (35-150)
[2022-06-28 16:40] LABS: Hep C Virus Ab w/Reflex Quant NEGATIVE s/c (NEGATIVE)
== END ==
PROVIDERS: Family Provider Orthopaedic Surgery Foot and Ankle Surgery; PCP Student in an Organized Health Care Education/Training Program; Referring Provider Student in an Organized Health Care Education/Training Program; Visit Provider Student in an Organized Health Care Education/Training Program
DX: E11.65 Type 2 diabetes mellitus with hyperglycemia (principal); Z79.4 Long term (current) use of insulin; Z11.59 Encounter for screening for other viral diseases; Z91.89 Other specified personal risk factors, not elsewhere classified; E11.69 Type 2 diabetes mellitus with other specified complication; E78.5 Hyperlipidemia, unspecified
CPT/HCPCS: 36415; 80061; 83036; 86803

== ENCOUNTER → 2023-02-22 16:41 | Outpatient (CLI) | payer OTHER, SELFPAY ==
[2020-10-28 11:39] VITALS: BMI 29.9
[2023-02-22 18:08] LABS: Add Manual Diff / Slide Review NO; Basophils Absolute Auto 100 /uL (0-100); Basophils Percent Auto 0.7 % (0-2); Eosinophils Absolute Auto 200 /uL (0-450); Eosinophils Percent Auto 2.6 % (2-4); Hematocrit 42.6 % (41-53); Hemoglobin 14.6 g/dL (13.5-17.5); Lymphocytes Absolute Auto 1900 /uL (1100-4500); Lymphocytes Percent Auto 22.6 % (25-40); Mean Corpuscular HGB Conc 34.4 % (30-36); Mean Corpuscular Volume 81.4 fL (80-100); Monocytes Absolute Auto 500 /uL (0-900); Monocytes Percent Auto 5.9 % (3-14); Neutrophils Absolute Auto 5600 /uL (1500-7000); Neutrophils Percent Auto 68.2 % (50-75); Platelet Count 228 X10^3/uL (150-400); Red Blood Cell Count 5.24 X10^6/uL (4.5-5.9); Red Cell Distribution Width 13.5 % (11.6-14.8); White Blood Cell Count 8.2 X10^3/uL (4.5-11.0)
[2023-02-22 18:15] LABS: Creatinine Urine Random 72.4 mg/dL
[2023-02-22 18:16] LABS: Hemoglobin A1C% w Est Avg Glu 12.8 % (4.0-6.0)
[2023-02-22 18:19] LABS: Microalbumi Creatinin Ratio Ur 8.2 ug/mg CR (<30); Microalbumin Urine Random 0.6 mg/dL (0-1.6)
[2023-02-22 18:29] LABS: Alanine Aminotransferase 19 IU/L (<50); Albumin Globulin Ratio 1.5 (1.0-2.8); Alkaline Phosphatase 103 U/L (38-126); Aspartate Aminotransferase 17 IU/L (17-59); BUN Creatinine Ratio 17.9 (6-22); Bilirubin Total 0.6 mg/dL (0.2-1.3); Blood Urea Nitrogen 19 mg/dL (9-20); Calcium 9.1 mg/dL (8.4-10.2); Carbon Dioxide 27 mmol/L (22-32); Chloride 100 mmol/L (98-107); Cholesterol 248 mg/dL (140-199); Estimated Glomerular Filt Rate > 60 mL/min (>60); Globulin 2.7 g/dL (1.7-4.1); Glucose 427 mg/dL (80-110); HDL Cholesterol 40 mg/dL (40-60); HEMOLYSIS < 15 (0-50); LDL Cholesterol Calculated 161 mg/dL (<100); Potassium 4.7 mmol/L (3.4-5.1); Sodium 135 mmol/L (137-145); Total Protein 6.7 g/dL (6.3-8.2); Triglycerides 234 mg/dL (35-150)
[2023-02-22 18:59] LABS: Prostate Specific Antigen 0.621 ng/mL (0.10-4.00)
== END ==
PROVIDERS: Family Provider Orthopaedic Surgery Foot and Ankle Surgery; PCP Family Medicine; Referring Provider Family Medicine; Visit Provider Family Medicine
DX: Z12.5 Encounter for screening for malignant neoplasm of prostate (principal); E11.9 Type 2 diabetes mellitus without complications; E11.69 Type 2 diabetes mellitus with other specified complication; E78.5 Hyperlipidemia, unspecified; E11.40 Type 2 diabetes mellitus with diabetic neuropathy, unspecified
CPT/HCPCS: 36415; 80053; 80061; 82043; 82570; 83036; 84153; 85025

== ENCOUNTER → 2023-05-24 16:42 | Outpatient (CLI) | payer OTHER, SELFPAY ==
[2020-10-28 11:39] VITALS: BMI 29.9
[2023-05-24 17:33] LABS: Hemoglobin A1C% w Est Avg Glu 12.4 % (4.0-6.0)
== END ==
PROVIDERS: Family Provider Orthopaedic Surgery Foot and Ankle Surgery; PCP Family Medicine; Referring Provider Family Medicine; Visit Provider Family Medicine
DX: E11.9 Type 2 diabetes mellitus without complications (principal)
CPT/HCPCS: 36415; 83036

== ENCOUNTER → 2024-02-24 14:05 | Outpatient (CLI) | payer OTHER, SELFPAY ==
[2020-10-28 11:39] VITALS: BMI 29.9
[2024-02-24 15:43] LABS: Hemoglobin 14.6 g/dL (13.5-17.5); Mean Corpuscular Hemoglobin 28.1 PG (26-34); Mean Corpuscular Volume 82.6 fL (80-100); Platelet Count 210 X10^3/uL (150-400); Red Cell Distribution Width 13.6 % (11.6-14.8); White Blood Cell Count 9.3 X10^3/uL (4.5-11.0)
[2024-02-24 16:02] LABS: Hemoglobin A1C% w Est Avg Glu 12.1 % (4.0-6.0)
[2024-02-24 16:06] LABS: Alanine Aminotransferase 22 IU/L (<50); Albumin 4.2 g/dL (3.5-5.0); Albumin Globulin Ratio 1.4 (1.0-2.8); Alkaline Phosphatase 113 U/L (38-126); Aspartate Aminotransferase 24 IU/L (17-59); BUN Creatinine Ratio 16.8 (6-22); Bilirubin Total 0.6 mg/dL (0.2-1.3); Blood Urea Nitrogen 18 mg/dL (9-20); Calcium 9.5 mg/dL (8.4-10.2); Carbon Dioxide 30 mmol/L (22-32); Chloride 100 mmol/L (98-107); Cholesterol 188 mg/dL (140-199); Estimated Glomerular Filt Rate > 60 mL/min (>60); Globulin 2.9 g/dL (1.7-4.1); Glucose 322 mg/dL (80-110); HDL Cholesterol 44 mg/dL (40-60); HEMOLYSIS < 15 (0-50); LDL Cholesterol Calculated 125 mg/dL (<100); Sodium 137 mmol/L (137-145); Total Protein 7.1 g/dL (6.3-8.2); Triglycerides 97 mg/dL (35-150)
[2024-02-24 16:37] LABS: Prostate Specific Antigen Scrn 0.553 ng/mL (0.1-4.0)
[2024-02-24 16:58] LABS: HIV 1 & 2 Ab/Ag 4th Gen Combo NEGATIVE (NEGATIVE)
== END ==
PROVIDERS: Family Provider Orthopaedic Surgery Foot and Ankle Surgery; PCP Family Medicine; Referring Provider Family Medicine; Visit Provider Family Medicine
DX: Z12.5 Encounter for screening for malignant neoplasm of prostate; E11.40 Type 2 diabetes mellitus with diabetic neuropathy, unspecified; I10 Essential (primary) hypertension
CPT/HCPCS: 36415; 80053; 80061; 83036; 85027; 87389; G0103

== ENCOUNTER → 2024-05-26 11:16 | Outpatient (CLI) | payer OTHER, SELFPAY ==
[2020-10-28 11:39] VITALS: BMI 29.9
[2024-05-26 12:38] LABS: Hemoglobin A1C% w Est Avg Glu 11.4 % (4.0-6.0)
[2024-05-26 12:51] LABS: BUN Creatinine Ratio 18.8 (6-22); Blood Urea Nitrogen 19 mg/dL (9-20); Calcium 9.6 mg/dL (8.4-10.2); Carbon Dioxide 25 mmol/L (22-32); Chloride 106 mmol/L (98-107); Cholesterol 196 mg/dL (140-199); Estimated Glomerular Filt Rate > 60 mL/min (>60); Glucose 152 mg/dL (80-110); HDL Cholesterol 42 mg/dL (40-60); HEMOLYSIS < 15 (0-50); LDL Cholesterol Calculated 127 mg/dL (<100); Sodium 141 mmol/L (137-145); Triglycerides 137 mg/dL (35-150)
[2024-05-26 14:08] LABS: Creatinine Urine Random 82.27 mg/dL
[2024-05-26 14:09] LABS: Microalbumin Urine Random 1.8 mg/dL (0-1.6)
== END ==
PROVIDERS: Family Provider Orthopaedic Surgery Foot and Ankle Surgery; PCP Family Medicine; Referring Provider Family Medicine; Visit Provider Family Medicine
DX: E11.40 Type 2 diabetes mellitus with diabetic neuropathy, unspecified (principal); E11.69 Type 2 diabetes mellitus with other specified complication; E11.319 Type 2 diabetes mellitus with unspecified diabetic retinopathy without macular edema; E78.5 Hyperlipidemia, unspecified; I10 Essential (primary) hypertension
CPT/HCPCS: 36415; 80048; 80061; 82043; 82570; 83036

== ENCOUNTER 2024-06-12 15:50 | Emergency (ER) | payer OTHER, SELFPAY ==
[2020-10-28 11:39] VITALS: BMI 29.9
[2024-06-12 16:40] VITALS: BP 92/60; PULSE 100; RESP 18; TEMP 36.8; O2SAT 98; BMI 31.5
--- NOTE | 2024-06-12 16:44 | DI.RAD.S_ITS ---
PROCEDURE: XR TOE RT MIN 2V INDICATIONS: da silva toenail with reddness surrounding TECHNIQUE: 3 views of the 1st toe(s) acquired. COMPARISON: None. FINDINGS: Bones: No fractures or dislocations. Osteoarthritic changes are noted throughout right foot more notably at 1st MTP joint and 1st interphalangeal joint. No bony erosive changes. No suspicious bony lesions. Soft tissues: Soft tissue swelling around distal portion of great toe is seen. No suspicious soft tissue densities. IMPRESSION: Distal great to soft tissue swelling. No acute fracture or dislocation. No radiographic evidence of osteomyelitis. Great toe osteoarthritis. Dictated by: Chino Dubon M.D. on 06/12/2024 at 17:52 Approved by: Chino Dubon M.D. on 06/12/2024 at 17:53
[2024-06-12 21:28] VITALS: PULSE 86; O2SAT 97
[2024-06-12 21:30] VITALS: BP 152/94; PULSE 86; O2SAT 96
--- NOTE | 2024-06-12 21:47 | ED.LOWEXIN ---
HPI - Extremity Injury (Lower) General Chief Complaint: Extremity Injury, Lower Stated Complaint: hx foot/toe problems, toe is da silva and swollen Time Seen by Provider: 06/12/24 18:04 Source: patient Mode of arrival: Ambulatory History of Present Illness HPI Narrative: 64-year-old gentleman with a history of diabetes has already had partial amputation of 1 toe, and care extended for infection with another toe, significant peripheral neuropathy comes in concerned that his right great toe is more red. In looking at the toenail it looks like he does have a subungual hematoma he does not recall actually injuring it. He has no pain but has minimal sensation at baseline. No fevers, no lymphangitic streaking no other complaints Related Data Previous Rx's Medication Instructions Recorded atorvastatin 40 mg tablet (Lipitor) 40 mg PO DAILY cholesterol #90 tabs 02/22/23 insulin glargine 100 unit/mL (3 50 unit (0.5 mL) SUBCUT BEDTIME 02/22/23 mL) subcutaneous pen (Lantus #15 mL Solostar U-100 Insulin) glipizide 10 mg tablet 10 mg PO BID diabetes #180 tabs 02/26/23 pioglitazone 30 mg tablet (Actos) 30 mg PO DAILY #90 tabs 05/24/23 empagliflozin 10 mg tablet 10 mg PO DAILY #90 tabs 05/29/23 (Jardiance) levofloxacin 750 mg tablet 750 mg PO DAILY #7 tabs 06/12/24 Allergies Allergy/AdvReac Type Severity Reaction Status Date / Time Penicillins Allergy Severe Rash Verified 05/26/24 10:54 Review of Systems Review of Systems Narrative: Pertinent positive and negative findings as per HPI Patient History Medical History Diabetic neuropathy Zoster MRSA (methicillin resistant Staphylococcus aureus) (~2011) Type 2 diabetes mellitus (~2009) Surgical History Anesthesia Amputated toe of left foot (~2020) S/P arthroscopic surgery of left knee (~2013) Family History Mother Diabetes mellitus Brother Cancer Social History household members: significant other and none Smokeless tobacco user: chewing tobacco quit status: considering quitting alcohol intake: current tobacco type: smokeless tobacco alcohol intake frequency: holidays/special occasions only Exam Initial Vital Signs Initial Vital Signs: Vital Signs Temperature 98.2 F 06/12/24 16:40 Pulse Rate 100 H 06/12/24 16:40 Respiratory Rate 18 06/12/24 16:40 Blood Pressure 92/60 06/12/24 16:40 Pulse Oximetry 98 06/12/24 16:40 Oxygen Delivery Method Room Air 06/12/24 16:40 General: Alert appropriate in no acute distress Respiratory: Able to speak in full sentences, no obvious respiratory distress Skin: No obvious rashes, warm and dry Neurologic: Grossly intact no obvious asymmetries or abnormalities Psych: appropriate insight and affect, cooperative Extremity: Feet are quite well cared for. The right great toe is erythematous around the cuticle without lymphangitic streaking. He does have a subungual hematoma. Course Orders Ordered: ED Orders 06/12/24 16:44 XR toe RT min 2V Stat Vital Signs Vital signs: Vital Signs - 8 hr 06/12/24 16:40 Temperature 98.2 F Pulse Rate 100 H Respiratory Rate 18 Blood Pressure 92/60 Pulse Oximetry 98 Oxygen Delivery Method Room Air MDM - Extremity Injury (Lower) MDM Narrative Medical decision making narrative: 64-year-old gentleman with diabetes peripheral neuropathy and prior significant feet and toe infections. When he went to bed last night his right great toe looked normal and this morning he noticed that the toenail was more da silva and the cuticle area was more red. No fevers or pain. He does not remember any specific trauma X-ray of the toe does not suggest fracture or dislocation but does note some soft tissue edema On exam, the toenail is held on only by old cuticle tissue. It is removed by gently pulling. No pain. There was some blood underneath that was sent for culture. There was no extra bleeding once the nail itself was removed. Bacitracin was placed over the nail bed, dressing was placed. Still significant turn for infection. We will start him on levofloxacin, initial dose given in the emergency department and prescription for 7 additional days of sent to his pharmacy. He very clearly understands the need to closely watch his feet and understands when he needs to return to the emergency department. At this point there was no indication for additional blood work or imaging and he is safe for discharge Discharge Plan Departure Patient Disposition: Home Clinical Impression: Subungual hematoma Avulsed toenail Qualifiers: Encounter type: initial encounter Qualified Code(s): S91.209A - Unspecified open wound of unspecified toe(s) with damage to nail, initial encounter Cellulitis Qualifiers: Site of cellulitis: extremity Site of cellulitis of extremity: toe Laterality: right Qualified Code(s): L03.031 - Cellulitis of right toe Instructions: DI for Diabetic Foot Ulcer Activity Restrictions/Additional Instructions: Thank you for coming in today, I am very glad that you are paying such close attention to your feet, they otherwise look quite healthy. It does look like he stubbed your toe on something, there was a bit of blood under the toenail in the toenail itself was completely detached from the nail bed. I gently removed it from the skin surrounding it. I did culture the bit of debris and blood that was underneath the nail I suspect that you are developing an infection and are certainly at very high risk for diabetic foot infection. Because of that I am going to suggest a week of antibiotics. First dose of levofloxacin was given in the emergency department. Remainder of the prescription was sent to [facility] in [place]. Please keep topical antibiotic ointment over the nail bed until it has healed. If you notice increasing pain, drainage, redness or any swelling going up your leg you need to be seen immediately Prescriptions: New levofloxacin 750 mg tablet 750 mg PO DAILY Qty: 7 0RF No Action glipizide 10 mg tablet 10 mg PO BID Qty: 180 3RF Rx Instructions: must take with meals Jardiance 10 mg tablet 10 mg PO DAILY Qty: 90 3RF pioglitazone [Actos] 30 mg tablet 30 mg PO DAILY Qty: 90 3RF Lantus Solostar U-100 Insulin 100 unit/mL (3 mL) insulin pen 50 unit SUBCUT BEDTIME Qty: 15 11RF atorvastatin [Lipitor] 40 mg tablet 40 mg PO DAILY Qty: 90 3RF Referrals: Shaun Long DO [Primary Care Provider] - Stand Alone Forms: Patient Portal/API/Survey
[2024-06-12] MEDS: BACITRACIN OINT 0.9 GM PCKT 5 APPLIC TOP (21:53)
[2024-06-12] MEDS: levoFLOXacin 250 MG TABLET 750 MG PO (21:53)
[2024-06-12 21:56] VITALS: BP 170/98; PULSE 90; O2SAT 99
== END 2024-06-12 22:11 | disposition home or self-care (01) ==
PROVIDERS: Emergency Provider Emergency Medicine; Family Provider Orthopaedic Surgery Foot and Ankle Surgery; PCP Family Medicine
DX: S91.201A Unspecified open wound of right great toe with damage to nail, initial encounter (principal); L03.031 Cellulitis of right toe; E11.42 Type 2 diabetes mellitus with diabetic polyneuropathy; X58.XXXA Exposure to other specified factors, initial encounter
CPT/HCPCS: 73660; 87070; 87075; 87147; 87205; 99283

== ENCOUNTER → 2024-11-09 15:45 | Outpatient (CLI) | payer OTHER, SELFPAY ==
[2020-10-28 11:39] VITALS: BMI 29.9
[2024-11-09 16:57] LABS: Hemoglobin A1C% w Est Avg Glu 11.1 % (4.0-6.0)
[2024-11-09 17:22] LABS: Cholesterol 184 mg/dL (140-199); HDL Cholesterol 55 mg/dL (40-60); Triglycerides 156 mg/dL (35-150)
== END ==
PROVIDERS: PCP Family Medicine; Referring Provider Family Medicine; Visit Provider Family Medicine
DX: E11.65 Type 2 diabetes mellitus with hyperglycemia (principal); Z79.4 Long term (current) use of insulin; E11.69 Type 2 diabetes mellitus with other specified complication
CPT/HCPCS: 36415; 80061; 83036

== ENCOUNTER 2024-11-20 14:02 | Emergency (ER) | payer OTHER, SELFPAY ==
[2020-10-28 11:39] VITALS: BMI 29.9
[2024-11-20 14:21] VITALS: BP 114/78; PULSE 98; RESP 16; TEMP 36.4; O2SAT 96; BMI 30.2
--- NOTE | 2024-11-20 14:30 | DI.RAD.S_ITS ---
PROCEDURE: XR CHEST 1V INDICATIONS: Shortness of breath TECHNIQUE: One view of the chest was acquired. COMPARISON: , , XR CHEST FOR PICC 1V, 10/26/2020, 9:49. FINDINGS: Surgical changes and devices: None. Lungs and pleura: Prominent interstitial markings. Low lung volumes. No pleural effusions or pneumothorax. Mediastinum: Mediastinal contours appear normal. Heart size is normal. Bones and chest wall: No suspicious bony lesions. Overlying soft tissues appear unremarkable. IMPRESSION: Prominent interstitial markings concerning for pulmonary edema. Recommend clinical correlation. Dictated by: Alcieds Bauer M.D. on 11/20/2024 at 16:00 Approved by: Alcides Bauer M.D. on 11/20/2024 at 16:02
[2024-11-20 14:53] LABS: Alanine Aminotransferase 28 IU/L (<50); Albumin 4.0 g/dL (3.5-5.0); Albumin Globulin Ratio 1.3 (1.0-2.8); Alkaline Phosphatase 111 U/L (38-126); Blood Urea Nitrogen 22 mg/dL (9-20); Calcium 8.7 mg/dL (8.4-10.2); Carbon Dioxide 28 mmol/L (22-32); Chloride 102 mmol/L (98-107); Estimated Glomerular Filt Rate > 60 mL/min (>60); Globulin 3.1 g/dL (1.7-4.1); Glucose 335 mg/dL (70-99); HEMOLYSIS < 15 (0-50); Potassium 3.9 mmol/L (3.4-5.1); Sodium 139 mmol/L (137-145); Total Protein 7.1 g/dL (6.3-8.2)
[2024-11-20 14:54] LABS: Lactate (Lactic Acid) 1.0 mmol/L (0.7-2.1)
[2024-11-20 14:55] LABS: Add Manual Diff / Slide Review NO; Hematocrit 37.8 % (41-53); Hemoglobin 12.5 g/dL (13.5-17.5); Lymphocytes Absolute Auto 1400 /uL (1100-4500); Mean Corpuscular HGB Conc 32.9 % (30-36); Mean Corpuscular Hemoglobin 27.4 PG (26-34); Mean Corpuscular Volume 83.3 fL (80-100); Platelet Count 339 X10^3/uL (150-400)
[2024-11-20 14:57] LABS: INR 1.1 (0.9-1.3); Prothrombin Time 13.0 SECONDS (9.4-12.5)
[2024-11-20 15:07] LABS: NT-proBNP (BNP-Adult 18+) 5280 pg/mL (<125)
[2024-11-20 15:08] LABS: Troponin I 1.980 ng/mL (0.01-0.034)
--- NOTE | 2024-11-20 15:32 | EKG_ITS ---
[facility] [address] [place] [id number] Test Date: 2024-11-20 Pat Name: [facility] Department: [facility] Room: Gender: Male Processing Assistant: NICO : 1960 Requested By: Order Number: [id number] Reading MD: Bhavesh Saldana MD Measurements Intervals [place] Rate: 94 P: 7 RI: 146 QRS: 18 QRSD: 110 T: 44 QT: 382 QTc: 477 Interpretive Statements Normal sinus rhythm Inferior infarct , age undetermined Anterolateral infarct , age undetermined Electronically Signed On 11-20-2024 16:37:18 PDT by Bhavesh Saldana MD
--- NOTE | 2024-11-20 15:42 | ED.GENADULT ---
HPI - General Adult General Chief complaint: Shortness of Breath/Dyspnea Stated complaint: Having a hard time breathing Time Seen by Provider: 11/20/24 15:05 History of Present Illness HPI narrative: 64-year-old gentleman with a history of diabetes hypertension hyperlipidemia comes in with 3 days of exertional dyspnea and orthopnea. No chest pain or palpitations. No nausea, vomiting, fevers or chills Related Data Previous Rx's ?Medication ?Instructions ?Recorded insulin glargine 100 unit/mL (3 50 unit (0.5 mL) SUBCUT BEDTIME 02/22/23 mL) subcutaneous pen (Lantus #15 mL Solostar U-100 Insulin) glipizide 10 mg tablet 10 mg PO BID diabetes #180 tabs 02/26/23 pioglitazone 30 mg tablet (Actos) 30 mg PO DAILY #90 tabs 05/24/23 empagliflozin 10 mg tablet 10 mg PO DAILY #90 tabs 05/29/23 (Jardiance) atorvastatin 80 mg tablet (Lipitor) 80 mg PO BEDTIME cholesterol #100 11/10/24 tabs semaglutide 0.25 mg or 0.5 mg (2 0.25 mg (0.368 mL) SUBCUT QWEEK #3 11/10/24 mg/3 mL) subcutaneous pen injector mL (Ozempic) Allergies Allergy/AdvReac Type Severity Reaction Status Date / Time Penicillins Allergy Severe Rash Verified 11/10/24 08:11 Review of Systems Review of Systems Narrative: Pertinent positive and negative findings as per HPI Patient History Medical History Hyperlipidemia, unspecified Diabetic neuropathy Zoster MRSA (methicillin resistant Staphylococcus aureus) (~2011) Type 2 diabetes mellitus (~2009) Surgical History Anesthesia Amputated toe of left foot (~2020) S/P arthroscopic surgery of left knee (~2013) Family History Mother Diabetes mellitus Brother Cancer Social History household members: significant other and none Smokeless tobacco user: chewing tobacco quit status: considering quitting alcohol intake: current tobacco type: smokeless tobacco alcohol intake frequency: holidays/special occasions only Exam Initial Vital Signs Initial Vital Signs: Vital Signs Temperature 97.6 F 11/20/24 14:21 Pulse Rate 98 H 11/20/24 14:21 Respiratory Rate 16 11/20/24 14:21 Blood Pressure 114/78 11/20/24 14:21 Pulse Oximetry 96 11/20/24 14:21 Oxygen Delivery Method Room Air 11/20/24 14:21 General: Slightly pale, in no acute distress. Able to give a complete and coherent history. Well-nourished well-developed HEENT: Moist mucous membranes, normal sclera with reactive pupils, Neck: No JVD, Respiratory: Lungs with basilar rales, minor scattered wheeze, no rhonchi Cardiac: Regular rate and rhythm no murmurs no bruits Abdomen: Soft, nontender, no rebound or guarding, no flank pain Skin: Warm and dry, no rashes Neurologic: Grossly neurologically intact with no obvious asymmetries or abnormalities Extremities: No trauma, 1+ bilateral lower extremity edema Psych: Cooperative, appropriate insight and affect Course Orders Ordered: ED Orders 11/20/24 14:30 XR chest 1V Stat EKG-12 Lead Stat Measure peak expiratory flow STAT RT Consult Eval and Treat STAT 11/20/24 14:31 Complete Blood Count AUTO DIFF Stat Comprehensive Metabolic Panel Stat Lactate (Lactic Acid) Stat NT-proBNP (BNP-Adult 18+) Stat Prothrombin Time INR Stat Troponin I Stat Discontinued Medications Heparin Sodium (Porcine) (Heparin 5,000 Unit/Ml Vial) 5,500 unit 60 unit/kg (5500 unit) IV NOW ONE Stop: 11/20/24 15:42 Heparin Sodium/Dextrose (Heparin Drip) 25,000 unit in 500 mls @ 22.97 mls/hr IV CONT APURVA; Protocol Vital Signs Vital signs: Vital Signs - 8 hr 11/20/24 14:21 Temperature 97.6 F Pulse Rate 98 H Respiratory Rate 16 Blood Pressure 114/78 Pulse Oximetry 96 Oxygen Delivery Method Room Air Medical Decision Making Lab Data 11/20/24 14:31 11/20/24 14:31 Labs: Lab Results 11/20/24 Range/Units 14:31 WBC 8.4 (4.5-11.0) X10^3/uL RBC 4.54 (4.5-5.9) X10^6/uL Hgb 12.5 L (13.5-17.5) g/dL Hct 37.8 L (41-53) % MCV 83.3 (80-100) fL MCH 27.4 (26-34) PG MCHC 32.9 (30-36) % RDW 13.7 (11.6-14.8) % Plt Count 339 (150-400) X10^3/uL Neut % (Auto) 73.3 (50-75) % Lymph % (Auto) 17.0 L (25-40) % Major % (Auto) 6.3 (3-14) % Eos % (Auto) 2.0 (2-4) % Baso % (Auto) 1.4 (0-2) % Neut # (Auto) 6200 (1953-9613) /uL Lymph # (Auto) 1400 (0069-2197) /uL Major # (Auto) 500 (0-900) /uL Eos # (Auto) 200 (0-450) /uL Baso # (Auto) 100 (0-100) /uL PT 13.0 H (9.4-12.5) SECONDS INR 1.1 (0.9-1.3) Sodium 139 (137-145) mmol/L Potassium 3.9 (3.4-5.1) mmol/L Chloride 102 (98-107) mmol/L Carbon Dioxide 28 (22-32) mmol/L BUN 22 H (9-20) mg/dL Creatinine 0.89 (0.66-1.25) mg/dL Estimated GFR > 60 (>60) mL/min BUN/Creatinine Ratio 24.7 H (6-22) Glucose 335 H (70-99) mg/dL Lactate 1.0 (0.7-2.1) mmol/L Calcium 8.7 (8.4-10.2) mg/dL Total Bilirubin 0.5 (0.2-1.3) mg/dL AST 24 (17-59) IU/L ALT 28 (<50) IU/L Alkaline Phosphatase 111 (38-126) U/L Troponin I 1.980 H* (0.01-0.034) ng/mL NT-Pro-B Natriuret Pep 5280 H (<125) pg/mL Total Protein 7.1 (6.3-8.2) g/dL Albumin 4.0 (3.5-5.0) g/dL Globulin 3.1 (1.7-4.1) g/dL Albumin/Globulin Ratio 1.3 (1.0-2.8) MDM Narrative Medical decision making narrative: 64-year-old gentleman with extraordinary risk factors for coronary artery disease 3 days of exertional dyspnea Labs are notable for troponin positive with 1.980, BNP is elevated at [address]-elevation with Q-waves suggesting evolving infarct Patient is chest pain-free. Spleen him he was having an NSTEMI needed to be admitted and reviewed all of the steps for that including eventual transfer and heart catheterization. 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 He declined additional workup including heparin and asked to leave against medical advice. We very clearly reviewed the risk of , sudden , the fact that he could not care for his mother at all if he was not alive in the 1st place, significant cardiac disability and multiple other negative side effects of leaving against medical advice. He remained very clear that he would leave. I made it very clear that I was concerned and would happily welcome him back at any time and encouraged him to return Against Medical Advice forms were signed Discharge Plan Departure Patient Disposition: Left Against Medical Advice Clinical Impression: Patient left before treatment completed, Acute non-ST elevation myocardial infarction (NSTEMI), New onset of congestive heart failure Prescriptions: No Action glipizide 10 mg tablet 10 mg PO BID Qty: 180 3RF Rx Instructions: must take with meals Jardiance 10 mg tablet 10 mg PO DAILY Qty: 90 3RF pioglitazone [Actos] 30 mg tablet 30 mg PO DAILY Qty: 90 3RF Lantus Solostar U-100 Insulin 100 unit/mL (3 mL) insulin pen 50 unit SUBCUT BEDTIME Qty: 15 11RF atorvastatin [Lipitor] 80 mg tablet 80 mg PO BEDTIME Qty: 100 3RF Ozempic 0.25 mg or 0.5 mg (2 mg/3 mL) pen injector 0.25 mg SUBCUT QWEEK Qty: 3 11RF Rx Instructions: for 4 weeks, then 0.5 mg weekly. Referrals: Shaun Long DO [Primary Care Provider, Family Practice] Stand Alone Forms: Patient Portal/API, Against Med. Advice (Citizen Of [place])
== END 2024-11-20 16:00 | disposition left against medical advice (07) ==
PROVIDERS: Emergency Medicine; Emergency Provider Emergency Medicine; PCP Family Medicine
DX: I21.4 Non-ST elevation (NSTEMI) myocardial infarction (principal); I50.9 Heart failure, unspecified; E11.9 Type 2 diabetes mellitus without complications; Z79.4 Long term (current) use of insulin; R79.89 Other specified abnormal findings of blood chemistry
CPT/HCPCS: 36415; 71045; 80053; 83605; 83880; 84484; 85025; 85610; 93005; 99283

== ENCOUNTER 2024-11-20 17:36 | Emergency (ER) | payer OTHER, SELFPAY ==
[2020-10-28 11:39] VITALS: BMI 29.9
[2024-11-20] VITALS (15 sets, daily range): BP systolic 117–150; BP diastolic 79–104; PULSE 91–103; RESP 16–38; TEMP 36.6; O2SAT 92–99; BMI 30.2
--- NOTE | 2024-11-20 18:04 | ED_ITS ---
HPI - General Adult <Mary Ramsey MD - Last Filed: 11/21/24 16:12> General Chief complaint: Shortness of Breath/Dyspnea Stated complaint: Rechecking in for heart issues Time Seen by Provider: 11/20/24 17:54 History of Present Illness HPI narrative: 64-year-old gentleman with a history of diabetes, hypertension, hyperlipidemia who presented earlier today complaining of 3 days of acute dyspnea was found have acute ST elevations anteriorly on EKG with positive troponin elevated BNP, not having any chest pain, at the time heparin and transfer to facility with cardiac catheterization availability was recommended. Patient stated that he absolutely could not stay in the hospital, you need to take his mother home and signed out Against Medical Advice. He came back approximately 3 hours later. No new complaints, no exertional dyspnea, no palpitations or chest pain. Still sitting upright and uncomfortable with dyspnea with any type of leaning back. No fevers, cough, chills. Related Data Previous Rx's ?Medication ?Instructions ?Recorded insulin glargine 100 unit/mL (3 50 unit (0.5 mL) SUBCU T BEDTIME 02/22/23 mL) subcutaneous pen (Lantus #15 mL Solostar U-100 Insulin) glipizide 10 mg tablet 10 mg PO BID diabetes #180 t abs 02/26/23 pioglitazone 30 mg tablet (Actos) 30 mg PO DAILY #90 t abs 05/24/23 empagliflozin 10 mg tablet 10 mg PO DAILY #90 tabs 05/18 (Jardiance) atorvastatin 80 mg tablet (Lipitor) 80 mg PO BEDTIME c holesterol #100 11/10/24 tabs semaglutide 0.25 mg or 0.5 mg (2 0.25 mg (0.368 mL) MASTERS BCUT QWEEK #3 11/10/24 mg/3 mL) subcutaneous pen injector mL (Ozempic) Allergies Allergy/AdvReac Type Severity Reaction Status Date / Time Penicillins Allergy Severe Rash Verified 11/10/24 08:11 Review of Systems <Mary Ramsey MD - Last Filed: 11/21/24 16:12> Review of Systems Narrative: Pertinent positive and negative findings as per HPI Patient History <Mary Ramsey MD - Last Filed: 11/21/24 16:12> Medical History (Updated 11/20/24 @ 23:17 by Mary Ramsey MD) STEMI (ST elevation myocardial infarction) Hyperlipidemia, unspecified Diabetic neuropathy Zoster MRSA (methicillin resistant Staphylococcus aureus) (~2011) Type 2 diabetes mellitus (~2009) Surgical History Anesthesia Amputated toe of left foot (~2020) S/P arthroscopic surgery of left knee (~2013) Family History Mother Diabetes mellitus Brother Cancer Social History household members: significant other and none Smokeless tobacco user: chewing tobacco quit status: considering quitting alcohol intake: current tobacco type: smokeless tobacco alcohol intake frequency: holidays/special occasions only Exam <Mary Ramsey MD - Last Filed: 11/21/24 16:12> Initial Vital Signs Initial Vital Signs: Vital Signs Temperature 97.8 F 11/20/24 17:42 Pulse Rate 103 H 11/20/24 17:42 Respiratory Rate 16 11/20/24 17:42 Blood Pressure 117/79 11/20/24 17:42 Pulse Oximetry 97 11/20/24 17:42 Oxygen Delivery Method Room Air 11/20/24 17:42 General: in no acute distress. Able to give a complete and coherent history. HEENT: Moist mucous membranes, normal sclera with reactive pupils, Neck: No JVD, supple Respiratory: Lungs with minor bibasilar rales Cardiac: Slightly tachycardic but otherwise Regular rate and rhythm no murmurs Abdomen: Soft, nontender, no rebound or guarding, no flank pain Skin: Warm and dry, no rashes, well perfused Neurologic: Grossly neurologically intact with no obvious asymmetries or abnormalities Extremities: No trauma, no lower extremity edema Psych: Cooperative, poor overall insight into risks and personal medical diagnoses <Willard Allred DO - Last Filed: 11/21/24 03:47> Initial Vital Signs Initial Vital Signs: Vital Signs Temperature 97.8 F 11/20/24 17:42 Pulse Rate 103 H 11/20/24 17:42 Respiratory Rate 16 11/20/24 17:42 Blood Pressure 117/79 11/20/24 17:42 Pulse Oximetry 97 11/20/24 17:42 Oxygen Delivery Method Room Air 11/20/24 17:42 Course <Mary Ramsey MD - Last Filed: 11/21/24 16:12> Orders Ordered: Discontinued Medications Aspirin (Aspirin 81 Mg Chew Tab) 324 mg PO NOW ONE Stop: 11/20/24 19:54 Last Admin: 11/20/24 20:01 Dose: 324 mg Documented By: JOSE Heparin Sodium (Porcine) (Heparin 5,000 Unit/Ml Vial) 5,500 unit 60 unit/kg (5500 unit) IV NOW ONE Stop: 11/20/24 19:51 Last Admin: 11/20/24 20:02 Dose: 5,500 unit Documented By: JOSE Heparin Sodium/Dextrose (Heparin Drip) 25,000 unit in 500 mls @ 22.97 mls/hr IV CONT APURVA; Protocol Last Titration: 11/21/24 03:12 Dose: 0 units/kg/hr, 0 mls/hr Documented By: VIKTOR Co-signed By: CECILIO Admin: 11/20/24 20:05 Dose: 12 units/kg/hr, 22.97 mls/hr Documented By: JOSE Co-signed By: KAREN Vital Signs Vital signs: Vital Signs - 8 hr 11/20/24 20:00 11/20/24 20:00 11/20/24 20:30 Pulse Rate 100 H 93 H Respiratory Rate 32 H 27 H Blood Pressure 150/96 H Pulse Oximetry 95 99 Oxygen Delivery Method 11/20/24 20:31 11/20/24 20:31 11/20/24 21:00 Pulse Rate 95 H 98 H Respiratory Rate 28 H 32 H Blood Pressure 145/80 H Pulse Oximetry 98 96 Oxygen Delivery Method 11/20/24 21:30 11/20/24 22:00 11/20/24 22:30 Pulse Rate 100 H 96 H 93 H Respiratory Rate 38 H 21 24 Blood Pressure Pulse Oximetry 96 95 97 Oxygen Delivery Method 11/20/24 23:00 11/20/24 23:30 11/20/24 23:36 Pulse Rate 93 H 91 H Respiratory Rate 25 H 26 H Blood Pressure 137/88 Pulse Oximetry 95 95 Oxygen Delivery Method 11/20/24 23:36 11/21/24 00:00 11/21/24 00:06 Pulse Rate 95 H 93 H 95 H Respiratory Rate 24 25 H 31 H Blood Pressure Pulse Oximetry 95 95 95 Oxygen Delivery Method 11/21/24 00:06 11/21/24 00:30 11/21/24 00:30 Pulse Rate 93 H Respiratory Rate 28 H Blood Pressure 129/81 129/94 H Pulse Oximetry 97 Oxygen Delivery Method 11/21/24 01:00 11/21/24 01:00 11/21/24 01:30 Pulse Rate 93 H 93 H Respiratory Rate 32 H 29 H Blood Pressure 132/94 H Pulse Oximetry 95 93 Oxygen Delivery Method 11/21/24 01:30 11/21/24 02:00 11/21/24 02:00 Pulse Rate 89 Respiratory Rate 26 H Blood Pressure 136/93 H 139/93 H Pulse Oximetry 91 Oxygen Delivery Method 11/21/24 02:30 Pulse Rate 91 H Respiratory Rate 31 H Blood Pressure Pulse Oximetry 97 Oxygen Delivery Method Room Air <Willard Allred DO - Last Filed: 11/21/24 03:47> Orders Ordered: Discontinued Medications Aspirin (Aspirin 81 Mg Chew Tab) 324 mg PO NOW ONE Stop: 11/20/24 19:54 Last Admin: 11/20/24 20:01 Dose: 324 mg Documented By: JOSE Heparin Sodium (Porcine) (Heparin 5,000 Unit/Ml Vial) 5,500 unit 60 unit/kg (5500 unit) IV NOW ONE Stop: 11/20/24 19:51 Last Admin: 11/20/24 20:02 Dose: 5,500 unit Documented By: JOSE Heparin Sodium/Dextrose (Heparin Drip) 25,000 unit in 500 mls @ 22.97 mls/hr IV CONT APURVA; Protocol Last Titration: 11/21/24 03:12 Dose: 0 units/kg/hr, 0 mls/hr Documented By: VIKTOR Co-signed By: RLC Admin: 11/20/24 20:05 Dose: 12 units/kg/hr, 22.97 mls/hr Documented By: JOSE Co-signed By: KAREN Vital Signs Vital signs: Vital Signs - 8 hr 11/20/24 20:00 11/20/24 20:00 11/20/24 20:30 Pulse Rate 100 H 93 H Respiratory Rate 32 H 27 H Blood Pressure 150/96 H Pulse Oximetry 95 99 Oxygen Delivery Method 11/20/24 20:31 11/20/24 20:31 11/20/24 21:00 Pulse Rate 95 H 98 H Respiratory Rate 28 H 32 H Blood Pressure 145/80 H Pulse Oximetry 98 96 Oxygen Delivery Method 11/20/24 21:30 11/20/24 22:00 11/20/24 22:30 Pulse Rate 100 H 96 H 93 H Respiratory Rate 38 H 21 24 Blood Pressure Pulse Oximetry 96 95 97 Oxygen Delivery Method 11/20/24 23:00 11/20/24 23:30 11/20/24 23:36 Pulse Rate 93 H 91 H Respiratory Rate 25 H 26 H Blood Pressure 137/88 Pulse Oximetry 95 95 Oxygen Delivery Method 11/20/24 23:36 11/21/24 00:00 11/21/24 00:06 Pulse Rate 95 H 93 H 95 H Respiratory Rate 24 25 H 31 H Blood Pressure Pulse Oximetry 95 95 95 Oxygen Delivery Method 11/21/24 00:06 11/21/24 00:30 11/21/24 00:30 Pulse Rate 93 H Respiratory Rate 28 H Blood Pressure 129/81 129/94 H Pulse Oximetry 97 Oxygen Delivery Method 11/21/24 01:00 11/21/24 01:00 11/21/24 01:30 Pulse Rate 93 H 93 H Respiratory Rate 32 H 29 H Blood Pressure 132/94 H Pulse Oximetry 95 93 Oxygen Delivery Method 11/21/24 01:30 11/21/24 02:00 11/21/24 02:00 Pulse Rate 89 Respiratory Rate 26 H Blood Pressure 136/93 H 139/93 H Pulse Oximetry 91 Oxygen Delivery Method 11/21/24 02:30 Pulse Rate 91 H Respiratory Rate 31 H Blood Pressure Pulse Oximetry 97 Oxygen Delivery Method Room Air Medical Decision Making <Mary Ramsey MD - Last Filed: 11/21/24 16:12> Lab Data 11/20/24 18:50 11/20/24 18:30 Labs: Lab Results 11/20/24 11/20/24 11/20/24 Range/Units 18:30 18:50 19:43 WBC 8.4 (4.5-11.0) X10^3/uL RBC 4.94 (4.5-5.9) X10^6/uL Hgb 13.6 (13.5-17.5) g/dL Hct 41.3 (41-53) % MCV 83.7 (80-100) fL MCH 27.6 (26-34) PG MCHC 33.0 (30-36) % RDW 13.7 (11.6-14.8) % Plt Count 336 (150-400) X10^3/uL Neut % (Auto) 75.2 H (50-75) % Lymph % (Auto) 15.5 L (25-40) % [facility] % (Auto) 6.3 (3-14) % Eos % (Auto) 2.0 (2-4) % Baso % (Auto) 1.0 (0-2) % Neut # (Auto) 6300 (7848-3275) /uL Lymph # (Auto) 1300 (6753-8916) /uL [facility] # (Auto) 500 (0-900) /uL Eos # (Auto) 200 (0-450) /uL Baso # (Auto) 100 (0-100) /uL PT (9.4-12.5) SECONDS INR (0.9-1.3) APTT (25.1-36.5) SECONDS Sodium 140 (137-145) mmol/L Potassium 3.9 (3.4-5.1) mmol/L Chloride 102 (98-107) mmol/L Carbon Dioxide 29 (22-32) mmol/L BUN 22 H (9-20) mg/dL Creatinine 0.89 (0.66-1.25) mg/dL Estimated GFR > 60 (>60) mL/min BUN/Creatinine Ratio 24.7 H (6-22) Glucose 312 H (70-99) mg/dL POC Whole Bld Glucose 300 H (70-99) mg/dL Calcium 8.9 (8.4-10.2) mg/dL Total Bilirubin 0.5 (0.2-1.3) mg/dL AST 40 (17-59) IU/L ALT 27 (<50) IU/L Alkaline Phosphatase 117 (38-126) U/L Troponin I 1.980 H* (0.01-0.034) ng/mL Total Protein 7.3 (6.3-8.2) g/dL Albumin 4.0 (3.5-5.0) g/dL Globulin 3.3 (1.7-4.1) g/dL Albumin/Globulin Ratio 1.2 (1.0-2.8) 11/20/24 11/21/24 Range/Units 20:37 02:40 WBC (4.5-11.0) X10^3/uL RBC (4.5-5.9) X10^6/uL Hgb (13.5-17.5) g/dL Hct (41-53) % MCV (80-100) fL MCH (26-34) PG MCHC (30-36) % RDW (11.6-14.8) % Plt Count (150-400) X10^3/uL Neut % (Auto) (50-75) % Lymph % (Auto) (25-40) % [facility] % (Auto) (3-14) % Eos % (Auto) (2-4) % Baso % (Auto) (0-2) % Neut # (Auto) (4560-6318) /uL Lymph # (Auto) (9403-6625) /uL [facility] # (Auto) (0-900) /uL Eos # (Auto) (0-450) /uL Baso # (Auto) (0-100) /uL PT 14.1 H (9.4-12.5) SECONDS INR 1.2 (0.9-1.3) APTT 135 H* 101 H* D (25.1-36.5) SECONDS Sodium (137-145) mmol/L Potassium (3.4-5.1) mmol/L Chloride (98-107) mmol/L Carbon Dioxide (22-32) mmol/L BUN (9-20) mg/dL Creatinine (0.66-1.25) mg/dL Estimated GFR (>60) mL/min BUN/Creatinine Ratio (6-22) Glucose (70-99) mg/dL POC Whole Bld Glucose (70-99) mg/dL Calcium (8.4-10.2) mg/dL Total Bilirubin (0.2-1.3) mg/dL AST (17-59) IU/L ALT (<50) IU/L Alkaline Phosphatase (38-126) U/L Troponin I (0.01-0.034) ng/mL Total Protein (6.3-8.2) g/dL Albumin (3.5-5.0) g/dL Globulin (1.7-4.1) g/dL Albumin/Globulin Ratio (1.0-2.8) MDM Narrative Medical decision making narrative: 64-year-old gentleman with diabetes, hypertension, hyperlipidemia presented earlier today with 3 days of orthopnea found to have STEMI with Q-waves and elevated troponin, hospitalization and transfer to higher level of care was recommended and he chose to leave against medical advice He returns later in the day similar complaints, no change to troponin seems to have peaked at 1.9. EKG continues to show ST-elevation anteriorly with Q-waves He remains orthopneic but is not complaining of significant dyspnea on exertion, chest pain, palpitations Heparin has been started. His initial complaint on arrival is that we did not allow him to eat and angry that I mentioned this could be related to his diabetes. Apparently ?the doctors always say it is my diabetes and I know it is not?. Patient is currently stable, needs transfer to facility with inpatient cardiology for heart catheterization, presumed echocardiogram and maximized medical treatment <Willard Allred, - Last Filed: 11/21/24 03:47> Lab Data Labs: Lab Results 11/20/24 11/20/24 11/20/24 Range/Units 18:30 18:50 19:43 WBC 8.4 (4.5-11.0) X10^3/uL RBC 4.94 (4.5-5.9) X10^6/uL Hgb 13.6 (13.5-17.5) g/dL Hct 41.3 (41-53) % MCV 83.7 (80-100) fL MCH 27.6 (26-34) PG MCHC 33.0 (30-36) % RDW 13.7 (11.6-14.8) % Plt Count 336 (150-400) X10^3/uL Neut % (Auto) 75.2 H (50-75) % Lymph % (Auto) 15.5 L (25-40) % [facility] % (Auto) 6.3 (3-14) % Eos % (Auto) 2.0 (2-4) % Baso % (Auto) 1.0 (0-2) % Neut # (Auto) 6300 (2708-1869) /uL Lymph # (Auto) 1300 (0212-6524) /uL [facility] # (Auto) 500 (0-900) /uL Eos # (Auto) 200 (0-450) /uL Baso # (Auto) 100 (0-100) /uL PT (9.4-12.5) SECONDS INR (0.9-1.3) APTT (25.1-36.5) SECONDS Sodium 140 (137-145) mmol/L Potassium 3.9 (3.4-5.1) mmol/L Chloride 102 (98-107) mmol/L Carbon Dioxide 29 (22-32) mmol/L BUN 22 H (9-20) mg/dL Creatinine 0.89 (0.66-1.25) mg/dL Estimated GFR > 60 (>60) mL/min BUN/Creatinine Ratio 24.7 H (6-22) Glucose 312 H (70-99) mg/dL POC Whole Bld Glucose 300 H (70-99) mg/dL Calcium 8.9 (8.4-10.2) mg/dL Total Bilirubin 0.5 (0.2-1.3) mg/dL AST 40 (17-59) IU/L ALT 27 (<50) IU/L Alkaline Phosphatase 117 (38-126) U/L Troponin I 1.980 H* (0.01-0.034) ng/mL Total Protein 7.3 (6.3-8.2) g/dL Albumin 4.0 (3.5-5.0) g/dL Globulin 3.3 (1.7-4.1) g/dL Albumin/Globulin Ratio 1.2 (1.0-2.8) 11/20/24 11/21/24 Range/Units 20:37 02:40 WBC (4.5-11.0) X10^3/uL RBC (4.5-5.9) X10^6/uL Hgb (13.5-17.5) g/dL Hct (41-53) % MCV (80-100) fL MCH (26-34) PG MCHC (30-36) % RDW (11.6-14.8) % Plt Count (150-400) X10^3/uL Neut % (Auto) (50-75) % Lymph % (Auto) (25-40) % [facility] % (Auto) (3-14) % Eos % (Auto) (2-4) % Baso % (Auto) (0-2) % Neut # (Auto) (3771-4124) /uL Lymph # (Auto) (6078-9067) /uL [facility] # (Auto) (0-900) /uL Eos # (Auto) (0-450) /uL Baso # (Auto) (0-100) /uL PT 14.1 H (9.4-12.5) SECONDS INR 1.2 (0.9-1.3) APTT 135 H* 101 H* D (25.1-36.5) SECONDS Sodium (137-145) mmol/L Potassium (3.4-5.1) mmol/L Chloride (98-107) mmol/L Carbon Dioxide (22-32) mmol/L BUN (9-20) mg/dL Creatinine (0.66-1.25) mg/dL Estimated GFR (>60) mL/min BUN/Creatinine Ratio (6-22) Glucose (70-99) mg/dL POC Whole Bld Glucose (70-99) mg/dL Calcium (8.4-10.2) mg/dL Total Bilirubin (0.2-1.3) mg/dL AST (17-59) IU/L ALT (<50) IU/L Alkaline Phosphatase (38-126) U/L Troponin I (0.01-0.034) ng/mL Total Protein (6.3-8.2) g/dL Albumin (3.5-5.0) g/dL Globulin (1.7-4.1) g/dL Albumin/Globulin Ratio (1.0-2.8) MDM Narrative Medical decision making narrative: 64-year-old gentleman with diabetes, hypertension, hyperlipidemia presented earlier today with 3 days of orthopnea found to have STEMI with Q-waves and elevated troponin, hospitalization and transfer to higher level of care was recommended and he chose to leave against medical advice He returns later in the day similar complaints, no change to troponin seems to have peaked at 1.9. EKG continues to show ST-elevation anteriorly with Q-waves He remains orthopneic but is not complaining of significant dyspnea on exertion, chest pain, palpitations Heparin has been started. His initial complaint on arrival is that we did not allow him to eat and angry that I mentioned this could be related to his diabetes. Apparently ?the doctors always say it is my diabetes and I know it is not?. Patient is currently stable, needs transfer to facility with inpatient cardiology for heart catheterization, presumed echocardiogram and maximized medical treatment 2300: Received sign-out by Dr. Ramsey, patient and STEMI awaiting transfer to higher level care with Cardiology 2320: Discussed case with Dr. Coronado of Cardiology at [facility], states that he agrees with transfer but is stating hospitalist to accept with consultation. Transfer center states will call back with accepting doctor in bed status 2333: Received call back from Dr. Noland, hospitalist at [facility], accepts transfer, he is requesting blood pressure be less than 140, we will apply nitro paste if this is still the case 0300: Patient was re-evaluated before transport to outside hospital, patient is stable safe for transfer out to outside hospital Discharge Plan Departure Patient Disposition: [facility] Clinical Impression: Diabetes, Hypertension ST elevation (STEMI) myocardial infarction Qualifiers: Involved coronary artery: unspecified coronary artery Qualified Code(s): I21.3 - ST elevation (STEMI) myocardial infarction of unspecified site Prescriptions: No Action glipizide 10 mg tablet 10 mg PO BID Qty: 180 3RF Rx Instructions: must take with meals Jardiance 10 mg tablet 10 mg PO DAILY Qty: 90 3RF pioglitazone [Actos] 30 mg tablet 30 mg PO DAILY Qty: 90 3RF Lantus Solostar U-100 Insulin 100 unit/mL (3 mL) insulin pen 50 unit SUBCUT BEDTIME Qty: 15 11RF atorvastatin [Lipitor] 80 mg tablet 80 mg PO BEDTIME Qty: 100 3RF Ozempic 0.25 mg or 0.5 mg (2 mg/3 mL) pen injector 0.25 mg SUBCUT QWEEK Qty: 3 11RF Rx Instructions: for 4 weeks, then 0.5 mg weekly. Referrals: Shaun Long DO [Primary Care Provider, Family Practice]
--- NOTE | 2024-11-20 18:48 | EKG_ITS ---
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
[2024-11-20] MEDS: ASPIRIN 81 MG CHEW TAB 324 MG PO (20:01)
[2024-11-20] MEDS: HEPARIN 5,000 UNIT/ML VIAL 5500 UNIT IV (20:02)
[2024-11-20] MEDS: HEPARIN DRIP 25,000 UNIT/500 ML IV.SOLN 22.97 UNIT IV (20:05)
[2024-11-20 20:10] LABS: Add Manual Diff / Slide Review NO; Hematocrit 41.3 % (41-53); Hemoglobin 13.6 g/dL (13.5-17.5); Lymphocytes Absolute Auto 1300 /uL (1100-4500); Mean Corpuscular HGB Conc 33.0 % (30-36); Mean Corpuscular Hemoglobin 27.6 PG (26-34); Mean Corpuscular Volume 83.7 fL (80-100); Platelet Count 336 X10^3/uL (150-400)
[2024-11-20 20:13] LABS: Alanine Aminotransferase 27 IU/L (<50); Albumin 4.0 g/dL (3.5-5.0); Albumin Globulin Ratio 1.2 (1.0-2.8); Alkaline Phosphatase 117 U/L (38-126); Blood Urea Nitrogen 22 mg/dL (9-20); Calcium 8.9 mg/dL (8.4-10.2); Carbon Dioxide 29 mmol/L (22-32); Chloride 102 mmol/L (98-107); Estimated Glomerular Filt Rate > 60 mL/min (>60); Globulin 3.3 g/dL (1.7-4.1); Glucose 312 mg/dL (70-99); HEMOLYSIS < 15 (0-50); Potassium 3.9 mmol/L (3.4-5.1); Sodium 140 mmol/L (137-145); Total Protein 7.3 g/dL (6.3-8.2)
[2024-11-20 20:32] LABS: Troponin I 1.980 ng/mL (0.01-0.034)
[2024-11-20 21:06] LABS: PTT Partial Thromboplastin Tim 135 SECONDS (25.1-36.5)
[2024-11-20 21:10] LABS: INR 1.2 (0.9-1.3); Prothrombin Time 14.1 SECONDS (9.4-12.5)
[2024-11-21] VITALS (7 sets, daily range): BP systolic 129–139; BP diastolic 81–94; PULSE 89–95; RESP 25–32; O2SAT 91–97
[2024-11-21 03:01] LABS: PTT Partial Thromboplastin Tim 101 SECONDS (25.1-36.5)
== END 2024-11-21 03:00 | disposition short-term general hospital (02) ==
PROVIDERS: Emergency Medicine; Emergency Provider Student in an Organized Health Care Education/Training Program; PCP Family Medicine
DX: I21.3 ST elevation (STEMI) myocardial infarction of unspecified site (principal); E11.9 Type 2 diabetes mellitus without complications; Z79.4 Long term (current) use of insulin; I21.4 Non-ST elevation (NSTEMI) myocardial infarction; I50.9 Heart failure, unspecified; R79.89 Other specified abnormal findings of blood chemistry; I11.0 Hypertensive heart disease with heart failure
CPT/HCPCS: 36415; 71045; 80053; 82962; 83605; 83880; 84484; 85025; 85610; 85730; 93005; 93010; 96365; 96366; 96375; 99283; 99284; 99285; J1644

== ENCOUNTER → 2024-12-01 08:37 | Outpatient (CLI) | payer OTHER, SELFPAY ==
[2020-10-28 11:39] VITALS: BMI 29.9
[2024-12-01 09:07] LABS: Hemoglobin A1C% w Est Avg Glu 10.3 % (4.0-6.0)
[2024-12-01 09:19] LABS: Blood Urea Nitrogen 35 mg/dL (9-20); Calcium 9.6 mg/dL (8.4-10.2); Carbon Dioxide 29 mmol/L (22-32); Chloride 104 mmol/L (98-107); Cholesterol 203 mg/dL (140-199); Estimated Glomerular Filt Rate > 60 mL/min (>60); Glucose 110 mg/dL (70-99); HDL Cholesterol 37 mg/dL (40-60); HEMOLYSIS < 15 (0-50); Potassium 4.6 mmol/L (3.4-5.1); Sodium 142 mmol/L (137-145); Triglycerides 154 mg/dL (35-150)
== END ==
PROVIDERS: PCP Family Medicine; Referring Provider Family Medicine; Visit Provider Family Medicine
DX: E11.65 Type 2 diabetes mellitus with hyperglycemia (principal); Z79.4 Long term (current) use of insulin; E78.5 Hyperlipidemia, unspecified
CPT/HCPCS: 36415; 80048; 80061; 83036

== ENCOUNTER → 2025-02-15 11:27 | Outpatient (CLI) | payer OTHER, SELFPAY ==
[2020-10-28 11:39] VITALS: BMI 29.9
[2025-02-15 12:31] LABS: Hemoglobin A1C% w Est Avg Glu 7.0 % (4.0-6.0)
[2025-02-15 12:46] LABS: Blood Urea Nitrogen 38 mg/dL (9-20); Calcium 9.4 mg/dL (8.4-10.2); Carbon Dioxide 33 mmol/L (22-32); Chloride 105 mmol/L (98-107); Cholesterol 175 mg/dL (140-199); Estimated Glomerular Filt Rate > 60 mL/min (>60); Glucose 94 mg/dL (70-99); HDL Cholesterol 46 mg/dL (40-60); HEMOLYSIS < 15 (0-50); Potassium 3.9 mmol/L (3.4-5.1); Sodium 147 mmol/L (137-145); Triglycerides 133 mg/dL (35-150)
== END ==
PROVIDERS: PCP Family Medicine; Referring Provider Family Medicine; Visit Provider Family Medicine
DX: E78.5 Hyperlipidemia, unspecified (principal); I11.0 Hypertensive heart disease with heart failure; I50.21 Acute systolic (congestive) heart failure; E11.69 Type 2 diabetes mellitus with other specified complication; E11.65 Type 2 diabetes mellitus with hyperglycemia; Z79.4 Long term (current) use of insulin
CPT/HCPCS: 36415; 80048; 80061; 83036